=== PATIENT | female | born 1970 | race Caucasian/White ===

== ENCOUNTER → 2016-06-19 | Outpatient (REF) | payer MEDICARE, MEDICAID ==
[~2016-06-19] MED LIST: ASPI1TAB PO; CALCTAB29 PO; CORE25TA PO; CYCL10TA PO; DEXI60CA PO; DRIS50002 PO; HUMI40KI SC; IBUP-1114 PO; LIPI80TA PO; METF500T PO; PREG50CA PO; PROZ20CA11 PO; SKEL-29 PO; ZETI10TA2 PO
[2016-06-19 13:27] LABS: ALBUMIN 3.6 GM/DL (3.2-5.2); ALKALINE PHOSPHATASE 160 U/L (45-117); ALT/SGPT 49 U/L (12-78); ANION GAP 8 MEQ/L (8-16); AST/SGOT 48 U/L (15-37); BILIRUBIN,TOTAL 0.3 MG/DL (0.2-1.0); BLOOD UREA NITROGEN 9 MG/DL (7-18); CARBON DIOXIDE LEVEL 30 MEQ/L (21-32); CHLORIDE LEVEL 102 MEQ/L (98-107); CHOLESTEROL LEVEL 131 MG/DL (<200); FREE T4 1.12 NG/DL (0.76-1.46); GLOMERULAR FILTRATION RATE > 60.0 (>58); GLUCOSE, FASTING 156 MG/DL (70-105); POTASSIUM SERUM 4.1 MEQ/L (3.5-5.1); SODIUM LEVEL 140 MEQ/L (136-145); TOTAL PROTEIN 7.6 GM/DL (6.4-8.2); TRIGLYCERIDES LEVEL 175 MG/DL (<150)
[2016-06-25 10:30] LABS: BENZODIAZEPINES, URINE SCREEN Negative ng/mL (Cutoff=200); METHADONE, URINE SCREEN Negative ng/mL (Cutoff=300); pH, URINE 5.5 (4.5-8.9)
== END ==
LOC: M SFHCPLAZ 10:04
PROVIDERS: ATTEND Family Medicine
DX: K76.0 Fatty (change of) liver, not elsewhere classified (principal); M47.816 Spondylosis without myelopathy or radiculopathy, lumbar region; E11.9 Type 2 diabetes mellitus without complications
CPT/HCPCS: 80053; 80061; 80307; 81001; 82043; 83036; 84439; 84443; 85652; 86140; G0463

== ENCOUNTER → 2016-06-23 | Outpatient (CLI) | payer MEDICARE, MEDICAID ==
--- NOTE | 2016-06-23 10:53 | REP ---
Standing AP view of both knees. History: Primary osteoarthritis. Comparison right knee radiographs are from this date. Findings: Standing AP view of both knees show preserved joint spaces bilaterally. No bony destructive lesion or arthropathy seen. Impression: No evidence of arthropathy seen. Signed by Shravan Simpson MD 06/23/2016 02:32 P
--- NOTE | 2016-06-23 10:54 | REP ---
Right knee series: AP and lateral views. History: Superficial thrombophlebitis. Findings: AP and lateral views of the right knee show preserved joint spaces and normal alignment. No erosive change is seen. No evidence of joint effusion. No soft tissue abnormality. Impression: Negative views right knee. Signed by Shravan Simpson MD 06/23/2016 02:32 P
--- NOTE | 2016-06-23 10:54 | REP ---
RIGHT LOWER EXTREMITY DOPPLER VENOUS ULTRASOUND: 06/23/2016. Clinical history: Right lower extremity pain. Evaluate for DVT. Comparison: None Technique: The deep venous system of the right lower extremity is evaluated with carbone scale imaging, compression ultrasound, color imaging and duplex Doppler interrogation. Examination from the groin through the popliteal fossa into the proximal calf. Findings: There is full compressibility from the common femoral vein in the inguinal region through the popliteal vein. Color imaging confirms patency throughout the course of the deep venous system. There is respiratory variation and augmented flow at all levels. Impression: 1. No Doppler venous ultrasound evidence of DVT in the right lower extremity. Signed by Gildardo Oropeza MD 06/23/2016 10:45 A
== END ==
LOC: M RAD 09:20
PROVIDERS: ATTEND Family Medicine
DX: M17.0 Bilateral primary osteoarthritis of knee (principal); I80.01 Phlebitis and thrombophlebitis of superficial vessels of right lower extremity

== ENCOUNTER → 2016-10-24 | Outpatient (REF) | payer MEDICARE, MEDICAID ==
[~2016-10-24] MED LIST changes: -DEXI60CA PO; +DEXI60CA2 PO; -METF500T PO; +METF500T13 PO; -SKEL-29 PO; +SKEL800T97 PO; -ZETI10TA2 PO; +ZETI10TA30 PO
[2016-10-24 13:02] LABS: BASO # 0.1 K/mm3 (0.0-0.2); BASO % 0.7 % (0.0-1.0); EOS # 0.3 K/mm3 (0.0-0.50); EOS % 4.1 % (0.0-3.0); LARGE UNSTAINED CELL # 0.2 K/mm3 (0.0-0.4); LARGE UNSTAINED CELL % 2.2 % (0.0-4.0); LYMPH # 2.6 K/mm3 (1.5-4.5); LYMPH % 31.8 % (24.0-44.0); MEAN CORPUSCULAR HEMOGLOBIN 29.2 pg (27.0-33.0); MONO # 0.4 K/mm3 (0.0-0.8); MONO % 4.7 % (0.0-5.0); NEUTROPHILS # 4.6 K/mm3 (1.8-7.7); NEUTROPHILS % 56.4 % (36.0-66.0); PLATELET COUNT, AUTOMATED 255 k/mm3 (150-450); RED CELL DISTRIBUTION WIDTH 13.7 % (11.5-14.5); WHITE BLOOD COUNT 8.1 K/mm3 (4.0-10.0)
[2016-10-24 13:34] LABS: ALBUMIN 3.6 GM/DL (3.2-5.2); ALBUMIN/GLOBULIN RATIO 0.86 (1.00-1.93); ALKALINE PHOSPHATASE 164 U/L (45-117); ALT/SGPT 46 U/L (12-78); ANION GAP 7 MEQ/L (8-16); AST/SGOT 49 U/L (15-37); BILIRUBIN,TOTAL 0.5 MG/DL (0.2-1.0); BLOOD UREA NITROGEN 9 MG/DL (7-18); CARBON DIOXIDE LEVEL 29 MEQ/L (21-32); CHLORIDE LEVEL 101 MEQ/L (98-107); FERRITIN 109 NG/ML (8-252); GLOMERULAR FILTRATION RATE > 60.0 (>58); GLUCOSE, FASTING 119 MG/DL (70-105); PERCENT SATURATION 23.1 % (13.2-37.4); POTASSIUM SERUM 4.3 MEQ/L (3.5-5.1); SODIUM LEVEL 137 MEQ/L (136-145); TOTAL IRON BINDING CAPACITY 320 UG/DL (250-450); TOTAL PROTEIN 7.8 GM/DL (6.4-8.2)
[2016-10-24 14:44] LABS: ERYTHROCYTE SEDIMENTATION RATE 39 mm/hr (0-20)
== END ==
LOC: M SFHCPLAZ 11:43
PROVIDERS: ATTEND Family Medicine
DX: K76.0 Fatty (change of) liver, not elsewhere classified (principal); L40.50 Arthropathic psoriasis, unspecified; D50.9 Iron deficiency anemia, unspecified; E55.9 Vitamin D deficiency, unspecified
CPT/HCPCS: 80053; 82306; 82728; 83550; 83970; 85025; 85652; 86140; G0463

== ENCOUNTER → 2016-10-27 | Outpatient (CLI) | payer MEDICARE, MEDICAID ==
[~2016-10-27] MED LIST changes: +DEXI60CA PO; -DEXI60CA2 PO; +METF500T PO; -METF500T13 PO; +SKEL-29 PO; -SKEL800T97 PO; +ZETI10TA2 PO; -ZETI10TA30 PO
--- NOTE | 2016-10-27 15:17 | REPMRS ---
Patient History The patient states she has not had a clinical breast exam in over a year. Family history of colorectal cancer in father, endometrial cancer in sister, and ovarian cancer in mother. Digital Woman Screen Mammo: October 27, 2016 - Exam #: [id number] Bilateral CC and MLO view(s) were taken. Technologist: Katelyn Weber Technologist Prior study comparison: October 19, 2015, bilateral digital mammo diagnostic unilateral, performed at [facility]. October 02, 2015, digital woman screen mammo performed at [facility]. FINDINGS: There are scattered fibroglandular densities. There has been no change in the appearance of the mammogram from the prior studies. There is a mild amount of residual fibroglandular tissue which is fairly symmetric. There is no interval development of dominant mass, architectural distortion, or clustered microcalcification suggestive of malignancy. ASSESSMENT: BI-RADS/ACR category 1 mammogram. Negative. Recommendation Routine screening mammogram in 1 year (for women over age 40). This mammogram was interpreted with the aid of an FDA-approved computer-aided dectection system. Electronically Signed By: Gopi Reed MD 10/27/16 [id number]
--- NOTE | 2016-10-30 09:29 | DEXA ---
AP SPINE L1 - L4 1.315 1.0 1.2 LT FEMUR TOTAL 1.206 1.6 2.0 RT FEMUR TOTAL 1.203 1.5 1.9 TOTAL BODY TOTAL OTHER DUAL FEMUR FRAX* ASSESSMENT Risk factors: Current smoker, rheumatoid arthritis. 10 year probability of fracture Major osteoporotic fracture 3.0 % Hip fracture 0.1 % COMMENTS: Normal bone densitometry of the spine and hips. The decreased density of the spine does represent a significant change. The decreased density of the left hip does represent a significant change. The decreased density of the right hip does represent a significant change. The density of the spine has decreased 3.9% since the initial exam on 2005. The spine density has decreased 5.5% since the most recent exam on 02/27/2011. The density of the left hip has decreased 4.4% since the initial exam on 2005. The density of the left hip has decreased 3.4% since the most recent exam on . The density of the right hip has decreased 5.8% since the initial exam on 2005. The density of the right hip has decreased 7.7% since the most recent exam on . FOLLOW-UP: Recommendation for the next bone density exam: 5 years. VALERIA
== END ==
LOC: M WHC 14:00
PROVIDERS: ATTEND Family Medicine
DX: Z12.31 Encounter for screening mammogram for malignant neoplasm of breast (principal); E55.9 Vitamin D deficiency, unspecified; L40.50 Arthropathic psoriasis, unspecified; M85.9 Disorder of bone density and structure, unspecified
CPT/HCPCS: 77080; G0202

== ENCOUNTER → 2016-10-30 | Outpatient (CLI) | payer MEDICARE, MEDICAID ==
--- NOTE | 2016-10-30 08:54 | REP ---
RIGHT UPPER QUADRANT ULTRASOUND: Real-time sonographic evaluation of the right upper quadrant performed. The patient has had a prior cholecystectomy. The common bile duct is prominent in size at 11 mm. The liver demonstrates diffuse heterogeneous increased echotexture compatible with diffuse fibrofatty infiltration. No gross mass is seen. The pancreas cannot be seen due to overlying bowel gas. The right kidney demonstrates no hydronephrosis or nephrolithiasis with normal size of 12.5 cm in length. There is no ascites. IMPRESSION: Status post cholecystectomy. Prominent common bile duct as expected at 11 mm in diameter. Diffuse fibrofatty infiltration of the liver. Signed by Gopi Reed MD 10/30/2016 10:00 A
== END ==
LOC: M RAD 07:52
PROVIDERS: ATTEND Family Medicine
DX: K76.0 Fatty (change of) liver, not elsewhere classified (principal)

== ENCOUNTER → 2017-03-05 | Outpatient (REF) | payer MEDICARE, MEDICAID ==
[~2017-03-05] MED LIST changes: -DEXI60CA PO; +DEXI60CA2 PO; -METF500T PO; +METF500T13 PO; -SKEL-29 PO; +SKEL800T97 PO; -ZETI10TA2 PO; +ZETI10TA30 PO
[2017-03-05 16:30] LABS: BASO % 0.5 % (0.0-1.0); EOS # 0.3 10^3/uL (0.0-0.50); EOS % 3.9 % (0.0-3.0); IMMATURE GRANULOCYTE % 0.7 % (0-0); LYMPH # 3.1 10^3/uL (1.5-4.5); LYMPH % 36.5 % (24.0-44.0); MEAN CORPUSCULAR HEMOGLOBIN 28.7 pg (27.0-33.0); MEAN CORPUSCULAR VOLUME 86.9 fl (80.0-96.0); MONO # 0.3 10^3/uL (0.0-0.8); MONO % 3.2 % (0.0-5.0); NEUTROPHILS # 4.6 10^3/uL (1.8-7.7); NEUTROPHILS % 55.2 % (36.0-66.0); PLATELET COUNT, AUTOMATED 232 10^3/uL (150-450); RED CELL DISTRIBUTION WIDTH 13.4 % (11.5-14.5); WHITE BLOOD COUNT 8.4 10^3/uL (4.0-10.0)
[2017-03-05 16:38] LABS: PLT CLUMPS? POS FLAG; POS COUNT POS FLAG
[2017-03-05 17:58] LABS: ALBUMIN 3.8 GM/DL (3.2-5.2); ALBUMIN/GLOBULIN RATIO 0.81 (1.00-1.93); ALKALINE PHOSPHATASE 180 U/L (45-117); ALT/SGPT 67 U/L (12-78); ANION GAP 9 MEQ/L (8-16); AST/SGOT 67 U/L (15-37); BILIRUBIN,TOTAL 0.4 MG/DL (0.2-1.0); BLOOD UREA NITROGEN 6 MG/DL (7-18); CALCIUM LEVEL 9.6 MG/DL (8.5-10.1); CARBON DIOXIDE LEVEL 28 MEQ/L (21-32); CHLORIDE LEVEL 100 MEQ/L (98-107); CHOLESTEROL LEVEL 258 MG/DL (<200); CREATININE FOR GFR 0.89 MG/DL (0.55-1.02); GLOMERULAR FILTRATION RATE > 60.0 (>58); GLUCOSE, FASTING 90 MG/DL (70-105); POTASSIUM SERUM 4.2 MEQ/L (3.5-5.1); SODIUM LEVEL 137 MEQ/L (136-145); TOTAL PROTEIN 8.5 GM/DL (6.4-8.2); TRIGLYCERIDES LEVEL 309 MG/DL (<150)
[2017-03-16 14:14] LABS: BENZODIAZEPINES, URINE SCREEN Negative ng/mL (Cutoff=200); METHADONE, URINE SCREEN Negative ng/mL (Cutoff=300); pH, URINE 5.9 (4.5-8.9)
== END ==
LOC: M SFHCPLAZ 12:26
PROVIDERS: ATTEND Family Medicine
DX: E11.9 Type 2 diabetes mellitus without complications (principal); K76.0 Fatty (change of) liver, not elsewhere classified; D50.9 Iron deficiency anemia, unspecified; E78.5 Hyperlipidemia, unspecified; Z79.4 Long term (current) use of insulin; Z79.899 Other long term (current) drug therapy

== ENCOUNTER 2017-05-05 12:09 | Outpatient (RCR) | payer OTHER, MEDICAID, MEDICARE | END 2017-05-17 | LOC: M PT 12:09 | DX: Z51.89 Encounter for other specified aftercare (principal); M47.816 Spondylosis without myelopathy or radiculopathy, lumbar region | CPT/HCPCS: 97162 ==

== ENCOUNTER → 2017-06-01 | Outpatient (REF) | payer MEDICARE, MEDICAID ==
[2017-06-01 15:45] LABS: BASO % 0.3 % (0.0-1.0); EOS # 0.2 10^3/uL (0.0-0.50); EOS % 2.7 % (0.0-3.0); HEMATOCRIT 37.8 % (36.0-47.0); HEMOGLOBIN 12.4 g/dl (12.0-16.0); IMMATURE GRANULOCYTE % 0.6 % (0-0); LYMPH # 1.6 10^3/uL (1.5-4.5); LYMPH % 23.6 % (24.0-44.0); MEAN CORPUSCULAR HEMOGLOBIN 27.9 pg (27.0-33.0); MEAN CORPUSCULAR HGB CONC 32.8 g/dl (32.0-36.5); MEAN CORPUSCULAR VOLUME 84.9 fl (80.0-96.0); MONO # 0.2 10^3/uL (0.0-0.8); MONO % 3.4 % (0.0-5.0); NEUTROPHILS # 4.7 10^3/uL (1.8-7.7); NEUTROPHILS % 69.4 % (36.0-66.0); PLATELET COUNT, AUTOMATED 229 10^3/uL (150-450); RED BLOOD COUNT 4.45 10^6/uL (4.00-5.40); RED CELL DISTRIBUTION WIDTH 13.3 % (11.5-14.5); WHITE BLOOD COUNT 6.8 10^3/uL (4.0-10.0)
[2017-06-01 16:04] LABS: ERYTHROCYTE SEDIMENTATION RATE 69 mm/hr (0-20)
[2017-06-01 16:15] LABS: ALBUMIN 3.2 GM/DL (3.2-5.2); ALBUMIN/GLOBULIN RATIO 0.76 (1.00-1.93); ALKALINE PHOSPHATASE 164 U/L (45-117); ALT/SGPT 33 U/L (12-78); ANION GAP 5 MEQ/L (8-16); AST/SGOT 34 U/L (7-37); BILIRUBIN,TOTAL 0.3 MG/DL (0.2-1.0); BLOOD UREA NITROGEN 9 MG/DL (7-18); C REACTIVE PROTEIN QUANTITATIV 1.91 MG/DL (0.00-0.30); CALCIUM LEVEL 8.6 MG/DL (8.5-10.1); CARBON DIOXIDE LEVEL 31 MEQ/L (21-32); CHLORIDE LEVEL 100 MEQ/L (98-107); CREATININE FOR GFR 0.74 MG/DL (0.55-1.02); GLOMERULAR FILTRATION RATE > 60.0 (>58); GLUCOSE, FASTING 290 MG/DL (70-105); POTASSIUM SERUM 4.2 MEQ/L (3.5-5.1); SODIUM LEVEL 136 MEQ/L (136-145); TOTAL PROTEIN 7.4 GM/DL (6.4-8.2)
== END ==
LOC: M SFHCPLAZ 14:43
DX: L40.50 Arthropathic psoriasis, unspecified (principal)
CPT/HCPCS: 80053

== ENCOUNTER → 2017-07-03 | Outpatient (REF) | payer MEDICARE, MEDICAID | LOC: M LAB REF 17:15 | DX: J11.1 Influenza due to unidentified influenza virus with other respiratory manifestations (principal) | CPT/HCPCS: 87633 ==

== ENCOUNTER → 2017-09-04 | Outpatient (REF) | payer MEDICARE, MEDICAID ==
[2017-09-04 11:47] LABS: BASO % 0.6 % (0.0-1.0); EOS # 0.2 10^3/uL (0.0-0.50); EOS % 3.3 % (0.0-3.0); HEMATOCRIT 40.2 % (36.0-47.0); HEMOGLOBIN 13.1 g/dl (12.0-15.5); IMMATURE GRANULOCYTE % 0.2 % (0-3.0); LYMPH % 31.2 % (24.0-44.0); MEAN CORPUSCULAR HEMOGLOBIN 27.6 pg (27.0-33.0); MEAN CORPUSCULAR HGB CONC 32.6 g/dl (32.0-36.5); MEAN CORPUSCULAR VOLUME 84.8 fl (80.0-96.0); MONO # 0.3 10^3/uL (0.0-0.8); NEUTROPHILS # 3.8 10^3/uL (1.8-7.7); NEUTROPHILS % 60.7 % (36.0-66.0); PLATELET COUNT, AUTOMATED 215 10^3/uL (150-450); RED BLOOD COUNT 4.74 10^6/uL (4.00-5.40); RED CELL DISTRIBUTION WIDTH 13.4 % (11.5-14.5); WHITE BLOOD COUNT 6.3 10^3/uL (4.0-10.0)
[2017-09-04 12:06] LABS: ALBUMIN 3.4 GM/DL (3.2-5.2); ALBUMIN/GLOBULIN RATIO 0.77 (1.00-1.93); ALKALINE PHOSPHATASE 149 U/L (45-117); ALT/SGPT 35 U/L (12-78); ANION GAP 7 MEQ/L (8-16); AST/SGOT 37 U/L (7-37); BILIRUBIN,TOTAL 0.5 MG/DL (0.2-1.0); BLOOD UREA NITROGEN 9 MG/DL (7-18); CALCIUM LEVEL 8.9 MG/DL (8.5-10.1); CARBON DIOXIDE LEVEL 30 MEQ/L (21-32); CHLORIDE LEVEL 101 MEQ/L (98-107); CREATININE FOR GFR 0.85 MG/DL (0.55-1.30); GLOMERULAR FILTRATION RATE > 60.0 (>58); GLUCOSE, FASTING 161 MG/DL (70-100); POTASSIUM SERUM 4.5 MEQ/L (3.5-5.1); SODIUM LEVEL 138 MEQ/L (136-145); TOTAL PROTEIN 7.8 GM/DL (6.4-8.2)
== END ==
LOC: M SFHCPLAZ 09:56
DX: R10.12 Left upper quadrant pain (principal)
CPT/HCPCS: 80053

== ENCOUNTER → 2017-09-17 | Outpatient (CLI) | payer MEDICARE, MEDICAID ==
[~2017-09-17] MED LIST changes: -ASPI1TAB PO; -CALCTAB29 PO; -CORE25TA PO; -CYCL10TA PO; -DEXI60CA2 PO; -DRIS50002 PO; -HUMI40KI SC; -IBUP-1114 PO; +ISOVUE-370 76% 100ML VIAL (Q9967) As Ordered; -LIPI80TA PO; -METF500T13 PO; -PREG50CA PO; -PROZ20CA11 PO; -SKEL800T97 PO; -ZETI10TA30 PO
== END ==
LOC: M RAD 13:40
DX: K76.0 Fatty (change of) liver, not elsewhere classified (principal); R10.12 Left upper quadrant pain
CPT/HCPCS: Q9967

== ENCOUNTER 2017-10-07 12:06 | Day surgery (SDC) | payer MEDICARE, MEDICAID ==
[2017-10-07] MEDS: NS 1,000 ML IV (13:32)
[2017-10-07] MEDS ORDERED: PROPOFOL 200 MG/20 ML VIAL As Ordered (13:41)
[2017-10-07] MEDS ORDERED: LIDOCAINE 2% INJ 100 MG/5 ML SDV (FOR ANES.) As Ordered (13:46)
== END 2017-10-07 14:58 | disposition home or self-care (01) ==
LOC: M OPP 12:06
DX: K64.0 First degree hemorrhoids (principal); D12.6 Benign neoplasm of colon, unspecified; K57.30 Diverticulosis of large intestine without perforation or abscess without bleeding; Z80.0 Family history of malignant neoplasm of digestive organs; E11.9 Type 2 diabetes mellitus without complications; K21.9 Gastro-esophageal reflux disease without esophagitis; M19.90 Unspecified osteoarthritis, unspecified site; L40.9 Psoriasis, unspecified; M06.9 Rheumatoid arthritis, unspecified; F41.9 Anxiety disorder, unspecified; F32.9 Major depressive disorder, single episode, unspecified; F17.210 Nicotine dependence, cigarettes, uncomplicated; Z79.82 Long term (current) use of aspirin; Z79.84 Long term (current) use of oral hypoglycemic drugs; Z79.891 Long term (current) use of opiate analgesic; Z79.899 Other long term (current) drug therapy; Z88.8 Allergy status to other drugs, medicaments and biological substances; Z87.19 Personal history of other diseases of the digestive system; Z86.718 Personal history of other venous thrombosis and embolism; Z90.49 Acquired absence of other specified parts of digestive tract
CPT/HCPCS: 45385

== ENCOUNTER → 2017-12-07 | Outpatient (REF) | payer MEDICARE, MEDICAID ==
[2017-12-07 11:30] LABS: BASO # 0.1 10^3/uL (0.0-0.2); BASO % 0.7 % (0.0-1.0); EOS # 0.3 10^3/uL (0.0-0.50); EOS % 4.2 % (0.0-3.0); HEMATOCRIT 41.5 % (36.0-47.0); HEMOGLOBIN 13.9 g/dl (12.0-15.5); IMMATURE GRANULOCYTE % 0.3 % (0-3.0); LYMPH # 2.2 10^3/uL (1.5-4.5); LYMPH % 30.4 % (24.0-44.0); MEAN CORPUSCULAR HGB CONC 33.5 g/dl (32.0-36.5); MEAN CORPUSCULAR VOLUME 83.5 fl (80.0-96.0); MONO # 0.3 10^3/uL (0.0-0.8); MONO % 3.9 % (0.0-5.0); NEUTROPHILS # 4.5 10^3/uL (1.8-7.7); NEUTROPHILS % 60.5 % (36.0-66.0); PLATELET COUNT, AUTOMATED 225 10^3/uL (150-450); RED BLOOD COUNT 4.97 10^6/uL (4.00-5.40); RED CELL DISTRIBUTION WIDTH 14.2 % (11.5-14.5); RETIC HEMOGLOBIN EQUIVALENT 32.3 pg (24-36); RETICULOCYTE # 73.6 10^9/L (17-77); RETICULOCYTE % 1.5 % (0.5-1.5); WHITE BLOOD COUNT 7.4 10^3/uL (4.0-10.0)
[2017-12-07 11:54] LABS: ALBUMIN 3.3 GM/DL (3.2-5.2); ALBUMIN/GLOBULIN RATIO 0.77 (1.00-1.93); ALKALINE PHOSPHATASE 175 U/L (45-117); ALT/SGPT 35 U/L (12-78); ANION GAP 9 MEQ/L (8-16); AST/SGOT 40 U/L (7-37); BILIRUBIN,TOTAL 0.4 MG/DL (0.2-1.0); BLOOD UREA NITROGEN 10 MG/DL (7-18); C REACTIVE PROTEIN QUANTITATIV 1.07 MG/DL (0.00-0.30); CALCIUM LEVEL 8.9 MG/DL (8.5-10.1); CARBON DIOXIDE LEVEL 28 MEQ/L (21-32); CHLORIDE LEVEL 102 MEQ/L (98-107); CREATININE FOR GFR 0.75 MG/DL (0.55-1.30); FREE T4 1.06 NG/DL (0.76-1.46); GLOMERULAR FILTRATION RATE > 60.0 (>58); GLUCOSE, FASTING 169 MG/DL (70-100); MAGNESIUM LEVEL 1.9 MG/DL (1.8-2.4); POTASSIUM SERUM 4.5 MEQ/L (3.5-5.1); SODIUM LEVEL 139 MEQ/L (136-145); TOTAL PROTEIN 7.6 GM/DL (6.4-8.2)
[2017-12-07 11:58] LABS: ERYTHROCYTE SEDIMENTATION RATE 100 mm/hr (0-20)
[2017-12-07 14:13] LABS: VITAMIN B12 LEVEL 327 PG/ML (247-911)
[2017-12-07 14:32] LABS: ESTIMATED AVERAGE GLUCOSE 189 MG/DL (60-110); HEMOGLOBIN A1c 8.2 %
== END ==
LOC: M SFHCPLAZ 08:36
DX: E11.9 Type 2 diabetes mellitus without complications (principal); D50.9 Iron deficiency anemia, unspecified; I10 Essential (primary) hypertension; L40.50 Arthropathic psoriasis, unspecified; R19.7 Diarrhea, unspecified
CPT/HCPCS: 83735

== ENCOUNTER → 2017-12-08 | Outpatient (CLI) | payer MEDICARE, MEDICAID | LOC: M WHC 15:28 | DX: Z12.31 Encounter for screening mammogram for malignant neoplasm of breast (principal) | CPT/HCPCS: 77067 ==

== ENCOUNTER → 2018-02-02 | Outpatient (REF) | payer MEDICARE, MEDICAID | LOC: M SFHCPLAZ 11:05 | DX: E53.8 Deficiency of other specified B group vitamins (principal); L40.50 Arthropathic psoriasis, unspecified; E11.9 Type 2 diabetes mellitus without complications; E55.9 Vitamin D deficiency, unspecified; Z53.8 Procedure and treatment not carried out for other reasons ==

== ENCOUNTER → 2018-02-02 | Outpatient (CLI) | payer MEDICARE, MEDICAID ==
[2018-02-02 13:27] LABS: ESTIMATED AVERAGE GLUCOSE 160 MG/DL (60-110); HEMOGLOBIN A1c 7.2 %
[2018-02-02 13:31] LABS: BASO # 0.1 10^3/uL (0.0-0.2); BASO % 0.7 % (0.0-1.0); EOS # 0.2 10^3/uL (0.0-0.50); EOS % 3.2 % (0.0-3.0); HEMATOCRIT 45.4 % (36.0-47.0); HEMOGLOBIN 14.6 g/dl (12.0-15.5); IMMATURE GRANULOCYTE % 0.4 % (0-3.0); LYMPH # 2.2 10^3/uL (1.5-4.5); LYMPH % 30.9 % (24.0-44.0); MEAN CORPUSCULAR HEMOGLOBIN 27.8 pg (27.0-33.0); MEAN CORPUSCULAR HGB CONC 32.2 g/dl (32.0-36.5); MEAN CORPUSCULAR VOLUME 86.3 fl (80.0-96.0); MONO # 0.3 10^3/uL (0.0-0.8); MONO % 4.2 % (0.0-5.0); NEUTROPHILS # 4.3 10^3/uL (1.8-7.7); NEUTROPHILS % 60.6 % (36.0-66.0); RED BLOOD COUNT 5.26 10^6/uL (4.00-5.40); RED CELL DISTRIBUTION WIDTH 13.6 % (11.5-14.5); WHITE BLOOD COUNT 7.1 10^3/uL (4.0-10.0)
[2018-02-02 13:32] LABS: HEMATOCRIT 45.3 % (36.0-47.0)
[2018-02-02 13:34] LABS: APPEARANCE, URINE CLOUDY (CLEAR); BACTERIA, URINE AUTO 3+ (NEGATIVE); BILIRUBIN, URINE AUTO NEGATIVE (NEGATIVE); BLOOD, URINE BLOOD NEGATIVE (NEGATIVE); COLOR, URINE AMBER (YELLOW); GLUCOSE, URINE (UA) AUTO NEGATIVE (NEGATIVE); KETONE, URINE AUTO TRACE mg/dL (NEGATIVE); LEUKOCYTE ESTERASE, URINE AUTO NEGATIVE (NEGATIVE); MUCUS, URINE SMALL (NEGATIVE); NITRITE, URINE AUTO NEGATIVE (NEGATIVE); PROTEIN, URINE AUTO 1+ mg/dL (NEGATIVE); RBC, URINE AUTO 3 /HPF (0-3); SPECIFIC GRAVITY URINE AUTO 1.028 (1.002-1.035); SQUAMOUS EPITHELIAL CELL UR AU 9 /HPF (0-6); WBC, URINE AUTO 3 /HPF (0-3)
[2018-02-02 13:50] LABS: PLATELET COUNT, AUTOMATED 213 10^3/uL (150-450); POS COUNT POS FLAG
[2018-02-02 13:51] LABS: ERYTHROCYTE SEDIMENTATION RATE 28 mm/hr (0-20)
[2018-02-02 14:10] LABS: C REACTIVE PROTEIN QUANTITATIV 1.43 MG/DL (0.00-0.30); TOTAL 25(OH) VITAMIN D 91.6 NG/ML (30.0-100.0)
[2018-02-02 14:10] LABS: PTH INTACT 42.8 PG/ML (18.5-88.0)
[2018-02-02 14:36] LABS: MALB URINE SIEMENS 72.7 MG/L; MAU/CREAT RATIO 28.6 MCG/MG (0.0-30.0)
[2018-02-04 15:01] LABS: QUANTIFERON GOLD TB Negative (Negative); TB Test (QFT) Antigen 0.05 IU/mL (.); TB Test (QFT) Mitogen 7.83 IU/mL (.); TB Test (QFT) Nil 0.05 IU/mL (.)
[2018-02-05 10:53] LABS: PRETREATED FOLATE FOR RBCFOL 14.5 NG/ML; RBC FOLATE 672.2 NG/ML (280-791)
== END ==
LOC: M LAB 11:33
DX: L40.50 Arthropathic psoriasis, unspecified (principal); E11.9 Type 2 diabetes mellitus without complications; E53.8 Deficiency of other specified B group vitamins; E55.9 Vitamin D deficiency, unspecified
CPT/HCPCS: 82607

== ENCOUNTER → 2018-06-18 | Outpatient (REF) | payer MEDICARE, MEDICAID ==
[~2018-06-18] MED LIST changes: +ASPI1TAB PO; +CALCTAB29 PO; +CORE25TA PO; +CYCL10TA PO; +DEXI60CA2 PO; +DRIS50003 PO; +ENBR25IN3 SC; +HUMI40KI SC; +IBUP-1114 PO; -ISOVUE-370 76% 100ML VIAL (Q9967) As Ordered; +LIPI80TA PO; +METF500T13 PO; +PREG50CA PO; +PROZ20CA11 PO; +SKEL800T97 PO; +TRAM50TA2; +TRUL10IN; +ZETI10TA30 PO
[2018-06-18 18:31] LABS: C REACTIVE PROTEIN QUANTITATIV 1.18 MG/DL (0.00-0.30); FREE T4 1.08 NG/DL (0.76-1.46); THYROID STIMULATING HORMONE 3.42 uIU/ML (0.358-3.740)
[2018-06-18 18:43] LABS: BASO % 0.5 % (0.0-1.0); EOS # 0.3 10^3/uL (0.0-0.50); EOS % 3.7 % (0.0-3.0); HEMOGLOBIN 14.1 g/dl (12.0-15.5); LYMPH # 2.3 10^3/uL (1.5-4.5); LYMPH % 28.4 % (24.0-44.0); MEAN CORPUSCULAR HGB CONC 32.8 g/dl (32.0-36.5); MEAN CORPUSCULAR VOLUME 85.5 fl (80.0-96.0); MONO # 0.3 10^3/uL (0.0-0.8); MONO % 3.2 % (0.0-5.0); NEUTROPHILS # 5.1 10^3/uL (1.8-7.7); NEUTROPHILS % 63.8 % (36.0-66.0); PLATELET COUNT, AUTOMATED 264 10^3/uL (150-450); RED BLOOD COUNT 5.03 10^6/uL (4.00-5.40); WHITE BLOOD COUNT 7.9 10^3/uL (4.0-10.0)
[2018-06-18 18:52] LABS: HEMOGLOBIN A1c 7.4 %
[2018-06-18 21:16] LABS: ERYTHROCYTE SEDIMENTATION RATE 16 mm/hr (0-20)
== END ==
LOC: M SFHCPLAZ 15:06
PROVIDERS: ATTEND Family Medicine
DX: E11.9 Type 2 diabetes mellitus without complications (principal); L40.50 Arthropathic psoriasis, unspecified

== ENCOUNTER → 2018-09-24 | Outpatient (CLI) | payer MEDICARE, MEDICAID ==
[~2018-09-24] MED LIST changes: -ASPI1TAB PO; +ASPI81TA26 PO
--- NOTE | 2018-10-09 23:52 | ECWPNPC ---
PATIENT NAME: MEG DE LA TORRE : 1970 GENDER: FEMALE VISIT DATE: 09/24/2018 DISCHARGE DATE: 09/24/18 1637 VISIT LOCKED DATE TIME: PHYSICIAN: LYN MACKENZIE MD PHYSICIAN PAGER NO: [phone] RESOURCE: LYN MACKENZIE MD REASON FOR APPOINTMENT 1. INTERVERTEBRAL DISC DEGEN. HISTORY OF PRESENT ILLNESS PAIN SCREENING: PATIENT HAS A COMPLAINT OF ACUTE OR CHRONIC PAIN :YES 48 YEAR OLD FEMALE PATIENT WITH A HISTORY OF CHRONIC LOW BACK PAIN. THE PATIENT DESCRIBES THE PAIN ACHING, SORE, SHOOTING, AND CONTINUOUS WITH A PAIN SCORE OF 8-10/10 DEPENDING ON PHYSICAL ACTIVITY. THE PATIENT SAYS THAT HER PAIN IS MAINLY LOCATED IN THE RIGHT SIDE OF HER LOW BACK AND RADIATES TOWARDS HER HIP. THE PATIENT SAYS THAT SHE ALSO HAS SOME NUMBNESS IN HER LEFT LEG. THE PATIENT SAYS THAT SHE HAS HAD THIS PAIN FOR MANY YEARS. THE PATIENT STATES THAT SHE HAS DIFFICULTIES STANDING FOR A LONG PERIOD OF TIME DUE TO THE PAIN AND SHE SOMETIMES SWEATS BECAUSE SHE IS IN SO MUCH PAIN. PATIENT DENIES UNEXPLAINABLE WEIGHT LOSS, FEVER, CHILLS, NEW CHANGES ON HER URINARY OR BOWEL CONTROL. FALL RISK SCREENING: SCREENING :NO FALLS REPORTED IN THE LAST YEAR CURRENT MEDICATIONS TAKING ALCOHOL PADS 70 % PAD DIRECTED TAKING REFRESH 1.4-0.6 % SOLUTION 2 DROPS OPHTHALMIC NEEDED TAKING ADVOCATE LANCETS - MISCELLANEOUS DIRECTED SUBCUTANEOUSLY THREE TIMES DAILY TAKING BACLOFEN 10 MG TABLET 1 TABLET WITH FOOD OR MILK THREE TIMES A DAY- ORALLY 30 DAY(S) TAKING BLOOD GLUCOSE TEST - STRIP DIRECTED ONE TOUCH VERIO FLEX TID DX: E11.9 TAKING ATORVASTATIN CALCIUM 80 MG TABLET 1 TABLET ONCE A DAY ORALLY 30 DAY(S) TAKING DEXILANT 60 MG CAPSULE DELAYED RELEASE TAKE ONE CAPSULE BY MOUTH ONCE DAILY ORALLY ONCE A DAY TAKING VITAMIN B-12 500 MCG TABLET TAKE ONE TABLET BY MOUTH ONCE DAILY TAKING BD INSULIN SYRINGE 31G X 09/30 MISCELLANEOUS DIRECTED SUBCUTANEOUSLY WEEKLYDX: L40.50 TAKING METFORMIN HCL ER 750 MG TABLET EXTENDED RELEASE 24 HOUR 1 TABLET ORALLY BID TAKING GLUCOMETER . .. DIRECTED DX 250 USE BID TAKING LANCETS . .. DIRECTED DX: 250 USE BID TAKING FLUOXETINE HCL 20 MG TABLET 1 TABLET IN THE MORNING ORALLY ONCE A DAY TAKING EZETIMIBE 10 MG TABLET 1 TABLET ORALLY ONCE A DAY TAKING CARVEDILOL 6.25 MG TABLET 1 TAB ORALLY BID TAKING ULTRAM 50 MG TABLET 1 TABLET ORALLY EVERY 8 HRS FOR PAIN MDD 3 TAKING ASPIRIN 81 MG TABLET CHEWABLE 1 TABLET ONCE A DAY ORALLY 30 DAY(S) TAKING BLOOD GLUCOSE TEST . STRIPS USE BID DX:E11.9 CHECK BS BID TAKING TRULICITY 0.75 MG/0.5ML SOLUTION PEN-INJECTOR 0.5 ML WEEKLY SUBCUTANEOUS 30 DAY(S) TAKING STELARA 45 MG/0.5ML SOLUTION DIRECTED SUBCUTANEOUS ON WEEK 0, THEN 4, THEN EVER 12 WEEKS TAKING CALCIUM 600+D PLUS MINERALS 600-400 MG-UNIT TABLET CHEWABLE 1 TAB ORALLY BID, NOTES: 1000 PM TAKING LIPITOR 80 MG TABLET 1 TABLET ONCE A DAY ORALLY 30 TAKING FERROUS SULFATE 325 (65 FE) MG TABLET 1 TABLET ONCE A DAY ORALLY 30 TAKING VITAMIN D (ERGOCALCIFEROL) 42990 UNIT CAPSULE 1 CAPSULE WEEKLY ORALLY 30 DAY(S) ORALLY ONCE A WEEK TAKING LYRICA 50 MG CAPSULE 1 CAPSULE ORALLY THREE TIMES A DAY MDD: 3 TAKING CYCLOBENZAPRINE HCL 10 MG TABLET 1 TABLET NEEDED ORALLY THREE TIMES A DAY PRN SPASM TAKING USTEKINUMAB 90 MG/ML SOLUTION PREFILLED SYRINGE DIRECTED SUBCUTANEOUS EVERY 12 WEEKS-NEXT 06/15/2018 NOT-TAKING CARPAL TUNNEL WRIST STABILIZER .. MISCELLANEOUS DIRECTED .. RE R 354 QD NOT-TAKING TENS UNIT - DIRECTED _ C PADS AND INSTRUCTION DAILY NOT-TAKING BACLOFEN 10 MG TABLET 2 TABLET WITH FOOD OR MILK ORALLY THREE TIMES A DAY- NOT-TAKING CYCLOBENZAPRINE HCL 10 MG TABLET 1 TABLET QHS PRN SPASM BY MOUTH 90 DAY(S) NOT-TAKING TERBINAFINE HCL 1 % CREAM 1 APPLICATION TO AFFECTED AREA EXTERNALLY TWICE A DAY NOT-TAKING TRULICITY 1.5 MG/0.5ML SOLUTION PEN-INJECTOR 0.5 ML SUBCUTANEOUS WEEKLY NOT-TAKING CYANOCOBALAMIN 500 MCG TABLET 1 TABLET ORALLY ONCE A DAY NOT-TAKING ERGOCALCIFEROL 03983 UNIT CAPSULE 1 CAPSULE ORALLY WEEKLY NOT-TAKING DEXILANT 60 MG CAPSULE 1 CAP(S) ORALLY ONCE A DAY NOT-TAKING ATORVASTATIN CALCIUM 80 MG TABLET 1 TABLET ORALLY ONCE A DAY NOT-TAKING ZETIA 10 MG TABLET 1 TABLET ONCE A DAY ORALLY 30 ORALLY ONCE A DAY NOT-TAKING METFORMIN HCL ER 750 MG TABLET EXTENDED RELEASE 24 HOUR 1 TABLET BID ORALLY 30 MEDICATION LIST REVIEWED AND RECONCILED WITH THE PATIENT PAST MEDICAL HISTORY PSORIASIS, GENERALIZED PLAQUE/PSORIATIC ARTHRITIS HYPERLIPIDEMIA 2B DEPRESSION GERD T2DM, NID MULTIPLE DENTAL CARIES ALLERGIC RHINITIS NICOTINE ADDICTION OBESITY, MORBID VITAMIN D DEFICIENCY NAFLD BY CT FEBRUARY 2011 WITH BORDERLINE HEPATOMEGALY, SEEN BY 10/2016 US CERVICAL DJD-11/2011 NORMAL CERVICAL MRI LUMBAR DJD-03/2015 MRI L4/5 DIFFUSE BULGE S COMPRESSION, MINIMAL CCS/ XRAY C MILD MULT-LEVEL DJD, NORMAL B SIJ HYPERTENSION-09/2015-LOW RISK DPST, NORMAL TTE-LOW PALPITATIONS-NORMAL 25D EVENT MONITOR-05/2014-LOW SMALL ADENOMATOUS P-09/2017 COLON-W ALLERGIES SULFA (FOR ALLERGY USE ONLY): HIVES - ALLERGY CYMBALTA: PALPITATIONS, HYPERTENSION - CONTRAINDICATION SURGICAL HISTORY ENDOMETRIAL ABLATION 2007 CHOLECYSTECTOMY 2005 D&C X 3 COMPLETE DENTAL EXTRACTION NOVEMBER 2012, 08/2014 COLONOSCOPY-MODERATE LOSIS, HEMORRHOIDS-DONE 2 RECTAL BLEEDING-MARINA 07/2007 C SECTION 06/2006 FAMILY HISTORY FATHER: , COLON CANCER DX AT 45 MOTHER: SIBLINGS: DAUGHTER(S): ALIVE 2DAUGHTER(S) . DENIES ANY HX SKIN OR PANCREATIC CANCER. SOCIAL HISTORY GENERAL: TOBACCO USE ARE YOU A:CURRENT SMOKER ARE YOU INTERESTED IN QUITTING?NOT READY TO QUIT COUNSELED THE PATIENT ON SMOKING EFFECTS, EDUCATION IGYTFPSN47/30/2018 HOW MANY CIGARETTES A DAY DO YOU SMOKE?11-20 HOW SOON AFTER YOU WAKE UP DO YOU SMOKE YOUR FIRST CIGARETTE?6-30 MIN HOW OFTEN DO YOU SMOKE CIGARETTES?EVERY DAY PATIENT COUNSELED ON THE DANGERS OF TOBACCO USE AND URGED TO QUIT:09/24/2018 SMOKING CESSATION INFORMATION GIVEN03/16/2018 HIV / HEP-C SCREENING HIV TEST OFFERED TO PATIENT:YES DATE OFFERED:10/24/2016 TEST ACCEPTED:NO REASON:PATIENT DECLINED HEP-C TEST OFFERED TO PATIENT:YES DATE OFFERED:10/24/2016 TEST ACCEPTED:NO REASON:PATIENT DECLINED OTHERS AT HOME: SPOUSE, CHILD. EDUCATION LEVEL OF EDUCATION: 9 TH GRADE EDUCATION DIET: CARBOHYDRATE CONTROLLED. LANGUAGE LANGUAGES SPOKEN:OCCITAN DOMESTIC VIOLENCE DO YOU FEEL SAFE IN YOUR ENVIRONMENT?YES NEW PATIENT PAIN DIARY FROM 0-10, WHAT LEVEL IS YOUR PAIN TODAY?8 PRECIPITATING FACTORS OVER ACTIVE, BENDING ALLEVIATING FACTORS HOT BATH, SLEEPS WITH HEATING PAD IMPACT ON FUNCTION LIMITED WITH ACTIVITY, DIFFICULTY WITH DAILY ACTIVITIES IS THERE A CHANCE YOU COULD BE ?NO HAVE YOU BEEN SICK IN THE LAST WEEK (COLD, COUGH, FEVER, FLU, ETC)NO DO YOU TAKE ANY BLOOD THINNERS?NO DO YOU HAVE ANY RASHES OR OPEN SORES?YES PSORIASIS ANY CHANGE IN BOWEL OR BLADDER CONTROL?NO ARE YOU ALLERGIC TO SHELLFISH OR IV DYE?NO ARE YOU DIABETIC?YES MANAGING WITH MEDICATIONS DO YOU HAVE A PACEMAKER OR DEFIBRILLATOR?NO ANY NEW PROBLEMS WITH MEDICINES OR NEW ALLERGIESNO ANY NEW PATTERNS OF PAIN OR NUMBNESS?YES PT STATES THAT SHE HAS RECENTLY HAD ISSUES WITH PAIN IN BACK RADIATING DOWN RIGHT LEG TO KNEE ANY CHANGE IN YOUR MEDICAL CONDITION?NO HAVE YOU FALLEN IN THE LAST 6 MONTHS?NO DO YOU USE ANY TYPE OF TOBACCO (SMOKE, SMOKELESS, CHEW, ETC.)YES ARE YOU ABUSED, NEGLECTED, OR IN AN UNSAFE ENVIRONMENT?NO DO YOU HAVE THOUGHTS OF HURTING YOURSELF OR SOMEONE ELSE?NO BMI CARE GOAL FOLLOW-UP ABOVE NORMAL BMI FOLLOW-UPGIVING ENCOURAGEMENT TO EXERCISE RECREATIONAL DRUG USE DRUG USE?NO EXERCISE: NO REGULAR EXERCISE. LEARNING BARRIERS / SPECIAL NEEDS CHANGE FROM LAST VISIT?NO BARRIERS TO LEARNING?NO HEARING IMPAIRED?NO VISION IMPAIRED?NO COGNITIVELY IMPAIRED?NO READINESS TO LEARN?YES LEARNING PREFERENCES?NO LEARNING CAPABILITIES PRESENT?YES EMOTIONAL BARRIERS?NO SPECIAL DEVICES?NO ORTHOTIC AND PROSTHETIC TECHNICIAN NEEDED?NO PAIN CLINIC PFS, CLERGY, PUBLIC HEALTH REFERRALS WAS THE PROVIDER NOTIFIED OF ANY PERTINENT INFO?YES HAS THE PATIENT BEEN EDUCATED REGARDING HIS/HER PLAN OF CARE?YES ORIENTED TO PAIN MANAGEMENT HAS THE PATIENT BEEN EDUCATED REGARDING PAIN, THE RISK FOR PAIN, THE IMPORTANCE OF EFFECTIVE PAIN MANAGEMENT, AND THE PAIN ASSESSMENT PROCESS?YES LATEX QUESTIONNAIRE LATEX ALLERGY : HAVE YOU EVER DEVELOPED ANY TYPE OF REACTION AFTER HANDLING LATEX PRODUCTS SUCH RUBBER GLOVES, CONDOMS, DIAPHRAGMS, BALLOONS, SOCKS, OR UNDERWEAR?NO LATEX ALLERGY : HAVE YOU EVER DEVELOPED ANY TYPE OF REACTION DURING OR AFTER DENTAL APPOINTMENT, VAGINAL/RECTAL EXAMINATION, SURGICAL PROCEDURE, OR ANY OTHER EXPOSURE?NO LATEX RISK : HAVE YOU EVER HAD ANY DIFFICULTY BREATHING OR HIVES AFTER EATING OR HANDLING ANY FRUITS, OR VEGETABLES; SUCH KIWI, BANANAS, STONE FRUITS, OR CHESTNUTSNO LATEX RISK : DO YOU HAVE A PREVIOUS PERSONAL HISTORY OF MORE THAN NINE SURGERIES, SPINA BIFIDA, OR REPEATED CATHERTIZATIONS? NO LATEX RISK : ARE YOU FREQUENTLY EXPOSED TO LATEX PRODUCTS IN YOUR OCCUPATION?NO DATE ASKED : 09/24/2018 CAFFEINE CAFFEINE USE?YES HOW OFTEN AND HOW MUCH? 2 CUPS OF COFFEE PER DAY ADVANCE DIRECTIVE ADVANCE DIRECTIVE DISCUSSED WITH PATIENT:YES PT DECLINES INFORMATION OR ASSITANCE WITH PAPERWORK. DS ORTHODOXY [id number] DENOMINATIONAL MARITAL STATUS: , . ALCOHOL SCREENING DID YOU HAVE A DRINK CONTAINING ALCOHOL IN THE PAST YEAR?NO POINTS0 INTERPRETATIONNEGATIVE OCCUPATION: DISABLED. SEXUAL HX HAD SEX IN THE LAST 12 MONTHS (VAGINAL, ORAL, OR ANAL)?NO HAVE YOU EVER HAD AN STD?NO HOSPITALIZATION/MAJOR DIAGNOSTIC PROCEDURE ABOVE REVIEW OF SYSTEMS REVIEWED BY: PROVIDER: LYN MACKENZIE MD . CONSTITUTIONAL: ANY CHANGE IN YOUR MEDICAL CONDITION? NO . CHILLS NO . FEVER NO . INFECTION: DO YOU HAVE NEW INFECTIONS? NO . DO YOU HAVE HISTORY OF MRSA? NO . MUSCULOSKELETAL: ANY NEW PATTERNS OF PAIN OR NUMBNESS? NO . SYTEMIC LUPUS NO . GASTROENTEROLOGY: ANY NEW CHANGE IN BOWEL CONTROL? NO . BARRETTS ESOPHAGUS NO . CIRRHOSIS NO . HEPATITIS NO . LIVER FAILURE NO . ACID REFLUX NO . UNEXPLAINED WEIGHT LOSS NO . GENITOURINARY: ANY NEW CHANGE IN BLADDER CONTROL? NO . IS THERE A CHANCE YOU COULD BE ? NO . HEMATOLOGY/LYMPH: DO YOU TAKE ANY BLOOD THINNERS? (FOR EXAMPLE- COUMADIN, PLAVIX, AGGRENOX, PLATEL, PRADAXA, OR XARELTO) NO . WHEN WAS YOUR LAST DOSE? DATE: TIME: . LOW PLATELET COUNT NO . SICKLE CELL DISEASE NO . VON WILLIEBRANDS NO . FACTOR V LEIDEN NO . THALLASEMIA NO . ANEMIA NO . EASY BRUISING NO . NEUROLOGY: HAVE YOU FALLEN IN THE PAST 12 MONTHS? NO . ANY NEW EXTREMITY NUMBNESS OR WEAKNESS? NO . HEAD INJURY NO . DEMENTIA NO . CEREBRAL PALSY NO . MULTIPLE SCLEROSIS NO . DIZZINESS NO . HEADACHE NO . STROKES NO . VERTIGO NO . CARDIOLOGY: DO YOU HAVE A PACEMAKER OR DEFIBRILLATOR? NO . ANGINA NO . HEART ATTACK NO . HEART SURGERY NO . CONGESTIVE HEART FAILURE/FLUID OVERLOAD NO . CHEST PAIN NO . HIGH BLOOD PRESSURE NO . IRREGULAR HEART BEAT NO . RESPIRATORY: HAVE YOU BEEN SICK IN THE PAST WEEK? NO . FEVER NO . FLU LIKE SYMPTOMS? NO . CPAP NO . BYPAP NO . ASTHMA NO . EMPHYSEMA NO . CHRONIC LUNG DISEASES NO . SHORTNESS OF BREATH ON EXERTION NO . COUGH NO . SNORING NO . INTEGUMENTARY: DO YOU HAVE ANY RASHES OR OPEN SORES? NO . ALLERGIC/IMMUNO: ARE YOU ALLERGIC TO IV DYE? NO . ANY NEW ALLERGIES? NO . PSYCHIATRIC: DO YOU HAVE THOUGHTS OF HURTING YOURSELF OR SOMEONE ELSE? NO . ARE YOU ABUSED, NEGLECTED, OR IN AN UNSAFE ENVIRONMENT? NO . ENDOCRINOLOGY: ARE YOU DIABETIC? YES, MANAGED WITH MEDS . THYROID DISORDER NO . OTHER: DO YOU NEED ANY PRESCRIPTIONS? YES, PAIN MEDS . IF YES, PLEASE LIST: ____ . ANY NEW PROBLEMS WITH YOUR MEDICATIONS? NO . WHEN DID YOU LAST EAT? ____ . WHEN DID YOU LAST DRINK? ____ . WHAT DID YOU LAST DRINK? ____ . NAME OF PERSON DRIVING YOU HOME? ____ . DO YOU HAVE ANY OTHER QUESTIONS OR CONCERNS NO . VITAL SIGNS WT 278.8 LBS, HT 63 IN, BMI 49.38 INDEX, BP 141/77 MM HG, HR 102 /MIN, RR 18 /MIN, TEMP 97.2 F, OXYGEN SAT % 97%, SAFE IN ENV? (Y/N) Y, NA INITIALS SC 15:14, REVIEWED BY: LORENZO. EXAMINATION GENERAL EXAMINATION: PATIENT IS ALERT O X 3 AND COOPERATIVE. TENDERNESS IN THE LOW BACK AREA. PAIN INCREASES OVER THE LUMBAR FACET JOINTS WITH EXTENSION AND LATERAL ROTATION OF THE BACK. MRI OF THE LUMBAR SPINE DONE ON 03/23/2015 SHOWS FACET ARTHROPATHY CHANGES AT MULTIPLE LEVELS. ASSESSMENTS SPONDYLOSIS OF LUMBAR REGION WITHOUT MYELOPATHY OR RADICULOPATHY - M47.816 (PRIMARY) TREATMENT SPONDYLOSIS OF LUMBAR REGION WITHOUT MYELOPATHY OR RADICULOPATHY CLINICAL NOTES: WE DISCUSSED SEVERAL ISSUES WITH MRS. DE LA TORRE'S PAIN MANAGEMENT CASE. DUE TO THE LUMBAR SPONDYLOSIS, I WOULD LIKE TO MOVE FORWARD WITH A BILATERAL L4-L5, L5-S1 LUMBAR FACET THERAPEUTIC BLOCK AT THIS TIME. WE DISCUSSED THE BENEFITS, RISKS, AND ALTERNATIVES OF THE INJECTION AND THE PATIENT WOULD LIKE TO PROCEED. I WILL ALSO ORDER A NEW LUMBAR MRI SINCE IT HAS BEEN ALMOST 4 YEARS SINCE HER PREVIOUS MRI AND HER PAIN HAS WORSENED OVER TIME. THE PATIENT WILL FOLLOW UP A FEW WEEKS AFTER THE INJECTION. INSTRUCTIONS WERE GIVEN, QUESTIONS WERE ANSWERED, PATIENT REPORTS UNDERSTANDING AND AGREES WITH THE PLAN. I, ANGELES WALSH, DOCUMENTED THE ABOVE INFORMATION ACTING A SCRIBE FOR DR. MACKENZIE. I HAVE REVIEWED THE ABOVE DOCUMENT, WRITTEN BY ANGELES AGEE AND I VERIFY THAT IT IS ACCURATE. DEAR DR. ENNIS:THANK YOU FOR YOUR KIND REFERRAL OF MRS. DE LA TORRE. IF YOU WANT TO DISCUSS HER CASE WITH ME PLEASE CALL ME AT THE PAIN CENTER AT [phone]. SINCERELY,LYN MACKENZIE, [facility] . OTHERS START VALIUM TABLET, 5 MG, 1 TABLET NEEDED, ORALLY, 2 HRS PRIOR MRI MAY REPEAT 1 HR PRIOR MRI MDD2, 1 DAYS, 2, REFILLS 0 START OXYCODONE HCL TABLET, 5 MG, 1 TABLET NEEDED, ORALLY, BEFORE MRI, 1 DAYS, 1, REFILLS 0 NOTES: FACET JOINT INJECTION MATERIAL WAS PRINTED. PROCEDURE CODES FA211 ESTABILISHED PATIENT [facility] CHARGE [id number] CURRENT MEDS W/DOSAGES DOCUMENTED G8730 PAIN ASSESS POS TOOL F/U PLAN DOC DISPOSITION & COMMUNICATION FOLLOW UP 3 WEEKS ELECTRONICALLY SIGNED BY LYN MACKENZIE MD, ON 10/09/2018 AT 03:25 PM EDT DISCLAIMER : THIS IS A VISIT SUMMARY EXTRACTED FROM THE [employer] CHART. IT IS NOT A COPY OF THE [employer] PROGRESS NOTE. MTDD
== END ==
LOC: M PAIN 15:00
PROVIDERS: ATTEND Anesthesiology
DX: M47.816 Spondylosis without myelopathy or radiculopathy, lumbar region (principal); G89.29 Other chronic pain; I10 Essential (primary) hypertension; L40.52 Psoriatic arthritis mutilans; F32.9 Major depressive disorder, single episode, unspecified; E11.9 Type 2 diabetes mellitus without complications; J30.89 Other allergic rhinitis; F17.210 Nicotine dependence, cigarettes, uncomplicated; E66.01 Morbid (severe) obesity due to excess calories; Z68.42 Body mass index [BMI] 45.0-49.9, adult; Z79.4 Long term (current) use of insulin; Z79.84 Long term (current) use of oral hypoglycemic drugs; Z79.82 Long term (current) use of aspirin; Z79.899 Other long term (current) drug therapy; Z88.2 Allergy status to sulfonamides; Z88.8 Allergy status to other drugs, medicaments and biological substances

== ENCOUNTER → 2018-10-16 | Outpatient (CLI) | payer MEDICAID, MEDICARE ==
--- NOTE | 2018-10-18 09:12 | REP ---
MR LUMBAR SPINE WITHOUT CONTRAST: HISTORY: Back pain. COMPARISON: 03/23/2015. Decreased signal intensity on T2-weighted images is present in the L3-4 and L4-5 intervertebral discs. The L4-5 intervertebral disc is decreased in height. These findings are consistent with disc degeneration. A small right intraforaminal disc protrusion is present at the L1-2 level. There is compression of the right L1 nerve in the neural foramen. The left L1 nerve exits the neural foramen without compression. A diffuse disc bulge is present at the L2-3 level. There is minimal compression of the thecal sac. There is hypertrophy of the posterior articulating facets. The L2 nerves exit the neural foramina without compression. A diffuse disc bulge is present at the L3-4 level. There is minimal compression of the thecal sac. There is hypertrophy of the posterior articulating facets. The L3 nerves exit the neural foramina without compression. A diffuse disc bulge is present at the L4-5 level. There is hypertrophy of the ligamenta flava and posterior articulating facets. These findings produce minimal central canal stenosis. The L4 nerves exit the neural foramina without compression. There is no disc bulge or herniation at the L5-S1 level. There is hypertrophy of the posterior articulating facets. The L5 nerves exit the neural foramina without compression. The conus medullaris is normal in appearance terminating at the level of the T12-L1 intervertebral discs. Increased signal intensity on T2-weighted images is present in the end plates of the L1 through 4 vertebral bodies. This represents degenerative changes. IMPRESSION: 1. Small right intraforaminal disc protrusion at the L1-2 level with compression of the right L1 nerve in the neural foramen. This is a new finding. 2. Diffuse disc bulges at the L2-3 and L3-4 levels with minimal thecal sac compression. 3. Minimal central canal stenosis at the L4-5 level secondary to disc bulge, ligamentous, and facet hypertrophy. There no other significant change. Electronically Signed by Louis Frias MD 10/18/2018 09:20 A
== END ==
LOC: M RAD 11:14
PROVIDERS: ATTEND Anesthesiology
DX: M51.26 Other intervertebral disc displacement, lumbar region (principal); M48.061 Spinal stenosis, lumbar region without neurogenic claudication

== ENCOUNTER → 2018-11-04 | Outpatient (CLI) | payer MEDICARE, MEDICAID ==
[~2018-11-04] MED LIST changes: +BUPIVACAINE HCL 0.25% 30 ML VIAL As Ordered ONE; +ISOVUE-M 300 61% 15ML VIAL (Q9967) As Ordered ONE; +LIDOCAINE 1% SDV INJ 30 ML VIAL As Ordered ONE; +TRIAMCINOLONE ACETONIDE SUSP 40 MG/ML VIAL (J3301) As Ordered ONE; +diazePAM 5 MG TAB As Ordered ONE; +oxyCODONE 5MG TAB As Ordered ONE
--- NOTE | 2018-11-04 12:49 | REP ---
Partial lumbar spine series: Two views . History: Injection procedure for pain. 20 seconds of fluoroscopy time is reported. Findings: A sequence of two fluoroscopically obtained last image hold procedural spot radiographs of the lumbar spine document needle position and contrast injection associated with injection procedure. Electronically Signed by Shravan Simpson MD 11/04/2018 12:40 P
--- NOTE | 2018-11-15 00:24 | ECWPNPC ---
PATIENT NAME: MEG DE LA TORRE : 1970 GENDER: FEMALE VISIT DATE: 11/04/2018 DISCHARGE DATE: 11/04/18 1031 VISIT LOCKED DATE TIME: PHYSICIAN: LYN MACKENZIE MD PHYSICIAN PAGER NO: [phone] RESOURCE: LYN MACKENZIE MD REASON FOR APPOINTMENT 1. BILATERAL L4-L5, L5-S1 LFBT HISTORY OF PRESENT ILLNESS HISTORY OF PRESENT ILLNESS: PAIN THE PATIENT DESCRIBES THE PAIN... FALL RISK SCREENING: SCREENING :NO FALLS REPORTED IN THE LAST YEAR CURRENT MEDICATIONS TAKING ALCOHOL PADS 70 % PAD DIRECTED TAKING REFRESH 1.4-0.6 % SOLUTION 2 DROPS OPHTHALMIC NEEDED, NOTES: 2 DAYS AGO TAKING ADVOCATE LANCETS - MISCELLANEOUS DIRECTED SUBCUTANEOUSLY THREE TIMES DAILY TAKING BACLOFEN 10 MG TABLET 1 TABLET WITH FOOD OR MILK THREE TIMES A DAY- ORALLY 30 DAY(S) , NOTES: 11/03 2299 TAKING BLOOD GLUCOSE TEST - STRIP DIRECTED ONE TOUCH VERIO FLEX TID DX: E11.9 TAKING ATORVASTATIN CALCIUM 80 MG TABLET 1 TABLET ONCE A DAY ORALLY 30 DAY(S) , NOTES: 11/03 2299 TAKING DEXILANT 60 MG CAPSULE DELAYED RELEASE TAKE ONE CAPSULE BY MOUTH ONCE DAILY ORALLY ONCE A DAY, NOTES: 11/03 2299 TAKING VITAMIN B-12 500 MCG TABLET TAKE ONE TABLET BY MOUTH ONCE DAILY , NOTES: 11/03 2299 TAKING BD INSULIN SYRINGE 31G X 09/30 MISCELLANEOUS DIRECTED SUBCUTANEOUSLY WEEKLYDX: L40.50 TAKING METFORMIN HCL ER 750 MG TABLET EXTENDED RELEASE 24 HOUR 1 TABLET ORALLY BID, NOTES: 11/03 2299 TAKING GLUCOMETER . .. DIRECTED DX 250 USE BID TAKING LANCETS . .. DIRECTED DX: 250 USE BID TAKING EZETIMIBE 10 MG TABLET 1 TABLET ORALLY ONCE A DAY, NOTES: 11/03 2299 TAKING CARVEDILOL 6.25 MG TABLET 1 TAB ORALLY BID, NOTES: 11/03 2299 TAKING BLOOD GLUCOSE TEST . STRIPS USE BID DX:E11.9 CHECK BS BID TAKING STELARA 45 MG/0.5ML SOLUTION DIRECTED SUBCUTANEOUS ON WEEK 0, THEN 4, THEN EVER 12 WEEKS, NOTES: 08/27 TAKING CALCIUM 600+D PLUS MINERALS 600-400 MG-UNIT TABLET CHEWABLE 1 TAB ORALLY BID, NOTES: 11/03 2299 TAKING LYRICA 50 MG CAPSULE 1 CAPSULE ORALLY THREE TIMES A DAY MDD: 3, NOTES: 11/03 2299 TAKING CYCLOBENZAPRINE HCL 10 MG TABLET 1 TABLET NEEDED ORALLY THREE TIMES A DAY PRN SPASM, NOTES: 11/03 2299 TAKING FERROUS SULFATE 325 (65 FE) MG TABLET 1 TABLET ONCE A DAY ORALLY 30 , NOTES: 11/03 2299 TAKING FLUOXETINE HCL 20 MG TABLET 1 TABLET IN THE MORNING ORALLY ONCE A DAY, NOTES: 11/03 2299 TAKING ASPIRIN 81 MG TABLET CHEWABLE 1 TABLET ONCE A DAY ORALLY 30 DAY(S) , NOTES: 11/03 2299 TAKING ZETIA 10 MG TABLET 1 TABLET ONCE A DAY ORALLY 30 ORALLY ONCE A DAY, NOTES: 11/03 2299 TAKING ULTRAM 50 MG TABLET 1 TABLET ORALLY EVERY 8 HRS FOR PAIN MDD 3, NOTES: 11/04 714 TAKING VITAMIN D (ERGOCALCIFEROL) 63097 UNIT CAPSULE 1 CAPSULE WEEKLY ORALLY 30 DAY(S) ORALLY ONCE A WEEK, NOTES: 10/28 TAKING TERBINAFINE HCL 1 % CREAM 1 APPLICATION TO AFFECTED AREA EXTERNALLY TWICE A DAY, NOTES: NONE RECENT TAKING TRULICITY 1.5 MG/0.5ML SOLUTION PEN-INJECTOR 0.5 ML SUBCUTANEOUS WEEKLY, NOTES: 10/30 NOT-TAKING VALIUM 5 MG TABLET 1 TABLET NEEDED ORALLY 2 HRS PRIOR MRI MAY REPEAT 1 HR PRIOR MRI MDD2 NOT-TAKING OXYCODONE HCL 5 MG TABLET 1 TABLET NEEDED ORALLY BEFORE MRI NOT-TAKING CARPAL TUNNEL WRIST STABILIZER .. MISCELLANEOUS DIRECTED .. RE R 354 QD NOT-TAKING TENS UNIT - DIRECTED _ C PADS AND INSTRUCTION DAILY NOT-TAKING BACLOFEN 10 MG TABLET 2 TABLET WITH FOOD OR MILK ORALLY THREE TIMES A DAY- NOT-TAKING CYCLOBENZAPRINE HCL 10 MG TABLET 1 TABLET QHS PRN SPASM BY MOUTH 90 DAY(S) DISCONTINUED TRULICITY 0.75 MG/0.5ML SOLUTION PEN-INJECTOR 0.5 ML WEEKLY SUBCUTANEOUS 30 DAY(S) DISCONTINUED USTEKINUMAB 90 MG/ML SOLUTION PREFILLED SYRINGE DIRECTED SUBCUTANEOUS EVERY 12 WEEKS-NEXT 06/15/2018, NOTES: DUPLICATE DISCONTINUED LIPITOR 80 MG TABLET 1 TABLET ONCE A DAY ORALLY 30 , NOTES: DUPLICATE DISCONTINUED CYANOCOBALAMIN 500 MCG TABLET 1 TABLET ORALLY ONCE A DAY, NOTES: DUPLICATE DISCONTINUED ERGOCALCIFEROL 42626 UNIT CAPSULE 1 CAPSULE ORALLY WEEKLY, NOTES: DUPLICTE DISCONTINUED DEXILANT 60 MG CAPSULE 1 CAP(S) ORALLY ONCE A DAY, NOTES: DUPLICATE DISCONTINUED METFORMIN HCL ER 750 MG TABLET EXTENDED RELEASE 24 HOUR 1 TABLET BID ORALLY 30 , NOTES: DUPLICATE DISCONTINUED ATORVASTATIN CALCIUM 80 MG TABLET 1 TABLET ORALLY ONCE A DAY, NOTES: DUPLICATE MEDICATION LIST REVIEWED AND RECONCILED WITH THE PATIENT PAST MEDICAL HISTORY PSORIASIS, GENERALIZED PLAQUE/PSORIATIC ARTHRITIS HYPERLIPIDEMIA 2B DEPRESSION GERD T2DM, NID MULTIPLE DENTAL CARIES ALLERGIC RHINITIS NICOTINE ADDICTION OBESITY, MORBID VITAMIN D DEFICIENCY NAFLD BY CT FEBRUARY 2011 WITH BORDERLINE HEPATOMEGALY, SEEN BY 10/2016 US CERVICAL DJD-11/2011 NORMAL CERVICAL MRI LUMBAR DJD-03/2015 MRI L4/5 DIFFUSE BULGE S COMPRESSION, MINIMAL CCS/ XRAY C MILD MULT-LEVEL DJD, NORMAL B SIJ HYPERTENSION-09/2015-LOW RISK DPST, NORMAL TTE-LOW PALPITATIONS-NORMAL 25D EVENT MONITOR-05/2014-LOW SMALL ADENOMATOUS P-09/2017 COLON-W ALLERGIES SULFA (FOR ALLERGY USE ONLY): HIVES - ALLERGY CYMBALTA: PALPITATIONS, HYPERTENSION - CONTRAINDICATION SURGICAL HISTORY ENDOMETRIAL ABLATION 2007 CHOLECYSTECTOMY 2006 D&C X 3 COMPLETE DENTAL EXTRACTION NOVEMBER 2012, 08/2014 COLONOSCOPY-MODERATE LOSIS, HEMORRHOIDS-DONE 2 RECTAL BLEEDING-MARINA 07/2007 C SECTION 06/2006 FAMILY HISTORY FATHER: , COLON CANCER DX AT 45 MOTHER: SIBLINGS: DAUGHTER(S): ALIVE 2DAUGHTER(S) . DENIES ANY HX SKIN OR PANCREATIC CANCER. SOCIAL HISTORY GENERAL: TOBACCO USE ARE YOU A:CURRENT SMOKER ARE YOU INTERESTED IN QUITTING?NOT READY TO QUIT COUNSELED THE PATIENT ON SMOKING EFFECTS, EDUCATION [id number] HOW MANY CIGARETTES A DAY DO YOU SMOKE?11-20 HOW SOON AFTER YOU WAKE UP DO YOU SMOKE YOUR FIRST CIGARETTE?6-30 MIN HOW OFTEN DO YOU SMOKE CIGARETTES?EVERY DAY PATIENT COUNSELED ON THE DANGERS OF TOBACCO USE AND URGED TO QUIT:11/04/2018 SMOKING CESSATION INFORMATION GIVEN03/16/2018 11/04/18 DECLINED AD HIV / HEP-C SCREENING HIV TEST OFFERED TO PATIENT:YES DATE OFFERED:10/24/2016 TEST ACCEPTED:NO REASON:PATIENT DECLINED HEP-C TEST OFFERED TO PATIENT:YES DATE OFFERED:10/24/2016 TEST ACCEPTED:NO REASON:PATIENT DECLINED OTHERS AT HOME: SPOUSE, CHILD. EDUCATION LEVEL OF EDUCATION: 9 TH GRADE EDUCATION DIET: CARBOHYDRATE CONTROLLED. LANGUAGE LANGUAGES SPOKEN:[place]ORE[place] DOMESTIC VIOLENCE DO YOU FEEL SAFE IN YOUR ENVIRONMENT?YES NEW PATIENT PAIN DIARY PRECIPITATING FACTORS OVER ACTIVE, BENDING ALLEVIATING FACTORS HOT BATH, SLEEPS WITH HEATING PAD IMPACT ON FUNCTION LIMITED WITH ACTIVITY, DIFFICULTY WITH DAILY ACTIVITIES DO YOU HAVE ANY RASHES OR OPEN SORES? PSORIASIS ARE YOU DIABETIC? MANAGING WITH MEDICATIONS ANY NEW PATTERNS OF PAIN OR NUMBNESS? PT STATES THAT SHE HAS RECENTLY HAD ISSUES WITH PAIN IN BACK RADIATING DOWN RIGHT LEG TO KNEE BMI CARE GOAL FOLLOW-UP ABOVE NORMAL BMI FOLLOW-UPGIVING ENCOURAGEMENT TO EXERCISE RECREATIONAL DRUG USE DRUG USE?NO EXERCISE: NO REGULAR EXERCISE. LEARNING BARRIERS / SPECIAL NEEDS CHANGE FROM LAST VISIT?NO BARRIERS TO LEARNING?NO HEARING IMPAIRED?NO VISION IMPAIRED?NO COGNITIVELY IMPAIRED?NO READINESS TO LEARN?YES LEARNING PREFERENCES?YES :BOOKLETS, HANDOUTS, DEMONSTRATION/VERBAL INSTRUCTION LEARNING CAPABILITIES PRESENT?YES EMOTIONAL BARRIERS?NO SPECIAL DEVICES?NO SPANISH INTERPRETER/TRANSLATOR NEEDED?NO PAIN CLINIC PFS, CLERGY, PUBLIC HEALTH REFERRALS WAS THE PROVIDER NOTIFIED OF ANY PERTINENT INFO? N/A HAS THE PATIENT BEEN EDUCATED REGARDING HIS/HER PLAN OF CARE?YES ORIENTED TO PAIN MANAGEMENT HAS THE PATIENT BEEN EDUCATED REGARDING PAIN, THE RISK FOR PAIN, THE IMPORTANCE OF EFFECTIVE PAIN MANAGEMENT, AND THE PAIN ASSESSMENT PROCESS?YES LATEX QUESTIONNAIRE LATEX ALLERGY : HAVE YOU EVER DEVELOPED ANY TYPE OF REACTION AFTER HANDLING LATEX PRODUCTS SUCH RUBBER GLOVES, CONDOMS, DIAPHRAGMS, BALLOONS, SOCKS, OR UNDERWEAR?NO LATEX ALLERGY : HAVE YOU EVER DEVELOPED ANY TYPE OF REACTION DURING OR AFTER DENTAL APPOINTMENT, VAGINAL/RECTAL EXAMINATION, SURGICAL PROCEDURE, OR ANY OTHER EXPOSURE?NO LATEX RISK : HAVE YOU EVER HAD ANY DIFFICULTY BREATHING OR HIVES AFTER EATING OR HANDLING ANY FRUITS, OR VEGETABLES; SUCH KIWI, BANANAS, STONE FRUITS, OR CHESTNUTSNO LATEX RISK : DO YOU HAVE A PREVIOUS PERSONAL HISTORY OF MORE THAN NINE SURGERIES, SPINA BIFIDA, OR REPEATED CATHERTIZATIONS? NO LATEX RISK : ARE YOU FREQUENTLY EXPOSED TO LATEX PRODUCTS IN YOUR OCCUPATION?NO DATE ASKED : 11/04/2018 CAFFEINE CAFFEINE USE?YES HOW OFTEN AND HOW MUCH? 2 CUPS OF COFFEE PER DAY ADVANCE DIRECTIVE ADVANCE DIRECTIVE DISCUSSED WITH PATIENT:YES 11/04/18 PT DOES NOT HAVE ANY ADVANCED DIRECTIVES AND SHE DECLINES INFORMATION ON HCP AT THIS TIME. AD TENRIISM [id number] SABIANIST MARITAL STATUS: , . ALCOHOL SCREENING DID YOU HAVE A DRINK CONTAINING ALCOHOL IN THE PAST YEAR?NO POINTS0 INTERPRETATIONNEGATIVE OCCUPATION: DISABLED. SEXUAL HX HAD SEX IN THE LAST 12 MONTHS (VAGINAL, ORAL, OR ANAL)?NO HAVE YOU EVER HAD AN STD?NO HOSPITALIZATION/MAJOR DIAGNOSTIC PROCEDURE ABOVE REVIEW OF SYSTEMS REVIEWED BY: PROVIDER: . CONSTITUTIONAL: ANY CHANGE IN YOUR MEDICAL CONDITION? NO . CHILLS NO . FEVER NO . INFECTION: DO YOU HAVE NEW INFECTIONS? NO . DO YOU HAVE HISTORY OF MRSA? NO . MUSCULOSKELETAL: ANY NEW PATTERNS OF PAIN OR NUMBNESS? NO . GASTROENTEROLOGY: ANY NEW CHANGE IN BOWEL CONTROL? NO . GENITOURINARY: ANY NEW CHANGE IN BLADDER CONTROL? NO . IS THERE A CHANCE YOU COULD BE ? NO . HEMATOLOGY/LYMPH: DO YOU TAKE ANY BLOOD THINNERS? (FOR EXAMPLE- COUMADIN, PLAVIX, AGGRENOX, PLATEL, PRADAXA, OR XARELTO) NO . WHEN WAS YOUR LAST DOSE? DATE: TIME: . NEUROLOGY: HAVE YOU FALLEN IN THE PAST 12 MONTHS? NO . ANY NEW EXTREMITY NUMBNESS OR WEAKNESS? NO . CARDIOLOGY: DO YOU HAVE A PACEMAKER OR DEFIBRILLATOR? NO . RESPIRATORY: HAVE YOU BEEN SICK IN THE PAST WEEK? NO . FEVER NO . FLU LIKE SYMPTOMS? NO . COUGH NO . INTEGUMENTARY: DO YOU HAVE ANY RASHES OR OPEN SORES? NO . ALLERGIC/IMMUNO: ARE YOU ALLERGIC TO IV DYE? NO . ANY NEW ALLERGIES? NO . PSYCHIATRIC: DO YOU HAVE THOUGHTS OF HURTING YOURSELF OR SOMEONE ELSE? NO . ARE YOU ABUSED, NEGLECTED, OR IN AN UNSAFE ENVIRONMENT? NO . ENDOCRINOLOGY: ARE YOU DIABETIC? YES, FSBS @ 0745 TODAY WAS 196 PER PT . OTHER: DO YOU NEED ANY PRESCRIPTIONS? NO . IF YES, PLEASE LIST: ____ . ANY NEW PROBLEMS WITH YOUR MEDICATIONS? NO . WHEN DID YOU LAST EAT? 11/03 1829 . WHEN DID YOU LAST DRINK? 11/03 1929 . WHAT DID YOU LAST DRINK? WATER . NAME OF PERSON DRIVING YOU HOME? SOY HANSEN . DO YOU HAVE ANY OTHER QUESTIONS OR CONCERNS NO PT. HAS NOT HAD ANY VACCINES IN THE PAST DAYS . VITAL SIGNS WT 276.4 LBS, HT 63 IN, BMI 48.96 INDEX, BP 120/71 MM HG, HR 89 /MIN, RR 18 /MIN, TEMP 96.6 F, OXYGEN SAT % 96%, SAFE IN ENV? (Y/N) Y, NA INITIALS [place] 08:49, REVIEWED BY: AD. ASSESSMENTS SPONDYLOSIS OF LUMBAR REGION WITHOUT MYELOPATHY OR RADICULOPATHY - M47.816 (PRIMARY) SPONDYLOSIS OF LUMBOSACRAL REGION WITHOUT MYELOPATHY OR RADICULOPATHY - M47.817 PROCEDURES PN LUMBAR FACET BLOCK THERAPEUTIC PRE PROCEDURE DIAGNOSIS LUMBAR SPONDYLOSIS, LUMBOSACRAL SPONDYLOSIS POST PROCEDURE DIAGNOSIS LUMBAR SPONDYLOSIS, LUMBOSACRAL SPONDYLOSIS PROCEDURE BILATERAL L4 - L5 AND BILATERAL L5 - S1 LUMBAR FACET THERAPEUTIC BLOCK SURGEON DR. LYN MACKENZIE LINEN ATTENDANT NONE ANESTHESIA LOCAL PRE PROCEDURE NOTE THE PATIENT HAS A HISTORY OF CHRONIC LOW BACK PAIN. I EVALUATED THE PATIENT AND REVIEWED THE CHART. I WENT OVER THE RISKS, ALTERNATIVES, AND BENEFITS ASSOCIATED WITH THIS PROCEDURE. THE PATIENT WOULD LIKE TO PROCEED AND GIVE CONSENT TO PERFORMED THE PROCEDURE. THE PATIENT DENIES UNEXPLAINABLE WEIGHT LOSS, FEVER, CHILLS, OR NEW CHANGES IN URINARY OR BOWEL CONTROL DESCRIPTION OF PROCEDURE THE PATIENT WAS BROUGHT TO THE PROCEDURE ROOM AND PLACED IN THE PRONE POSITION. THE LUMBOSACRAL AREA WAS CLEANED WITH CHLORAPREP SOLUTION AND DRAPED ASEPTICALLY. THE PROCEDURE WAS DONE UNDER STERILE CONDITIONS. I CHECKED LATERALITY AND THE LEVEL WHERE THE PROCEDURE WAS GOING TO BE PERFORMED WITH THE PATIENT AND THE SUPPORTING STAFF AT THE MOMENT OF THE TIME OUT IN THE PROCEDURE ROOM. UNDER FLUOROSCOPIC GUIDANCE, THE TARGET POINT WAS SELECTED AT THE RIGHT AND LEFT L4-L5 AND RIGHT AND LEFT L5-S1 FACET JOINT. TARGET POINT WAS SELECTED AFTER LATERAL ROTATION AND TILT OF THE MAGNIFIER OF THE C-ARM. LIDOCAINE 0.5% WAS USED TO NUMB THE SKIN AND THE SUBCUTANEOUS TISSUE BELOW IT. SPINAL NEEDLES, 22-GAUGE, WERE ADVANCED UNDER FLUOROSCOPIC GUIDANCE AND FOLLOWING PATIENT FEEDBACK UNTIL THE TARGETS WERE TOUCHED. THE POSITION OF THE NEEDLES WAS VERIFIED WITH AP AND LATERAL VIEWS. AFTER PROPER POSITION OF THE NEEDLES WAS ACHIEVED, ISOVUE-M DYE 30% 0.1 ML WAS INJECTED SHOWING ADEQUATE SPREAD OF THE DYE. THEN A SOLUTION OF 1.9 ML OF BUPIVACAINE 0.125% OF KENALOG 10 MG WAS INJECTED AT EACH SITE. THERE WAS NO EVIDENCE OF BLOOD, PARESTHESIA OR CEREBROSPINAL FLUID DURING THE PROCEDURE. THE PATIENT WAS SENT TO THE RECOVERY ROOM. THE PATIENT WAS MOVING THE EXTREMITIES AND DOING WELL. THERE WAS NO COMPLICATION DURING THE PROCEDURE. FLUOROSCOPY TIME WAS 20 SECONDS POST PROCEDURE NOTE THE PATIENT WILL BE SEEN IN A FOLLOW UP IN THE NEXT FEW WEEKS. INSTRUCTIONS WERE GIVEN, QUESTIONS WERE ANSWERED, AND THE PATIENT EXPRESSED UNDERSTANDING AND AGREES WITH THE PLAN. I, CAROLYN LANGE, DOCUMENTED THE ABOVE INFORMATION ACTING A SCRIBE FOR DR. MACKENZIE. I HAVE REVIEWED THE ABOVE DOCUMENT, WRITTEN BY CAROLYN LANGE SCRIBNatalie AND I VERIFY THAT IT IS ACCURATE. DIAGNOSTIC IMAGING [facility] FACET BLOCK (PAIN)[id number] PROCEDURE CODES 10473 INJ PARAVERT F JNT L/S 1 LEV, MODIFIERS: 50 29330 INJ PARAVERT F JNT L/S 2 LEV, MODIFIERS: 50 [id number] RADXPS IN END [id number] PXD DISPOSITION & COMMUNICATION FOLLOW UP 3 WEEKS ELECTRONICALLY SIGNED BY LYN MACKENZIE MD, MD ON 11/14/2018 AT 07:47 PM EDT DISCLAIMER : THIS IS A VISIT SUMMARY EXTRACTED FROM THE Novel [employer] CHART. IT IS NOT A COPY OF THE [employer] PROGRESS NOTE. MTDD
== END ==
LOC: M PAIN 08:45
PROVIDERS: ATTEND Anesthesiology
DX: M47.816 Spondylosis without myelopathy or radiculopathy, lumbar region (principal); M47.817 Spondylosis without myelopathy or radiculopathy, lumbosacral region; L40.50 Arthropathic psoriasis, unspecified; E78.5 Hyperlipidemia, unspecified; F32.9 Major depressive disorder, single episode, unspecified; K21.9 Gastro-esophageal reflux disease without esophagitis; E11.9 Type 2 diabetes mellitus without complications; J30.9 Allergic rhinitis, unspecified; E66.01 Morbid (severe) obesity due to excess calories; E55.9 Vitamin D deficiency, unspecified; K76.0 Fatty (change of) liver, not elsewhere classified; M50.30 Other cervical disc degeneration, unspecified cervical region; M51.36 Other intervertebral disc degeneration, lumbar region; I10 Essential (primary) hypertension; F17.210 Nicotine dependence, cigarettes, uncomplicated; Z79.82 Long term (current) use of aspirin; Z79.84 Long term (current) use of oral hypoglycemic drugs; Z79.899 Other long term (current) drug therapy; Z90.49 Acquired absence of other specified parts of digestive tract; Z88.2 Allergy status to sulfonamides; Z88.8 Allergy status to other drugs, medicaments and biological substances; Z68.42 Body mass index [BMI] 45.0-49.9, adult
CPT/HCPCS: 64493; 64494; J3301; Q9967

== ENCOUNTER → 2018-11-19 | Outpatient (REF) | payer MEDICARE, MEDICAID ==
[~2018-11-19] MED LIST changes: -BUPIVACAINE HCL 0.25% 30 ML VIAL As Ordered ONE; -ISOVUE-M 300 61% 15ML VIAL (Q9967) As Ordered ONE; -LIDOCAINE 1% SDV INJ 30 ML VIAL As Ordered ONE; -TRIAMCINOLONE ACETONIDE SUSP 40 MG/ML VIAL (J3301) As Ordered ONE; -diazePAM 5 MG TAB As Ordered ONE; -oxyCODONE 5MG TAB As Ordered ONE
[2018-11-19 12:42] LABS: ALBUMIN 3.5 GM/DL (3.2-5.2); ALT/SGPT 40 U/L (12-78); BILIRUBIN,TOTAL 0.4 MG/DL (0.2-1.0); BLOOD UREA NITROGEN 12 MG/DL (7-18); C REACTIVE PROTEIN QUANTITATIV 0.89 MG/DL (0.00-0.30); CALCIUM LEVEL 9.3 MG/DL (8.5-10.1); CARBON DIOXIDE LEVEL 27 MEQ/L (21-32); CHLORIDE LEVEL 102 MEQ/L (98-107); CHOLESTEROL LEVEL 151 MG/DL (<200); CHOLESTEROL RISK RATIO 3.682 (<5); CPK CREATINE PHOSPHOKINASE 52 U/L (26-192); CREATININE FOR GFR 0.93 MG/DL (0.55-1.30); FREE T4 1.11 NG/DL (0.76-1.46); GLOMERULAR FILTRATION RATE > 60.0 (>58); GLUCOSE, FASTING 144 MG/DL (70-100); HDL CHOLESTEROL 41 MG/DL (>40); LDL CHOLESTEROL 67 MG/DL (<100); NON-HDL-C 110 MG/DL; POTASSIUM SERUM 4.1 MEQ/L (3.5-5.1); PTH INTACT 41.7 PG/ML (18.5-88.0); SODIUM LEVEL 138 MEQ/L (136-145); TOTAL 25(OH) VITAMIN D 59.8 NG/ML (30.0-100.0); TOTAL PROTEIN 7.3 GM/DL (6.4-8.2); TRIGLYCERIDES LEVEL 216 MG/DL (<150); VITAMIN B12 LEVEL 1415 PG/ML (247-911)
== END ==
LOC: M SFHCPLAZ 09:28
PROVIDERS: ATTEND Physician Assistant Medical
DX: E78.5 Hyperlipidemia, unspecified (principal); E66.01 Morbid (severe) obesity due to excess calories; E55.9 Vitamin D deficiency, unspecified; E53.8 Deficiency of other specified B group vitamins

== ENCOUNTER → 2018-12-06 | Outpatient (CLI) | payer MEDICARE, MEDICAID ==
--- NOTE | 2018-12-15 01:38 | ECWPNPC ---
PATIENT NAME: MEG DE LA TORRE : 1970 GENDER: FEMALE VISIT DATE: 12/06/2018 DISCHARGE DATE: 12/06/18953 VISIT LOCKED DATE TIME: PHYSICIAN: LYN MACKENZIE MD PHYSICIAN PAGER NO: [phone] RESOURCE: LYN MACKENZIE MD REASON FOR APPOINTMENT 1. POST PROC HISTORY OF PRESENT ILLNESS HISTORY OF PRESENT ILLNESS: PAIN THE PATIENT DESCRIBES THE PAIN... 48 YEAR OLD FEMALE PATIENT WITH A HISTORY OF LOW BACK PAIN. THE PATIENT DESCRIBES THE PAIN ACHING WITH A PAIN SCORE OF 3-4/10 DEPENDING ON PHYSICAL ACTIVITY. THE PATIENT SAYS THE LOW BACK PAIN ONLY APPEARS WITH SPECIFIC ACTIVITIES, SUCH BENDING DOWN AND SITTING. THE PATIENT RECEIVED A BILATERAL L4-L5, L5-S1 THERAPEUTIC LUMBAR FACET BLOCK ON 11/04/2018, WHICH SHE SAYS SHE IS EXPERIENCING OVER 50 PERCENT IMPROVEMENT WITH INCREASED FUNCTIONALITY AND MOBILITY A RESULT OF THE BLOCK. PATIENT DENIES UNEXPLAINABLE WEIGHT LOSS, FEVER, CHILLS, NEW CHANGES ON HER URINARY OR BOWEL CONTROL. FALL RISK SCREENING: SCREENING :NO FALLS REPORTED IN THE LAST YEAR CURRENT MEDICATIONS TAKING ALCOHOL PADS 70 % PAD DIRECTED TAKING REFRESH 1.4-0.6 % SOLUTION 2 DROPS OPHTHALMIC NEEDED TAKING ADVOCATE LANCETS - MISCELLANEOUS DIRECTED SUBCUTANEOUSLY THREE TIMES DAILY TAKING BLOOD GLUCOSE TEST - STRIP DIRECTED ONE TOUCH VERIO FLEX TID DX: E11.9 TAKING BD INSULIN SYRINGE 31G X 5/16 MISCELLANEOUS DIRECTED SUBCUTANEOUSLY WEEKLYDX: L40.50 TAKING GLUCOMETER . .. DIRECTED DX 250 USE BID TAKING LANCETS . .. DIRECTED DX: 250 USE BID TAKING BLOOD GLUCOSE TEST . STRIPS USE BID DX:E11.9 CHECK BS BID TAKING CALCIUM 600+D PLUS MINERALS 600-400 MG-UNIT TABLET CHEWABLE 1 TAB ORALLY BID, NOTES: 11/03 2299 TAKING TERBINAFINE HCL 1 % CREAM 1 APPLICATION TO AFFECTED AREA EXTERNALLY TWICE A DAY, NOTES: NONE RECENT TAKING VITAMIN D (ERGOCALCIFEROL) 05018 UNIT CAPSULE 1 CAPSULE WEEKLY ORALLY 30 DAY(S) ORALLY ONCE A WEEK TAKING CYCLOBENZAPRINE HCL 10 MG TABLET 1 TABLET NEEDED ORALLY THREE TIMES A DAY PRN SPASM TAKING CARVEDILOL 6.25 MG TABLET 1 TAB ORALLY BID TAKING EZETIMIBE 10 MG TABLET 1 TABLET ORALLY ONCE A DAY, NOTES: 6/19 2300 TAKING ATORVASTATIN CALCIUM 80 MG TABLET 1 TABLET ONCE A DAY ORALLY 30 DAY(S) ORALLY DAILY TAKING TRULICITY 1.5 MG/0.5ML SOLUTION PEN-INJECTOR 0.5 ML SUBCUTANEOUS WEEKLY TAKING VITAMIN B-12 500 MCG TABLET TAKE ONE TABLET BY MOUTH ONCE DAILY TAKING METFORMIN HCL ER 750 MG TABLET EXTENDED RELEASE 24 HOUR 1 TABLET ORALLY BID TAKING BACLOFEN 10 MG TABLET 2 TABLET WITH FOOD OR MILK ORALLY THREE TIMES A DAY- TAKING ASPIRIN 81 MG TABLET CHEWABLE 1 TABLET ONCE A DAY ORALLY 30 DAY(S) TAKING ZETIA 10 MG TABLET 1 TABLET ONCE A DAY ORALLY 30 ORALLY ONCE A DAY TAKING FERROUS SULFATE 325 (65 FE) MG TABLET 1 TABLET ONCE A DAY ORALLY 30 TAKING DEXILANT 60 MG CAPSULE DELAYED RELEASE TAKE ONE CAPSULE BY MOUTH ONCE DAILY ORALLY ONCE A DAY TAKING LIPITOR 80 MG TABLET 1 TABLET ONCE A DAY ORALLY 30 TAKING FLUOXETINE HCL 20 MG TABLET 1 TABLET IN THE MORNING ORALLY ONCE A DAY TAKING LYRICA 50 MG CAPSULE 1 CAPSULE ORALLY THREE TIMES A DAY MDD: 3 TAKING ULTRAM 50 MG TABLET 1 TABLET ORALLY EVERY 8 HRS FOR PAIN MDD 3 TAKING STELARA 90 MG/ML SOLUTION PREFILLED SYRINGE DIRECTED SUBCUTANEOUS Q12W NOT-TAKING VALIUM 5 MG TABLET 1 TABLET NEEDED ORALLY 2 HRS PRIOR MRI MAY REPEAT 1 HR PRIOR MRI MDD2 NOT-TAKING OXYCODONE HCL 5 MG TABLET 1 TABLET NEEDED ORALLY BEFORE MRI NOT-TAKING CARPAL TUNNEL WRIST STABILIZER .. MISCELLANEOUS DIRECTED .. RE R 354 QD NOT-TAKING TENS UNIT - DIRECTED _ C PADS AND INSTRUCTION DAILY NOT-TAKING CYCLOBENZAPRINE HCL 10 MG TABLET 1 TABLET QHS PRN SPASM BY MOUTH 90 DAY(S) MEDICATION LIST REVIEWED AND RECONCILED WITH THE PATIENT PAST MEDICAL HISTORY PSORIASIS, GENERALIZED PLAQUE/PSORIATIC ARTHRITIS HYPERLIPIDEMIA 2B DEPRESSION GERD T2DM, NID MULTIPLE DENTAL CARIES ALLERGIC RHINITIS NICOTINE ADDICTION OBESITY, MORBID VITAMIN D DEFICIENCY NAFLD BY CT FEBRUARY 2011 WITH BORDERLINE HEPATOMEGALY, SEEN BY 10/2016 US CERVICAL DJD-11/2011 NORMAL CERVICAL MRI LUMBAR DJD-03/2015 MRI L4/5 DIFFUSE BULGE S COMPRESSION, MINIMAL CCS/ XRAY C MILD MULT-LEVEL DJD, NORMAL B SIJ HYPERTENSION-09/2015-LOW RISK DPST, NORMAL TTE-LOW PALPITATIONS-NORMAL 25D EVENT MONITOR-05/2014-LOW SMALL ADENOMATOUS P-09/2017 COLON-W ALLERGIES SULFA (FOR ALLERGY USE ONLY): HIVES - ALLERGY CYMBALTA: PALPITATIONS, HYPERTENSION - CONTRAINDICATION SURGICAL HISTORY ENDOMETRIAL ABLATION 2007 CHOLECYSTECTOMY 2005 D&C X 3 COMPLETE DENTAL EXTRACTION NOVEMBER 2012, 08/2014 COLONOSCOPY-MODERATE LOSIS, HEMORRHOIDS-DONE 2 RECTAL BLEEDING-MARINA 07/2007 C SECTION 06/2006 FAMILY HISTORY FATHER: , COLON CANCER DX AT 45 MOTHER: SIBLINGS: DAUGHTER(S): ALIVE 2DAUGHTER(S) . DENIES ANY HX SKIN OR PANCREATIC CANCER. SOCIAL HISTORY GENERAL: TOBACCO USE ARE YOU A:CURRENT SMOKER ARE YOU INTERESTED IN QUITTING?NOT READY TO QUIT COUNSELED THE PATIENT ON SMOKING EFFECTS, EDUCATION [id number]/20/2019 HOW MANY CIGARETTES A DAY DO YOU SMOKE?11-20 HOW SOON AFTER YOU WAKE UP DO YOU SMOKE YOUR FIRST CIGARETTE?6-30 MIN HOW OFTEN DO YOU SMOKE CIGARETTES?EVERY DAY PATIENT COUNSELED ON THE DANGERS OF TOBACCO USE AND URGED TO QUIT:11/04/2018 SMOKING CESSATION INFORMATION GIVEN03/16/2018 11/04/18 DECLINED AD HIV / HEP-C SCREENING HIV TEST OFFERED TO PATIENT:YES DATE OFFERED:10/24/2016 TEST ACCEPTED:NO REASON:PATIENT DECLINED HEP-C TEST OFFERED TO PATIENT:YES DATE OFFERED:10/24/2016 TEST ACCEPTED:NO REASON:PATIENT DECLINED OTHERS AT HOME: SPOUSE, CHILD. EDUCATION LEVEL OF EDUCATION: 9 TH GRADE EDUCATION DIET: CARBOHYDRATE CONTROLLED. LANGUAGE LANGUAGES SPOKEN:ITALIAN DOMESTIC VIOLENCE DO YOU FEEL SAFE IN YOUR ENVIRONMENT?YES NEW PATIENT PAIN DIARY PRECIPITATING FACTORS OVER ACTIVE, BENDING ALLEVIATING FACTORS HOT BATH, SLEEPS WITH HEATING PAD IMPACT ON FUNCTION LIMITED WITH ACTIVITY, DIFFICULTY WITH DAILY ACTIVITIES DO YOU HAVE ANY RASHES OR OPEN SORES? PSORIASIS ARE YOU DIABETIC? MANAGING WITH MEDICATIONS ANY NEW PATTERNS OF PAIN OR NUMBNESS? PT STATES THAT SHE HAS RECENTLY HAD ISSUES WITH PAIN IN BACK RADIATING DOWN RIGHT LEG TO KNEE BMI CARE GOAL FOLLOW-UP ABOVE NORMAL BMI FOLLOW-UPGIVING ENCOURAGEMENT TO EXERCISE RECREATIONAL DRUG USE DRUG USE?NO EXERCISE: NO REGULAR EXERCISE. LEARNING BARRIERS / SPECIAL NEEDS CHANGE FROM LAST VISIT?NO BARRIERS TO LEARNING?NO HEARING IMPAIRED?NO VISION IMPAIRED?NO COGNITIVELY IMPAIRED?NO READINESS TO LEARN?YES LEARNING PREFERENCES?YES :BOOKLETS, HANDOUTS, DEMONSTRATION/VERBAL INSTRUCTION LEARNING CAPABILITIES PRESENT?YES EMOTIONAL BARRIERS?NO SPECIAL DEVICES?NO TUBE WORKER NEEDED?NO PAIN CLINIC PFS, CLERGY, PUBLIC HEALTH REFERRALS WAS THE PROVIDER NOTIFIED OF ANY PERTINENT INFO? N/A HAS THE PATIENT BEEN EDUCATED REGARDING HIS/HER PLAN OF CARE?YES ORIENTED TO PAIN MANAGEMENT HAS THE PATIENT BEEN EDUCATED REGARDING PAIN, THE RISK FOR PAIN, THE IMPORTANCE OF EFFECTIVE PAIN MANAGEMENT, AND THE PAIN ASSESSMENT PROCESS?YES LATEX QUESTIONNAIRE LATEX ALLERGY : HAVE YOU EVER DEVELOPED ANY TYPE OF REACTION AFTER HANDLING LATEX PRODUCTS SUCH RUBBER GLOVES, CONDOMS, DIAPHRAGMS, BALLOONS, SOCKS, OR UNDERWEAR?NO LATEX ALLERGY : HAVE YOU EVER DEVELOPED ANY TYPE OF REACTION DURING OR AFTER DENTAL APPOINTMENT, VAGINAL/RECTAL EXAMINATION, SURGICAL PROCEDURE, OR ANY OTHER EXPOSURE?NO LATEX RISK : HAVE YOU EVER HAD ANY DIFFICULTY BREATHING OR HIVES AFTER EATING OR HANDLING ANY FRUITS, OR VEGETABLES; SUCH KIWI, BANANAS, STONE FRUITS, OR CHESTNUTSNO LATEX RISK : DO YOU HAVE A PREVIOUS PERSONAL HISTORY OF MORE THAN NINE SURGERIES, SPINA BIFIDA, OR REPEATED CATHERIZATIONS? NO LATEX RISK : ARE YOU FREQUENTLY EXPOSED TO LATEX PRODUCTS IN YOUR OCCUPATION?NO DATE ASKED : 11/04/2018 CAFFEINE CAFFEINE USE?YES HOW OFTEN AND HOW MUCH? 2 CUPS OF COFFEE PER DAY ADVANCE DIRECTIVE ADVANCE DIRECTIVE DISCUSSED WITH PATIENT:YES 12/06/18 PT DOES NOT HAVE ANY ADVANCED DIRECTIVES AND SHE DECLINES INFORMATION ON HCP AT THIS TIME. BV JAIN [id number] RESTORATIONIST MARITAL STATUS: , . ALCOHOL SCREENING DID YOU HAVE A DRINK CONTAINING ALCOHOL IN THE PAST YEAR?NO POINTS0 INTERPRETATIONNEGATIVE OCCUPATION: DISABLED. SEXUAL HX HAD SEX IN THE LAST 12 MONTHS (VAGINAL, ORAL, OR ANAL)?NO HAVE YOU EVER HAD AN STD?NO REVIEWED WITH PT 12/06/18 6597 BV. HOSPITALIZATION/MAJOR DIAGNOSTIC PROCEDURE ABOVE REVIEW OF SYSTEMS REVIEWED BY: PROVIDER: LYN MACKENZIE MD . CONSTITUTIONAL: ANY CHANGE IN YOUR MEDICAL CONDITION? NO . CHILLS NO . FEVER NO . INFECTION: DO YOU HAVE NEW INFECTIONS? NO . DO YOU HAVE HISTORY OF MRSA? NO . MUSCULOSKELETAL: ANY NEW PATTERNS OF PAIN OR NUMBNESS? YES, INCREASING WEAKNESS IN BACK AND STATES BACK SOMETIMES FEELS LIKE IT IS GOING TO "GO OUT ON HER" . GASTROENTEROLOGY: ANY NEW CHANGE IN BOWEL CONTROL? NO . GENITOURINARY: ANY NEW CHANGE IN BLADDER CONTROL? NO . IS THERE A CHANCE YOU COULD BE ? NO . HEMATOLOGY/LYMPH: DO YOU TAKE ANY BLOOD THINNERS? (FOR EXAMPLE- COUMADIN, PLAVIX, AGGRENOX, PLATEL, PRADAXA, OR XARELTO) NO . WHEN WAS YOUR LAST DOSE? DATE: TIME: . NEUROLOGY: HAVE YOU FALLEN IN THE PAST 12 MONTHS? NO . ANY NEW EXTREMITY NUMBNESS OR WEAKNESS? NO . CARDIOLOGY: DO YOU HAVE A PACEMAKER OR DEFIBRILLATOR? NO . RESPIRATORY: HAVE YOU BEEN SICK IN THE PAST WEEK? NO . FEVER NO . FLU LIKE SYMPTOMS? NO . COUGH NO . INTEGUMENTARY: DO YOU HAVE ANY RASHES OR OPEN SORES? NO . ALLERGIC/IMMUNO: ARE YOU ALLERGIC TO IV DYE? NO . ANY NEW ALLERGIES? NO . PSYCHIATRIC: DO YOU HAVE THOUGHTS OF HURTING YOURSELF OR SOMEONE ELSE? NO . ARE YOU ABUSED, NEGLECTED, OR IN AN UNSAFE ENVIRONMENT? NO . ENDOCRINOLOGY: ARE YOU DIABETIC? YES, ON MEDICATION . OTHER: DO YOU NEED ANY PRESCRIPTIONS? NO . IF YES, PLEASE LIST: ____ . ANY NEW PROBLEMS WITH YOUR MEDICATIONS? NO . WHEN DID YOU LAST EAT? ____ . WHEN DID YOU LAST DRINK? ____ . WHAT DID YOU LAST DRINK? ____ . NAME OF PERSON DRIVING YOU HOME? ____ . DO YOU HAVE ANY OTHER QUESTIONS OR CONCERNS NO . VITAL SIGNS WT 274.2 LBS, HT 63 IN, BMI 48.57 INDEX, BP 147/68 MM HG, HR 84 /MIN, RR 18 /MIN, TEMP 96.1 F, OXYGEN SAT % 97%, NA INITIALS SC 09:16. EXAMINATION GENERAL EXAMINATION: PATIENT IS ALERT O X 3 AND COOPERATIVE. MRI OF THE LUMBAR SPINE DONE ON 10/16/2018 SHOWS FACET ARTHROPATHY CHANGES. ASSESSMENTS SPONDYLOSIS OF LUMBAR REGION WITHOUT MYELOPATHY OR RADICULOPATHY - M47.816 (PRIMARY) SPONDYLOSIS OF LUMBOSACRAL REGION WITHOUT MYELOPATHY OR RADICULOPATHY - M47.817 TREATMENT SPONDYLOSIS OF LUMBAR REGION WITHOUT MYELOPATHY OR RADICULOPATHY CLINICAL NOTES: WE DISCUSSED SEVERAL ISSUES WITH MS. DE LA TORRE'S PAIN MANAGEMENT CASE. THE PATIENT IS DOING VERY WELL AFTER RECEIVING A BILATERAL L4-L5, L5-S1 THERAPEUTIC LUMBAR FACET BLOCK ON 11/04/2018. THE PATIENT SAYS SHE DOES NOT NEED ANY FURTHER INTERVENTION AT THIS TIME AND WE WILL OBSERVE HER CONDITION FOR NOW. I DISCUSSED WITH THE PATIENT THAT WE MAY REPEAT THE PROCEDURE OR MOVING ON TO A RADIOFREQUENCY ABLATION. THE PATIENT WILL FOLLOW UP WITH NURSE PRACTITIONER PAPO IN 2 MONTHS AND WAS ADVISED TO CALL IF SHE NEEDS TO BE SEEN SOONER. INSTRUCTIONS WERE GIVEN, QUESTIONS WERE ANSWERED, PATIENT REPORTS UNDERSTANDING AND AGREES WITH THE PLAN. I, CAROLYN LANGE, DOCUMENTED THE ABOVE INFORMATION ACTING A SCRIBE FOR DR. MACKENZIE. I HAVE REVIEWED THE ABOVE DOCUMENT, WRITTEN BY CAROLYN WHALEYIBNatalie AND I VERIFY THAT IT IS ACCURATE. . OTHERS START METAXALONE TABLET, 800 MG, 1 TABLET, ORALLY FOR SPASMS AND PAIN, EVERY 6 HOURS NEEDED MDD2, 30 DAY(S), 45, REFILLS 1 START SKELAXIN TABLET, 800 MG, 1 TABLET, ORALLY FOR SPASMS AND PAIN, EVERY 6 HOURS NEEDED MDD2, 30 DAY(S), 45, REFILLS 1 PROCEDURE CODES FA211 ESTABILISHED PATIENT [facility] FACILITY CHARGE G8427 CURRENT MEDS W/DOSAGES DOCUMENTED G8730 PAIN ASSESS POS TOOL F/U PLAN DOC DISPOSITION & COMMUNICATION FOLLOW UP 2 MONTHS (REASON: F/U WITH RED LEADER) ELECTRONICALLY SIGNED BY LYN MACKENZIE MD, MD ON 12/14/2018 AT 12:42 PM EDT DISCLAIMER : THIS IS A VISIT SUMMARY EXTRACTED FROM THE [employer] CHART. IT IS NOT A COPY OF THE [employer] PROGRESS NOTE. CASSID
== END ==
LOC: M PAIN 09:00
PROVIDERS: ATTEND Anesthesiology
DX: M47.816 Spondylosis without myelopathy or radiculopathy, lumbar region (principal); M47.817 Spondylosis without myelopathy or radiculopathy, lumbosacral region; L40.50 Arthropathic psoriasis, unspecified; E78.5 Hyperlipidemia, unspecified; F32.9 Major depressive disorder, single episode, unspecified; K21.9 Gastro-esophageal reflux disease without esophagitis; E11.9 Type 2 diabetes mellitus without complications; K02.9 Dental caries, unspecified; J30.9 Allergic rhinitis, unspecified; F17.210 Nicotine dependence, cigarettes, uncomplicated; E66.01 Morbid (severe) obesity due to excess calories; L40.0 Psoriasis vulgaris; E55.9 Vitamin D deficiency, unspecified; K76.0 Fatty (change of) liver, not elsewhere classified; M50.30 Other cervical disc degeneration, unspecified cervical region; M51.36 Other intervertebral disc degeneration, lumbar region; I10 Essential (primary) hypertension; Z86.010 Personal history of colon polyps; Z68.42 Body mass index [BMI] 45.0-49.9, adult; Z79.84 Long term (current) use of oral hypoglycemic drugs; Z79.82 Long term (current) use of aspirin; Z79.899 Other long term (current) drug therapy; Z90.49 Acquired absence of other specified parts of digestive tract; Z88.2 Allergy status to sulfonamides; Z88.8 Allergy status to other drugs, medicaments and biological substances

== ENCOUNTER → 2018-12-09 | Outpatient (CLI) | payer MEDICARE, MEDICAID ==
--- NOTE | 2018-12-09 12:16 | REP ---
BILATERAL SCREENING DIGITAL MAMMOGRAM WITH 3D TOMOSYNTHESIS: There are no palpable abnormalities or other breast complaints. The the patient states she has not had a clinical breast examination in over a year. The the patient states she performs self-breast examinations 12 times per year. The Tyrer-Cuzick Score is: 9 9.4%. Comparison is 07/30/2012. There are scattered areas of fibroglandular density. There is no dominant mass, micro calcific cluster or architectural distortion that would indicate malignancy. There are no additional findings on 3D tomosynthesiss. There is no change from the prior study. Impression: BIRADS/ACR category 1 mammogram. Negative. Recommendation: Routine annual screening mammography. This mammogram was interpreted with the aid of a FDA approved computer-aided detection system. A. Negative mammogram reports should not delay biopsy if a dominant or clinically suspicious mass is present. B. Not all breast cancers are identified by mammography or tomosynthesis. C. Adenosis and dense breasts may obscure an underlying neoplasm. Patient letter M1. Electronically Signed by Gopi Marino MD 12/09/2018 12:08 P
== END ==
LOC: M WHC 11:01
PROVIDERS: ATTEND Family Medicine
DX: Z12.31 Encounter for screening mammogram for malignant neoplasm of breast (principal)

== ENCOUNTER → 2019-02-07 | Outpatient (CLI) | payer MEDICARE, MEDICAID ==
[~2019-02-07] MED LIST changes: -ENBR25IN3 SC; +ETAN25SY SC; +ZETI10TA16 PO; -ZETI10TA30 PO
--- NOTE | 2019-02-09 02:21 | ECWPNPC ---
PATIENT NAME: MEG DE LA TORRE : 1970 GENDER: FEMALE VISIT DATE: 02/07/2019 DISCHARGE DATE: 02/07/19 1029 VISIT LOCKED DATE TIME: PHYSICIAN: PAPO MARIE PHYSICIAN PAGER NO: [phone] RESOURCE: PAPO MARIE REASON FOR APPOINTMENT 1. LOW BACK HISTORY OF PRESENT ILLNESS HISTORY OF PRESENT ILLNESS: PAIN THE PATIENT DESCRIBES THE PAIN... 49-YEAR-OLD FEMALE IN FOR CHRONIC PAIN FOLLOW-UP. SHE RATES HER PAIN CURRENTLY AT A 5 OUT OF 10 AND DESCRIBES IT ACHING. SHE FEELS HER MEDS ARE WORKING WELL AND DENIES MED SIDE EFFECTS THIS TIME. FALL RISK SCREENING: SCREENING :NO FALLS REPORTED IN THE LAST YEAR CURRENT MEDICATIONS TAKING FERROUS SULFATE 325 (65 FE) MG TABLET 1 TABLET ORALLY ONCE A DAY TAKING DEXILANT 60 MG CAPSULE 1 CAP(S) ORALLY ONCE A DAY TAKING TERBINAFINE HCL 1 % CREAM 1 APPLICATION TO AFFECTED AREA EXTERNALLY TWICE A DAY TAKING ERGOCALCIFEROL 70775 UNIT CAPSULE 1 CAPSULE ORALLY WEEKLY TAKING FLUOXETINE HCL 20 MG TABLET 1 TABLET IN THE MORNING ORALLY ONCE A DAY TAKING ATORVASTATIN CALCIUM 80 MG TABLET 1 TABLET ORALLY ONCE A DAY TAKING EZETIMIBE 10 MG TABLET 1 TABLET ORALLY ONCE A DAY TAKING CARVEDILOL 6.25 MG TABLET 1 TAB ORALLY BID TAKING METFORMIN HCL ER 750 MG TABLET EXTENDED RELEASE 24 HOUR 1 TABLET ORALLY BID TAKING GLUCOMETER . .. DIRECTED DX 250 USE BID TAKING BLOOD GLUCOSE TEST . STRIPS USE BID DX 250 CHECK BS BID TAKING LANCETS . .. DIRECTED DX: 250 USE BID TAKING TRULICITY 1.5 MG/0.5ML SOLUTION PEN-INJECTOR 0.5 ML SUBCUTANEOUS WEEKLY TAKING ALCOHOL PADS 70 % PAD DIRECTED TAKING REFRESH 1.4-0.6 % SOLUTION 2 DROPS OPHTHALMIC NEEDED TAKING BD INSULIN SYRINGE 31G X 09/30 MISCELLANEOUS DIRECTED SUBCUTANEOUSLY WEEKLYDX: L40.50 TAKING CALCIUM 600+D PLUS MINERALS 600-400 MG-UNIT TABLET CHEWABLE 1 TAB ORALLY BID, NOTES: 11/03 2299 TAKING STELARA 90 MG/ML SOLUTION PREFILLED SYRINGE DIRECTED SUBCUTANEOUS Q12W TAKING TENS UNIT - DIRECTED _ C PADS AND INSTRUCTION DAILY TAKING CYCLOBENZAPRINE HCL 10 MG TABLET 1 TABLET NEEDED ORALLY THREE TIMES A DAY PRN SPASM TAKING LEVOTHYROXINE SODIUM 25 MCG TABLET 1 TABLET ON AN EMPTY STOMACH IN THE MORNING ORALLY ONCE A DAY TAKING ZETIA 10 MG TABLET 1 TABLET ONCE A DAY ORALLY 30 ORALLY ONCE A DAY TAKING TIZANIDINE HCL 4 MG TABLET 1 TABLET ORALLY FOR SPASMS AND PAIN EVERY 6 HOURS NEEDED MDD2 TAKING LYRICA 50 MG CAPSULE 1 CAPSULE ORALLY THREE TIMES A DAY MDD: 3 TAKING ULTRAM 50 MG TABLET 1 TABLET ORALLY EVERY 8 HRS FOR PAIN MDD 3 TAKING ASPIRIN 81 MG TABLET CHEWABLE 1 TABLET ONCE A DAY ORALLY 30 DAY(S) TAKING VITAMIN B-12 500 MCG TABLET TAKE ONE TABLET BY MOUTH ONCE DAILY DISCONTINUED ATORVASTATIN CALCIUM 80 MG TABLET 1 TABLET ONCE A DAY ORALLY 30 DAY(S) ORALLY DAILY DISCONTINUED METFORMIN HCL ER 750 MG TABLET EXTENDED RELEASE 24 HOUR 1 TABLET ORALLY BID DISCONTINUED FERROUS SULFATE 325 (65 FE) MG TABLET 1 TABLET ONCE A DAY ORALLY 30 DISCONTINUED DEXILANT 60 MG CAPSULE DELAYED RELEASE TAKE ONE CAPSULE BY MOUTH ONCE DAILY ORALLY ONCE A DAY DISCONTINUED FLUOXETINE HCL 20 MG TABLET 1 TABLET IN THE MORNING ORALLY ONCE A DAY DISCONTINUED CYANOCOBALAMIN 250 MCG TABLET 1 TABLET ORALLY ONCE A DAY DISCONTINUED LEVOFLOXACIN 500 MG TABLET 1 TABLET ORALLY ONCE A DAY DISCONTINUED VITAMIN D (ERGOCALCIFEROL) 91010 UNIT CAPSULE 1 CAPSULE WEEKLY ORALLY 30 DAY(S) ORALLY ONCE A WEEK MEDICATION LIST REVIEWED AND RECONCILED WITH THE PATIENT PAST MEDICAL HISTORY PSORIASIS, GENERALIZED PLAQUE/PSORIATIC ARTHRITIS HYPERLIPIDEMIA 2B CHRONIC MDD GERD T2DM, NID MULTIPLE DENTAL CARIES ALLERGIC RHINITIS NICOTINE ADDICTION OBESITY, MORBID VITAMIN D DEFICIENCY NAFLD BY CT FEBRUARY 2011 WITH BORDERLINE HEPATOMEGALY, SEEN BY 10/2016 US CERVICAL DJD-11/2011 NORMAL CERVICAL MRI LUMBAR DJD-L12 R IF HNP C R 1 COMPRESSION,, L2-4 BULGES, MINIMAL L45CCS BY 10/2018 MRI///10/2014 XRAY C MILD MULT-LEVEL DJD, NORMAL B SIJ HYPERTENSION-09/2015-LOW RISK DPST, NORMAL TTE-LOW PALPITATIONS-NORMAL 25D EVENT MONITOR-05/2014-LOW SMALL ADENOMATOUS P-09/2017 COLON-W ALLERGIES SULFA (FOR ALLERGY USE ONLY): HIVES - ALLERGY CYMBALTA: PALPITATIONS, HYPERTENSION - CONTRAINDICATION SURGICAL HISTORY ENDOMETRIAL ABLATION 2007 CHOLECYSTECTOMY 2005 D&C X 3 COMPLETE DENTAL EXTRACTION NOVEMBER 2012, 08/2014 COLONOSCOPY-MODERATE LOSIS, HEMORRHOIDS-DONE 2 RECTAL BLEEDING-MARINA 07/2007 C SECTION 06/2006 FAMILY HISTORY FATHER: , COLON CANCER DX AT 45 MOTHER: SIBLINGS: DAUGHTER(S): ALIVE 2DAUGHTER(S) . DENIES ANY HX SKIN OR PANCREATIC CANCER. SOCIAL HISTORY GENERAL: TOBACCO USE ARE YOU A:CURRENT SMOKER ARE YOU INTERESTED IN QUITTING?NOT READY TO QUIT COUNSELED THE PATIENT ON SMOKING EFFECTS, EDUCATION [id number]/23/2019 HOW MANY CIGARETTES A DAY DO YOU SMOKE?11-20 HOW SOON AFTER YOU WAKE UP DO YOU SMOKE YOUR FIRST CIGARETTE?6-30 MIN HOW OFTEN DO YOU SMOKE CIGARETTES?EVERY DAY PATIENT COUNSELED ON THE DANGERS OF TOBACCO USE AND URGED TO QUIT:11/04/2018 SMOKING CESSATION INFORMATION GIVEN03/16/2018 11/04/18 DECLINED AD HIV / HEP-C SCREENING HIV TEST OFFERED TO PATIENT:YES DATE OFFERED:10/24/2016 TEST ACCEPTED:NO HEP-C TEST OFFERED TO PATIENT:YES DATE OFFERED:10/24/2016 REASON:PATIENT DECLINED TEST ACCEPTED:NO REASON:PATIENT DECLINED OTHERS AT HOME: SPOUSE, CHILD. EDUCATION LEVEL OF EDUCATION: 9 TH GRADE EDUCATION DIET: CARBOHYDRATE CONTROLLED. LANGUAGE LANGUAGES SPOKEN:GERMAN DOMESTIC VIOLENCE DO YOU FEEL SAFE IN YOUR ENVIRONMENT?YES NEW PATIENT PAIN DIARY PRECIPITATING FACTORS OVER ACTIVE, BENDING ALLEVIATING FACTORS HOT BATH, SLEEPS WITH HEATING PAD IMPACT ON FUNCTION LIMITED WITH ACTIVITY, DIFFICULTY WITH DAILY ACTIVITIES DO YOU HAVE ANY RASHES OR OPEN SORES? PSORIASIS ARE YOU DIABETIC? MANAGING WITH MEDICATIONS ANY NEW PATTERNS OF PAIN OR NUMBNESS? PT STATES THAT SHE HAS RECENTLY HAD ISSUES WITH PAIN IN BACK RADIATING DOWN RIGHT LEG TO KNEE BMI CARE GOAL FOLLOW-UP ABOVE NORMAL BMI FOLLOW-UPGIVING ENCOURAGEMENT TO EXERCISE RECREATIONAL DRUG USE DRUG USE?NO EXERCISE: NO REGULAR EXERCISE. LEARNING BARRIERS / SPECIAL NEEDS CHANGE FROM LAST VISIT?NO BARRIERS TO LEARNING?NO HEARING IMPAIRED?NO VISION IMPAIRED?NO COGNITIVELY IMPAIRED?NO READINESS TO LEARN?YES LEARNING PREFERENCES?YES :BOOKLETS, HANDOUTS, DEMONSTRATION/VERBAL INSTRUCTION LEARNING CAPABILITIES PRESENT?YES EMOTIONAL BARRIERS?NO SPECIAL DEVICES?NO SPORT PSYCHOLOGIST NEEDED?NO PAIN CLINIC PFS, CLERGY, PUBLIC HEALTH REFERRALS WAS THE PROVIDER NOTIFIED OF ANY PERTINENT INFO? N/A HAS THE PATIENT BEEN EDUCATED REGARDING HIS/HER PLAN OF CARE?YES ORIENTED TO PAIN MANAGEMENT HAS THE PATIENT BEEN EDUCATED REGARDING PAIN, THE RISK FOR PAIN, THE IMPORTANCE OF EFFECTIVE PAIN MANAGEMENT, AND THE PAIN ASSESSMENT PROCESS?YES LATEX QUESTIONNAIRE LATEX ALLERGY : HAVE YOU EVER DEVELOPED ANY TYPE OF REACTION AFTER HANDLING LATEX PRODUCTS SUCH RUBBER GLOVES, CONDOMS, DIAPHRAGMS, BALLOONS, SOCKS, OR UNDERWEAR?NO LATEX ALLERGY : HAVE YOU EVER DEVELOPED ANY TYPE OF REACTION DURING OR AFTER DENTAL APPOINTMENT, VAGINAL/RECTAL EXAMINATION, SURGICAL PROCEDURE, OR ANY OTHER EXPOSURE?NO DATE ASKED : 11/04/2018 LATEX RISK : HAVE YOU EVER HAD ANY DIFFICULTY BREATHING OR HIVES AFTER EATING OR HANDLING ANY FRUITS, OR VEGETABLES; SUCH KIWI, BANANAS, STONE FRUITS, OR CHESTNUTSNO LATEX RISK : DO YOU HAVE A PREVIOUS PERSONAL HISTORY OF MORE THAN NINE SURGERIES, SPINA BIFIDA, OR REPEATED CATHERIZATIONS? NO LATEX RISK : ARE YOU FREQUENTLY EXPOSED TO LATEX PRODUCTS IN YOUR OCCUPATION?NO CAFFEINE CAFFEINE USE?YES HOW OFTEN AND HOW MUCH? 2 CUPS OF COFFEE PER DAY ADVANCE DIRECTIVE ADVANCE DIRECTIVE DISCUSSED WITH PATIENT:YES PT DOES NOT HAVE ANY ADVANCED DIRECTIVES AND SHE DECLINES INFORMATION ON HCP AT THIS TIME. SIKH [id number] QUAKER MARITAL STATUS: , . ALCOHOL SCREENING DID YOU HAVE A DRINK CONTAINING ALCOHOL IN THE PAST YEAR?NO POINTS0 INTERPRETATIONNEGATIVE OCCUPATION: DISABLED. SEXUAL HX HAD SEX IN THE LAST 12 MONTHS (VAGINAL, ORAL, OR ANAL)?NO HAVE YOU EVER HAD AN STD?NO REVIEWED WITH PT 12/06/18 0997 BV. HOSPITALIZATION/MAJOR DIAGNOSTIC PROCEDURE ABOVE REVIEW OF SYSTEMS REVIEWED BY: PROVIDER: ALEX KLEIN-C . CONSTITUTIONAL: ANY CHANGE IN YOUR MEDICAL CONDITION? NO . CHILLS NO . FEVER NO . INFECTION: DO YOU HAVE NEW INFECTIONS? NO . DO YOU HAVE HISTORY OF MRSA? NO . MUSCULOSKELETAL: ANY NEW PATTERNS OF PAIN OR NUMBNESS? YES, PAIN IS WORSE . GASTROENTEROLOGY: ANY NEW CHANGE IN BOWEL CONTROL? NO . GENITOURINARY: ANY NEW CHANGE IN BLADDER CONTROL? NO . IS THERE A CHANCE YOU COULD BE ? NO . HEMATOLOGY/LYMPH: DO YOU TAKE ANY BLOOD THINNERS? (FOR EXAMPLE- COUMADIN, PLAVIX, AGGRENOX, PLATEL, PRADAXA, OR XARELTO) NO . WHEN WAS YOUR LAST DOSE? DATE: TIME: . NEUROLOGY: HAVE YOU FALLEN IN THE PAST 12 MONTHS? NO . ANY NEW EXTREMITY NUMBNESS OR WEAKNESS? NO . CARDIOLOGY: DO YOU HAVE A PACEMAKER OR DEFIBRILLATOR? NO . RESPIRATORY: HAVE YOU BEEN SICK IN THE PAST WEEK? NO . FEVER NO . FLU LIKE SYMPTOMS? NO . COUGH NO . INTEGUMENTARY: DO YOU HAVE ANY RASHES OR OPEN SORES? NO . ALLERGIC/IMMUNO: ARE YOU ALLERGIC TO IV DYE? NO . ANY NEW ALLERGIES? NO . PSYCHIATRIC: DO YOU HAVE THOUGHTS OF HURTING YOURSELF OR SOMEONE ELSE? NO . ARE YOU ABUSED, NEGLECTED, OR IN AN UNSAFE ENVIRONMENT? NO . ENDOCRINOLOGY: ARE YOU DIABETIC? YES . OTHER: DO YOU NEED ANY PRESCRIPTIONS? YES, TIZANIDINE . IF YES, PLEASE LIST: ____ . ANY NEW PROBLEMS WITH YOUR MEDICATIONS? NO . WHEN DID YOU LAST EAT? ____ . WHEN DID YOU LAST DRINK? ____ . WHAT DID YOU LAST DRINK? ____ . NAME OF PERSON DRIVING YOU HOME? ____ . DO YOU HAVE ANY OTHER QUESTIONS OR CONCERNS NO . VITAL SIGNS WT 274.0 LBS, HT 63 IN, BMI 48.53 INDEX, BP 119/67 MM HG, HR 92 /MIN, RR 18 /MIN, TEMP 96.1 F, OXYGEN SAT % 96%, NA INITIALS AW 0949. EXAMINATION GENERAL EXAMINATION: GENERALNO ACUTE DISTRESS, WELL NOURISHED AND HYDRATED. PSYCHAPPROPRIATE MOOD AND AFFECT . LUNGS:LUNG SOUNDS DIMINISHED BILATERALLY . HEART:NO MURMURS, REGULAR RATE AND RHYTHM. ASSESSMENTS SPONDYLOSIS OF LUMBOSACRAL REGION WITHOUT MYELOPATHY OR RADICULOPATHY - M47.817 (PRIMARY) TREATMENT SPONDYLOSIS OF LUMBOSACRAL REGION WITHOUT MYELOPATHY OR RADICULOPATHY START METAXALONE TABLET, 800 MG, 1 TABLET, ORALLY, THREE TIMES A DAY, 30 DAY(S), 90 STOP CYCLOBENZAPRINE HCL TABLET, 10 MG, 1 TABLET NEEDED, ORALLY, THREE TIMES A DAY PRN SPASM REFILL TIZANIDINE HCL TABLET, 4 MG, 1 TABLET, ORALLY FOR SPASMS AND PAIN, EVERY 6 HOURS NEEDED MDD2, 30 DAYS, 45 CLINICAL NOTES: 49-YEAR-OLD FEMALE IN FOR CHRONIC PAIN FOLLOW-UP. GIVEN PRESENTING SYMPTOMS AND RESULTED PHYSICAL EXAMINATION RECOMMENDED STARTING METAXALONE WITH FOLLOW-UP IN ONE MONTH TO DETERMINE EFFICACY OF TREATMENT. AT NEXT APPOINTMENT WE WILL DISCUSS REPEAT FACET BLOCK PER DISCUSSION WITH PATIENT TODAY. PATIENT EXPRESSED UNDERSTANDING OF AND WAS IN AGREEMENT WITH TREATMENT PLAN. GIVEN TIME TO ASK QUESTIONS AND EXPRESS CONCERNS. . OTHERS NOTES: METAXALONE MATERIAL WAS PRINTED. PROCEDURE CODES FA211 ESTABILISHED PATIENT [facility] CHARGE DISPOSITION & COMMUNICATION FOLLOW UP 4 WEEKS (REASON: MEDICATION CHANGE ) ELECTRONICALLY SIGNED BY ERNIE JUARES ON 02/08/2019 AT 09:27 AM EDT DISCLAIMER : THIS IS A VISIT SUMMARY EXTRACTED FROM THE [employer] CHART. IT IS NOT A COPY OF THE [employer] PROGRESS NOTE. VALERIA
== END ==
LOC: M PAIN 09:30
PROVIDERS: ATTEND Family Medicine
DX: M47.817 Spondylosis without myelopathy or radiculopathy, lumbosacral region (principal); G89.29 Other chronic pain; E78.5 Hyperlipidemia, unspecified; K21.9 Gastro-esophageal reflux disease without esophagitis; E11.9 Type 2 diabetes mellitus without complications; E55.9 Vitamin D deficiency, unspecified; I10 Essential (primary) hypertension; F17.210 Nicotine dependence, cigarettes, uncomplicated; Z88.2 Allergy status to sulfonamides; Z88.8 Allergy status to other drugs, medicaments and biological substances; E66.01 Morbid (severe) obesity due to excess calories; Z68.42 Body mass index [BMI] 45.0-49.9, adult; Z79.84 Long term (current) use of oral hypoglycemic drugs; Z79.82 Long term (current) use of aspirin; Z79.899 Other long term (current) drug therapy

== ENCOUNTER → 2019-03-07 | Outpatient (CLI) | payer MEDICARE ==
[2019-03-07 08:20] LABS: BASO # 0.1 10^3/uL (0.0-0.2); BASO % 0.6 % (0.0-1.0); EOS # 0.4 10^3/uL (0.0-0.5); EOS % 4.3 % (0.0-3.0); HEMOGLOBIN 13.9 g/dl (12.0-15.5); LYMPH # 2.8 10^3/uL (1.5-5.0); LYMPH % 31.7 % (24.0-44.0); MEAN CORPUSCULAR HEMOGLOBIN 29.8 pg (27.0-33.0); MEAN CORPUSCULAR HGB CONC 33.1 g/dl (32.0-36.5); MEAN CORPUSCULAR VOLUME 90.1 fl (80.0-96.0); MONO # 0.4 10^3/uL (0.0-0.8); NEUTROPHILS # 5.3 10^3/uL (1.5-8.5); NEUTROPHILS % 59.2 % (36.0-66.0); PLATELET COUNT, AUTOMATED 212 10^3/uL (150-450); RED BLOOD COUNT 4.66 10^6/uL (4.00-5.40); WHITE BLOOD COUNT 8.9 10^3/uL (4.0-10.0)
[2019-03-07 08:45] LABS: ERYTHROCYTE SEDIMENTATION RATE 34 mm/hr (0-30)
[2019-03-07 08:45] LABS: APPEARANCE, URINE CLOUDY (CLEAR); BACTERIA, URINE AUTO 1+ (NEGATIVE); BILIRUBIN, URINE AUTO NEGATIVE (NEGATIVE); BLOOD, URINE BLOOD NEGATIVE (NEGATIVE); COLOR, URINE YELLOW (YELLOW); GLUCOSE, URINE (UA) AUTO NEGATIVE (NEGATIVE); KETONE, URINE AUTO NEGATIVE (NEGATIVE); LEUKOCYTE ESTERASE, URINE AUTO NEGATIVE (NEGATIVE); MUCUS, URINE SMALL (NEGATIVE); NITRITE, URINE AUTO NEGATIVE (NEGATIVE); PROTEIN, URINE AUTO NEGATIVE (NEGATIVE); RBC, URINE AUTO 3 /HPF (0-3); SPECIFIC GRAVITY URINE AUTO 1.016 (1.002-1.035); SQUAMOUS EPITHELIAL CELL UR AU 22 /HPF (0-6); UROBILINOGEN, URINE AUTO 0.2 mg/dL (0.0-2.0); WBC, URINE AUTO 3 /HPF (0-3)
[2019-03-07 08:49] LABS: ALBUMIN 3.4 GM/DL (3.2-5.2); ALT/SGPT 35 U/L (12-78); BILIRUBIN,TOTAL 0.4 MG/DL (0.2-1.0); BLOOD UREA NITROGEN 6 MG/DL (7-18); C REACTIVE PROTEIN QUANTITATIV 0.83 MG/DL (0.00-0.30); CALCIUM LEVEL 9.1 MG/DL (8.5-10.1); CARBON DIOXIDE LEVEL 29 MEQ/L (21-32); CHLORIDE LEVEL 105 MEQ/L (98-107); CREATININE FOR GFR 0.85 MG/DL (0.55-1.30); FREE T4 1.13 NG/DL (0.76-1.46); GLOMERULAR FILTRATION RATE > 60.0 (>51); GLUCOSE, FASTING 106 MG/DL (70-100); POTASSIUM SERUM 4.1 MEQ/L (3.5-5.1); SODIUM LEVEL 140 MEQ/L (136-145); TOTAL PROTEIN 7.3 GM/DL (6.4-8.2)
[2019-03-07 08:50] LABS: MALB URINE SIEMENS 27.8 MG/L
[2019-03-07 12:47] LABS: HEMOGLOBIN A1c 7.8 %
== END ==
LOC: M LAB 07:16
PROVIDERS: ATTEND Family Medicine
DX: L40.50 Arthropathic psoriasis, unspecified (principal); E11.9 Type 2 diabetes mellitus without complications

== ENCOUNTER → 2019-03-14 | Outpatient (CLI) | payer MEDICARE, MEDICAID ==
--- NOTE | 2019-03-16 01:32 | ECWPNPC ---
PATIENT NAME: MEG DE LA TORRE : 1970 GENDER: FEMALE VISIT DATE: 03/14/2019 DISCHARGE DATE: 03/14/19 1056 VISIT LOCKED DATE TIME: PHYSICIAN: PAPO MARIE PHYSICIAN PAGER NO: [phone] RESOURCE: PAPO MARIE REASON FOR APPOINTMENT 1. MEDICATION CHANGE HISTORY OF PRESENT ILLNESS HISTORY OF PRESENT ILLNESS: PAIN THE PATIENT DESCRIBES THE PAIN... 49-YEAR-OLD FEMALE IN FOR CHRONIC PAIN FOLLOW-UP. AT LAST CLINIC VISIT SHE WAS STARTED ON METAXALONE AND STATES THAT SHE FEELS THIS WAS INEFFECTIVE. SHE RATES HER PAIN CURRENTLY AT A 5 OUT OF 10 AND DESCRIBES IT ACHING AND LASTING ALL DAY. FALL RISK SCREENING: SCREENING :NO FALLS REPORTED IN THE LAST YEAR CURRENT MEDICATIONS TAKING FERROUS SULFATE 325 (65 FE) MG TABLET 1 TABLET ORALLY ONCE A DAY TAKING DEXILANT 60 MG CAPSULE 1 CAP(S) ORALLY ONCE A DAY TAKING TERBINAFINE HCL 1 % CREAM 1 APPLICATION TO AFFECTED AREA EXTERNALLY TWICE A DAY TAKING ERGOCALCIFEROL 24103 UNIT CAPSULE 1 CAPSULE ORALLY WEEKLY TAKING FLUOXETINE HCL 20 MG TABLET 1 TABLET IN THE MORNING ORALLY ONCE A DAY TAKING ATORVASTATIN CALCIUM 80 MG TABLET 1 TABLET ORALLY ONCE A DAY TAKING EZETIMIBE 10 MG TABLET 1 TABLET ORALLY ONCE A DAY TAKING CARVEDILOL 6.25 MG TABLET 1 TAB ORALLY BID TAKING GLUCOMETER . .. DIRECTED DX 250 USE BID TAKING BLOOD GLUCOSE TEST . STRIPS USE BID DX 250 CHECK BS BID TAKING LANCETS . .. DIRECTED DX: 250 USE BID TAKING TRULICITY 1.5 MG/0.5ML SOLUTION PEN-INJECTOR 0.5 ML SUBCUTANEOUS WEEKLY TAKING ALCOHOL PADS 70 % PAD DIRECTED TAKING REFRESH 1.4-0.6 % SOLUTION 2 DROPS OPHTHALMIC NEEDED TAKING BD INSULIN SYRINGE 31G X 09/30 MISCELLANEOUS DIRECTED SUBCUTANEOUSLY WEEKLYDX: L40.50 TAKING CALCIUM 600+D PLUS MINERALS 600-400 MG-UNIT TABLET CHEWABLE 1 TAB ORALLY BID, NOTES: 11/03 2299 TAKING LYRICA 50 MG CAPSULE 1 CAPSULE ORALLY THREE TIMES A DAY MDD: 3 TAKING VITAMIN B-12 500 MCG TABLET TAKE ONE TABLET BY MOUTH ONCE DAILY TAKING METAXALONE 800 MG TABLET 1 TABLET ORALLY THREE TIMES A DAY TAKING ZETIA 10 MG TABLET 1 TABLET ONCE A DAY ORALLY 30 ORALLY ONCE A DAY TAKING ULTRAM 50 MG TABLET 1 TABLET ORALLY EVERY 8 HRS FOR PAIN MDD 3 TAKING TIZANIDINE HCL 4 MG TABLET 1 TABLET ORALLY FOR SPASMS AND PAIN EVERY 6 HOURS NEEDED MDD2 TAKING STELARA 90 MG/ML SOLUTION PREFILLED SYRINGE DIRECTED SUBCUTANEOUS Q12W TAKING ASPIRIN 81 MG TABLET CHEWABLE 1 TABLET ONCE A DAY ORALLY 30 DAY(S) TAKING METFORMIN HCL ER 750 MG TABLET EXTENDED RELEASE 24 HOUR 1 TABLET ORALLY BID TAKING LEVOTHYROXINE SODIUM 50 MCG TABLET 1 TABLET IN THE MORNING ON AN EMPTY STOMACH ORALLY ONCE A DAY DISCONTINUED TENS UNIT - DIRECTED _ C PADS AND INSTRUCTION DAILY MEDICATION LIST REVIEWED AND RECONCILED WITH THE PATIENT PAST MEDICAL HISTORY PSORIASIS, GENERALIZED PLAQUE/PSORIATIC ARTHRITIS HYPERLIPIDEMIA 2B CHRONIC MDD GERD T2DM, NID MULTIPLE DENTAL CARIES ALLERGIC RHINITIS NICOTINE ADDICTION OBESITY, MORBID VITAMIN D DEFICIENCY NAFLD BY CT FEBRUARY 2011 WITH BORDERLINE HEPATOMEGALY, SEEN BY 10/2016 US CERVICAL DJD-11/2011 NORMAL CERVICAL MRI LUMBAR DJD-L12 R IF HNP C R 1 COMPRESSION,, L2-4 BULGES, MINIMAL L45CCS BY 10/2018 MRI///10/2014 XRAY C MILD MULT-LEVEL DJD, NORMAL B SIJ HYPERTENSION-09/2015-LOW RISK DPST, NORMAL TTE-LOW PALPITATIONS-NORMAL 25D EVENT MONITOR-05/2014-LOW SMALL ADENOMATOUS P-09/2017 COLON-W ALLERGIES SULFA (FOR ALLERGY USE ONLY): HIVES - ALLERGY CYMBALTA: PALPITATIONS, HYPERTENSION - CONTRAINDICATION SURGICAL HISTORY ENDOMETRIAL ABLATION 2007 CHOLECYSTECTOMY 2005 D&C X 3 COMPLETE DENTAL EXTRACTION NOVEMBER 2012, 08/2014 COLONOSCOPY-MODERATE LOSIS, HEMORRHOIDS-DONE 2 RECTAL BLEEDING-MARINA 07/2007 C SECTION 06/2006 FAMILY HISTORY FATHER: , COLON CANCER DX AT 45 MOTHER: SIBLINGS: DAUGHTER(S): ALIVE 2DAUGHTER(S) . DENIES ANY HX SKIN OR PANCREATIC CANCER. SOCIAL HISTORY GENERAL: TOBACCO USE ARE YOU A:CURRENT SMOKER ARE YOU INTERESTED IN QUITTING?NOT READY TO QUIT COUNSELED THE PATIENT ON SMOKING EFFECTS, EDUCATION [id number]/28/2019 HOW MANY CIGARETTES A DAY DO YOU SMOKE?11-20 HOW SOON AFTER YOU WAKE UP DO YOU SMOKE YOUR FIRST CIGARETTE?6-30 MIN HOW OFTEN DO YOU SMOKE CIGARETTES?EVERY DAY PATIENT COUNSELED ON THE DANGERS OF TOBACCO USE AND URGED TO QUIT:11/04/2018 SMOKING CESSATION INFORMATION GIVEN03/16/2018 11/04/18 DECLINED AD HIV / HEP-C SCREENING HIV TEST OFFERED TO PATIENT:YES DATE OFFERED:10/24/2016 TEST ACCEPTED:NO HEP-C TEST OFFERED TO PATIENT:YES DATE OFFERED:10/24/2016 REASON:PATIENT DECLINED TEST ACCEPTED:NO REASON:PATIENT DECLINED OTHERS AT HOME: SPOUSE, CHILD. EDUCATION LEVEL OF EDUCATION: 9 TH GRADE EDUCATION DIET: CARBOHYDRATE CONTROLLED. LANGUAGE LANGUAGES SPOKEN:TURKISH DOMESTIC VIOLENCE DO YOU FEEL SAFE IN YOUR ENVIRONMENT?YES NEW PATIENT PAIN DIARY PRECIPITATING FACTORS OVER ACTIVE, BENDING ALLEVIATING FACTORS HOT BATH, SLEEPS WITH HEATING PAD IMPACT ON FUNCTION LIMITED WITH ACTIVITY, DIFFICULTY WITH DAILY ACTIVITIES DO YOU HAVE ANY RASHES OR OPEN SORES? PSORIASIS ARE YOU DIABETIC? MANAGING WITH MEDICATIONS ANY NEW PATTERNS OF PAIN OR NUMBNESS? PT STATES THAT SHE HAS RECENTLY HAD ISSUES WITH PAIN IN BACK RADIATING DOWN RIGHT LEG TO KNEE BMI CARE GOAL FOLLOW-UP ABOVE NORMAL BMI FOLLOW-UPGIVING ENCOURAGEMENT TO EXERCISE RECREATIONAL DRUG USE DRUG USE?NO EXERCISE: NO REGULAR EXERCISE. LEARNING BARRIERS / SPECIAL NEEDS CHANGE FROM LAST VISIT?NO BARRIERS TO LEARNING?NO HEARING IMPAIRED?NO VISION IMPAIRED?NO COGNITIVELY IMPAIRED?NO READINESS TO LEARN?YES LEARNING PREFERENCES?YES :BOOKLETS, HANDOUTS, DEMONSTRATION/VERBAL INSTRUCTION LEARNING CAPABILITIES PRESENT?YES EMOTIONAL BARRIERS?NO SPECIAL DEVICES?NO CLIENT TECHNICAL SPECIALIST NEEDED?NO PAIN CLINIC PFS, CLERGY, PUBLIC HEALTH REFERRALS WAS THE PROVIDER NOTIFIED OF ANY PERTINENT INFO? N/A HAS THE PATIENT BEEN EDUCATED REGARDING HIS/HER PLAN OF CARE?YES ORIENTED TO PAIN MANAGEMENT HAS THE PATIENT BEEN EDUCATED REGARDING PAIN, THE RISK FOR PAIN, THE IMPORTANCE OF EFFECTIVE PAIN MANAGEMENT, AND THE PAIN ASSESSMENT PROCESS?YES LATEX QUESTIONNAIRE LATEX ALLERGY : HAVE YOU EVER DEVELOPED ANY TYPE OF REACTION AFTER HANDLING LATEX PRODUCTS SUCH RUBBER GLOVES, CONDOMS, DIAPHRAGMS, BALLOONS, SOCKS, OR UNDERWEAR?NO LATEX ALLERGY : HAVE YOU EVER DEVELOPED ANY TYPE OF REACTION DURING OR AFTER DENTAL APPOINTMENT, VAGINAL/RECTAL EXAMINATION, SURGICAL PROCEDURE, OR ANY OTHER EXPOSURE?NO DATE ASKED : 11/04/2018 LATEX RISK : HAVE YOU EVER HAD ANY DIFFICULTY BREATHING OR HIVES AFTER EATING OR HANDLING ANY FRUITS, OR VEGETABLES; SUCH KIWI, BANANAS, STONE FRUITS, OR CHESTNUTSNO LATEX RISK : DO YOU HAVE A PREVIOUS PERSONAL HISTORY OF MORE THAN NINE SURGERIES, SPINA BIFIDA, OR REPEATED CATHERIZATIONS? NO LATEX RISK : ARE YOU FREQUENTLY EXPOSED TO LATEX PRODUCTS IN YOUR OCCUPATION?NO CAFFEINE CAFFEINE USE?YES HOW OFTEN AND HOW MUCH? 2 CUPS OF COFFEE PER DAY ADVANCE DIRECTIVE ADVANCE DIRECTIVE DISCUSSED WITH PATIENT:YES PT DOES NOT HAVE ANY ADVANCED DIRECTIVES AND SHE DECLINES INFORMATION ON HCP AT THIS TIME. MORMONISM [id number] MORMON MARITAL STATUS: , . ALCOHOL SCREENING DID YOU HAVE A DRINK CONTAINING ALCOHOL IN THE PAST YEAR?NO POINTS0 INTERPRETATIONNEGATIVE OCCUPATION: DISABLED. SEXUAL HX HAD SEX IN THE LAST 12 MONTHS (VAGINAL, ORAL, OR ANAL)?NO HAVE YOU EVER HAD AN STD?NO REVIEWED WITH PT 12/06/18 0916 BV. HOSPITALIZATION/MAJOR DIAGNOSTIC PROCEDURE ABOVE REVIEW OF SYSTEMS REVIEWED BY: PROVIDER: ALEX MARIE OUTPATIENT THERAPIST-Mary . CONSTITUTIONAL: ANY CHANGE IN YOUR MEDICAL CONDITION? NO . CHILLS NO . FEVER NO . INFECTION: DO YOU HAVE NEW INFECTIONS? NO . DO YOU HAVE HISTORY OF MRSA? NO . MUSCULOSKELETAL: ANY NEW PATTERNS OF PAIN OR NUMBNESS? YES, LBP IS WORSE SINCE LAST INJECTION 10/2018 . GASTROENTEROLOGY: ANY NEW CHANGE IN BOWEL CONTROL? NO . GENITOURINARY: ANY NEW CHANGE IN BLADDER CONTROL? NO . IS THERE A CHANCE YOU COULD BE ? NO . HEMATOLOGY/LYMPH: DO YOU TAKE ANY BLOOD THINNERS? (FOR EXAMPLE- COUMADIN, PLAVIX, AGGRENOX, PLATEL, PRADAXA, OR XARELTO) NO . WHEN WAS YOUR LAST DOSE? DATE: TIME: . NEUROLOGY: HAVE YOU FALLEN IN THE PAST 12 MONTHS? NO . ANY NEW EXTREMITY NUMBNESS OR WEAKNESS? NO . CARDIOLOGY: DO YOU HAVE A PACEMAKER OR DEFIBRILLATOR? NO . RESPIRATORY: HAVE YOU BEEN SICK IN THE PAST WEEK? NO . FEVER NO . FLU LIKE SYMPTOMS? NO . COUGH NO . INTEGUMENTARY: DO YOU HAVE ANY RASHES OR OPEN SORES? NO . ALLERGIC/IMMUNO: ARE YOU ALLERGIC TO IV DYE? NO . ANY NEW ALLERGIES? NO . PSYCHIATRIC: DO YOU HAVE THOUGHTS OF HURTING YOURSELF OR SOMEONE ELSE? NO . ARE YOU ABUSED, NEGLECTED, OR IN AN UNSAFE ENVIRONMENT? NO . ENDOCRINOLOGY: ARE YOU DIABETIC? YES . OTHER: DO YOU NEED ANY PRESCRIPTIONS? YES, TIZANIDINE . IF YES, PLEASE LIST: ____ . ANY NEW PROBLEMS WITH YOUR MEDICATIONS? NO . WHEN DID YOU LAST EAT? ____ . WHEN DID YOU LAST DRINK? ____ . WHAT DID YOU LAST DRINK? ____ . NAME OF PERSON DRIVING YOU HOME? ____ . DO YOU HAVE ANY OTHER QUESTIONS OR CONCERNS YES, FLU VACCINE RECEIVED 03/14/19 . VITAL SIGNS WT 272 LBS, HT 63 IN, BMI 48.18 INDEX, BP 137/63 MM HG, HR 82 /MIN, RR 18 /MIN, TEMP 96.7 F, OXYGEN SAT % 97%, NA INITIALS SC 10:28, REVIEWED BY: EM. EXAMINATION GENERAL EXAMINATION: GENERALNO ACUTE DISTRESS, WELL NOURISHED AND HYDRATED. PSYCHAPPROPRIATE MOOD AND AFFECT . LUNGS:CLEAR TO AUSCULTATION BILATERALLY, NO WHEEZES, RHONCHI, RALES. HEART:NO MURMURS, REGULAR RATE AND RHYTHM. ASSESSMENTS SPONDYLOSIS WITHOUT MYELOPATHY OR RADICULOPATHY, LUMBAR REGION - M47.816 (PRIMARY) TREATMENT SPONDYLOSIS WITHOUT MYELOPATHY OR RADICULOPATHY, LUMBAR REGION START BACLOFEN TABLET, 10 MG, 0.5 TABLET TID X 5 DAYS THEN 1 TABLET WITH FOOD OR MILK, ORALLY, THREE TIMES A DAY, 30 DAY(S), 90 STOP METAXALONE TABLET, 800 MG, 1 TABLET, ORALLY, THREE TIMES A DAY REFILL TIZANIDINE HCL TABLET, 4 MG, 1 TABLET, ORALLY FOR SPASMS AND PAIN, EVERY 6 HOURS NEEDED MDD2, 30 DAYS, 45 CLINICAL NOTES: 49-YEAR-OLD FEMALE IN FOR CHRONIC PAIN FOLLOW-UP. GIVEN PRESENTING SYMPTOMS AND RESULTS OF PHYSICAL EXAMINATION RECOMMENDED STOPPING METAXALONE AND STARTING BACLOFEN 10 MG 3 TIMES A DAY. FURTHER RECOMMENDED FOLLOW-UP IN 2 MONTHS TO DETERMINE EFFICACY OF TREATMENT. PATIENT HAS EXPRESSED UNDERSTANDING OF AND WAS IN AGREEMENT WITH TREATMENT PLAN. GIVEN TIME TO ASK QUESTIONS AND EXPRESS CONCERNS. OTHERS NOTES: BACLOFEN ORAL MATERIAL WAS PRINTED. PROCEDURE CODES FA211 ESTABILISHED PATIENT [facility] CHARGE DISPOSITION & COMMUNICATION FOLLOW UP 2 MONTHS (REASON: MEDICATION) ELECTRONICALLY SIGNED BY ERNIE JUARES ON 03/15/2019 AT 08:30 AM EDT DISCLAIMER : THIS IS A VISIT SUMMARY EXTRACTED FROM THE [employer] CHART. IT IS NOT A COPY OF THE [employer] PROGRESS NOTE. VALERIA
== END ==
LOC: M PAIN 10:15
PROVIDERS: ATTEND Family Medicine
DX: M47.816 Spondylosis without myelopathy or radiculopathy, lumbar region (principal); L40.50 Arthropathic psoriasis, unspecified; L40.0 Psoriasis vulgaris; F32.9 Major depressive disorder, single episode, unspecified; K21.9 Gastro-esophageal reflux disease without esophagitis; E11.9 Type 2 diabetes mellitus without complications; K02.9 Dental caries, unspecified; J30.9 Allergic rhinitis, unspecified; F17.210 Nicotine dependence, cigarettes, uncomplicated; E66.01 Morbid (severe) obesity due to excess calories; Z68.42 Body mass index [BMI] 45.0-49.9, adult; E55.9 Vitamin D deficiency, unspecified; K76.0 Fatty (change of) liver, not elsewhere classified; M50.30 Other cervical disc degeneration, unspecified cervical region; M51.36 Other intervertebral disc degeneration, lumbar region; I10 Essential (primary) hypertension; Z90.49 Acquired absence of other specified parts of digestive tract; Z86.010 Personal history of colon polyps; Z79.84 Long term (current) use of oral hypoglycemic drugs; Z79.82 Long term (current) use of aspirin; Z79.899 Other long term (current) drug therapy; Z88.2 Allergy status to sulfonamides; Z88.8 Allergy status to other drugs, medicaments and biological substances
CPT/HCPCS: 90682; G0008; G0463

== ENCOUNTER → 2019-05-13 | Outpatient (CLI) | payer MEDICARE, MEDICAID ==
--- NOTE | 2019-06-01 05:08 | ECWPNPC ---
PATIENT NAME: MEG DE LA TORRE : 1970 GENDER: FEMALE VISIT DATE: 05/13/2019 DISCHARGE DATE: 05/13/19 1003 VISIT LOCKED DATE TIME: PHYSICIAN: ROBIN BETH PHYSICIAN PAGER NO: [phone] RESOURCE: ROBIN BETH REASON FOR APPOINTMENT 1. 2 MONTHS HISTORY OF PRESENT ILLNESS HISTORY OF PRESENT ILLNESS: HERE FOR A FOLLOW-UP OF CHRONIC LOW BACK PAIN. RATING PAIN LEVEL 3-5/10 VAS. DESCRIBES PAIN CONSTANT ACHING AND STABBING. CURRENTLY BEING FOLLOWED FOR TORN ROTATOR CUFF, RIGHT SHOULDER. SHE FELL ON 05/10/2019. FINDINGS CURRENT MEDICATION OF TIZANIDINE AND BACLOFEN HELPFUL AT REDUCING PAIN AND KEEPING HER FUNCTIONAL. THIS IS BEING USED TO TREAT LOW BACK PAIN. DENIES SIDE EFFECTS WITH HER MEDICATION. PAIN THE PATIENT DESCRIBES THE PAIN... FALL RISK SCREENING: SCREENING :NO FALLS REPORTED IN THE LAST YEAR CURRENT MEDICATIONS TAKING DEXILANT 60 MG CAPSULE 1 CAP(S) ORALLY ONCE A DAY TAKING ASPIRIN 81 MG TABLET CHEWABLE 1 TABLET ORALLY ONCE A DAY TAKING TERBINAFINE HCL 1 % CREAM 1 APPLICATION TO AFFECTED AREA EXTERNALLY TWICE A DAY TAKING ERGOCALCIFEROL 42943 UNIT CAPSULE 1 CAPSULE ORALLY WEEKLY TAKING ATORVASTATIN CALCIUM 80 MG TABLET 1 TABLET ORALLY ONCE A DAY TAKING EZETIMIBE 10 MG TABLET 1 TABLET ORALLY ONCE A DAY TAKING CARVEDILOL 6.25 MG TABLET 1 TAB ORALLY BID TAKING METFORMIN HCL ER 750 MG TABLET EXTENDED RELEASE 24 HOUR 1 TABLET ORALLY BID TAKING GLUCOMETER . .. DIRECTED DX 250 USE BID TAKING BLOOD GLUCOSE TEST . STRIPS USE BID DX 250 CHECK BS BID TAKING LANCETS . .. DIRECTED DX: 250 USE BID TAKING ALCOHOL PADS 70 % PAD DIRECTED TAKING REFRESH 1.4-0.6 % SOLUTION 2 DROPS OPHTHALMIC NEEDED TAKING BD INSULIN SYRINGE 31G X 16 MISCELLANEOUS DIRECTED SUBCUTANEOUSLY WEEKLYDX: L40.50 TAKING CALCIUM 600+D PLUS MINERALS 600-400 MG-UNIT TABLET CHEWABLE 1 TAB ORALLY BID TAKING LEVOTHYROXINE SODIUM 50 MCG TABLET 1 TABLET IN THE MORNING ON AN EMPTY STOMACH ORALLY ONCE A DAY TAKING ASPIRIN 81 MG TABLET CHEWABLE 1 TABLET ONCE A DAY ORALLY 30 DAY(S) TAKING CYANOCOBALAMIN 250 MCG TABLET 1 TABLET ORALLY ONCE A DAY TAKING TENS UNIT - DIRECTED _ C PADS AND INSTRUCTION DAILY TAKING BACLOFEN 10 MG TABLET 1 TABLET TID WITH FOOD OR MILK ORALLY THREE TIMES A DAY TAKING TIZANIDINE HCL 4 MG TABLET 1 TABLET ORALLY FOR SPASMS AND PAIN EVERY 6 HOURS NEEDED MDD2 TAKING COSENTYX (300 MG DOSE) 150 MG/ML SOLUTION PREFILLED SYRINGE DIRECTED SUBCUTANEOUS 300 MG SC Q7D X 5 WEEKS, THEN 300 MG SC Q28D TAKING ZETIA 10 MG TABLET 1 TABLET ONCE A DAY ORALLY 30 ORALLY ONCE A DAY TAKING LEVOTHYROXINE SODIUM 25 MCG TABLET 1 TABLET ON AN EMPTY STOMACH IN THE MORNING ORALLY ONCE A DAY TAKING FLUOXETINE HCL 20 MG TABLET 1 TABLET IN THE MORNING ORALLY ONCE A DAY TAKING VITAMIN B-12 500 MCG TABLET TAKE ONE TABLET BY MOUTH ONCE DAILY TAKING FERROUS SULFATE 325 (65 FE) MG TABLET 1 TABLET ONCE A DAY ORALLY 30 ORALLY ONCE A DAY TAKING TRULICITY 1.5 MG/0.5ML SOLUTION PEN-INJECTOR 0.5 ML SUBCUTANEOUS WEEKLY TAKING LYRICA 50 MG CAPSULE 1 CAPSULE ORALLY THREE TIMES A DAY MDD: 3 TAKING ULTRAM 50 MG TABLET 1 TABLET ORALLY EVERY 8 HRS FOR PAIN MDD 3 NOT-TAKING LEVOTHYROXINE SODIUM 50 MCG TABLET 1 TABLET ON AN EMPTY STOMACH IN THE MORNING ORALLY ONCE A DAY MEDICATION LIST REVIEWED AND RECONCILED WITH THE PATIENT PAST MEDICAL HISTORY PSORIASIS, GENERALIZED PLAQUE/PSORIATIC ARTHRITIS HYPERLIPIDEMIA 2B CHRONIC MDD GERD T2DM, NID MULTIPLE DENTAL CARIES ALLERGIC RHINITIS NICOTINE ADDICTION OBESITY, MORBID VITAMIN D DEFICIENCY NAFLD BY CT FEBRUARY 2011 WITH BORDERLINE HEPATOMEGALY, SEEN BY 10/2016 US CERVICAL DJD-11/2011 NORMAL CERVICAL MRI LUMBAR DJD-L12 R IF HNP C R 1 COMPRESSION,, L2-4 BULGES, MINIMAL L45CCS BY 10/2018 MRI///10/2014 XRAY C MILD MULT-LEVEL DJD, NORMAL B SIJ HYPERTENSION-09/2015-LOW RISK DPST, NORMAL TTE-LOW PALPITATIONS-NORMAL 25D EVENT MONITOR-05/2014-LOW SMALL ADENOMATOUS P-09/2017 COLON-W POSSIBLE TORN ROTATOR CUFF RIGHT SHOULDER ALLERGIES SULFA (FOR ALLERGY USE ONLY): HIVES - ALLERGY CYMBALTA: PALPITATIONS, HYPERTENSION - CONTRAINDICATION SURGICAL HISTORY ENDOMETRIAL ABLATION 2007 CHOLECYSTECTOMY 2005 D&C X 3 COMPLETE DENTAL EXTRACTION NOVEMBER 2012, 08/2014 COLONOSCOPY-MODERATE LOSIS, HEMORRHOIDS-DONE 2 RECTAL BLEEDING-MARINA 07/2007 C SECTION 06/2006 FAMILY HISTORY FATHER: , COLON CANCER DX AT 45 MOTHER: SIBLINGS: DAUGHTER(S): ALIVE 2DAUGHTER(S) . DENIES ANY HX SKIN OR PANCREATIC CANCER. SOCIAL HISTORY GENERAL: TOBACCO USE ARE YOU A:CURRENT SMOKER HOW OFTEN DO YOU SMOKE CIGARETTES?EVERY DAY HOW SOON AFTER YOU WAKE UP DO YOU SMOKE YOUR FIRST CIGARETTE?6-30 MIN HOW MANY CIGARETTES A DAY DO YOU SMOKE?11-20 ARE YOU INTERESTED IN QUITTING?NOT READY TO QUIT PATIENT COUNSELED ON THE DANGERS OF TOBACCO USE AND URGED TO QUIT:03/21/2019 COUNSELED THE PATIENT ON SMOKING EFFECTS, EDUCATION [id number]/04/2019 SMOKING CESSATION INFORMATION GIVEN03/21/2019 11/04/18 DECLINED AD HIV / HEP-C SCREENING HIV TEST OFFERED TO PATIENT:YES DATE OFFERED:10/24/2016 TEST ACCEPTED:NO HEP-C TEST OFFERED TO PATIENT:YES DATE OFFERED:10/24/2016 REASON:PATIENT DECLINED TEST ACCEPTED:NO REASON:PATIENT DECLINED OTHERS AT HOME: SPOUSE, CHILD. EDUCATION LEVEL OF EDUCATION: 9 TH GRADE EDUCATION DIET: CARBOHYDRATE CONTROLLED. LANGUAGE LANGUAGES SPOKEN:[place] DOMESTIC VIOLENCE DO YOU FEEL SAFE IN YOUR ENVIRONMENT?YES NEW PATIENT PAIN DIARY PRECIPITATING FACTORS OVER ACTIVE, BENDING ALLEVIATING FACTORS HOT BATH, SLEEPS WITH HEATING PAD IMPACT ON FUNCTION LIMITED WITH ACTIVITY, DIFFICULTY WITH DAILY ACTIVITIES DO YOU HAVE ANY RASHES OR OPEN SORES? PSORIASIS ARE YOU DIABETIC? MANAGING WITH MEDICATIONS ANY NEW PATTERNS OF PAIN OR NUMBNESS? PT STATES THAT SHE HAS RECENTLY HAD ISSUES WITH PAIN IN BACK RADIATING DOWN RIGHT LEG TO KNEE BMI CARE GOAL FOLLOW-UP ABOVE NORMAL BMI FOLLOW-UPGIVING ENCOURAGEMENT TO EXERCISE RECREATIONAL DRUG USE DRUG USE?NO EXERCISE: NO REGULAR EXERCISE. LEARNING BARRIERS / SPECIAL NEEDS CHANGE FROM LAST VISIT?NO BARRIERS TO LEARNING?NO HEARING IMPAIRED?NO VISION IMPAIRED?NO COGNITIVELY IMPAIRED?NO READINESS TO LEARN?YES LEARNING PREFERENCES?YES :BOOKLETS, HANDOUTS, DEMONSTRATION/VERBAL INSTRUCTION LEARNING CAPABILITIES PRESENT?YES EMOTIONAL BARRIERS?NO SPECIAL DEVICES?NO LEAD MECHANIC NEEDED?NO PAIN CLINIC PFS, CLERGY, PUBLIC HEALTH REFERRALS WAS THE PROVIDER NOTIFIED OF ANY PERTINENT INFO? N/A HAS THE PATIENT BEEN EDUCATED REGARDING HIS/HER PLAN OF CARE?YES ORIENTED TO PAIN MANAGEMENT HAS THE PATIENT BEEN EDUCATED REGARDING PAIN, THE RISK FOR PAIN, THE IMPORTANCE OF EFFECTIVE PAIN MANAGEMENT, AND THE PAIN ASSESSMENT PROCESS?YES LATEX QUESTIONNAIRE LATEX ALLERGY : HAVE YOU EVER DEVELOPED ANY TYPE OF REACTION AFTER HANDLING LATEX PRODUCTS SUCH RUBBER GLOVES, CONDOMS, DIAPHRAGMS, BALLOONS, SOCKS, OR UNDERWEAR?NO LATEX ALLERGY : HAVE YOU EVER DEVELOPED ANY TYPE OF REACTION DURING OR AFTER DENTAL APPOINTMENT, VAGINAL/RECTAL EXAMINATION, SURGICAL PROCEDURE, OR ANY OTHER EXPOSURE?NO DATE ASKED : 11/04/2018 LATEX RISK : HAVE YOU EVER HAD ANY DIFFICULTY BREATHING OR HIVES AFTER EATING OR HANDLING ANY FRUITS, OR VEGETABLES; SUCH KIWI, BANANAS, STONE FRUITS, OR CHESTNUTSNO LATEX RISK : DO YOU HAVE A PREVIOUS PERSONAL HISTORY OF MORE THAN NINE SURGERIES, SPINA BIFIDA, OR REPEATED CATHERIZATIONS? NO LATEX RISK : ARE YOU FREQUENTLY EXPOSED TO LATEX PRODUCTS IN YOUR OCCUPATION?NO CAFFEINE CAFFEINE USE?YES HOW OFTEN AND HOW MUCH? 2 CUPS OF COFFEE PER DAY ADVANCE DIRECTIVE ADVANCE DIRECTIVE DISCUSSED WITH PATIENT:YES PT DOES NOT HAVE ANY ADVANCED DIRECTIVES AND SHE DECLINES INFORMATION ON HCP AT THIS TIME. CHURCH [id number] HINDU MARITAL STATUS: , . ALCOHOL SCREENING DID YOU HAVE A DRINK CONTAINING ALCOHOL IN THE PAST YEAR?NO POINTS0 INTERPRETATIONNEGATIVE OCCUPATION: DISABLED. SEXUAL HX HAD SEX IN THE LAST 12 MONTHS (VAGINAL, ORAL, OR ANAL)?NO HAVE YOU EVER HAD AN STD?NO REVIEWED WITH PT 12/06/18 8205 BV. HOSPITALIZATION/MAJOR DIAGNOSTIC PROCEDURE ABOVE REVIEW OF SYSTEMS REVIEWED BY: PROVIDER: ROBIN KLEIN . CONSTITUTIONAL: ANY CHANGE IN YOUR MEDICAL CONDITION? YES - POSSIBLE TORN ROTATOR CUFF RIGHT SHOULDER - WAITING FOR MRI AUTHORIZATION; HEMATOMA LEFT BUTTOCK S/P FALL 05-10-19 . CHILLS NO . FEVER NO . INFECTION: DO YOU HAVE NEW INFECTIONS? NO . DO YOU HAVE HISTORY OF MRSA? NO . MUSCULOSKELETAL: ANY NEW PATTERNS OF PAIN OR NUMBNESS? YES . GASTROENTEROLOGY: ANY NEW CHANGE IN BOWEL CONTROL? NO . GENITOURINARY: ANY NEW CHANGE IN BLADDER CONTROL? NO . IS THERE A CHANCE YOU COULD BE ? NO . HEMATOLOGY/LYMPH: DO YOU TAKE ANY BLOOD THINNERS? (FOR EXAMPLE- COUMADIN, PLAVIX, AGGRENOX, PLATEL, PRADAXA, OR XARELTO) NO . WHEN WAS YOUR LAST DOSE? DATE: TIME: . NEUROLOGY: HAVE YOU FALLEN IN THE PAST 12 MONTHS? YES . ANY NEW EXTREMITY NUMBNESS OR WEAKNESS? YES . CARDIOLOGY: DO YOU HAVE A PACEMAKER OR DEFIBRILLATOR? NO . RESPIRATORY: HAVE YOU BEEN SICK IN THE PAST WEEK? NO . FEVER NO . FLU LIKE SYMPTOMS? NO . COUGH NO . INTEGUMENTARY: DO YOU HAVE ANY RASHES OR OPEN SORES? NO . ALLERGIC/IMMUNO: ARE YOU ALLERGIC TO IV DYE? NO . ANY NEW ALLERGIES? NO . PSYCHIATRIC: DO YOU HAVE THOUGHTS OF HURTING YOURSELF OR SOMEONE ELSE? NO . ARE YOU ABUSED, NEGLECTED, OR IN AN UNSAFE ENVIRONMENT? NO . ENDOCRINOLOGY: ARE YOU DIABETIC? YES . OTHER: DO YOU NEED ANY PRESCRIPTIONS? YES . IF YES, PLEASE LIST: TIZANIDINE, BACLOFEN . ANY NEW PROBLEMS WITH YOUR MEDICATIONS? NO . WHEN DID YOU LAST EAT? ____ . WHEN DID YOU LAST DRINK? ____ . WHAT DID YOU LAST DRINK? ____ . NAME OF PERSON DRIVING YOU HOME? ____ . DO YOU HAVE ANY OTHER QUESTIONS OR CONCERNS NO . VITAL SIGNS WT 272.8 LBS, HT 63 IN, BMI 48.32 INDEX, BP 135/78 MM HG, HR 88 /MIN, RR 18 /MIN, TEMP 95.6 F, OXYGEN SAT % 96%, NA INITIALS SC 09:39, REVIEWED BY: DEEPAK. EXAMINATION GENERAL EXAMINATION: GENERAL AWAKE,ALERT ,PLEASANT . PSYCH AFFECT NORMAL . LUNGS: LUNG SOLORZANO ARE CLEAR TO AUSCULTATION BILATERALLY. GOOD MOVEMENT OF AIR . HEART: S1, S2 IN A REGULAR RATE AND RHYTHM. NO SIGNIFICANT MURMURS, RUBS OR GALLOPS NOTED . RIGHT ARM IN IMMOBILIZER D/T RIGHT ROTATOR CUFF INJURY-05/10/19-FOLLOWS WITH [facility]. ASSESSMENTS DJD (DEGENERATIVE JOINT DISEASE), LUMBAR - M47.816 TREATMENT DJD (DEGENERATIVE JOINT DISEASE), LUMBAR REFILL BACLOFEN TABLET, 10 MG, 1 TABLET TID WITH FOOD OR MILK, ORALLY, THREE TIMES A DAY, 30 DAYS, 90 TABLET, REFILLS 0 REFILL TIZANIDINE HCL TABLET, 4 MG, 1 TABLET, ORALLY FOR SPASMS AND PAIN, EVERY 6 HOURS NEEDED MDD2, 30 DAYS, 45, REFILLS 0 CONTINUE LYRICA CAPSULE, 50 MG, 1 CAPSULE, ORALLY, THREE TIMES A DAY MDD: 3 DISPOSITION & COMMUNICATION FOLLOW UP 2 MONTHS WITH PAPO (REASON: LOW BACK PAIN) ELECTRONICALLY SIGNED BY ERNIE WALKER ON 05/31/2019 AT 02:42 PM EST DISCLAIMER : THIS IS A VISIT SUMMARY EXTRACTED FROM THE [employer] CHART. IT IS NOT A COPY OF THE [employer] [facility] PROGRESS NOTE. MTDD
== END ==
LOC: M PAIN 09:15
PROVIDERS: ATTEND Nurse Practitioner Family
DX: M47.816 Spondylosis without myelopathy or radiculopathy, lumbar region (principal)

== ENCOUNTER → 2019-05-26 | Outpatient (CLI) | payer MEDICARE, MEDICAID ==
[2019-05-26 08:31] LABS: BASO % 0.5 % (0.0-1.0); EOS # 0.2 10^3/uL (0.0-0.5); EOS % 1.7 % (0.0-3.0); HEMATOCRIT 44.1 % (36.0-47.0); HEMOGLOBIN 14.2 g/dl (12.0-15.5); LYMPH # 1.6 10^3/uL (1.5-5.0); LYMPH % 17.8 % (24.0-44.0); MEAN CORPUSCULAR HEMOGLOBIN 28.2 pg (27.0-33.0); MEAN CORPUSCULAR HGB CONC 32.2 g/dl (32.0-36.5); MEAN CORPUSCULAR VOLUME 87.7 fl (80.0-96.0); MONO # 0.4 10^3/uL (0.0-0.8); MONO % 4.7 % (0.0-5.0); NEUTROPHILS # 6.6 10^3/uL (1.5-8.5); NEUTROPHILS % 75.1 % (36.0-66.0); PLATELET COUNT, AUTOMATED 258 10^3/uL (150-450); RED BLOOD COUNT 5.03 10^6/uL (4.00-5.40); WHITE BLOOD COUNT 8.7 10^3/uL (4.0-10.0)
[2019-05-26 09:02] LABS: ALBUMIN 3.8 GM/DL (3.2-5.2); ALT/SGPT 27 U/L (12-78); BILIRUBIN,TOTAL 0.4 MG/DL (0.2-1.0); BLOOD UREA NITROGEN 7 MG/DL (7-18); CALCIUM LEVEL 9.4 MG/DL (8.5-10.1); CARBON DIOXIDE LEVEL 27 MEQ/L (21-32); CHLORIDE LEVEL 103 MEQ/L (98-107); CREATININE FOR GFR 0.86 MG/DL (0.55-1.30); GLOMERULAR FILTRATION RATE > 60.0 (>51); GLUCOSE, FASTING 145 MG/DL (70-100); POTASSIUM SERUM 4.5 MEQ/L (3.5-5.1); SODIUM LEVEL 139 MEQ/L (136-145)
[2019-05-26 11:30] LABS: VITAMIN B12 LEVEL 880 PG/ML (247-911)
[2019-05-26 11:58] LABS: HEMOGLOBIN A1c 7.2 %
== END ==
LOC: M LAB 07:55
PROVIDERS: ATTEND Family Medicine
DX: D50.9 Iron deficiency anemia, unspecified (principal); E11.9 Type 2 diabetes mellitus without complications; E03.9 Hypothyroidism, unspecified

== ENCOUNTER → 2019-07-29 | Outpatient (REF) | payer MEDICARE, MEDICAID ==
[2019-07-29 19:39] LABS: BASO # 0.1 10^3/uL (0.0-0.2); BASO % 0.7 % (0.0-1.0); EOS # 0.4 10^3/uL (0.0-0.5); HEMATOCRIT 45.2 % (36.0-47.0); HEMOGLOBIN 14.6 g/dl (12.0-15.5); LYMPH # 2.5 10^3/uL (1.5-5.0); LYMPH % 27.4 % (24.0-44.0); MEAN CORPUSCULAR HGB CONC 32.3 g/dl (32.0-36.5); MEAN CORPUSCULAR VOLUME 86.6 fl (80.0-96.0); MONO # 0.3 10^3/uL (0.0-0.8); MONO % 3.4 % (0.0-5.0); NEUTROPHILS # 5.9 10^3/uL (1.5-8.5); NEUTROPHILS % 64.2 % (36.0-66.0); PLATELET COUNT, AUTOMATED 275 10^3/uL (150-450); RED BLOOD COUNT 5.22 10^6/uL (4.00-5.40); WHITE BLOOD COUNT 9.2 10^3/uL (4.0-10.0)
[2019-07-29 19:40] LABS: APPEARANCE, URINE HAZY (CLEAR); BILIRUBIN, URINE AUTO NEGATIVE (NEGATIVE); BLOOD, URINE BLOOD NEGATIVE (NEGATIVE); COLOR, URINE YELLOW (YELLOW); GLUCOSE, URINE (UA) AUTO NEGATIVE (NEGATIVE); KETONE, URINE AUTO NEGATIVE (NEGATIVE); LEUKOCYTE ESTERASE, URINE AUTO NEGATIVE (NEGATIVE); NITRITE, URINE AUTO NEGATIVE (NEGATIVE); PROTEIN, URINE AUTO NEGATIVE (NEGATIVE); SPECIFIC GRAVITY URINE AUTO 1.013 (1.002-1.035); UROBILINOGEN, URINE AUTO 0.2 mg/dL (0.0-2.0)
[2019-07-29 19:47] LABS: BACTERIA, URINE AUTO 1+ (NEGATIVE); MUCUS, URINE SMALL (NEGATIVE); RBC, URINE AUTO 2 /HPF (0-3); SQUAMOUS EPITHELIAL CELL UR AU 3 /HPF (0-6); WBC, URINE AUTO 2 /HPF (0-3)
[2019-07-29 19:57] LABS: HEMOGLOBIN A1c 7.2 %
[2019-07-29 20:12] LABS: ALBUMIN 3.8 GM/DL (3.2-5.2); ALT/SGPT 27 U/L (12-78); BILIRUBIN,TOTAL 0.4 MG/DL (0.2-1.0); BLOOD UREA NITROGEN 7 MG/DL (7-18); C REACTIVE PROTEIN QUANTITATIV 0.82 MG/DL (0.00-0.30); CALCIUM LEVEL 9.4 MG/DL (8.5-10.1); CARBON DIOXIDE LEVEL 31 MEQ/L (21-32); CHLORIDE LEVEL 103 MEQ/L (98-107); CHOLESTEROL LEVEL 162 MG/DL (<200); CHOLESTEROL RISK RATIO 4.628 (<5); CPK CREATINE PHOSPHOKINASE 89 U/L (26-192); CREATININE FOR GFR 0.73 MG/DL (0.55-1.30); GLOMERULAR FILTRATION RATE > 60.0 (>51); GLUCOSE, FASTING 70 MG/DL (70-100); HDL CHOLESTEROL 35 MG/DL (>40); LDL CHOLESTEROL 81 MG/DL (<100); NON-HDL-C 127 MG/DL; POTASSIUM SERUM 4.4 MEQ/L (3.5-5.1); SODIUM LEVEL 140 MEQ/L (136-145); TOTAL PROTEIN 8.2 GM/DL (6.4-8.2); TRIGLYCERIDES LEVEL 229 MG/DL (<150)
[2019-07-29 20:13] LABS: MALB URINE SIEMENS 30.3 MG/L; MAU/CREAT RATIO 26.1 MCG/MG (0.0-30.0)
[2019-07-29 20:20] LABS: ERYTHROCYTE SEDIMENTATION RATE 26 mm/hr (0-30)
== END ==
LOC: M LAB REF 19:18
PROVIDERS: ATTEND Family Medicine
DX: L40.50 Arthropathic psoriasis, unspecified (principal); E11.9 Type 2 diabetes mellitus without complications; Z79.899 Other long term (current) drug therapy
CPT/HCPCS: 80053; 80061; 80307; 82043; 82550; 83036; 85025; 85652; 86140; 96372; G0463; J1030; J1040

== ENCOUNTER → 2019-08-02 | Outpatient (CLI) | payer MEDICARE, MEDICAID ==
--- NOTE | 2019-08-04 00:33 | ECWPNPC ---
PATIENT NAME: MEG DE LA TORRE : 1970 GENDER: FEMALE VISIT DATE: 08/02/2019 DISCHARGE DATE: 08/02/19 1042 VISIT LOCKED DATE TIME: PHYSICIAN: PAPO MARIE PHYSICIAN PAGER NO: [phone] RESOURCE: PAPO MARIE REASON FOR APPOINTMENT 1. LOW BACK HISTORY OF PRESENT ILLNESS HISTORY OF PRESENT ILLNESS: PAIN THE PATIENT DESCRIBES THE PAINDURING THE LAST MONTH SEVERITY - PAIN SCORE OF5/10 LOCATIONSLOWER BACK QUALITYACHING DURATIONCONTINUOUS, ALL DAY 49-YEAR-OLD FEMALE IN FOR CHRONIC PAIN FOLLOW-UP. SHE RATES HER PAIN CURRENTLY AT A 5 OUT OF 10 AND DESCRIBES IT ACHING. SHE FEELS HER MEDICATIONS ARE WORKING WELL AND DENIES MED SIDE EFFECTS AT THIS TIME. FALL RISK SCREENING: SCREENING :NO FALLS REPORTED IN THE LAST YEAR CURRENT MEDICATIONS TAKING DEXILANT 60 MG CAPSULE 1 CAP(S) ORALLY ONCE A DAY TAKING ASPIRIN 81 MG TABLET CHEWABLE 1 TABLET ORALLY ONCE A DAY TAKING TERBINAFINE HCL 1 % CREAM 1 APPLICATION TO AFFECTED AREA EXTERNALLY TWICE A DAY TAKING ERGOCALCIFEROL 89274 UNIT CAPSULE 1 CAPSULE ORALLY WEEKLY TAKING FLUOXETINE HCL 20 MG TABLET 1 TABLET IN THE MORNING ORALLY ONCE A DAY TAKING EZETIMIBE 10 MG TABLET 1 TABLET ORALLY ONCE A DAY TAKING CARVEDILOL 6.25 MG TABLET 1 TAB ORALLY BID TAKING GLUCOMETER . .. DIRECTED DX 250 USE BID TAKING BLOOD GLUCOSE TEST . STRIPS USE BID DX 250 CHECK BS BID TAKING LANCETS . .. DIRECTED DX: 250 USE BID TAKING TRULICITY 1.5 MG/0.5ML SOLUTION PEN-INJECTOR 0.5 ML SUBCUTANEOUS WEEKLY TAKING CYANOCOBALAMIN 250 MCG TABLET 1 TABLET ORALLY ONCE A DAY TAKING LYRICA 50 MG CAPSULE 1 CAPSULE ORALLY THREE TIMES A DAY MDD: 3 TAKING TENS UNIT - DIRECTED _ C PADS AND INSTRUCTION DAILY TAKING BACLOFEN 10 MG TABLET 0.5 TABLET TID X 5 DAYS THEN 1 TABLET WITH FOOD OR MILK ORALLY THREE TIMES A DAY TAKING TIZANIDINE HCL 4 MG TABLET 1 TABLET ORALLY FOR SPASMS AND PAIN EVERY 6 HOURS NEEDED MDD2 TAKING LEVOTHYROXINE SODIUM 50 MCG TABLET 1 TABLET ON AN EMPTY STOMACH IN THE MORNING ORALLY ONCE A DAY TAKING ALCOHOL PADS 70 % PAD DIRECTED TAKING REFRESH 1.4-0.6 % SOLUTION 2 DROPS OPHTHALMIC NEEDED TAKING BD INSULIN SYRINGE 31G X 09/30 MISCELLANEOUS DIRECTED SUBCUTANEOUSLY WEEKLYDX: L40.50 TAKING CALCIUM 600+D PLUS MINERALS 600-400 MG-UNIT TABLET CHEWABLE 1 TAB ORALLY BID TAKING ULTRAM 50 MG TABLET 1 TABLET ORALLY EVERY 8 HRS FOR PAIN MDD 3 TAKING TREMFYA 100 MG/ML SOLUTION PEN-INJECTOR 100 MG SUBCUTANEOUS SC NOW, IN 28D, THEN Q56D TAKING METFORMIN HCL ER 750 MG TABLET EXTENDED RELEASE 24 HOUR 1 TABLET ORALLY BID TAKING VITAMIN B-12 500 MCG TABLET TAKE ONE TABLET BY MOUTH ONCE DAILY , NOTES: DUPLICATE TAKING FERROUS SULFATE 325 (65 FE) MG TABLET 1 TABLET ONCE A DAY ORALLY 30 ORALLY ONCE A DAY TAKING DEXILANT 60 MG CAPSULE DELAYED RELEASE TAKE ONE CAPSULE BY MOUTH ONCE DAILY TAKING ATORVASTATIN CALCIUM 80 MG TABLET 1 TABLET ORALLY ONCE A DAY NOT-TAKING LEVOTHYROXINE SODIUM 50 MCG TABLET 1 TABLET IN THE MORNING ON AN EMPTY STOMACH ORALLY ONCE A DAY, NOTES: DUPLICATE NOT-TAKING ASPIRIN 81 MG TABLET CHEWABLE 1 TABLET ONCE A DAY ORALLY 30 DAY(S) , NOTES: DUPLICATE NOT-TAKING LEVOTHYROXINE SODIUM 25 MCG TABLET 1 TABLET ON AN EMPTY STOMACH IN THE MORNING ORALLY ONCE A DAY, NOTES: DUPLICATE MEDICATION LIST REVIEWED AND RECONCILED WITH THE PATIENT PAST MEDICAL HISTORY PSORIASIS, GENERALIZED PLAQUE/PSORIATIC ARTHRITIS HYPERLIPIDEMIA 2B CHRONIC MDD GERD T2DM, NID MULTIPLE DENTAL CARIES ALLERGIC RHINITIS NICOTINE ADDICTION OBESITY, MORBID VITAMIN D DEFICIENCY NAFLD BY CT FEBRUARY 2011 WITH BORDERLINE HEPATOMEGALY, SEEN BY 10/2016 US CERVICAL DJD-11/2011 NORMAL CERVICAL MRI LUMBAR DJD-L12 R IF HNP C R 1 COMPRESSION,, L2-4 BULGES, MINIMAL L45CCS BY 10/2018 MRI///10/2014 XRAY C MILD MULT-LEVEL DJD, NORMAL B SIJ HYPERTENSION-09/2015-LOW RISK DPST, NORMAL TTE-LOW PALPITATIONS-NORMAL 25D EVENT MONITOR-05/2014-LOW SMALL ADENOMATOUS P-09/2017 COLON-W R PARTIAL SS TEAR 05/12/19 SP MECHAINCAL FALL ALLERGIES SULFA (FOR ALLERGY USE ONLY): HIVES - ALLERGY CYMBALTA: PALPITATIONS, HYPERTENSION - CONTRAINDICATION SURGICAL HISTORY ENDOMETRIAL ABLATION 2007 CHOLECYSTECTOMY 2005 D&C X 3 COMPLETE DENTAL EXTRACTION NOVEMBER 2012, 08/2014 COLONOSCOPY-MODERATE LOSIS, HEMORRHOIDS-DONE 2 RECTAL BLEEDING-MARINA 07/2007 C SECTION 06/2006 FAMILY HISTORY FATHER: , COLON CANCER DX AT 45 MOTHER: SIBLINGS: DAUGHTER(S): ALIVE 2DAUGHTER(S) . DENIES ANY HX SKIN OR PANCREATIC CANCER. SOCIAL HISTORY GENERAL: TOBACCO USE ARE YOU A:CURRENT SMOKER ARE YOU INTERESTED IN QUITTING?NOT READY TO QUIT COUNSELED THE PATIENT ON SMOKING EFFECTS, EDUCATION [id number]/17/2020 HOW MANY CIGARETTES A DAY DO YOU SMOKE?11-20 HOW SOON AFTER YOU WAKE UP DO YOU SMOKE YOUR FIRST CIGARETTE?6-30 MIN HOW OFTEN DO YOU SMOKE CIGARETTES?EVERY DAY PATIENT COUNSELED ON THE DANGERS OF TOBACCO USE AND URGED TO QUIT:08/02/2019 SMOKING CESSATION INFORMATION GIVEN08/02/2019 11/04/18 DECLINED AD HIV / HEP-C SCREENING HIV TEST OFFERED TO PATIENT:YES DATE OFFERED:10/24/2016 TEST ACCEPTED:NO HEP-C TEST OFFERED TO PATIENT:YES DATE OFFERED:10/24/2016 REASON:PATIENT DECLINED TEST ACCEPTED:NO REASON:PATIENT DECLINED OTHERS AT HOME: SPOUSE, CHILD. EDUCATION LEVEL OF EDUCATION: 9 TH GRADE EDUCATION DIET: CARBOHYDRATE CONTROLLED. LANGUAGE LANGUAGES SPOKEN:ESTONIAN DOMESTIC VIOLENCE DO YOU FEEL SAFE IN YOUR ENVIRONMENT?YES NEW PATIENT PAIN DIARY PRECIPITATING FACTORS OVER ACTIVE, BENDING ALLEVIATING FACTORS HOT BATH, SLEEPS WITH HEATING PAD IMPACT ON FUNCTION LIMITED WITH ACTIVITY, DIFFICULTY WITH DAILY ACTIVITIES DO YOU HAVE ANY RASHES OR OPEN SORES? PSORIASIS ARE YOU DIABETIC? MANAGING WITH MEDICATIONS ANY NEW PATTERNS OF PAIN OR NUMBNESS? PT STATES THAT SHE HAS RECENTLY HAD ISSUES WITH PAIN IN BACK RADIATING DOWN RIGHT LEG TO KNEE BMI CARE GOAL FOLLOW-UP ABOVE NORMAL BMI FOLLOW-UPGIVING ENCOURAGEMENT TO EXERCISE RECREATIONAL DRUG USE DRUG USE?NO EXERCISE: NO REGULAR EXERCISE. LEARNING BARRIERS / SPECIAL NEEDS CHANGE FROM LAST VISIT?NO BARRIERS TO LEARNING?NO HEARING IMPAIRED?NO VISION IMPAIRED?NO COGNITIVELY IMPAIRED?NO READINESS TO LEARN?YES LEARNING PREFERENCES?YES :BOOKLETS, HANDOUTS, DEMONSTRATION/VERBAL INSTRUCTION LEARNING CAPABILITIES PRESENT?YES EMOTIONAL BARRIERS?NO SPECIAL DEVICES?NO FRONT WORKER NEEDED?NO PAIN CLINIC PFS, CLERGY, PUBLIC HEALTH REFERRALS WAS THE PROVIDER NOTIFIED OF ANY PERTINENT INFO? N/A HAS THE PATIENT BEEN EDUCATED REGARDING HIS/HER PLAN OF CARE?YES ORIENTED TO PAIN MANAGEMENT HAS THE PATIENT BEEN EDUCATED REGARDING PAIN, THE RISK FOR PAIN, THE IMPORTANCE OF EFFECTIVE PAIN MANAGEMENT, AND THE PAIN ASSESSMENT PROCESS?YES LATEX QUESTIONNAIRE LATEX ALLERGY : HAVE YOU EVER DEVELOPED ANY TYPE OF REACTION AFTER HANDLING LATEX PRODUCTS SUCH RUBBER GLOVES, CONDOMS, DIAPHRAGMS, BALLOONS, SOCKS, OR UNDERWEAR?NO LATEX ALLERGY : HAVE YOU EVER DEVELOPED ANY TYPE OF REACTION DURING OR AFTER DENTAL APPOINTMENT, VAGINAL/RECTAL EXAMINATION, SURGICAL PROCEDURE, OR ANY OTHER EXPOSURE?NO DATE ASKED : 11/04/2018 LATEX RISK : HAVE YOU EVER HAD ANY DIFFICULTY BREATHING OR HIVES AFTER EATING OR HANDLING ANY FRUITS, OR VEGETABLES; SUCH KIWI, BANANAS, STONE FRUITS, OR CHESTNUTSNO LATEX RISK : DO YOU HAVE A PREVIOUS PERSONAL HISTORY OF MORE THAN NINE SURGERIES, SPINA BIFIDA, OR REPEATED CATHERIZATIONS? NO LATEX RISK : ARE YOU FREQUENTLY EXPOSED TO LATEX PRODUCTS IN YOUR OCCUPATION?NO CAFFEINE CAFFEINE USE?YES HOW OFTEN AND HOW MUCH? 2 CUPS OF COFFEE PER DAY ADVANCE DIRECTIVE ADVANCE DIRECTIVE DISCUSSED WITH PATIENT:YES PT DOES NOT HAVE ANY ADVANCED DIRECTIVES AND SHE DECLINES INFORMATION ON HCP AT THIS TIME. EPISCOPALIAN [id number] [facility] MARITAL STATUS: , . ALCOHOL SCREENING DID YOU HAVE A DRINK CONTAINING ALCOHOL IN THE PAST YEAR?NO POINTS0 INTERPRETATIONNEGATIVE OCCUPATION: DISABLED. SEXUAL HX HAD SEX IN THE LAST 12 MONTHS (VAGINAL, ORAL, OR ANAL)?NO HAVE YOU EVER HAD AN STD?NO HOSPITALIZATION/MAJOR DIAGNOSTIC PROCEDURE ABOVE REVIEW OF SYSTEMS REVIEWED BY: PROVIDER: ALEX KLEIN-Mary . CONSTITUTIONAL: ANY CHANGE IN YOUR MEDICAL CONDITION? NO . CHILLS NO . FEVER NO . INFECTION: DO YOU HAVE NEW INFECTIONS? NO . DO YOU HAVE HISTORY OF MRSA? NO . MUSCULOSKELETAL: ANY NEW PATTERNS OF PAIN OR NUMBNESS? NO . GASTROENTEROLOGY: ANY NEW CHANGE IN BOWEL CONTROL? NO . GENITOURINARY: ANY NEW CHANGE IN BLADDER CONTROL? NO . IS THERE A CHANCE YOU COULD BE ? NO . HEMATOLOGY/LYMPH: DO YOU TAKE ANY BLOOD THINNERS? (FOR EXAMPLE- COUMADIN, PLAVIX, AGGRENOX, PLATEL, PRADAXA, OR XARELTO) NO . WHEN WAS YOUR LAST DOSE? DATE: TIME: . NEUROLOGY: HAVE YOU FALLEN IN THE PAST 12 MONTHS? NO . ANY NEW EXTREMITY NUMBNESS OR WEAKNESS? NO . CARDIOLOGY: DO YOU HAVE A PACEMAKER OR DEFIBRILLATOR? NO . RESPIRATORY: HAVE YOU BEEN SICK IN THE PAST WEEK? NO . FEVER NO . FLU LIKE SYMPTOMS? NO . COUGH NO . INTEGUMENTARY: DO YOU HAVE ANY RASHES OR OPEN SORES? NO . ALLERGIC/IMMUNO: ARE YOU ALLERGIC TO IV DYE? NO . ANY NEW ALLERGIES? NO . PSYCHIATRIC: DO YOU HAVE THOUGHTS OF HURTING YOURSELF OR SOMEONE ELSE? NO . ARE YOU ABUSED, NEGLECTED, OR IN AN UNSAFE ENVIRONMENT? NO . ENDOCRINOLOGY: ARE YOU DIABETIC? YES . OTHER: DO YOU NEED ANY PRESCRIPTIONS? YES, TIZANIDINE . IF YES, PLEASE LIST: ____ . ANY NEW PROBLEMS WITH YOUR MEDICATIONS? NO . WHEN DID YOU LAST EAT? ____ . WHEN DID YOU LAST DRINK? ____ . WHAT DID YOU LAST DRINK? ____ . NAME OF PERSON DRIVING YOU HOME? ____ . DO YOU HAVE ANY OTHER QUESTIONS OR CONCERNS NO . VITAL SIGNS WT 263.0 LBS, HT 63 IN, BMI 46.58 INDEX, BP 116/57 MM HG, HR 82 /MIN, RR 18 /MIN, TEMP 95.9 F, OXYGEN SAT % 96%, SAFE IN ENV? (Y/N) YES, NA INITIALS AW 1026, REVIEWED BY: MANSOOR SEQUEIRA LPN. EXAMINATION GENERAL EXAMINATION: GENERALNO ACUTE DISTRESS, WELL NOURISHED AND HYDRATED. PSYCHAPPROPRIATE MOOD AND AFFECT . LUNGS:CLEAR TO AUSCULTATION BILATERALLY, NO WHEEZES, RHONCHI, RALES. HEART:NO MURMURS, REGULAR RATE AND RHYTHM. ASSESSMENTS SPONDYLOSIS WITHOUT MYELOPATHY OR RADICULOPATHY, LUMBOSACRAL REGION - M47.817 (PRIMARY) TREATMENT SPONDYLOSIS WITHOUT MYELOPATHY OR RADICULOPATHY, LUMBOSACRAL REGION REFILL LYRICA CAPSULE, 50 MG, 1 CAPSULE, ORALLY, THREE TIMES A DAY MDD: 3, 30 DAY(S), 90, REFILLS 3 REFILL BACLOFEN TABLET, 10 MG, 1 TABLET WITH FOOD OR MILK, ORALLY, THREE TIMES A DAY, 30 DAYS, 90 TABLET REFILL TIZANIDINE HCL TABLET, 4 MG, 1 TABLET, ORALLY FOR SPASMS AND PAIN, EVERY 6 HOURS NEEDED MDD2, 30 DAYS, 60 CLINICAL NOTES: 49-YEAR-OLD FEMALE IN FOR CHRONIC PAIN FOLLOW-UP. GIVEN PRESENTING SYMPTOMS AND RESULTS OF PHYSICAL EXAMINATION RECOMMENDED CONTINUATION OF CURRENT MEDICATION REGIMEN WITH FOLLOW-UP IN 2 MONTHS. PATIENT HAS EXPRESSED UNDERSTANDING OF AND WAS IN AGREEMENT WITH TREATMENT PLAN. GIVEN TIME TO ASK QUESTIONS AND EXPRESS CONCERNS. PROCEDURE CODES FA211 ESTABILISHED PATIENT [facility] CHARGE DISPOSITION & COMMUNICATION FOLLOW UP 2 MONTHS (REASON: BACK PAIN) ELECTRONICALLY SIGNED BY ERNIE JUARES ON 08/03/2019 AT 10:52 AM EDT DISCLAIMER : THIS IS A VISIT SUMMARY EXTRACTED FROM THE [employer] CHART. IT IS NOT A COPY OF THE [employer] PROGRESS NOTE. VALERIA
== END ==
LOC: M PAIN 09:45
PROVIDERS: ATTEND Family Medicine
DX: M47.817 Spondylosis without myelopathy or radiculopathy, lumbosacral region (principal)

== ENCOUNTER → 2019-10-03 | Outpatient (CLI) | payer MEDICARE, MEDICAID ==
[~2019-10-03] MED LIST changes: +CYCL-707 PO; -CYCL10TA PO
--- NOTE | 2019-10-05 04:41 | ECWPNPC ---
PATIENT NAME: MEG DE LA TORRE : 1970 GENDER: FEMALE VISIT DATE: 10/03/2019 DISCHARGE DATE: 10/03/19 1000 VISIT LOCKED DATE TIME: PHYSICIAN: PAPO MARIE PHYSICIAN PAGER NO: [phone] RESOURCE: PAPO MARIE REASON FOR APPOINTMENT 1. [phone] BACK PAIN PHONE PAT COMPLETED HISTORY OF PRESENT ILLNESS HISTORY OF PRESENT ILLNESS: PAIN THE PATIENT DESCRIBES THE PAIN... PERMISSION REQUESTED AND RECEIVED FROM PATIENT TO PERFORM TELEHEALTH VISIT. 49-YEAR-OLD FEMALE IN FOR CHRONIC PAIN FOLLOW-UP. SHE RATES HER PAIN CURRENTLY AT A 7 OUT OF 10 AND DESCRIBES IT A SHARP JABBING PAIN. SHE FEELS HER TIZANIDINE IS WORKING WELL AND DENIES MED SIDE EFFECTS AT THIS TIME. FALL RISK SCREENING: SCREENING :NO FALLS REPORTED IN THE LAST YEAR CURRENT MEDICATIONS TAKING DEXILANT 60 MG CAPSULE 1 CAP(S) ORALLY ONCE A DAY TAKING ERGOCALCIFEROL 82723 UNIT CAPSULE 1 CAPSULE ORALLY WEEKLY TAKING EZETIMIBE 10 MG TABLET 1 TABLET ORALLY ONCE A DAY TAKING GLUCOMETER . .. DIRECTED DX 250 USE BID TAKING BLOOD GLUCOSE TEST . STRIPS USE BID DX 250 CHECK BS BID TAKING LANCETS . .. DIRECTED DX: 250 USE BID TAKING CYANOCOBALAMIN 250 MCG TABLET 1 TABLET ORALLY ONCE A DAY TAKING TENS UNIT - DIRECTED _ C PADS AND INSTRUCTION DAILY TAKING ALCOHOL PADS 70 % PAD DIRECTED TAKING REFRESH 1.4-0.6 % SOLUTION 2 DROPS OPHTHALMIC NEEDED TAKING BD INSULIN SYRINGE 31G X 5/16 MISCELLANEOUS DIRECTED SUBCUTANEOUSLY WEEKLYDX: L40.50 TAKING CALCIUM 600+D PLUS MINERALS 600-400 MG-UNIT TABLET CHEWABLE 1 TAB ORALLY BID TAKING VITAMIN B-12 500 MCG TABLET TAKE ONE TABLET BY MOUTH ONCE DAILY , NOTES: DUPLICATE TAKING FERROUS SULFATE 325 (65 FE) MG TABLET 1 TABLET ONCE A DAY ORALLY 30 ORALLY ONCE A DAY TAKING LYRICA 50 MG CAPSULE 1 CAPSULE ORALLY THREE TIMES A DAY MDD: 3 TAKING ATORVASTATIN CALCIUM 80 MG TABLET 1 TABLET ORALLY ONCE A DAY TAKING FLUOXETINE HCL 20 MG TABLET 1 TABLET IN THE MORNING ORALLY ONCE A DAY TAKING LEVOTHYROXINE SODIUM 50 MCG TABLET 1 TABLET ON AN EMPTY STOMACH IN THE MORNING ORALLY ONCE A DAY TAKING CARVEDILOL 6.25 MG TABLET 1 TAB ORALLY BID TAKING DEXILANT 60 MG CAPSULE DELAYED RELEASE TAKE ONE CAPSULE BY MOUTH ONCE DAILY TAKING ASPIRIN 81 MG TABLET CHEWABLE 1 TABLET ONCE A DAY ORALLY 30 DAY(S) TAKING METFORMIN HCL ER 750 MG TABLET EXTENDED RELEASE 24 HOUR 1 TABLET ORALLY BID TAKING BACLOFEN 10 MG TABLET 1 TABLET WITH FOOD OR MILK ORALLY THREE TIMES A DAY TAKING TRULICITY 1.5 MG/0.5ML SOLUTION PEN-INJECTOR 0.5 ML SUBCUTANEOUS WEEKLY TAKING TIZANIDINE HCL 4 MG TABLET 1 TABLET ORALLY FOR SPASMS AND PAIN EVERY 6 HOURS NEEDED MDD2 TAKING ULTRAM 50 MG TABLET 1 TABLET ORALLY EVERY 8 HRS FOR PAIN MDD 3 NOT-TAKING TERBINAFINE HCL 1 % CREAM 1 APPLICATION TO AFFECTED AREA EXTERNALLY TWICE A DAY NOT-TAKING LEVOTHYROXINE SODIUM 25 MCG TABLET 1 TABLET ON AN EMPTY STOMACH IN THE MORNING ORALLY ONCE A DAY NOT-TAKING TREMFYA 100 MG/ML SOLUTION PEN-INJECTOR INJECT 100MG UNDER THE SKIN AT WEEK 0 AND WEEK 4, THEN EVERY 8 WEEKS THERAFTER MEDICATION LIST REVIEWED AND RECONCILED WITH THE PATIENT PAST MEDICAL HISTORY PSORIASIS, GENERALIZED PLAQUE/PSORIATIC ARTHRITIS HYPERLIPIDEMIA 2B CHRONIC MDD GERD T2DM, NID MULTIPLE DENTAL CARIES ALLERGIC RHINITIS NICOTINE ADDICTION OBESITY, MORBID VITAMIN D DEFICIENCY NAFLD BY CT FEBRUARY 2011 WITH BORDERLINE HEPATOMEGALY, SEEN BY 10/2016 US CERVICAL DJD-11/2011 NORMAL CERVICAL MRI LUMBAR DJD-L12 R IF HNP C R 1 COMPRESSION,, L2-4 BULGES, MINIMAL L45CCS BY 10/2018 MRI/ XRAY C MILD MULT-LEVEL DJD, NORMAL B SIJ HYPERTENSION-09/2015-LOW RISK DPST, NORMAL TTE-LOW PALPITATIONS-NORMAL 25D EVENT MONITOR-05/2014-LOW SMALL ADENOMATOUS P-09/2017 COLON-W R PARTIAL SS TEAR 05/12/19 SP MECHAINCAL FALL ALLERGIES SULFA (FOR ALLERGY USE ONLY): HIVES - ALLERGY CYMBALTA: PALPITATIONS, HYPERTENSION - CONTRAINDICATION SURGICAL HISTORY ENDOMETRIAL ABLATION 2007 CHOLECYSTECTOMY 2005 D&C X 3 COMPLETE DENTAL EXTRACTION NOVEMBER 2012, 08/2014 COLONOSCOPY-MODERATE LOSIS, HEMORRHOIDS-DONE 2 RECTAL BLEEDING-MARINA 07/2007 C SECTION 06/2006 FAMILY HISTORY FATHER: , COLON CANCER DX AT 45 MOTHER: SIBLINGS: DAUGHTER(S): ALIVE 2DAUGHTER(S) . DENIES ANY HX SKIN OR PANCREATIC CANCER. SOCIAL HISTORY GENERAL: TOBACCO USE ARE YOU A:CURRENT SMOKER ARE YOU INTERESTED IN QUITTING?NOT READY TO QUIT COUNSELED THE PATIENT ON SMOKING EFFECTS, EDUCATION [id number]/15/2020 HOW MANY CIGARETTES A DAY DO YOU SMOKE?11-20 HOW SOON AFTER YOU WAKE UP DO YOU SMOKE YOUR FIRST CIGARETTE?6-30 MIN HOW OFTEN DO YOU SMOKE CIGARETTES?EVERY DAY PATIENT COUNSELED ON THE DANGERS OF TOBACCO USE AND URGED TO QUIT:09/30/2019 SMOKING CESSATION INFORMATION GIVEN08/02/2019 11/04/18 DECLINED AD LATEX QUESTIONNAIRE LATEX ALLERGY : HAVE YOU EVER DEVELOPED ANY TYPE OF REACTION AFTER HANDLING LATEX PRODUCTS SUCH RUBBER GLOVES, CONDOMS, DIAPHRAGMS, BALLOONS, SOCKS, OR UNDERWEAR?NO LATEX ALLERGY : HAVE YOU EVER DEVELOPED ANY TYPE OF REACTION DURING OR AFTER DENTAL APPOINTMENT, VAGINAL/RECTAL EXAMINATION, SURGICAL PROCEDURE, OR ANY OTHER EXPOSURE?NO DATE ASKED : 11/04/2018 LATEX RISK : HAVE YOU EVER HAD ANY DIFFICULTY BREATHING OR HIVES AFTER EATING OR HANDLING ANY FRUITS, OR VEGETABLES; SUCH KIWI, BANANAS, STONE FRUITS, OR CHESTNUTSNO LATEX RISK : DO YOU HAVE A PREVIOUS PERSONAL HISTORY OF MORE THAN NINE SURGERIES, SPINA BIFIDA, OR REPEATED CATHERIZATIONS? NO LATEX RISK : ARE YOU FREQUENTLY EXPOSED TO LATEX PRODUCTS IN YOUR OCCUPATION?NO BMI CARE GOAL FOLLOW-UP ABOVE NORMAL BMI FOLLOW-UPGIVING ENCOURAGEMENT TO EXERCISE ALCOHOL SCREENING DID YOU HAVE A DRINK CONTAINING ALCOHOL IN THE PAST YEAR?NO POINTS0 INTERPRETATIONNEGATIVE RECREATIONAL DRUG USE DRUG USE?NO CAFFEINE CAFFEINE USE?YES HOW OFTEN AND HOW MUCH? 2 CUPS OF COFFEE PER DAY SEXUAL HX HAD SEX IN THE LAST 12 MONTHS (VAGINAL, ORAL, OR ANAL)?NO HAVE YOU EVER HAD AN STD?NO HIV / HEP-C SCREENING HIV TEST OFFERED TO PATIENT:YES DATE OFFERED:10/24/2016 TEST ACCEPTED:NO HEP-C TEST OFFERED TO PATIENT:YES DATE OFFERED:10/24/2016 REASON:PATIENT DECLINED TEST ACCEPTED:NO REASON:PATIENT DECLINED WORSHIP [id number] MORMONISM LANGUAGE LANGUAGES SPOKEN:ITALIAN EDUCATION LEVEL OF EDUCATION: 9 TH GRADE EDUCATION LEARNING BARRIERS / SPECIAL NEEDS CHANGE FROM LAST VISIT?NO BARRIERS TO LEARNING?NO HEARING IMPAIRED?NO VISION IMPAIRED?NO COGNITIVELY IMPAIRED?NO READINESS TO LEARN?YES LEARNING PREFERENCES?YES :BOOKLETS, HANDOUTS, DEMONSTRATION/VERBAL INSTRUCTION LEARNING CAPABILITIES PRESENT?YES EMOTIONAL BARRIERS?NO SPECIAL DEVICES?NO STRATEGIC INTELLIGENCE OFFICER NEEDED?NO DOMESTIC VIOLENCE DO YOU FEEL SAFE IN YOUR ENVIRONMENT?YES OCCUPATION: DISABLED. DIET: CARBOHYDRATE CONTROLLED. EXERCISE: NO REGULAR EXERCISE. MARITAL STATUS: , . OTHERS AT HOME: SPOUSE, CHILD. NEW PATIENT PAIN DIARY TODAY'S VISIT 09/30/2019 PATIENT DESCRIBES PAIN :ACHING, HAVE IT ALL THE TIME "STEADY ACHE", OCCASIONALLY WAKES FROM SLEEP FROM 0-10, WHAT LEVEL IS YOUR PAIN TODAY?5 PRECIPITATING FACTORS PROLONGED STANDING OR SITTING, INCREASED ACTIVITY ALLEVIATING FACTORS PAIN MEDS, LAY DOWN, CHANGING POSITIONS, RESTING PAIN CLINIC PFS, CLERGY, PUBLIC HEALTH REFERRALS WAS THE PROVIDER NOTIFIED OF ANY PERTINENT INFO? N/A HAS THE PATIENT BEEN EDUCATED REGARDING HIS/HER PLAN OF CARE?YES ORIENTED TO PAIN MANAGEMENT HAS THE PATIENT BEEN EDUCATED REGARDING PAIN, THE RISK FOR PAIN, THE IMPORTANCE OF EFFECTIVE PAIN MANAGEMENT, AND THE PAIN ASSESSMENT PROCESS?YES ADVANCE DIRECTIVE ADVANCE DIRECTIVE DISCUSSED WITH PATIENT:YES PT DOES NOT HAVE ANY ADVANCED DIRECTIVES AND SHE DECLINES INFORMATION ON HCP AT THIS TIME. HOSPITALIZATION/MAJOR DIAGNOSTIC PROCEDURE ABOVE REVIEW OF SYSTEMS REVIEWED BY: PROVIDER: ALEX HOOK . CONSTITUTIONAL: ANY CHANGE IN YOUR MEDICAL CONDITION? NO . CHILLS NO . FEVER NO . INFECTION: DO YOU HAVE NEW INFECTIONS? NO . DO YOU HAVE HISTORY OF MRSA? NO . MUSCULOSKELETAL: ANY NEW PATTERNS OF PAIN OR NUMBNESS? NO . GASTROENTEROLOGY: ANY NEW CHANGE IN BOWEL CONTROL? NO . GENITOURINARY: ANY NEW CHANGE IN BLADDER CONTROL? NO . IS THERE A CHANCE YOU COULD BE ? NO . HEMATOLOGY/LYMPH: DO YOU TAKE ANY BLOOD THINNERS? (FOR EXAMPLE- COUMADIN, PLAVIX, AGGRENOX, PLATEL, PRADAXA, OR XARELTO) NO . WHEN WAS YOUR LAST DOSE? DATE: TIME: . NEUROLOGY: HAVE YOU FALLEN IN THE PAST 12 MONTHS? NO . ANY NEW EXTREMITY NUMBNESS OR WEAKNESS? NO . CARDIOLOGY: DO YOU HAVE A PACEMAKER OR DEFIBRILLATOR? NO . RESPIRATORY: HAVE YOU BEEN SICK IN THE PAST WEEK? NO . FEVER NO . FLU LIKE SYMPTOMS? NO . COUGH NO . INTEGUMENTARY: DO YOU HAVE ANY RASHES OR OPEN SORES? NO . ALLERGIC/IMMUNO: ARE YOU ALLERGIC TO IV DYE? NO . ANY NEW ALLERGIES? NO . PSYCHIATRIC: DO YOU HAVE THOUGHTS OF HURTING YOURSELF OR SOMEONE ELSE? NO . ARE YOU ABUSED, NEGLECTED, OR IN AN UNSAFE ENVIRONMENT? NO . ENDOCRINOLOGY: ARE YOU DIABETIC? YES . OTHER: DO YOU NEED ANY PRESCRIPTIONS? NO . IF YES, PLEASE LIST: ____ . ANY NEW PROBLEMS WITH YOUR MEDICATIONS? NO . WHEN DID YOU LAST EAT? ____ . WHEN DID YOU LAST DRINK? ____ . WHAT DID YOU LAST DRINK? ____ . NAME OF PERSON DRIVING YOU HOME? ____ . DO YOU HAVE ANY OTHER QUESTIONS OR CONCERNS NO . EXAMINATION GENERAL EXAMINATION: GENERALNO ACUTE DISTRESS, WELL NOURISHED AND HYDRATED. PSYCHAPPROPRIATE MOOD AND AFFECT , ORIENTED X 3. ASSESSMENTS SPONDYLOSIS OF LUMBOSACRAL REGION WITHOUT MYELOPATHY OR RADICULOPATHY - M47.817 (PRIMARY) TREATMENT SPONDYLOSIS OF LUMBOSACRAL REGION WITHOUT MYELOPATHY OR RADICULOPATHY CLINICAL NOTES: 49-YEAR-OLD FEMALE IN FOR CHRONIC PAIN FOLLOW-UP. GIVEN PRESENTING SYMPTOMS RECOMMEND FOLLOW-UP IN CLINIC IN 3 MONTHS. PATIENT HAS EXPRESSED UNDERSTANDING OF AND WAS IN AGREEMENT WITH TREATMENT PLAN. GIVEN TIME TO ASK QUESTIONS AND EXPRESS CONCERNS. TELEHEALTH VISIT PERFORMED VIA ZOOM. TIME SPENT WITH PATIENT 6 MINUTES. OTHERS NOTES: NO VITAL SIGNS TAKEN, THIS IS A VIRTUAL VISIT. . DISPOSITION & COMMUNICATION FOLLOW UP 3 MONTHS (REASON: BACK PAIN) ELECTRONICALLY SIGNED BY ERNIE JUARES ON 10/04/2019 AT 08:00 AM EDT DISCLAIMER : THIS IS A VISIT SUMMARY EXTRACTED FROM THE [employer] CHART. IT IS NOT A COPY OF THE [employer] PROGRESS NOTE. VALERIA
== END ==
LOC: M TMPAIN 09:30 → M PAIN 09:30
PROVIDERS: ATTEND Family Medicine
DX: M47.817 Spondylosis without myelopathy or radiculopathy, lumbosacral region (principal); I10 Essential (primary) hypertension; E11.9 Type 2 diabetes mellitus without complications; F17.210 Nicotine dependence, cigarettes, uncomplicated; Z79.82 Long term (current) use of aspirin; Z79.84 Long term (current) use of oral hypoglycemic drugs; Z79.899 Other long term (current) drug therapy; Z88.2 Allergy status to sulfonamides; Z88.8 Allergy status to other drugs, medicaments and biological substances

== ENCOUNTER → 2019-12-13 | Outpatient (POV) | payer MEDICARE, MEDICAID ==
[~2019-12-13] MED LIST changes: +BUPIVACAINE HCL 0.25% 30ML VIAL As Ordered ONE; +ISOVUE-M 300 61% 15ML VIAL As Ordered ONE; +LIDOCAINE 1% SDV 30ML VIAL As Ordered ONE; +TRIAMCINOLONE ACETONIDE SUSP 40 MG/ML VIAL (J3301) As Ordered ONE; +diazePAM 5 MG TAB As Ordered ONE; +oxyCODONE 5MG TAB As Ordered ONE
--- NOTE | 2020-02-03 11:11 | REP ---
PARTIAL LUMBAR SPINE SERIES: 2-VIEWS HISTORY: Injection procedure for pain. 34 seconds of fluoroscopy time is reported. FINDINGS: A sequences of 2 last image hold fluoroscopically obtained spot radiographs of the lumbar spine documents needle positions and contrast injections associated with the lumbar spine facet injection procedure. VALERIA
== END ==
LOC: M PAIN 11:30
PROVIDERS: ATTEND Anesthesiology
DX: M47.816 Spondylosis without myelopathy or radiculopathy, lumbar region (principal); M47.817 Spondylosis without myelopathy or radiculopathy, lumbosacral region
CPT/HCPCS: 64493; 64494; J3301; Q9967

== ENCOUNTER → 2020-01-04 | Outpatient (CLI) | payer MEDICARE, MEDICAID ==
[~2020-01-04] MED LIST changes: -BUPIVACAINE HCL 0.25% 30ML VIAL As Ordered ONE; -ISOVUE-M 300 61% 15ML VIAL As Ordered ONE; -LIDOCAINE 1% SDV 30ML VIAL As Ordered ONE; -TRIAMCINOLONE ACETONIDE SUSP 40 MG/ML VIAL (J3301) As Ordered ONE; -diazePAM 5 MG TAB As Ordered ONE; -oxyCODONE 5MG TAB As Ordered ONE
== END ==
LOC: M PAIN 13:45
PROVIDERS: ATTEND Family Medicine
DX: M47.817 Spondylosis without myelopathy or radiculopathy, lumbosacral region (principal)

== ENCOUNTER → 2020-02-13 | Outpatient (CLI) | payer MEDICARE, MEDICAID ==
[2020-02-13 14:39] LABS: APPEARANCE, URINE CLEAR (CLEAR); BACTERIA, URINE AUTO NEGATIVE (NEGATIVE); BILIRUBIN, URINE AUTO NEGATIVE (NEGATIVE); BLOOD, URINE BLOOD NEGATIVE (NEGATIVE); COLOR, URINE YELLOW (YELLOW); GLUCOSE, URINE (UA) AUTO NEGATIVE (NEGATIVE); KETONE, URINE AUTO TRACE mg/dL (NEGATIVE); LEUKOCYTE ESTERASE, URINE AUTO NEGATIVE (NEGATIVE); MUCUS, URINE SMALL (NEGATIVE); NITRITE, URINE AUTO NEGATIVE (NEGATIVE); PROTEIN, URINE AUTO NEGATIVE (NEGATIVE); RBC, URINE AUTO 3 /HPF (0-3); SPECIFIC GRAVITY URINE AUTO 1.016 (1.002-1.035); SQUAMOUS EPITHELIAL CELL UR AU 2 /HPF (0-6); UROBILINOGEN, URINE AUTO 0.2 mg/dL (0.0-2.0); WBC, URINE AUTO 1 /HPF (0-3)
== END ==
LOC: M LAB 12:28
PROVIDERS: ATTEND Dermatology
DX: Z79.899 Other long term (current) drug therapy (principal)

== ENCOUNTER → 2020-03-13 | Outpatient (REF) | payer MEDICARE, MEDICAID ==
[2020-03-13 17:35] LABS: BASO % 0.5 % (0.0-1.0); EOS # 0.3 10^3/uL (0.0-0.5); EOS % 3.2 % (0.0-3.0); HEMATOCRIT 46.1 % (36.0-47.0); HEMOGLOBIN 14.6 g/dl (12.0-15.5); LYMPH # 2.3 10^3/uL (1.5-5.0); LYMPH % 27.3 % (24.0-44.0); MEAN CORPUSCULAR HEMOGLOBIN 27.8 pg (27.0-33.0); MEAN CORPUSCULAR HGB CONC 31.7 g/dl (32.0-36.5); MEAN CORPUSCULAR VOLUME 87.6 fl (80.0-96.0); MONO # 0.3 10^3/uL (0.0-0.8); MONO % 3.9 % (0.0-5.0); NEUTROPHILS # 5.6 10^3/uL (1.5-8.5); NEUTROPHILS % 64.7 % (36.0-66.0); PLATELET COUNT, AUTOMATED 266 10^3/uL (150-450); RED BLOOD COUNT 5.26 10^6/uL (4.00-5.40); WHITE BLOOD COUNT 8.6 10^3/uL (4.0-10.0)
[2020-03-13 17:45] LABS: HEMOGLOBIN A1c 6.3 %
[2020-03-13 18:07] LABS: ALBUMIN 3.7 GM/DL (3.2-5.2); ALT/SGPT 30 U/L (12-78); BILIRUBIN,TOTAL 0.4 MG/DL (0.2-1.0); BLOOD UREA NITROGEN 7 MG/DL (7-18); C REACTIVE PROTEIN QUANTITATIV 0.69 MG/DL (0.00-0.30); CALCIUM LEVEL 9.4 MG/DL (8.5-10.1); CARBON DIOXIDE LEVEL 31 MEQ/L (21-32); CHLORIDE LEVEL 101 MEQ/L (98-107); CHOLESTEROL LEVEL 145 MG/DL (<200); CHOLESTEROL RISK RATIO 4.264 (<5); CREATININE FOR GFR 0.85 MG/DL (0.55-1.30); FREE T4 1.25 NG/DL (0.76-1.46); GLOMERULAR FILTRATION RATE > 60.0 (>51); GLUCOSE, FASTING 57 MG/DL (70-100); HDL CHOLESTEROL 34 MG/DL (>40); LDL CHOLESTEROL 70 MG/DL (<100); NON-HDL-C 111 MG/DL; POTASSIUM SERUM 4.8 MEQ/L (3.5-5.1); SODIUM LEVEL 136 MEQ/L (136-145); TOTAL PROTEIN 7.5 GM/DL (6.4-8.2); TRIGLYCERIDES LEVEL 207 MG/DL (<150)
[2020-03-13 18:09] LABS: PTH INTACT 57.4 PG/ML (18.5-88.0)
[2020-03-13 18:13] LABS: ERYTHROCYTE SEDIMENTATION RATE 28 mm/hr (0-30)
[2020-03-16 01:07] LABS: ANA (HEP2) Positive (.); CYCLIC CITRULLINATED PEPTIDE 2 units (0-19)
== END ==
LOC: M SFHCPLAZ 14:29
PROVIDERS: ATTEND Family Medicine
DX: E55.9 Vitamin D deficiency, unspecified (principal); I10 Essential (primary) hypertension; E11.9 Type 2 diabetes mellitus without complications; D50.9 Iron deficiency anemia, unspecified; L40.50 Arthropathic psoriasis, unspecified; Z23 Encounter for immunization
CPT/HCPCS: 36415; 80053; 80061; 82306; 83036; 83970; 84439; 84443; 85025; 85046; 85652; 86038; 86140; 86200; 90682; G0008; G0463

== ENCOUNTER → 2020-04-04 | Outpatient (CLI) | payer MEDICARE, MEDICAID ==
--- NOTE | 2020-04-04 12:36 | REPMRS ---
Patient History The patient states she has not had a clinical breast exam in over a year. Family history of ovarian cancer in mother, colorectal cancer in father, endometrial cancer in sister. No Hormone Replacement Therapy 3D TOMOSYNTHESIS WAS PERFORMED. [facility] lifetime risk for breast cancer is 9.1%. Volpara breast density a. Digital Woman Screen Mammo: April 04, 2020 - Exam #: [id number] Bilateral MLO and CC view(s) were taken. XCCL view(s) were taken of the right breast. Technologist: Jackie Malin, Technologist Prior study comparison: December 09, 2018, bilateral digital woman screen mammo performed at [facility]. December 08, 2017, bilateral digital woman screen mammo performed at [facility]. FINDINGS: There are scattered fibroglandular densities. There has been no change in the appearance of the mammogram from the prior studies. There is a mild amount of residual fibroglandular tissue which is fairly symmetric. There is no interval development of dominant mass, architectural distortion, or clustered microcalcification suggestive of malignancy. Assessment: BI-RADS/ACR category 1 mammogram. Negative Mammogram. Recommendation Routine screening mammogram in 1 year (for women over age 40). This mammogram was interpreted with the aid of an FDA-approved computer-aided dectection system. Electronically Signed By: Gopi Reed MD 04/04/20 1614
== END ==
LOC: M WHC 11:06
PROVIDERS: ATTEND Family Medicine
DX: Z12.31 Encounter for screening mammogram for malignant neoplasm of breast (principal); Z80.41 Family history of malignant neoplasm of ovary; Z80.49 Family history of malignant neoplasm of other genital organs; Z80.0 Family history of malignant neoplasm of digestive organs

== ENCOUNTER → 2020-06-12 | Outpatient (REF) | payer MEDICARE, MEDICAID ==
[2020-06-12 15:56] LABS: BASO % 0.5 % (0.0-1.0); EOS # 0.3 10^3/uL (0.0-0.5); EOS % 3.8 % (0.0-3.0); HEMATOCRIT 43.5 % (36.0-47.0); HEMOGLOBIN 13.8 g/dl (12.0-15.5); LYMPH # 2.4 10^3/uL (1.5-5.0); LYMPH % 30.6 % (24.0-44.0); MEAN CORPUSCULAR HEMOGLOBIN 27.1 pg (27.0-33.0); MEAN CORPUSCULAR HGB CONC 31.7 g/dl (32.0-36.5); MEAN CORPUSCULAR VOLUME 85.3 fl (80.0-96.0); MONO # 0.4 10^3/uL (0.0-0.8); MONO % 4.7 % (0.0-5.0); NEUTROPHILS # 4.6 10^3/uL (1.5-8.5); NEUTROPHILS % 59.9 % (36.0-66.0); PLATELET COUNT, AUTOMATED 244 10^3/uL (150-450); WHITE BLOOD COUNT 7.7 10^3/uL (4.0-10.0)
[2020-06-12 16:20] LABS: ALBUMIN 3.6 GM/DL (3.2-5.2); ALT/SGPT 28 U/L (12-78); BILIRUBIN,TOTAL 0.4 MG/DL (0.2-1.0); BLOOD UREA NITROGEN 9 MG/DL (7-18); C REACTIVE PROTEIN QUANTITATIV 0.75 MG/DL (0.00-0.30); CALCIUM LEVEL 9.6 MG/DL (8.5-10.1); CARBON DIOXIDE LEVEL 32 MEQ/L (21-32); CHLORIDE LEVEL 101 MEQ/L (98-107); CPK CREATINE PHOSPHOKINASE 67 U/L (26-192); CREATININE FOR GFR 0.84 MG/DL (0.55-1.30); GLOMERULAR FILTRATION RATE > 60.0 (>51); GLUCOSE, FASTING 93 MG/DL (70-100); POTASSIUM SERUM 4.5 MEQ/L (3.5-5.1); SODIUM LEVEL 137 MEQ/L (136-145); TOTAL PROTEIN 7.4 GM/DL (6.4-8.2)
[2020-06-12 20:45] LABS: HEMOGLOBIN A1c 6.5 %
[2020-06-19 00:07] LABS: ANA (HEP2) Positive (.); ANTI DS-DNA AB Negative (Negative); ANTI-HISTONE ANTIBODIES 0.2 Units (0.0-0.9)
== END ==
LOC: M SFHCPLAZ 13:06
PROVIDERS: ATTEND Family Medicine
DX: L40.50 Arthropathic psoriasis, unspecified (principal); E11.9 Type 2 diabetes mellitus without complications; E03.9 Hypothyroidism, unspecified; Z79.899 Other long term (current) drug therapy
CPT/HCPCS: 36415; 80053; 82550; 83036; 83520; 85025; 86038; 86140; 86225; G0463; G0480

== ENCOUNTER → 2020-07-20 | Outpatient (REF) | payer MEDICARE, MEDICAID | LOC: M WUC 12:45 | PROVIDERS: ATTEND Physician Assistant | DX: J02.9 Acute pharyngitis, unspecified (principal) ==

== ENCOUNTER → 2020-08-03 | Outpatient (CLI) | payer MEDICARE, MEDICAID ==
--- NOTE | 2020-08-07 04:10 | ECWPNPC ---
PATIENT NAME: MEG DE LA TORRE : 1970 GENDER: FEMALE VISIT DATE: 08/03/2020 DISCHARGE DATE: 08/03/20 1226 VISIT LOCKED DATE TIME: PHYSICIAN: [place] PHYSICIAN PAGER NO: ACTIVE RESOURCE: [place] REASON FOR APPOINTMENT 1. LOW BACK PAIN HISTORY OF PRESENT ILLNESS GENERAL: - 50-YEAR-OLD FEMALE IN FOR CHRONIC PAIN FOLLOW-UP. SHE RATES HER PAIN CURRENTLY AT A 6 OUT OF 10 AND DESCRIBES IT AN ACHING CONTINUOUS ELECTRIC SHOCK FEELING. PATIENT HAS HAD BILATERAL THERAPEUTIC LUMBAR FACET BLOCKS IN THE PAST WITH GOOD RESULTS AND WE WILL DISCUSS REPEAT PROCEDURES TODAY. FALL RISK SCREENING: SCREENING : NO FALLS REPORTED IN THE LAST YEAR. PAIN SCREENING: PATIENT HAS A COMPLAINT OF ACUTE OR CHRONIC PAIN :YES LOCATION OF PAIN:LOW BACK, LEG(S) INTENSITY OF PAIN (SCALE OF 1 TO 10):6 WHAT DOES YOUR PAIN FEEL LIKE:ACHING, CONTINOUS ELECTIRC SHOCK SOMETIMES DURATION:CONTINOUS PAIN IS INCREASED BY:ACTIVITIES, PROLONGED STANDING PAIN IS DECREASED BY:OTHERS NOTHING REALLY HELPS NURSING NOTE: -. PAIN CENTER INTAKE QUESTIONS: DO YOU HAVE A HISTORY OF MRSA? :NO DO YOU TAKE A BLOOD THINNERS? :NO DO YOU HAVE ANY BLEEDING DISORDERS? :YES ANEMIA ANY NEW NUMBNESS OR WEAKNESS IN YOUR LEGS OR ARMS? :NO ANY PACEMAKER,DEFIBRILLATOR, OR DORSAL COLUMN STIMULATOR? :NO DO YOU HAVE ANY RASHES OR OPEN SORES? :YES PSORIASIS ARE YOU ALLERGIC TO IV DYE? :NO ARE YOU DIABETIC? :YES ANY NEW PROBLEMS WITH YOUR MEDICATIONS? :NO HAVE YOU RECEIVED A VACCINE IN THE PAST 30 DAYS? :NO DO YOU PLAN TO RECEIVE A VACCINE IN THE NEXT 21 DAYS? :NO DO YOU NEED ANY PRESCRIPTION? :NO DO YOU TAKE ANY IMMUNOSUPPRESSIVE MEDICATIONS? :YES TALTZ- DOSE DUE 08/08/2020 DO YOU HAVE ANY KIDNEY OR LIVER DISEASE? :NO IS THERE A CHANCE YOU COULD BE ? :NO ARE YOU BREAST FEEDING? :NO CURRENT MEDICATIONS TAKING FERROUS SULFATE 325 (65 FE) MG TABLET 1 TABLET ORALLY ONCE A DAY TAKING DEXILANT 60 MG CAPSULE 1 CAP(S) ORALLY ONCE A DAY TAKING ASPIRIN 81 MG TABLET CHEWABLE 1 TABLET ORALLY ONCE A DAY TAKING ERGOCALCIFEROL 48830 UNIT CAPSULE 1 CAPSULE ORALLY WEEKLY TAKING ATORVASTATIN CALCIUM 80 MG TABLET 1 TABLET ORALLY ONCE A DAY TAKING EZETIMIBE 10 MG TABLET 1 TABLET ORALLY ONCE A DAY TAKING METFORMIN HCL ER 750 MG TABLET EXTENDED RELEASE 24 HOUR 1 TABLET ORALLY BID TAKING GLUCOMETER . .. DIRECTED DX 250 USE BID TAKING BLOOD GLUCOSE TEST . STRIPS USE BID DX 250 CHECK BS BID TAKING LANCETS . .. DIRECTED DX: 250 USE BID TAKING CYANOCOBALAMIN 250 MCG TABLET 1 TABLET ORALLY ONCE A DAY TAKING TENS UNIT - DIRECTED _ C PADS AND INSTRUCTION DAILY TAKING BACLOFEN 10 MG TABLET 0.5 TABLET TID X 5 DAYS THEN 1 TABLET WITH FOOD OR MILK ORALLY THREE TIMES A DAY TAKING LEVOTHYROXINE SODIUM 50 MCG TABLET 1 TABLET ON AN EMPTY STOMACH IN THE MORNING ORALLY ONCE A DAY TAKING CARVEDILOL 12.5 MG TABLET 1 TAB ORALLY BID TAKING TALTZ 80 MG/ML SOLUTION AUTO-INJECTOR DIRECTED SUBCUTANEOUS MONTHLY TAKING ALCOHOL PADS 70 % PAD DIRECTED TAKING REFRESH 1.4-0.6 % SOLUTION 2 DROPS OPHTHALMIC NEEDED TAKING BD INSULIN SYRINGE 31G X 09/30 MISCELLANEOUS DIRECTED SUBCUTANEOUSLY WEEKLYDX: L40.50 TAKING CALCIUM 600+D PLUS MINERALS 600-400 MG-UNIT TABLET CHEWABLE 1 TAB ORALLY BID TAKING VITAMIN B-12 500 MCG TABLET TAKE ONE TABLET BY MOUTH ONCE DAILY TAKING FLUOXETINE HCL 20 MG CAPSULE 1 CAPSULE ORALLY EVERY MORNING TAKING TIZANIDINE HCL 4 MG TABLET 1 TABLET ORALLY FOR SPASMS AND PAIN EVERY 6 HOURS NEEDED MDD2 TAKING LYRICA 50 MG CAPSULE 1 CAPSULE ORALLY THREE TIMES A DAY MDD: 3 TAKING TRULICITY 1.5 MG/0.5ML SOLUTION PEN-INJECTOR 0.5 ML SUBCUTANEOUS WEEKLY TAKING ULTRAM 50 MG TABLET 1 TABLET ORALLY EVERY 8 HRS FOR PAIN MDD 3 NOT-TAKING TERBINAFINE HCL 1 % CREAM 1 APPLICATION TO AFFECTED AREA EXTERNALLY TWICE A DAY NOT-TAKING PREDNISONE 5 MG (21) TABLET THERAPY PACK 6 TABS PO X 1 DAY, THEN 5, 4, 3, 2, 1, THEN STOP ORALLY DAILY WITH FOOD DISCONTINUED EZETIMIBE 10 MG TABLET TAKE ONE TABLET BY MOUTH ONCE DAILY ORALLY ONCE A DAY DISCONTINUED METFORMIN HCL ER 750 MG TABLET EXTENDED RELEASE 24 HOUR TAKE ONE TABLET BY MOUTH TWICE DAILY ORALLY TWICE DAILY DISCONTINUED FERROUS SULFATE 325 (65 FE) MG TABLET TAKE ONE TABLET BY MOUTH ONCE DAILY ORALLY ONCE A DAY DISCONTINUED LEVOTHYROXINE SODIUM 50 MCG TABLET 1 TABLET ON AN EMPTY STOMACH IN THE MORNING ORALLY ONCE A DAY DISCONTINUED ATORVASTATIN CALCIUM 80 MG TABLET 1 TABLET ORALLY ONCE A DAY DISCONTINUED FLUOXETINE HCL 20 MG TABLET 1 TABLET IN THE MORNING ORALLY ONCE A DAY MEDICATION LIST REVIEWED AND RECONCILED WITH THE PATIENT PAST MEDICAL HISTORY PSORIASIS, GENERALIZED PLAQUE/PSORIATIC ARTHRITIS HYPERLIPIDEMIA 2B CHRONIC MDD GERD T2DM, NID MULTIPLE DENTAL CARIES ALLERGIC RHINITIS NICOTINE ADDICTION OBESITY, MORBID VITAMIN D DEFICIENCY NAFLD BY CT FEBRUARY 2011 WITH BORDERLINE HEPATOMEGALY, SEEN BY 10/2016 US CERVICAL DJD-11/2011 NORMAL CERVICAL MRI LUMBAR DJD-L12 R IF HNP C R 1 COMPRESSION,, L2-4 BULGES, MINIMAL L45CCS BY 10/2018 MRI///10/2014 XRAY C MILD MULT-LEVEL DJD, NORMAL B SIJ HYPERTENSION-09/2015-LOW RISK DPST, NORMAL TTE-LOW PALPITATIONS-NORMAL 25D EVENT MONITOR-05/2014-LOW SMALL ADENOMATOUS P-09/2017 COLON-W R MILD PARTIAL SUBSCAPULARIS TEAR SP 05/12/19 SP MECHAINCAL FALL (SEEN BY 05/17/19 MRI) ALLERGIES SULFA (FOR ALLERGY USE ONLY): HIVES - ALLERGY CYMBALTA: PALPITATIONS, HYPERTENSION - CONTRAINDICATION SOCIAL HISTORY GENERAL: TOBACCO USE ARE YOU A:CURRENT SMOKER ARE YOU INTERESTED IN QUITTING?NOT READY TO QUIT COUNSELED THE PATIENT ON SMOKING EFFECTS, EDUCATION [id number]/26/2021 HOW MANY CIGARETTES A DAY DO YOU SMOKE?11-20 HOW SOON AFTER YOU WAKE UP DO YOU SMOKE YOUR FIRST CIGARETTE?6-30 MIN HOW OFTEN DO YOU SMOKE CIGARETTES?EVERY DAY PATIENT COUNSELED ON THE DANGERS OF TOBACCO USE AND URGED TO QUIT:08/03/2020 SMOKING CESSATION INFORMATION GIVEN06/12/2020 11/04/18 DECLINED AD LATEX QUESTIONNAIRE LATEX ALLERGY : HAVE YOU EVER DEVELOPED ANY TYPE OF REACTION AFTER HANDLING LATEX PRODUCTS SUCH RUBBER GLOVES, CONDOMS, DIAPHRAGMS, BALLOONS, SOCKS, OR UNDERWEAR?NO LATEX ALLERGY : HAVE YOU EVER DEVELOPED ANY TYPE OF REACTION DURING OR AFTER DENTAL APPOINTMENT, VAGINAL/RECTAL EXAMINATION, SURGICAL PROCEDURE, OR ANY OTHER EXPOSURE?NO LATEX RISK : HAVE YOU EVER HAD ANY DIFFICULTY BREATHING OR HIVES AFTER EATING OR HANDLING ANY FRUITS, OR VEGETABLES; SUCH KIWI, BANANAS, STONE FRUITS, OR CHESTNUTSNO LATEX RISK : DO YOU HAVE A PREVIOUS PERSONAL HISTORY OF MORE THAN NINE SURGERIES, SPINA BIFIDA, OR REPEATED CATHERIZATIONS? NO LATEX RISK : ARE YOU FREQUENTLY EXPOSED TO LATEX PRODUCTS IN YOUR OCCUPATION?NO DATE ASKED : 08/03/2020 ALCOHOL USE: NO. BMI CARE GOAL FOLLOW-UP ABOVE NORMAL BMI FOLLOW-UPGIVING ENCOURAGEMENT TO EXERCISE ALCOHOL SCREENING DID YOU HAVE A DRINK CONTAINING ALCOHOL IN THE PAST YEAR?NO POINTS0 INTERPRETATIONNEGATIVE RECREATIONAL DRUG USE DRUG USE?NO CAFFEINE CAFFEINE USE?YES HOW OFTEN AND HOW MUCH? 2 CUPS OF COFFEE PER DAY SEXUAL HX HAD SEX IN THE LAST 12 MONTHS (VAGINAL, ORAL, OR ANAL)?NO HAVE YOU EVER HAD AN STD?NO HIV / HEP-C SCREENING HIV TEST OFFERED TO PATIENT:YES DATE OFFERED:10/24/2016 TEST ACCEPTED:NO HEP-C TEST OFFERED TO PATIENT:YES DATE OFFERED:10/24/2016 REASON:PATIENT DECLINED TEST ACCEPTED:NO REASON:PATIENT DECLINED TEMPLE [id number] [employer] LANGUAGE LANGUAGES SPOKEN:[place] EDUCATION LEVEL OF EDUCATION: 9 TH GRADE EDUCATION LEARNING BARRIERS / SPECIAL NEEDS CHANGE FROM LAST VISIT?NO BARRIERS TO LEARNING?NO HEARING IMPAIRED?NO VISION IMPAIRED?NO COGNITIVELY IMPAIRED?NO READINESS TO LEARN?YES LEARNING PREFERENCES?YES :BOOKLETS, HANDOUTS, DEMONSTRATION/VERBAL INSTRUCTION LEARNING CAPABILITIES PRESENT?YES EMOTIONAL BARRIERS?NO SPECIAL DEVICES?NO SALES AND OPERATIONS TRAINEE NEEDED?NO DOMESTIC VIOLENCE DO YOU FEEL SAFE IN YOUR ENVIRONMENT?YES OCCUPATION: DISABLED. DIET: CARBOHYDRATE CONTROLLED. EXERCISE: NO REGULAR EXERCISE. MARITAL STATUS: , . OTHERS AT HOME: SPOUSE, CHILD. PATIENT DESCRIBES PAIN :ACHING, HAVE IT ALL THE TIME "STEADY ACHE", OCCASIONALLY WAKES FROM SLEEP FROM 0-10, WHAT LEVEL IS YOUR PAIN TODAY?5 PRECIPITATING FACTORS PROLONGED STANDING OR SITTING, INCREASED ACTIVITY ALLEVIATING FACTORS PAIN MEDS, LAY DOWN, CHANGING POSITIONS, RESTING - WAS THE PROVIDER NOTIFIED OF ANY PERTINENT INFO? N/A HAS THE PATIENT BEEN EDUCATED REGARDING HIS/HER PLAN OF CARE?YES ORIENTED TO PAIN MANAGEMENT HAS THE PATIENT BEEN EDUCATED REGARDING PAIN, THE RISK FOR PAIN, THE IMPORTANCE OF EFFECTIVE PAIN MANAGEMENT, AND THE PAIN ASSESSMENT PROCESS?YES ADVANCE DIRECTIVE ADVANCE DIRECTIVE DISCUSSED WITH PATIENT:YES PT DOES NOT HAVE ANY ADVANCED DIRECTIVES AND SHE DECLINES INFORMATION ON HCP AT THIS TIME. REVIEW OF SYSTEMS CONSTITUTIONAL: ANY RECENT FEVER NO . CHILLS NO . WEIGHT CHANGE OF UNKNOWN REASONS NO . GASTROENTEROLOGY: NEW UNEXPLAINABLE CHANGES IN BOWEL CONTROL NO . CONSTIPATION NO . GENITOURINARY: ANY NEW CHANGE IN BLADDER CONTROL? NO . NEUROLOGY: NEW ONSET DIZZINESS OR NEUROLOGICAL CHANGES NOT MENTIONED NO . NEW NUMBNESS OR PAIN PATTERNS NOT MENTIONED AND PERTINENT TO TODAY'S VISIT NO . CARDIOLOGY: NEW CHEST PRESSURE NO . PATIENT DENIES NO . RESPIRATORY: UNEXPLAINABLE COUGH NO . NEW SHORTNESS OF BREATH NO . VITAL SIGNS WT 277.4 LBS, HT 63 IN, BMI 49.13 INDEX, BP 125/60 MM HG, HR 83 /MIN, RR 18 /MIN, TEMP 96.2 F, OXYGEN SAT % 97%, SAFE IN ENV? (Y/N) YES, NA INITIALS ND 11:29, REVIEWED BY: Ced CID RN. EXAMINATION GENERAL EXAMINATION: GENERALNO ACUTE DISTRESS, WELL NOURISHED AND HYDRATED. PSYCHAPPROPRIATE MOOD AND AFFECT . LUNGS:CLEAR TO AUSCULTATION BILATERALLY, NO WHEEZES, RHONCHI, RALES. HEART:NO MURMURS, REGULAR RATE AND RHYTHM. BACK:POINT TENDER BILATERAL LUMBAR SPINE , SURROUNDING SKIN SHOWS NO ERYTHEMA, ECCHYMOSIS, INCREASED WARMTH, AND/OR SKIN ERUPTIONS NOTED. PATIENT DOES ENDORSE INCREASED PAIN WITH FACET LOADING. . ASSESSMENTS SPONDYLOSIS WITHOUT MYELOPATHY OR RADICULOPATHY, LUMBOSACRAL REGION - M47.817 (PRIMARY) TREATMENT SPONDYLOSIS WITHOUT MYELOPATHY OR RADICULOPATHY, LUMBOSACRAL REGION MEDICATION: VALIUM TAB 10MG ORALLY (DIAZEPAM) (ORDERED FOR 08/10/2020) MEDICATION: OXYCODONE HCL TAB 10MG ORALLY (ORDERED FOR 08/10/2020) NOTES: 50-YEAR-OLD FEMALE IN FOR CHRONIC PAIN FOLLOW-UP. GIVEN PRESENTING SYMPTOMS RECOMMEND BILATERAL THERAPEUTIC LUMBAR FACET BLOCKS L4-L5 L5-S1 WITH POST PROCEDURAL FOLLOW-UP. PATIENT HAS EXPRESSED UNDERSTANDING OF AND WAS IN AGREEMENT WITH TREATMENT PLAN. GIVEN TIME TO ASK QUESTIONS AND EXPRESS CONCERNS. NEED TO CLARIFY WITH DR MACKENZIE IF LIBERTAD NEEDS TO BE HELD PRIOR TO PROCEDURE 1224 Ced CID RN . OTHERS NOTES: FACET JOINT INJECTION MATERIAL WAS PRINTED PRE PROCEDURE INSTRUCTIONS REVIEWED WITH PATIENT 08/03/2020 1203 Ced CID RN. PROCEDURE CODES [id number] ESTABILISHED PATIENT [facility] FACILITY CHARGE DISPOSITION & COMMUNICATION FOLLOW UP POST PROCEDURE (REASON: BILATERAL THERAPEUTIC LUMBAR FACET BLOCK L4-L5,L5-S1) ELECTRONICALLY SIGNED BY ERNIE JUARES ON 08/06/2020 AT 10:11 AM EDT DISCLAIMER : THIS IS A VISIT SUMMARY EXTRACTED FROM THE [employer] CHART. IT IS NOT A COPY OF THE [employer] PROGRESS NOTE. MTDD
== END ==
LOC: M PAIN 11:15
PROVIDERS: ATTEND Family Medicine
DX: M47.817 Spondylosis without myelopathy or radiculopathy, lumbosacral region (principal); L40.50 Arthropathic psoriasis, unspecified; E78.5 Hyperlipidemia, unspecified; F32.9 Major depressive disorder, single episode, unspecified; K21.9 Gastro-esophageal reflux disease without esophagitis; E66.01 Morbid (severe) obesity due to excess calories; E55.9 Vitamin D deficiency, unspecified; K76.0 Fatty (change of) liver, not elsewhere classified; I10 Essential (primary) hypertension; F17.210 Nicotine dependence, cigarettes, uncomplicated; Z79.82 Long term (current) use of aspirin; Z79.4 Long term (current) use of insulin; Z79.899 Other long term (current) drug therapy; Z88.2 Allergy status to sulfonamides; Z88.8 Allergy status to other drugs, medicaments and biological substances; Z68.42 Body mass index [BMI] 45.0-49.9, adult

== ENCOUNTER → 2020-08-08 | Outpatient (CLI) | payer MEDICARE, MEDICAID | LOC: M LABSMTC 10:52 | PROVIDERS: ATTEND Anesthesiology | DX: Z11.52 Encounter for screening for COVID-19 (principal) ==

== ENCOUNTER → 2020-08-13 | Outpatient (CLI) | payer MEDICARE ==
[~2020-08-13] MED LIST changes: +BUPIVACAINE HCL 0.25% 30ML VIAL As Ordered ONE; +ISOVUE-M 300 61% 15ML VIAL As Ordered ONE; +LIDOCAINE 1% SDV 30ML VIAL As Ordered ONE; +TRIAMCINOLONE ACETONIDE SUSP 40 MG/ML VIAL (J3301) As Ordered ONE; +diazePAM 5MG TABLET As Ordered ONE; +oxyCODONE 5MG TAB As Ordered ONE
--- NOTE | 2020-08-13 12:39 | REP ---
INDICATION: PAIN. COMPARISON: None. TECHNIQUE: Two views. 38.8 seconds of fluoroscopy time is reported. FINDINGS: A sequence of 2 last image hold fluoroscopically obtained spot radiograph(s) of the lumbar spine document(s) needle position(s) and contrast injection associated with injection procedure. IMPRESSION: Procedural imaging. <Electronically signed by Kiko Simpson > 08/13/20 [id number]
--- NOTE | 2020-08-16 01:43 | ECWPNPC ---
PATIENT NAME: MEG DE LA TORRE : 1970 GENDER: FEMALE VISIT DATE: 08/13/2020 DISCHARGE DATE: 08/13/20 1446 VISIT LOCKED DATE TIME: PHYSICIAN: LYN MACKENZIE MD PHYSICIAN PAGER NO: ACTIVE RESOURCE: LYN MACKENZIE MD REASON FOR APPOINTMENT 1. BILATERAL THERAPEUTIC LUMBAR FACET BLOCK L4-L5,L5-S1 HISTORY OF PRESENT ILLNESS GENERAL: -. FALL RISK SCREENING: SCREENING : NO FALLS REPORTED IN THE LAST YEAR. PAIN SCREENING: PATIENT HAS A COMPLAINT OF ACUTE OR CHRONIC PAIN :YES LOCATION OF PAIN:MID BACK, LOW BACK INTENSITY OF PAIN (SCALE OF 1 TO 10):6 WHAT DOES YOUR PAIN FEEL LIKE:ACHING, STABBING, OTHER DULL DURATION:CONTINOUS, CONSTANT, STEADY, ALL DAY PAIN IS INCREASED BY:ACTIVITIES STANDING, WALKING PAIN IS DECREASED BY:OTHERS SLEEPING WITH [facility] NURSING NOTE: -. PAIN CENTER INTAKE QUESTIONS: DO YOU HAVE A HISTORY OF MRSA? :NO DO YOU TAKE A BLOOD THINNERS? :NO DO YOU HAVE ANY BLEEDING DISORDERS? :NO ANY NEW NUMBNESS OR WEAKNESS IN YOUR LEGS OR ARMS? :NO ANY PACEMAKER,DEFIBRILLATOR, OR DORSAL COLUMN STIMULATOR? :NO DO YOU HAVE ANY RASHES OR OPEN SORES? :YES PSORIASIS ON ELBOW ARE YOU ALLERGIC TO IV DYE? :NO ARE YOU DIABETIC? :YES 0815 FSBS 135 ANY NEW PROBLEMS WITH YOUR MEDICATIONS? :NO HAVE YOU RECEIVED A VACCINE IN THE PAST 30 DAYS? :NO DO YOU PLAN TO RECEIVE A VACCINE IN THE NEXT 21 DAYS? :NO DO YOU TAKE ANY IMMUNOSUPPRESSIVE MEDICATIONS? :NO ANY HISTORY OF SEIZURES? :NO ANY HISTORY OF CARDIAC ISSUES OR EVENTS? :NO DO YOU HAVE ANY KIDNEY OR LIVER DISEASE? :NO DO YOU HAVE SLEEP APNEA? :NO ANY RECENT HEAD INJURY? :NO DO YOU HAVE ANY NEW INFECTIONS? :NO IS THERE A CHANCE YOU COULD BE ? :NO ARE YOU BREAST FEEDING? :NO WHEN DID YOU LAST EAT? : -08/12 2099 WHEN DID YOU LAST DRINK? : -08/13 629 WHAT DID YOU LAST DRINK? : -COFFEE NAME OF PERSON DRIVING YOU HOME? : DAUGHTER WALT DO YOU HAVE ANY OTHER QUESTIONS OR CONCERNS? : - CURRENT MEDICATIONS TAKING FERROUS SULFATE 325 (65 FE) MG TABLET 1 TABLET ORALLY ONCE A DAY TAKING DEXILANT 60 MG CAPSULE 1 CAP(S) ORALLY ONCE A DAY TAKING ASPIRIN 81 MG TABLET CHEWABLE 1 TABLET ORALLY ONCE A DAY TAKING ERGOCALCIFEROL 55634 UNIT CAPSULE 1 CAPSULE ORALLY WEEKLY TAKING ATORVASTATIN CALCIUM 80 MG TABLET 1 TABLET ORALLY ONCE A DAY TAKING EZETIMIBE 10 MG TABLET 1 TABLET ORALLY ONCE A DAY TAKING METFORMIN HCL ER 750 MG TABLET EXTENDED RELEASE 24 HOUR 1 TABLET ORALLY BID, NOTES: 08/12 2099 TAKING GLUCOMETER . .. DIRECTED DX 250 USE BID TAKING BLOOD GLUCOSE TEST . STRIPS USE BID DX 250 CHECK BS BID TAKING LANCETS . .. DIRECTED DX: 250 USE BID TAKING CYANOCOBALAMIN 250 MCG TABLET 1 TABLET ORALLY ONCE A DAY TAKING TENS UNIT - DIRECTED _ C PADS AND INSTRUCTION DAILY TAKING BACLOFEN 10 MG TABLET 0.5 TABLET TID X 5 DAYS THEN 1 TABLET WITH FOOD OR MILK ORALLY THREE TIMES A DAY, NOTES: 08/12 2099 TAKING LEVOTHYROXINE SODIUM 50 MCG TABLET 1 TABLET ON AN EMPTY STOMACH IN THE MORNING ORALLY ONCE A DAY TAKING CARVEDILOL 12.5 MG TABLET 1 TAB ORALLY BID, NOTES: 08/12 2099 TAKING TALTZ 80 MG/ML SOLUTION AUTO-INJECTOR DIRECTED SUBCUTANEOUS MONTHLY, NOTES: 1 MONTH AGO TAKING ALCOHOL PADS 70 % PAD DIRECTED TAKING REFRESH 1.4-0.6 % SOLUTION 2 DROPS OPHTHALMIC NEEDED TAKING BD INSULIN SYRINGE 31G X 09/30 MISCELLANEOUS DIRECTED SUBCUTANEOUSLY WEEKLYDX: L40.50 TAKING CALCIUM 600+D PLUS MINERALS 600-400 MG-UNIT TABLET CHEWABLE 1 TAB ORALLY BID TAKING VITAMIN B-12 500 MCG TABLET TAKE ONE TABLET BY MOUTH ONCE DAILY TAKING FLUOXETINE HCL 20 MG CAPSULE 1 CAPSULE ORALLY EVERY MORNING TAKING TIZANIDINE HCL 4 MG TABLET 1 TABLET ORALLY FOR SPASMS AND PAIN EVERY 6 HOURS NEEDED MDD2 TAKING LYRICA 50 MG CAPSULE 1 CAPSULE ORALLY THREE TIMES A DAY MDD: 3, NOTES: 08/12 2099 TAKING TRULICITY 1.5 MG/0.5ML SOLUTION PEN-INJECTOR 0.5 ML SUBCUTANEOUS WEEKLY TAKING ULTRAM 50 MG TABLET 1 TABLET ORALLY EVERY 8 HRS FOR PAIN MDD 3, NOTES: 08/12 2099 NOT-TAKING TERBINAFINE HCL 1 % CREAM 1 APPLICATION TO AFFECTED AREA EXTERNALLY TWICE A DAY NOT-TAKING PREDNISONE 5 MG (21) TABLET THERAPY PACK 6 TABS PO X 1 DAY, THEN 5, 4, 3, 2, 1, THEN STOP ORALLY DAILY WITH FOOD MEDICATION LIST REVIEWED AND RECONCILED WITH THE PATIENT PAST MEDICAL HISTORY PSORIASIS, GENERALIZED PLAQUE/PSORIATIC ARTHRITIS HYPERLIPIDEMIA 2B CHRONIC MDD GERD T2DM, NID MULTIPLE DENTAL CARIES ALLERGIC RHINITIS NICOTINE ADDICTION OBESITY, MORBID VITAMIN D DEFICIENCY NAFLD BY CT FEBRUARY 2011 WITH BORDERLINE HEPATOMEGALY, SEEN BY 10/2016 US CERVICAL DJD-11/2011 NORMAL CERVICAL MRI LUMBAR DJD-L12 R IF HNP C R 1 COMPRESSION,, L2-4 BULGES, MINIMAL L45CCS BY 10/2018 MRI/ XRAY C MILD MULT-LEVEL DJD, NORMAL B SIJ HYPERTENSION-09/2015-LOW RISK DPST, NORMAL TTE-LOW PALPITATIONS-NORMAL 25D EVENT MONITOR-05/2014-LOW SMALL ADENOMATOUS P-09/2017 COLON-W R MILD PARTIAL SUBSCAPULARIS TEAR SP 05/12/19 SP MECHAINCAL FALL (SEEN BY 05/17/19 MRI) ALLERGIES SULFA (FOR ALLERGY USE ONLY): HIVES - ALLERGY CYMBALTA: PALPITATIONS, HYPERTENSION - CONTRAINDICATION SURGICAL HISTORY ENDOMETRIAL ABLATION 2007 CHOLECYSTECTOMY 2005 D&C X 3 COMPLETE DENTAL EXTRACTION NOVEMBER 2012, 08/2014 COLONOSCOPY-MODERATE LOSIS, HEMORRHOIDS-DONE 2 RECTAL BLEEDING-MARINA 07/2007 C SECTION 06/2006 FAMILY HISTORY FATHER: , COLON CANCER DX AT 45 MOTHER: SIBLINGS: DAUGHTER(S): ALIVE 2DAUGHTER(S) . DENIES ANY HX SKIN OR PANCREATIC CANCER. SOCIAL HISTORY GENERAL: TOBACCO USE ARE YOU A:CURRENT SMOKER ARE YOU INTERESTED IN QUITTING?NOT READY TO QUIT COUNSELED THE PATIENT ON SMOKING EFFECTS, EDUCATION [id number]/26/2021 HOW MANY CIGARETTES A DAY DO YOU SMOKE?11-20 HOW SOON AFTER YOU WAKE UP DO YOU SMOKE YOUR FIRST CIGARETTE?6-30 MIN HOW OFTEN DO YOU SMOKE CIGARETTES?EVERY DAY PATIENT COUNSELED ON THE DANGERS OF TOBACCO USE AND URGED TO QUIT:08/03/2020 SMOKING CESSATION INFORMATION GIVEN06/12/2020 11/04/18 DECLINED AD LATEX QUESTIONNAIRE LATEX ALLERGY : HAVE YOU EVER DEVELOPED ANY TYPE OF REACTION AFTER HANDLING LATEX PRODUCTS SUCH RUBBER GLOVES, CONDOMS, DIAPHRAGMS, BALLOONS, SOCKS, OR UNDERWEAR?NO LATEX ALLERGY : HAVE YOU EVER DEVELOPED ANY TYPE OF REACTION DURING OR AFTER DENTAL APPOINTMENT, VAGINAL/RECTAL EXAMINATION, SURGICAL PROCEDURE, OR ANY OTHER EXPOSURE?NO LATEX RISK : HAVE YOU EVER HAD ANY DIFFICULTY BREATHING OR HIVES AFTER EATING OR HANDLING ANY FRUITS, OR VEGETABLES; SUCH KIWI, BANANAS, STONE FRUITS, OR CHESTNUTSNO LATEX RISK : DO YOU HAVE A PREVIOUS PERSONAL HISTORY OF MORE THAN NINE SURGERIES, SPINA BIFIDA, OR REPEATED CATHERIZATIONS? NO LATEX RISK : ARE YOU FREQUENTLY EXPOSED TO LATEX PRODUCTS IN YOUR OCCUPATION?NO DATE ASKED : 08/03/2020 ALCOHOL USE: NO. BMI CARE GOAL FOLLOW-UP ABOVE NORMAL BMI FOLLOW-UPGIVING ENCOURAGEMENT TO EXERCISE ALCOHOL SCREENING DID YOU HAVE A DRINK CONTAINING ALCOHOL IN THE PAST YEAR?NO POINTS0 INTERPRETATIONNEGATIVE RECREATIONAL DRUG USE DRUG USE?NO CAFFEINE CAFFEINE USE?YES HOW OFTEN AND HOW MUCH? 2 CUPS OF COFFEE PER DAY SEXUAL HX HAD SEX IN THE LAST 12 MONTHS (VAGINAL, ORAL, OR ANAL)?NO HAVE YOU EVER HAD AN STD?NO HIV / HEP-C SCREENING HIV TEST OFFERED TO PATIENT:YES DATE OFFERED:10/24/2016 TEST ACCEPTED:NO HEP-C TEST OFFERED TO PATIENT:YES DATE OFFERED:10/24/2016 REASON:PATIENT DECLINED TEST ACCEPTED:NO REASON:PATIENT DECLINED JEWISH [id number] QUAKER LANGUAGE LANGUAGES SPOKEN:WOLOF EDUCATION LEVEL OF EDUCATION: 9 TH GRADE EDUCATION LEARNING BARRIERS / SPECIAL NEEDS CHANGE FROM LAST VISIT?NO BARRIERS TO LEARNING?NO HEARING IMPAIRED?NO VISION IMPAIRED?NO COGNITIVELY IMPAIRED?NO READINESS TO LEARN?YES LEARNING PREFERENCES?YES :BOOKLETS, HANDOUTS, DEMONSTRATION/VERBAL INSTRUCTION LEARNING CAPABILITIES PRESENT?YES EMOTIONAL BARRIERS?NO SPECIAL DEVICES?NO BACKEND PYTHON DEVELOPER NEEDED?NO DOMESTIC VIOLENCE DO YOU FEEL SAFE IN YOUR ENVIRONMENT?YES OCCUPATION: DISABLED. DIET: CARBOHYDRATE CONTROLLED. EXERCISE: NO REGULAR EXERCISE. MARITAL STATUS: , . OTHERS AT HOME: SPOUSE, CHILD. PATIENT DESCRIBES PAIN :ACHING, HAVE IT ALL THE TIME "STEADY ACHE", OCCASIONALLY WAKES FROM SLEEP FROM 0-10, WHAT LEVEL IS YOUR PAIN TODAY?5 PRECIPITATING FACTORS PROLONGED STANDING OR SITTING, INCREASED ACTIVITY ALLEVIATING FACTORS PAIN MEDS, LAY DOWN, CHANGING POSITIONS, RESTING - WAS THE PROVIDER NOTIFIED OF ANY PERTINENT INFO? N/A HAS THE PATIENT BEEN EDUCATED REGARDING HIS/HER PLAN OF CARE?YES ORIENTED TO PAIN MANAGEMENT HAS THE PATIENT BEEN EDUCATED REGARDING PAIN, THE RISK FOR PAIN, THE IMPORTANCE OF EFFECTIVE PAIN MANAGEMENT, AND THE PAIN ASSESSMENT PROCESS?YES ADVANCE DIRECTIVE ADVANCE DIRECTIVE DISCUSSED WITH PATIENT:YES PT DOES NOT HAVE ANY ADVANCED DIRECTIVES AND SHE DECLINES INFORMATION ON HCP AT THIS TIME. HOSPITALIZATION/MAJOR DIAGNOSTIC PROCEDURE ABOVE VITAL SIGNS WT 277.4 LBS, HT 63 IN, BMI 49.13 INDEX, BP 141/65 MM HG, HR 89 /MIN, RR 18 /MIN, TEMP 96.1 F, OXYGEN SAT % 97%, SAFE IN ENV? (Y/N) YES, NA INITIALS MD 11:21, REVIEWED BY: DONATO LOMBARDO. EXAMINATION GENERAL EXAMINATION: A HISTORY AND PHYSICAL EXAM ON THE PATIENT WAS DONE ON 08/03/2020 (DATE OF ORIGINAL ASSESSMENT) IN PREPARATION OF SURGERY/PROCEDURE. I HAVE NOW REASSESSED THIS PATIENT'S HEALTH STATUS AND PERFORMED AN UPDATED EXAM TODAY. ALL CHANGES IN THE PATIENT'S HISTORY, PHYSICAL EXAM, PRE-EXISTING CONDITONS, AND INDICATIONS/CONTRAINDICATIONS TO THE PLANNED PROCEDURE AND ANESTHESIA ARE DOCUMENTED AND EVALUATED BELOW. I ATTEST TO THE ADEQUACY AND APPROPRIATENESS OF MY ASSESSMENT, AND CONFIRM THE NECESSITY FOR THE PLANNED PROCEDURE. THE PATIENT IS ALERT, ORIENTED TIMES THREE AND COOPERATIVE. LUNGS ARE CLEAR TO AUSCULTATION. HEART SHOWS REGULAR RHYTHM, NO MURMURS AND NO GALLOPS. ASSESSMENTS SPONDYLOSIS WITHOUT MYELOPATHY OR RADICULOPATHY, LUMBAR REGION - M47.816 (PRIMARY) SPONDYLOSIS WITHOUT MYELOPATHY OR RADICULOPATHY, LUMBOSACRAL REGION - M47.817 TREATMENT SPONDYLOSIS WITHOUT MYELOPATHY OR RADICULOPATHY, LUMBAR REGION SMC FACET BLOCK (PAIN)[id number] COMPLETION OF PROCEDURAL VISIT WHEN MEETS CRITERIA SPONDYLOSIS WITHOUT MYELOPATHY OR RADICULOPATHY, LUMBOSACRAL REGION SMC FACET BLOCK (PAIN)[id number] MEDICATION: VALIUM TAB 10MG ORALLY (DIAZEPAM)BESS EVANS 08/13/2020 11:39:29 AM > VERIFIED. STELLA AHN 08/13/2020 11:45:21 AM > ADMINISTERED MEDICATION: OXYCODONE HCL TAB 10MG ORALLYSYBESS IRIZARRY 08/13/2020 11:39:46 AM > VERIFIED. STELLA AHN 08/13/2020 11:46:16 AM > ADMINISTERED OTHERS CLINICAL NOTES: PAT COMPLETED 08/10/20 AT 1316 BY Papo MCDANIEL RN. PROCEDURES PAIN NURSING RECORD PROCEDURE IN ROOM 1205, PHYSICIAN IN ROOM 1220, START 1227, FINISH 1232, PHYSICIAN OUT OF ROOM 1232, OUT OF ROOM 1239, ECG NORMAL SINUS, PATIENT SHIELDED YES, SAFETY STRAP YES, PREP CHLOROPREP Kristi AHN RN, DRESSING TEGADERM DR. MACKENZIE LOC: 1. ALERT, ORIENTED RESP: 1. REGULAR, NO DYSPNEA COLOR: 1. PINK SKIN: 1. WARM, DRY POSITION: 1. PRONE VITALS: STELLA AHN 08/13/2020 12:15:52 PM > 138/101 HR 89 16 98% R/A , STELLA AHN 08/13/2020 12:30:57 PM > 143/99 HR 84 16 95% R/A , STELLA AHN 08/13/2020 12:45:49 PM > 142/63 HR 88 16 96% R/A D/C V/S COMPLETION OF PROCEDURE APPOINTMENT: POST PAIN 1 , DRESSING SITE DRY AND INTACT , IV N/A , GAIT STEADY , TEACHING COMPLETED, PATIENT ACKNOWLEDGES UNDERSTANDING YES PN LUMBAR FACET BLOCK THERAPEUTIC PRE PROCEDURE DIAGNOSIS LUMBAR SPONDYLOSIS, LUMBOSACRAL SPONDYLOSIS POST PROCEDURE DIAGNOSIS LUMBAR SPONDYLOSIS, LUMBOSACRAL SPONDYLOSIS PROCEDURE BILATERAL L4-L5 AND BILATERAL L5-S1 LUMBAR FACET THERAPEUTIC BLOCK SURGEON DR. LYN MACKENZIE TUBING TESTER NONE ANESTHESIA LOCAL PRE PROCEDURE NOTE THE PATIENT HAS A HISTORY OF CHRONIC LOW BACK PAIN. I EVALUATED THE PATIENT AND REVIEWED THE CHART. I WENT OVER THE RISKS, ALTERNATIVES, AND BENEFITS ASSOCIATED WITH THIS PROCEDURE. THE PATIENT WOULD LIKE TO PROCEED AND GIVES CONSENT TO PERFORM THE PROCEDURE. THE PATIENT DENIES UNEXPLAINABLE WEIGHT LOSS, FEVER, CHILLS, OR NEW CHANGES IN URINARY OR BOWEL CONTROL. THE PATIENT IS COVID-19 NEGATIVE DESCRIPTION OF PROCEDURE THE PATIENT WAS BROUGHT TO THE PROCEDURE ROOM AND PLACED IN THE PRONE POSITION. THE LUMBOSACRAL AREA WAS CLEANED WITH CHLORAPREP SOLUTION AND DRAPED ASEPTICALLY. THE PROCEDURE WAS DONE UNDER STERILE CONDITIONS. A TIMEOUT WAS PERFORMED WHERE THE CONSENTED SITE WAS VERIFIED WITH EVERYONE IN THE ROOM. UNDER FLUOROSCOPIC GUIDANCE, THE TARGET POINT WAS SELECTED AT THE RIGHT AND LEFT L4-L5 AND RIGHT AND LEFT L5-S1 FACET JOINTS. TARGET POINT WAS SELECTED AFTER LATERAL ROTATION AND TILT OF THE MAGNIFIER OF THE C-ARM. I CONFIRMED AGAIN THE SITE OF TARGET. LIDOCAINE 0.5% WAS USED TO NUMB THE SKIN AND THE SUBCUTANEOUS TISSUE BELOW IT. SPINAL NEEDLES, 22-GAUGE, WERE ADVANCED UNDER FLUOROSCOPIC GUIDANCE AND FOLLOWING PATIENT FEEDBACK UNTIL THE TARGETS WERE TOUCHED. THE POSITION OF THE NEEDLES WAS VERIFIED WITH AP AND LATERAL VIEWS. AFTER PROPER POSITION OF THE NEEDLES WAS ACHIEVED, ISOVUE-M DYE 30%, 0.1 ML, WAS INJECTED SHOWING ADEQUATE SPREAD OF THE DYE. KENALOG 10 MG WAS INJECTED AT EACH SITE. THEN, A SOLUTION OF 1.0 ML OF BUPIVACAINE 0.125% OF WAS USED TO FLUSH EACH SITE. THE MEDICATION WAS VERIFIED WITH THE NURSE. THERE WAS NO EVIDENCE OF BLOOD, PARESTHESIA OR CEREBROSPINAL FLUID DURING THE PROCEDURE. THE PATIENT WAS SENT TO THE RECOVERY ROOM. THE PATIENT WAS MOVING THE EXTREMITIES AND DOING WELL. THERE WERE NO COMPLICATIONS DURING THE PROCEDURE. ESTIMATED BLOOD LOSS WAS LESS THAN 5 ML. FLUOROSCOPY TIME WAS 38 SECONDS POST PROCEDURE NOTE THE PATIENT WILL BE SEEN IN A FOLLOW UP IN THE NEXT FEW WEEKS. I AM LOOKING FOR LONG LASTING RELIEF FOR THE PATIENT WITH THIS INTERVENTION. INSTRUCTIONS WERE GIVEN, QUESTIONS WERE ANSWERED, AND THE PATIENT EXPRESSED UNDERSTANDING AND AGREES WITH THE PLAN. I, SHALA MCNEIL, DOCUMENTED THE ABOVE INFORMATION ACTING A SCRIBE FOR DR. MACKENZIE. I HAVE REVIEWED THE ABOVE DOCUMENT, WRITTEN BY SHALA MCNEIL, CADDYMASTER, AND I VERIFY THAT IT IS ACCURATE PROCEDURE CODES 58035 INJ PARAVERT F JNT L/S 1 LEV, MODIFIERS: 50 [id number] INJ PARAVERT F JNT L/S 2 LEV, MODIFIERS: 50 DISPOSITION & COMMUNICATION FOLLOW UP FOLLOW UP WITH ENTERTAINER OR VARIETY ARTIST (REASON: POST BILATERAL THERAPEUTIC LUMBAR FACET BLOCK L4-L5, L5-S1) ELECTRONICALLY SIGNED BY LYN MACKENZIE MD, MD ON 08/15/2020 AT 03:44 PM EDT DISCLAIMER : THIS IS A VISIT SUMMARY EXTRACTED FROM THE [employer] CHART. IT IS NOT A COPY OF THE [employer] PROGRESS NOTE. MTDD
== END ==
LOC: M PAIN 11:20
PROVIDERS: ATTEND Anesthesiology
DX: M47.816 Spondylosis without myelopathy or radiculopathy, lumbar region (principal); M47.817 Spondylosis without myelopathy or radiculopathy, lumbosacral region; L40.9 Psoriasis, unspecified; E78.5 Hyperlipidemia, unspecified; F32.9 Major depressive disorder, single episode, unspecified; K21.9 Gastro-esophageal reflux disease without esophagitis; E11.9 Type 2 diabetes mellitus without complications; J30.9 Allergic rhinitis, unspecified; E66.01 Morbid (severe) obesity due to excess calories; E55.9 Vitamin D deficiency, unspecified; K76.0 Fatty (change of) liver, not elsewhere classified; I10 Essential (primary) hypertension; F17.210 Nicotine dependence, cigarettes, uncomplicated; Z68.42 Body mass index [BMI] 45.0-49.9, adult; Z79.4 Long term (current) use of insulin; Z79.82 Long term (current) use of aspirin; Z79.899 Other long term (current) drug therapy; Z88.2 Allergy status to sulfonamides; Z88.8 Allergy status to other drugs, medicaments and biological substances
CPT/HCPCS: 64493; 64494; J3301; Q9967

== ENCOUNTER → 2020-09-06 | Outpatient (CLI) | payer MEDICARE ==
[~2020-09-06] MED LIST changes: -BUPIVACAINE HCL 0.25% 30ML VIAL As Ordered ONE; -ISOVUE-M 300 61% 15ML VIAL As Ordered ONE; -LIDOCAINE 1% SDV 30ML VIAL As Ordered ONE; -TRIAMCINOLONE ACETONIDE SUSP 40 MG/ML VIAL (J3301) As Ordered ONE; -diazePAM 5MG TABLET As Ordered ONE; -oxyCODONE 5MG TAB As Ordered ONE
--- NOTE | 2020-09-08 04:09 | ECWPNPC ---
PATIENT NAME: MEG DE LA TORRE : 1970 GENDER: FEMALE VISIT DATE: 09/06/2020 DISCHARGE DATE: 09/06/20 1145 VISIT LOCKED DATE TIME: PHYSICIAN: PAPO MARIE PHYSICIAN PAGER NO: ACTIVE RESOURCE: PAPO MARIE REASON FOR APPOINTMENT 1. POST BILATERAL THERAPEUTIC LUMBAR FACET BLOCK L4-L5,L5-S1 HISTORY OF PRESENT ILLNESS GENERAL: 50-YEAR-OLD FEMALE IN FOR POST BILATERAL THERAPEUTIC LUMBAR FACET BLOCK FOLLOW-UP. PATIENT FEELS THE PROCEDURE WAS HELPFUL HOWEVER IT DID NOT LAST. SHE RATES HER PAIN PREPROCEDURE AT A 6 OUT OF 10 AND POSTPROCEDURE AT A 1-4 OUT OF 10 TIMES APPROXIMATELY 1-1/2 WEEKS. PATIENT STATES SHE FEELS THE PROCEDURE DIDN'T LAST SHE HAD INCREASED ACTIVITY STATUS POST PROCEDURE AND THIS EXACERBATED HER SYMPTOMS. FALL RISK SCREENING: SCREENING : NO FALLS REPORTED IN THE LAST YEAR. PAIN SCREENING: PATIENT HAS A COMPLAINT OF ACUTE OR CHRONIC PAIN :YES LOCATION OF PAIN:LOW BACK INTENSITY OF PAIN (SCALE OF 1 TO 10):6 WHAT DOES YOUR PAIN FEEL LIKE:ACHING, THROBBING, OTHER DULL DURATION:CONTINOUS, STEADY, AWAKENS FROM SLEEP PAIN IS INCREASED BY:ACTIVITIES, PROLONGED STANDING CANNOT LAY ON BACK PAIN IS DECREASED BY:USE OF PAIN MEDICATIONS, SITTING WEDGE FOR SLEEPING NURSING NOTE: -. PAIN CENTER INTAKE QUESTIONS: DO YOU HAVE A HISTORY OF MRSA? :NO DO YOU TAKE A BLOOD THINNERS? :NO DO YOU HAVE ANY BLEEDING DISORDERS? :YES ANEMIA ANY NEW NUMBNESS OR WEAKNESS IN YOUR LEGS OR ARMS? :YES NUMBNESS AND WEAKNESS BILATERAL LEGS ANY PACEMAKER,DEFIBRILLATOR, OR DORSAL COLUMN STIMULATOR? :NO DO YOU HAVE ANY RASHES OR OPEN SORES? :YES PSORIASIS ARE YOU ALLERGIC TO IV DYE? :NO ARE YOU DIABETIC? :YES ANY NEW PROBLEMS WITH YOUR MEDICATIONS? :NO HAVE YOU RECEIVED A VACCINE IN THE PAST 30 DAYS? :NO DO YOU PLAN TO RECEIVE A VACCINE IN THE NEXT 21 DAYS? :NO DO YOU NEED ANY PRESCRIPTION? :YES TIZANIDINE DO YOU TAKE ANY IMMUNOSUPPRESSIVE MEDICATIONS? :YES TALTZ- DOSE DUE 09/07/2020 DO YOU HAVE ANY KIDNEY OR LIVER DISEASE? :NO IS THERE A CHANCE YOU COULD BE ? :NO ARE YOU BREAST FEEDING? :NO CURRENT MEDICATIONS TAKING FERROUS SULFATE 325 (65 FE) MG TABLET 1 TABLET ORALLY ONCE A DAY TAKING DEXILANT 60 MG CAPSULE 1 CAP(S) ORALLY ONCE A DAY TAKING ASPIRIN 81 MG TABLET CHEWABLE 1 TABLET ORALLY ONCE A DAY TAKING ERGOCALCIFEROL 19993 UNIT CAPSULE 1 CAPSULE ORALLY WEEKLY TAKING ATORVASTATIN CALCIUM 80 MG TABLET 1 TABLET ORALLY ONCE A DAY TAKING EZETIMIBE 10 MG TABLET 1 TABLET ORALLY ONCE A DAY TAKING METFORMIN HCL ER 750 MG TABLET EXTENDED RELEASE 24 HOUR 1 TABLET ORALLY BID, NOTES: 08/12 2099 TAKING GLUCOMETER . .. DIRECTED DX 250 USE BID TAKING BLOOD GLUCOSE TEST . STRIPS USE BID DX 250 CHECK BS BID TAKING LANCETS . .. DIRECTED DX: 250 USE BID TAKING CYANOCOBALAMIN 250 MCG TABLET 1 TABLET ORALLY ONCE A DAY TAKING TENS UNIT - DIRECTED _ C PADS AND INSTRUCTION DAILY TAKING BACLOFEN 10 MG TABLET 0.5 TABLET TID X 5 DAYS THEN 1 TABLET WITH FOOD OR MILK ORALLY THREE TIMES A DAY, NOTES: 08/12 2099 TAKING LEVOTHYROXINE SODIUM 50 MCG TABLET 1 TABLET ON AN EMPTY STOMACH IN THE MORNING ORALLY ONCE A DAY TAKING CARVEDILOL 12.5 MG TABLET 1 TAB ORALLY BID, NOTES: 08/12 2099 TAKING TALTZ 80 MG/ML SOLUTION AUTO-INJECTOR DIRECTED SUBCUTANEOUS MONTHLY, NOTES: 1 MONTH AGO TAKING ALCOHOL PADS 70 % PAD DIRECTED TAKING REFRESH 1.4-0.6 % SOLUTION 2 DROPS OPHTHALMIC NEEDED TAKING BD INSULIN SYRINGE 31G X 09/30 MISCELLANEOUS DIRECTED SUBCUTANEOUSLY WEEKLYDX: L40.50 TAKING CALCIUM 600+D PLUS MINERALS 600-400 MG-UNIT TABLET CHEWABLE 1 TAB ORALLY BID TAKING VITAMIN B-12 500 MCG TABLET TAKE ONE TABLET BY MOUTH ONCE DAILY TAKING FLUOXETINE HCL 20 MG CAPSULE 1 CAPSULE ORALLY EVERY MORNING TAKING TIZANIDINE HCL 4 MG TABLET 1 TABLET ORALLY FOR SPASMS AND PAIN EVERY 6 HOURS NEEDED MDD2 TAKING TRULICITY 1.5 MG/0.5ML SOLUTION PEN-INJECTOR 0.5 ML SUBCUTANEOUS WEEKLY TAKING CARVEDILOL 6.25 MG TABLET TAKE ONE TABLET BY MOUTH TWICE DAILY TAKING DEXILANT 60 MG CAPSULE DELAYED RELEASE TAKE ONE CAPSULE BY MOUTH ONCE DAILY TAKING LYRICA 50 MG CAPSULE 1 CAPSULE ORALLY THREE TIMES A DAY MDD: 3, NOTES: 08/12 2099 TAKING ULTRAM 50 MG TABLET 1 TABLET ORALLY EVERY 8 HRS FOR PAIN MDD 3, NOTES: 08/12 2099 UNKNOWN TERBINAFINE HCL 1 % CREAM 1 APPLICATION TO AFFECTED AREA EXTERNALLY TWICE A DAY UNKNOWN PREDNISONE 5 MG (21) TABLET THERAPY PACK 6 TABS PO X 1 DAY, THEN 5, 4, 3, 2, 1, THEN STOP ORALLY DAILY WITH FOOD MEDICATION LIST REVIEWED AND RECONCILED WITH THE PATIENT PAST MEDICAL HISTORY PSORIASIS, GENERALIZED PLAQUE/PSORIATIC ARTHRITIS HYPERLIPIDEMIA 2B CHRONIC MDD GERD T2DM, NID MULTIPLE DENTAL CARIES ALLERGIC RHINITIS NICOTINE ADDICTION OBESITY, MORBID VITAMIN D DEFICIENCY NAFLD BY CT FEBRUARY 2011 WITH BORDERLINE HEPATOMEGALY, SEEN BY 10/2016 US CERVICAL DJD-11/2011 NORMAL CERVICAL MRI LUMBAR DJD-L12 R IF HNP C R 1 COMPRESSION,, L2-4 BULGES, MINIMAL L45CCS BY 10/2018 MRI///10/2014 XRAY C MILD MULT-LEVEL DJD, NORMAL B SIJ HYPERTENSION-09/2015-LOW RISK DPST, NORMAL TTE-LOW PALPITATIONS-NORMAL 25D EVENT MONITOR-05/2014-LOW SMALL ADENOMATOUS P-09/2017 COLON-W R MILD PARTIAL SUBSCAPULARIS TEAR SP 05/12/19 SP MECHAINCAL FALL (SEEN BY 05/17/19 MRI) ALLERGIES SULFA (FOR ALLERGY USE ONLY): HIVES - ALLERGY CYMBALTA: PALPITATIONS, HYPERTENSION - CONTRAINDICATION SOCIAL HISTORY GENERAL: TOBACCO USE ARE YOU A:CURRENT SMOKER HOW OFTEN DO YOU SMOKE CIGARETTES?EVERY DAY HOW SOON AFTER YOU WAKE UP DO YOU SMOKE YOUR FIRST CIGARETTE?6-30 MIN HOW MANY CIGARETTES A DAY DO YOU SMOKE?11-20 ARE YOU INTERESTED IN QUITTING?NOT READY TO QUIT PATIENT COUNSELED ON THE DANGERS OF TOBACCO USE AND URGED TO QUIT:08/03/2020 COUNSELED THE PATIENT ON SMOKING EFFECTS, EDUCATION [id number]/26/2021 SMOKING CESSATION INFORMATION GIVEN06/12/2020 11/04/18 DECLINED AD LATEX QUESTIONNAIRE LATEX ALLERGY : HAVE YOU EVER DEVELOPED ANY TYPE OF REACTION AFTER HANDLING LATEX PRODUCTS SUCH RUBBER GLOVES, CONDOMS, DIAPHRAGMS, BALLOONS, SOCKS, OR UNDERWEAR?NO LATEX ALLERGY : HAVE YOU EVER DEVELOPED ANY TYPE OF REACTION DURING OR AFTER DENTAL APPOINTMENT, VAGINAL/RECTAL EXAMINATION, SURGICAL PROCEDURE, OR ANY OTHER EXPOSURE?NO LATEX RISK : HAVE YOU EVER HAD ANY DIFFICULTY BREATHING OR HIVES AFTER EATING OR HANDLING ANY FRUITS, OR VEGETABLES; SUCH KIWI, BANANAS, STONE FRUITS, OR CHESTNUTSNO LATEX RISK : DO YOU HAVE A PREVIOUS PERSONAL HISTORY OF MORE THAN NINE SURGERIES, SPINA BIFIDA, OR REPEATED CATHERIZATIONS? NO LATEX RISK : ARE YOU FREQUENTLY EXPOSED TO LATEX PRODUCTS IN YOUR OCCUPATION?NO DATE ASKED : 09/06/2020 ALCOHOL USE: NO. BMI CARE GOAL FOLLOW-UP ABOVE NORMAL BMI FOLLOW-UPGIVING ENCOURAGEMENT TO EXERCISE ALCOHOL SCREENING DID YOU HAVE A DRINK CONTAINING ALCOHOL IN THE PAST YEAR?NO POINTS0 INTERPRETATIONNEGATIVE RECREATIONAL DRUG USE DRUG USE?NO CAFFEINE CAFFEINE USE?YES HOW OFTEN AND HOW MUCH? 2 CUPS OF COFFEE PER DAY SEXUAL HX HAD SEX IN THE LAST 12 MONTHS (VAGINAL, ORAL, OR ANAL)?NO HAVE YOU EVER HAD AN STD?NO HIV / HEP-C SCREENING HIV TEST OFFERED TO PATIENT:YES DATE OFFERED:10/24/2016 TEST ACCEPTED:NO HEP-C TEST OFFERED TO PATIENT:YES DATE OFFERED:10/24/2016 REASON:PATIENT DECLINED TEST ACCEPTED:NO REASON:PATIENT DECLINED DRUZE [id number] RESTORATIONISM LANGUAGE LANGUAGES SPOKEN:TURKISH EDUCATION LEVEL OF EDUCATION: 9 TH GRADE EDUCATION LEARNING BARRIERS / SPECIAL NEEDS CHANGE FROM LAST VISIT?NO BARRIERS TO LEARNING?NO HEARING IMPAIRED?NO VISION IMPAIRED?NO COGNITIVELY IMPAIRED?NO READINESS TO LEARN?YES LEARNING PREFERENCES?YES :BOOKLETS, HANDOUTS, DEMONSTRATION/VERBAL INSTRUCTION LEARNING CAPABILITIES PRESENT?YES EMOTIONAL BARRIERS?NO SPECIAL 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 DIET: CARBOHYDRATE CONTROLLED. EXERCISE: NO REGULAR EXERCISE. MARITAL STATUS: , . OTHERS AT HOME: SPOUSE, CHILD. PATIENT DESCRIBES PAIN :ACHING, HAVE IT ALL THE TIME "STEADY ACHE", OCCASIONALLY WAKES FROM SLEEP FROM 0-10, WHAT LEVEL IS YOUR PAIN TODAY?5 PRECIPITATING FACTORS PROLONGED STANDING OR SITTING, INCREASED ACTIVITY ALLEVIATING FACTORS PAIN MEDS, LAY DOWN, CHANGING POSITIONS, RESTING - WAS THE PROVIDER NOTIFIED OF ANY PERTINENT INFO? N/A HAS THE PATIENT BEEN EDUCATED REGARDING HIS/HER PLAN OF CARE?YES ORIENTED TO PAIN MANAGEMENT HAS THE PATIENT BEEN EDUCATED REGARDING PAIN, THE RISK FOR PAIN, THE IMPORTANCE OF EFFECTIVE PAIN MANAGEMENT, AND THE PAIN ASSESSMENT PROCESS?YES ADVANCE DIRECTIVE ADVANCE DIRECTIVE DISCUSSED WITH PATIENT:YES PT DOES NOT HAVE ANY ADVANCED DIRECTIVES AND SHE DECLINES INFORMATION ON HCP AT THIS TIME. REVIEW OF SYSTEMS CONSTITUTIONAL: ANY RECENT FEVER NO . CHILLS NO . WEIGHT CHANGE OF UNKNOWN REASONS NO . GASTROENTEROLOGY: NEW UNEXPLAINABLE CHANGES IN BOWEL CONTROL NO . CONSTIPATION NO . GENITOURINARY: ANY NEW CHANGE IN BLADDER CONTROL? NO . NEUROLOGY: NEW ONSET DIZZINESS OR NEUROLOGICAL CHANGES NOT MENTIONED NO . NEW NUMBNESS OR PAIN PATTERNS NOT MENTIONED AND PERTINENT TO TODAY'S VISIT NO . CARDIOLOGY: NEW CHEST PRESSURE NO . PATIENT DENIES NO . RESPIRATORY: UNEXPLAINABLE COUGH NO . NEW SHORTNESS OF BREATH NO . VITAL SIGNS WT 270.2 LBS, HT 63 IN, BMI 47.86 INDEX, BP 143/76 MM HG, HR 83 /MIN, RR 18 /MIN, TEMP 97.2 F, OXYGEN SAT % 97%, SAFE IN ENV? (Y/N) YES, REVIEWED BY: JANA FREEMAN MA. EXAMINATION GENERAL EXAMINATION: GENERALNO ACUTE DISTRESS, WELL NOURISHED AND HYDRATED. PSYCHAPPROPRIATE MOOD AND AFFECT . LUNGS:DECREASED BILATERALLY . HEART:NO MURMURS, REGULAR RATE AND RHYTHM. ASSESSMENTS OTHER CHRONIC PAIN - G89.29 (PRIMARY) SPONDYLOSIS WITHOUT MYELOPATHY OR RADICULOPATHY, LUMBOSACRAL REGION - M47.817, RISK: (NULL) TREATMENT OTHER CHRONIC PAIN PAIN PROCEDURE LOGDATE OF [id number]/29/2021ROCEDURE:BILATERAL THERAPEUTIC LUMBAR FACET BLOCK L4-L5, L5-S7PEQOEJ OF PRE SEDATEVALIUM 10MG; OXYCODONE 10MGRESULT:PRE-10 POST 1-08/25 X 1.5 WEEKS NOTES: 50-YEAR-OLD FEMALE IN FOR POST BILATERAL THERAPEUTIC LUMBAR FACET BLOCK FOLLOW-UP. GIVEN PRESENTING SYMPTOMS RECOMMEND FOLLOW-UP IN ONE MONTH. PATIENT HAS EXPRESSED UNDERSTANDING OF AND WAS IN AGREEMENT WITH TREATMENT PLAN. GIVEN TIME TO ASK QUESTIONS AND EXPRESS CONCERNS. PROCEDURE CODES FA211 ESTABILISHED PATIENT [facility] CHARGE DISPOSITION & COMMUNICATION FOLLOW UP 4 WEEKS (REASON: LOW BACK PAIN ) ELECTRONICALLY SIGNED BY ERNIE JUARES ON 09/07/2020 AT 12:40 PM EDT DISCLAIMER : THIS IS A VISIT SUMMARY EXTRACTED FROM THE [employer] CHART. IT IS NOT A COPY OF THE [employer] PROGRESS NOTE. VALERIA
== END ==
LOC: M PAIN 11:15
PROVIDERS: ATTEND Family Medicine
DX: G89.29 Other chronic pain (principal); M47.817 Spondylosis without myelopathy or radiculopathy, lumbosacral region; L40.50 Arthropathic psoriasis, unspecified; E78.5 Hyperlipidemia, unspecified; F32.9 Major depressive disorder, single episode, unspecified; K21.9 Gastro-esophageal reflux disease without esophagitis; E11.9 Type 2 diabetes mellitus without complications; J30.9 Allergic rhinitis, unspecified; E66.01 Morbid (severe) obesity due to excess calories; E55.9 Vitamin D deficiency, unspecified; K76.0 Fatty (change of) liver, not elsewhere classified; M50.30 Other cervical disc degeneration, unspecified cervical region; M51.36 Other intervertebral disc degeneration, lumbar region; I10 Essential (primary) hypertension; F17.210 Nicotine dependence, cigarettes, uncomplicated; Z79.4 Long term (current) use of insulin; Z79.82 Long term (current) use of aspirin; Z79.899 Other long term (current) drug therapy; Z88.2 Allergy status to sulfonamides; Z88.8 Allergy status to other drugs, medicaments and biological substances; Z68.42 Body mass index [BMI] 45.0-49.9, adult

== ENCOUNTER → 2020-09-21 | Outpatient (CLI) | payer MEDICARE, MEDICAID ==
--- NOTE | 2020-09-21 12:28 | DEXAMM ---
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 COMPARISON: 10/27/2016 as well as other prior exams. TECHNIQUE: Bone density was measured using dual-energy x-ray absorptiometry (DEXA). FINDINGS: AP SPINE L1-L4 BMD 1.223 g/cm2 Young Adult T-Score 0.2 Age Matched Z-Score 0.8. LT FEMUR, TOTAL BMD 1.113 g/cm2 Young Adult T-Score 0.8 Age Matched Z-Score 1.4. LT NECK BMD 0.928 g/cm2 Young Adult T-Score -0.8 Age Matched Z-Score 0.1. RT FEMUR, TOTAL BMD 1.069 g/cm2 Young Adult T-Score 0.5 Age Matched Z-Score 1.0. RT NECK BMD 1.034 g/cm2 Young Adult T-Score 0.0 Age Matched Z-Score 0.8. IMPRESSION: There is normal bone density of the spine. There is normal bone density of the left hip. There is normal bone density of the right hip. The density of the spine has decreased 10.7% since the initial exam on 09/25/2005. The density of the spine has decreased 7.0% since most recent exam on 10/27/2016. The density of the left hip has decreased 11.8% since initial exam on 09/25/2005. The density of the left hip has decreased 7.7% since most recent exam on 10/27/2016. The density of the right hip has decreased 16.3% since the initial exam on 09/25/2005. The density of the right hip has decreased 11.1% since the most recent exam on 10/27/2016. FOLLOW-UP: Recommendation for the next bone density exam: 5 years. <Electronically signed by Gopi Reed > 09/21/20 [id number]
== END ==
LOC: M WHC 11:26
PROVIDERS: ATTEND Family Medicine
DX: M85.88 Other specified disorders of bone density and structure, other site (principal); L40.50 Arthropathic psoriasis, unspecified; E03.9 Hypothyroidism, unspecified; E53.8 Deficiency of other specified B group vitamins; D50.9 Iron deficiency anemia, unspecified; E55.9 Vitamin D deficiency, unspecified

== ENCOUNTER → 2020-10-09 | Outpatient (CLI) | payer MEDICARE ==
--- NOTE | 2020-10-10 23:16 | ECWPNPC ---
PATIENT NAME: MEG DE LA TORRE : 1970 GENDER: FEMALE VISIT DATE: 10/09/2020 DISCHARGE DATE: 10/09/20 1209 VISIT LOCKED DATE TIME: PHYSICIAN: PAPO MARIE PHYSICIAN PAGER NO: ACTIVE RESOURCE: PAPO MARIE REASON FOR APPOINTMENT 1. LOW BACK PAIN HISTORY OF PRESENT ILLNESS GENERAL: HPI 50-YEAR-OLD FEMALE IN FOR CHRONIC PAIN FOLLOW-UP. SHE FEELS HER PREVIOUS PROCEDURE CONTINUES TO HELP HER TODAY. SHE RATES HER PAIN CURRENTLY AT A 6 OUT OF 10.. -. FALL RISK SCREENING: SCREENING : NO FALLS REPORTED IN THE LAST YEAR. PAIN SCREENING: PATIENT HAS A COMPLAINT OF ACUTE OR CHRONIC PAIN :YES LOCATION OF PAIN:LOW BACK, LEFT HIP, RIGHT HIP INTENSITY OF PAIN (SCALE OF 1 TO 10):2 AVERAGE 6 WHAT DOES YOUR PAIN FEEL LIKE:SHARP, STABBING, OTHER DULL DURATION:INTERMITTENT PAIN IS INCREASED BY:ACTIVITIES, PROLONGED STANDING PAIN IS DECREASED BY:USE OF PAIN MEDICATIONS, SITTING POSITIONAL CHANGES AND PILLOW WEDGE NURSING NOTE: -. PAIN CENTER INTAKE QUESTIONS: DO YOU HAVE A HISTORY OF MRSA? :NO DO YOU TAKE A BLOOD THINNERS? :NO DO YOU HAVE ANY BLEEDING DISORDERS? :YES ANEMIA ANY NEW NUMBNESS OR WEAKNESS IN YOUR LEGS OR ARMS? :NO ANY PACEMAKER,DEFIBRILLATOR, OR DORSAL COLUMN STIMULATOR? :NO DO YOU HAVE ANY RASHES OR OPEN SORES? :YES PSORIASIS ARE YOU ALLERGIC TO IV DYE? :NO ARE YOU DIABETIC? :YES ANY NEW PROBLEMS WITH YOUR MEDICATIONS? :NO HAVE YOU RECEIVED A VACCINE IN THE PAST 30 DAYS? :NO DO YOU PLAN TO RECEIVE A VACCINE IN THE NEXT 21 DAYS? :NO DO YOU NEED ANY PRESCRIPTION? :YES TIZANIDINE DO YOU TAKE ANY IMMUNOSUPPRESSIVE MEDICATIONS? :YES STELARA NEXT DOSE DUE 11/02/2020 , PREDNISONE 10MG FOR 30 DAYS DO YOU HAVE ANY KIDNEY OR LIVER DISEASE? :NO IS THERE A CHANCE YOU COULD BE ? :NO ARE YOU BREAST FEEDING? :NO CURRENT MEDICATIONS TAKING FERROUS SULFATE 325 (65 FE) MG TABLET 1 TABLET ORALLY ONCE A DAY TAKING DEXILANT 60 MG CAPSULE 1 CAP(S) ORALLY ONCE A DAY TAKING ASPIRIN 81 MG TABLET CHEWABLE 1 TABLET ORALLY ONCE A DAY TAKING TERBINAFINE HCL 1 % CREAM 1 APPLICATION TO AFFECTED AREA EXTERNALLY TWICE A DAY TAKING ERGOCALCIFEROL 24559 UNIT CAPSULE 1 CAPSULE ORALLY WEEKLY TAKING FLUOXETINE HCL 20 MG TABLET 1 TABLET IN THE MORNING ORALLY ONCE A DAY TAKING ATORVASTATIN CALCIUM 80 MG TABLET 1 TABLET ORALLY ONCE A DAY TAKING EZETIMIBE 10 MG TABLET 1 TABLET ORALLY ONCE A DAY TAKING METFORMIN HCL ER 750 MG TABLET EXTENDED RELEASE 24 HOUR 1 TABLET ORALLY BID TAKING GLUCOMETER . .. DIRECTED DX 250 USE BID TAKING TRULICITY 1.5 MG/0.5ML SOLUTION PEN-INJECTOR 0.5 ML SUBCUTANEOUS WEEKLY TAKING CYANOCOBALAMIN 250 MCG TABLET 1 TABLET ORALLY ONCE A DAY TAKING LYRICA 50 MG CAPSULE 1 CAPSULE ORALLY THREE TIMES A DAY MDD: 3 TAKING TENS UNIT - DIRECTED _ C PADS AND INSTRUCTION DAILY TAKING BACLOFEN 10 MG TABLET 0.5 TABLET TID X 5 DAYS THEN 1 TABLET WITH FOOD OR MILK ORALLY THREE TIMES A DAY TAKING CARVEDILOL 12.5 MG TABLET 1 TAB ORALLY BID TAKING ALCOHOL PADS 70 % PAD DIRECTED TAKING REFRESH 1.4-0.6 % SOLUTION 2 DROPS OPHTHALMIC NEEDED TAKING BD INSULIN SYRINGE 31G X 09/30 MISCELLANEOUS DIRECTED SUBCUTANEOUSLY WEEKLYDX: L40.50 TAKING CALCIUM 600+D PLUS MINERALS 600-400 MG-UNIT TABLET CHEWABLE 1 TAB ORALLY BID TAKING VITAMIN B-12 500 MCG TABLET TAKE ONE TABLET BY MOUTH ONCE DAILY TAKING FLUOXETINE HCL 20 MG CAPSULE 1 CAPSULE ORALLY EVERY MORNING TAKING LEVOTHYROXINE SODIUM 50 MCG TABLET 1 TABLET ON AN EMPTY STOMACH IN THE MORNING ORALLY ONCE A DAY TAKING ASPIRIN LOW DOSE 81 MG TABLET CHEWABLE TAKE ONE TABLET OI ONCE DAILY ORALLY ONCE A DAY TAKING STELARA 90 MG/ML SOLUTION PREFILLED SYRINGE 90 MG SUBCUTANEOUS NOW, IN 4W AND THEN Q12W TAKING BLOOD GLUCOSE TEST . STRIPS USE BID DX 250 CHECK BS BID TAKING LANCETS . .. DIRECTED DX: 250 USE BID TAKING ULTRAM 50 MG TABLET 1 TABLET ORALLY EVERY 8 HRS FOR PAIN MDD 3 TAKING PREDNISONE 20 MG TABLET 1 TABLET ORALLY ONCE A DAY TAKING TIZANIDINE HCL 4 MG TABLET 1 TABLET ORALLY FOR SPASMS AND PAIN EVERY 6 HOURS NEEDED MDD2 TAKING STELARA 90 MG/ML SOLUTION PREFILLED SYRINGE DIRECTED SUBCUTANEOUS INJECT 1 ML AT DAY 1 AND DAY 28 (STARTER) TAKING STELARA 90 MG/ML SOLUTION PREFILLED SYRINGE DIRECTED SUBCUTANEOUS INJECT 1 ML EVERY 3 MONTHS MEDICATION LIST REVIEWED AND RECONCILED WITH THE PATIENT PAST MEDICAL HISTORY PSORIASIS, GENERALIZED PLAQUE/PSA (-[id number]) HYPERLIPIDEMIA 2B CHRONIC MDD GERD T2DM, NID MULTIPLE DENTAL CARIES ALLERGIC RHINITIS NICOTINE ADDICTION OBESITY, MORBID VITAMIN D DEFICIENCY NAFLD BY CT FEBRUARY 2011 WITH BORDERLINE HEPATOMEGALY, SEEN BY 10/2016 US CERVICAL DJD-11/2011 NORMAL CERVICAL MRI LUMBAR DJD-L12 R IF HNP C R 1 COMPRESSION,, L2-4 BULGES, MINIMAL L45CCS BY 10/2018 MRI/ XRAY C MILD MULT-LEVEL DJD, NORMAL B SIJ HYPERTENSION-09/2015-LOW RISK DPST, NORMAL TTE-LOW PALPITATIONS-NORMAL 25D EVENT MONITOR-05/2014-LOW SMALL ADENOMATOUS P-09/2017 COLON-W R MILD PARTIAL SUBSCAPULARIS TEAR SP 05/12/19 SP MECHAINCAL FALL (SEEN BY 05/17/19 MRI) ALLERGIES SULFA (FOR ALLERGY USE ONLY): HIVES - ALLERGY CYMBALTA: PALPITATIONS, HYPERTENSION - CONTRAINDICATION SOCIAL HISTORY GENERAL: TOBACCO USE ARE YOU A:CURRENT SMOKER ARE YOU INTERESTED IN QUITTING?NOT READY TO QUIT COUNSELED THE PATIENT ON SMOKING EFFECTS, EDUCATION [id number]/25/2021 HOW MANY CIGARETTES A DAY DO YOU SMOKE?11-20 HOW SOON AFTER YOU WAKE UP DO YOU SMOKE YOUR FIRST CIGARETTE?6-30 MIN HOW OFTEN DO YOU SMOKE CIGARETTES?EVERY DAY PATIENT COUNSELED ON THE DANGERS OF TOBACCO USE AND URGED TO QUIT:08/03/2020 SMOKING CESSATION INFORMATION GIVEN06/12/2020 11/04/18 DECLINED AD LATEX QUESTIONNAIRE LATEX ALLERGY : HAVE YOU EVER DEVELOPED ANY TYPE OF REACTION AFTER HANDLING LATEX PRODUCTS SUCH RUBBER GLOVES, CONDOMS, DIAPHRAGMS, BALLOONS, SOCKS, OR UNDERWEAR?NO LATEX ALLERGY : HAVE YOU EVER DEVELOPED ANY TYPE OF REACTION DURING OR AFTER DENTAL APPOINTMENT, VAGINAL/RECTAL EXAMINATION, SURGICAL PROCEDURE, OR ANY OTHER EXPOSURE?NO DATE ASKED : 09/06/2020 LATEX RISK : HAVE YOU EVER HAD ANY DIFFICULTY BREATHING OR HIVES AFTER EATING OR HANDLING ANY FRUITS, OR VEGETABLES; SUCH KIWI, BANANAS, STONE FRUITS, OR CHESTNUTSNO LATEX RISK : DO YOU HAVE A PREVIOUS PERSONAL HISTORY OF MORE THAN NINE SURGERIES, SPINA BIFIDA, OR REPEATED CATHERIZATIONS? NO LATEX RISK : ARE YOU FREQUENTLY EXPOSED TO LATEX PRODUCTS IN YOUR OCCUPATION?NO ALCOHOL USE: NO. BMI CARE GOAL FOLLOW-UP ABOVE NORMAL BMI FOLLOW-UPGIVING ENCOURAGEMENT TO EXERCISE ALCOHOL SCREENING DID YOU HAVE A DRINK CONTAINING ALCOHOL IN THE PAST YEAR?NO POINTS0 INTERPRETATIONNEGATIVE RECREATIONAL DRUG USE DRUG USE?NO CAFFEINE CAFFEINE USE?YES HOW OFTEN AND HOW MUCH? 2 CUPS OF COFFEE PER DAY SEXUAL HX HAD SEX IN THE LAST 12 MONTHS (VAGINAL, ORAL, OR ANAL)?NO HAVE YOU EVER HAD AN STD?NO HIV / HEP-C SCREENING HIV TEST OFFERED TO PATIENT:YES DATE OFFERED:10/24/2016 TEST ACCEPTED:NO HEP-C TEST OFFERED TO PATIENT:YES DATE OFFERED:10/24/2016 REASON:PATIENT DECLINED TEST ACCEPTED:NO REASON:PATIENT DECLINED HOAHAOISM [id number] RESTORATIONISM LANGUAGE LANGUAGES SPOKEN:HEBREW EDUCATION LEVEL OF EDUCATION: 9 TH GRADE EDUCATION LEARNING BARRIERS / SPECIAL NEEDS CHANGE FROM LAST VISIT?NO BARRIERS TO LEARNING?NO HEARING IMPAIRED?NO VISION IMPAIRED?NO COGNITIVELY IMPAIRED?NO READINESS TO LEARN?YES LEARNING PREFERENCES?YES :BOOKLETS, HANDOUTS, DEMONSTRATION/VERBAL INSTRUCTION LEARNING CAPABILITIES PRESENT?YES EMOTIONAL BARRIERS?NO SPECIAL DEVICES?NO [employer]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 DIET: CARBOHYDRATE CONTROLLED. EXERCISE: NO REGULAR EXERCISE. MARITAL STATUS: , . OTHERS AT HOME: SPOUSE, CHILD. PATIENT DESCRIBES PAIN :ACHING, HAVE IT ALL THE TIME "STEADY ACHE", OCCASIONALLY WAKES FROM SLEEP FROM 0-10, WHAT LEVEL IS YOUR PAIN TODAY?5 PRECIPITATING FACTORS PROLONGED STANDING OR SITTING, INCREASED ACTIVITY ALLEVIATING FACTORS PAIN MEDS, LAY DOWN, CHANGING POSITIONS, RESTING - WAS THE PROVIDER NOTIFIED OF ANY PERTINENT INFO? N/A HAS THE PATIENT BEEN EDUCATED REGARDING HIS/HER PLAN OF CARE?YES ORIENTED TO PAIN MANAGEMENT HAS THE PATIENT BEEN EDUCATED REGARDING PAIN, THE RISK FOR PAIN, THE IMPORTANCE OF EFFECTIVE PAIN MANAGEMENT, AND THE PAIN ASSESSMENT PROCESS?YES ADVANCE DIRECTIVE ADVANCE DIRECTIVE DISCUSSED WITH PATIENT:YES PT DOES NOT HAVE ANY ADVANCED DIRECTIVES AND SHE DECLINES INFORMATION ON HCP AT THIS TIME. REVIEW OF SYSTEMS CONSTITUTIONAL: ANY RECENT FEVER NO . CHILLS NO . WEIGHT CHANGE OF UNKNOWN REASONS NO . GASTROENTEROLOGY: NEW UNEXPLAINABLE CHANGES IN BOWEL CONTROL NO . CONSTIPATION NO . GENITOURINARY: ANY NEW CHANGE IN BLADDER CONTROL? NO . NEUROLOGY: NEW ONSET DIZZINESS OR NEUROLOGICAL CHANGES NOT MENTIONED NO . NEW NUMBNESS OR PAIN PATTERNS NOT MENTIONED AND PERTINENT TO TODAY'S VISIT NO . CARDIOLOGY: NEW CHEST PRESSURE NO . PATIENT DENIES NO . RESPIRATORY: UNEXPLAINABLE COUGH NO . NEW SHORTNESS OF BREATH NO . VITAL SIGNS WT 269.6 LBS, HT 63 IN, BMI 47.75 INDEX, BP 139/75 MM HG, HR 97 /MIN, RR 18 /MIN, TEMP 98.0 F, OXYGEN SAT % 97%, SAFE IN ENV? (Y/N) YES, NA INITIALS AW 1145, REVIEWED BY: JANA FREEMAN MA. EXAMINATION GENERAL EXAMINATION: GENERALNO ACUTE DISTRESS, WELL NOURISHED AND HYDRATED. PSYCHAPPROPRIATE MOOD AND AFFECT . LUNGS:CLEAR TO AUSCULTATION BILATERALLY, NO WHEEZES, RHONCHI, RALES. HEART:NO MURMURS, REGULAR RATE AND RHYTHM. ASSESSMENTS SPONDYLOSIS WITHOUT MYELOPATHY OR RADICULOPATHY, LUMBOSACRAL REGION - M47.817 (PRIMARY) TREATMENT SPONDYLOSIS WITHOUT MYELOPATHY OR RADICULOPATHY, LUMBOSACRAL REGION NOTES: 50-YEAR-OLD FEMALE IN FOR CHRONIC PAIN FOLLOW-UP. GIVEN PRESENTING SYMPTOMS RECOMMEND FOLLOW-UP IN ONE MONTH. PATIENT HAS EXPRESSED UNDERSTANDING OF AND WAS IN AGREEMENT WITH TREATMENT PLAN. GIVEN TIME TO ASK QUESTIONS AND EXPRESS CONCERNS. PROCEDURE CODES FA211 ESTABILISHED PATIENT [facility] CHARGE DISPOSITION & COMMUNICATION FOLLOW UP 4 WEEKS (REASON: BACK PAIN) ELECTRONICALLY SIGNED BY ERNIE JUARES ON 10/10/2020 AT 08:38 AM EDT DISCLAIMER : THIS IS A VISIT SUMMARY EXTRACTED FROM THE [employer] CHART. IT IS NOT A COPY OF THE [employer] PROGRESS NOTE. VALERIA
== END ==
LOC: M PAIN 11:30
PROVIDERS: ATTEND Family Medicine
DX: M47.817 Spondylosis without myelopathy or radiculopathy, lumbosacral region (principal); L40.0 Psoriasis vulgaris; E78.5 Hyperlipidemia, unspecified; F32.9 Major depressive disorder, single episode, unspecified; K21.9 Gastro-esophageal reflux disease without esophagitis; E11.9 Type 2 diabetes mellitus without complications; K02.9 Dental caries, unspecified; J30.9 Allergic rhinitis, unspecified; E66.01 Morbid (severe) obesity due to excess calories; E55.9 Vitamin D deficiency, unspecified; K76.0 Fatty (change of) liver, not elsewhere classified; I10 Essential (primary) hypertension; F17.210 Nicotine dependence, cigarettes, uncomplicated; Z79.82 Long term (current) use of aspirin; Z79.84 Long term (current) use of oral hypoglycemic drugs; Z88.2 Allergy status to sulfonamides; Z88.8 Allergy status to other drugs, medicaments and biological substances

== ENCOUNTER → 2020-12-07 | Outpatient (CLI) | payer MEDICARE ==
--- NOTE | 2020-12-10 23:45 | ECWPNPC ---
PATIENT NAME: MEG DE LA TORRE : 1970 GENDER: FEMALE VISIT DATE: 12/07/2020 DISCHARGE DATE: 12/07/20 1155 VISIT LOCKED DATE TIME: PHYSICIAN: PAPO MARIE PHYSICIAN PAGER NO: ACTIVE RESOURCE: PAPO MARIE REASON FOR APPOINTMENT 1. BACK PAIN HISTORY OF PRESENT ILLNESS DEPRESSION SCREENING: PHQ-2 (2015 EDITION) LITTLE INTEREST OR PLEASURE IN DOING THINGS?NOT AT ALL FEELING DOWN, DEPRESSED, OR HOPELESS?SEVERAL DAYS TOTAL SCORE1 GENERAL: HPI 50-YEAR-OLD FEMALE IN FOR CHRONIC PAIN FOLLOW-UP. RATES HER PAIN CURRENTLY A 5 OUT OF 10 DESCRIBES IT ACHING AND CONTINUOUS.. -. FALL RISK SCREENING: SCREENING : NO FALLS REPORTED IN THE LAST YEAR. PAIN SCREENING: PATIENT HAS A COMPLAINT OF ACUTE OR CHRONIC PAIN :YES LOCATION OF PAIN:LOW BACK LEFT SIDE OF LOW BACK INTENSITY OF PAIN (SCALE OF 1 TO 10):4 WHAT DOES YOUR PAIN FEEL LIKE:ACHING, CONTINOUS DURATION:CONTINOUS, CONSTANT, ALL DAY PAIN IS INCREASED BY:OTHERS BENDING PAIN IS DECREASED BY:OTHERS NOTHING HELPS NURSING NOTE: -. PAIN CENTER INTAKE QUESTIONS: DO YOU HAVE A HISTORY OF MRSA? :NO DO YOU TAKE A BLOOD THINNERS? :NO ASPIRIN 81 MG DO YOU HAVE ANY BLEEDING DISORDERS? :YES ANEMIA ANY NEW NUMBNESS OR WEAKNESS IN YOUR LEGS OR ARMS? :NO ANY PACEMAKER,DEFIBRILLATOR, OR DORSAL COLUMN STIMULATOR? :NO DO YOU HAVE ANY RASHES OR OPEN SORES? :YES PSORIASIS ARE YOU ALLERGIC TO IV DYE? :NO ARE YOU DIABETIC? :YES ANY NEW PROBLEMS WITH YOUR MEDICATIONS? :NO HAVE YOU RECEIVED A VACCINE IN THE PAST 30 DAYS? :NO DO YOU PLAN TO RECEIVE A VACCINE IN THE NEXT 21 DAYS? :NO DO YOU NEED ANY PRESCRIPTION? :YES TIZANIDINE DO YOU TAKE ANY IMMUNOSUPPRESSIVE MEDICATIONS? :YES STELARA NEXT DOSE DUE 11/02/2020 DO YOU HAVE ANY KIDNEY OR LIVER DISEASE? :NO IS THERE A CHANCE YOU COULD BE ? :NO ARE YOU BREAST FEEDING? :NO CURRENT MEDICATIONS TAKING DEXILANT 60 MG CAPSULE 1 CAP(S) ORALLY ONCE A DAY TAKING ASPIRIN 81 MG TABLET CHEWABLE 1 TABLET ORALLY ONCE A DAY TAKING TERBINAFINE HCL 1 % CREAM 1 APPLICATION TO AFFECTED AREA EXTERNALLY TWICE A DAY TAKING GLUCOMETER . .. DIRECTED DX 250 USE BID TAKING TRULICITY 1.5 MG/0.5ML SOLUTION PEN-INJECTOR 0.5 ML SUBCUTANEOUS WEEKLY TAKING CYANOCOBALAMIN 250 MCG TABLET 1 TABLET ORALLY ONCE A DAY TAKING TENS UNIT - DIRECTED _ C PADS AND INSTRUCTION DAILY TAKING BACLOFEN 10 MG TABLET 0.5 TABLET TID X 5 DAYS THEN 1 TABLET WITH FOOD OR MILK ORALLY THREE TIMES A DAY TAKING CARVEDILOL 12.5 MG TABLET 1 TAB ORALLY BID TAKING ALCOHOL PADS 70 % PAD DIRECTED TAKING REFRESH 1.4-0.6 % SOLUTION 2 DROPS OPHTHALMIC NEEDED TAKING BD INSULIN SYRINGE 31G X 09/30 MISCELLANEOUS DIRECTED SUBCUTANEOUSLY WEEKLYDX: L40.50 TAKING CALCIUM 600+D PLUS MINERALS 600-400 MG-UNIT TABLET CHEWABLE 1 TAB ORALLY BID TAKING VITAMIN B-12 500 MCG TABLET TAKE ONE TABLET BY MOUTH ONCE DAILY TAKING FLUOXETINE HCL 20 MG CAPSULE 1 CAPSULE ORALLY EVERY MORNING TAKING STELARA 90 MG/ML SOLUTION PREFILLED SYRINGE 90 MG SUBCUTANEOUS NOW, IN 4W AND THEN Q12W TAKING BLOOD GLUCOSE TEST . STRIPS USE BID DX 250 CHECK BS BID TAKING LANCETS . .. DIRECTED DX: 250 USE BID TAKING TIZANIDINE HCL 4 MG TABLET 1 TABLET ORALLY FOR SPASMS AND PAIN EVERY 6 HOURS NEEDED MDD2 TAKING STELARA 90 MG/ML SOLUTION PREFILLED SYRINGE DIRECTED SUBCUTANEOUS INJECT 1 ML EVERY 3 MONTHS TAKING METFORMIN HCL ER 750 MG TABLET EXTENDED RELEASE 24 HOUR 1 TABLET ORALLY BID TAKING ATORVASTATIN CALCIUM 80 MG TABLET 1 TABLET ORALLY ONCE A DAY TAKING EZETIMIBE 10 MG TABLET 1 TABLET ORALLY ONCE A DAY TAKING DEXILANT 60 MG CAPSULE DELAYED RELEASE TAKE ONE CAPSULE BY MOUTH ONCE DAILY ORALLY ONCE A DAY TAKING FERROUS SULFATE 325 (65 FE) MG TABLET TAKE ONE TABLET BY MOUTH ONCE DAILY ORALLY ONCE A DAY TAKING FLUOXETINE HCL 20 MG CAPSULE 1 TABLET IN THE MORNING ORALLY ONCE A DAY TAKING LEVOTHYROXINE SODIUM 50 MCG TABLET 1 TABLET ON AN EMPTY STOMACH IN THE MORNING ORALLY ONCE A DAY TAKING ULTRAM 50 MG TABLET 1 TABLET ORALLY EVERY 8 HRS FOR PAIN MDD 3 TAKING LYRICA 50 MG CAPSULE 1 CAPSULE ORALLY THREE TIMES A DAY MDD: 3 NOT-TAKING ASPIRIN LOW DOSE 81 MG TABLET CHEWABLE TAKE ONE TABLET OI ONCE DAILY ORALLY ONCE A DAY NOT-TAKING PREDNISONE 20 MG TABLET 1 TABLET ORALLY ONCE A DAY NOT-TAKING STELARA 90 MG/ML SOLUTION PREFILLED SYRINGE DIRECTED SUBCUTANEOUS INJECT 1 ML AT DAY 1 AND DAY 28 (STARTER) NOT-TAKING PREDNISONE 5 MG TABLET DIRECTED ORALLY 2 TABLETS ONCE A DAY X 5 DAYS, THEN 1 TABLET DAILY NOT-TAKING ERGOCALCIFEROL 03649 UNIT CAPSULE 1 CAPSULE ORALLY WEEKLY NOT-TAKING FLUOXETINE HCL 20 MG TABLET 1 TABLET IN THE MORNING ORALLY ONCE A DAY MEDICATION LIST REVIEWED AND RECONCILED WITH THE PATIENT PAST MEDICAL HISTORY PSORIASIS, GENERALIZED PLAQUE/PSA (-[id number]) HYPERLIPIDEMIA 2B CHRONIC MDD GERD T2DM, NID MULTIPLE DENTAL CARIES ALLERGIC RHINITIS NICOTINE ADDICTION OBESITY, MORBID VITAMIN D DEFICIENCY NAFLD BY CT FEBRUARY 2011 WITH BORDERLINE HEPATOMEGALY, SEEN BY 10/2016 US CERVICAL DJD-11/2011 NORMAL CERVICAL MRI LUMBAR DJD-L12 R IF HNP C R 1 COMPRESSION,, L2-4 BULGES, MINIMAL L45CCS BY 10/2018 MRI///10/2014 XRAY C MILD MULT-LEVEL DJD, NORMAL B SIJ HYPERTENSION-09/2015-LOW RISK DPST, NORMAL TTE-LOW PALPITATIONS-NORMAL 25D EVENT MONITOR-05/2014-LOW SMALL ADENOMATOUS P-09/2017 COLON-W R MILD PARTIAL SUBSCAPULARIS TEAR SP 05/12/19 SP MECHAINCAL FALL (SEEN BY 05/17/19 MRI) ALLERGIES SULFA (FOR ALLERGY USE ONLY): HIVES - ALLERGY CYMBALTA: PALPITATIONS, HYPERTENSION - CONTRAINDICATION SOCIAL HISTORY GENERAL: TOBACCO USE ARE YOU A:CURRENT SMOKER ARE YOU INTERESTED IN QUITTING?NOT READY TO QUIT COUNSELED THE PATIENT ON SMOKING EFFECTS, EDUCATION [id number]/23/2021 HOW MANY CIGARETTES A DAY DO YOU SMOKE?11-20 HOW SOON AFTER YOU WAKE UP DO YOU SMOKE YOUR FIRST CIGARETTE?6-30 MIN HOW OFTEN DO YOU SMOKE CIGARETTES?EVERY DAY PATIENT COUNSELED ON THE DANGERS OF TOBACCO USE AND URGED TO QUIT:12/07/2020 SMOKING CESSATION INFORMATION GIVEN06/12/2020 11/04/18 DECLINED AD LATEX QUESTIONNAIRE LATEX ALLERGY : HAVE YOU EVER DEVELOPED ANY TYPE OF REACTION AFTER HANDLING LATEX PRODUCTS SUCH RUBBER GLOVES, CONDOMS, DIAPHRAGMS, BALLOONS, SOCKS, OR UNDERWEAR?NO LATEX ALLERGY : HAVE YOU EVER DEVELOPED ANY TYPE OF REACTION DURING OR AFTER DENTAL APPOINTMENT, VAGINAL/RECTAL EXAMINATION, SURGICAL PROCEDURE, OR ANY OTHER EXPOSURE?NO LATEX RISK : HAVE YOU EVER HAD ANY DIFFICULTY BREATHING OR HIVES AFTER EATING OR HANDLING ANY FRUITS, OR VEGETABLES; SUCH KIWI, BANANAS, STONE FRUITS, OR CHESTNUTSNO LATEX RISK : DO YOU HAVE A PREVIOUS PERSONAL HISTORY OF MORE THAN NINE SURGERIES, SPINA BIFIDA, OR REPEATED CATHERIZATIONS? NO LATEX RISK : ARE YOU FREQUENTLY EXPOSED TO LATEX PRODUCTS IN YOUR OCCUPATION?NO DATE ASKED : 12/07/2020 ALCOHOL USE: NO. BMI CARE GOAL FOLLOW-UP ABOVE NORMAL BMI FOLLOW-UPGIVING ENCOURAGEMENT TO EXERCISE ALCOHOL SCREENING DID YOU HAVE A DRINK CONTAINING ALCOHOL IN THE PAST YEAR?NO POINTS0 INTERPRETATIONNEGATIVE RECREATIONAL DRUG USE DRUG USE?NO CAFFEINE CAFFEINE USE?YES HOW OFTEN AND HOW MUCH? 2 CUPS OF COFFEE PER DAY SEXUAL HX HAD SEX IN THE LAST 12 MONTHS (VAGINAL, ORAL, OR ANAL)?NO HAVE YOU EVER HAD AN STD?NO HIV / HEP-C SCREENING HIV TEST OFFERED TO PATIENT:YES DATE OFFERED:10/24/2016 TEST ACCEPTED:NO HEP-C TEST OFFERED TO PATIENT:YES DATE OFFERED:10/24/2016 REASON:PATIENT DECLINED TEST ACCEPTED:NO REASON:PATIENT DECLINED ORTHODOXY [id number] SABIANISM LANGUAGE LANGUAGES SPOKEN:[place] EDUCATION LEVEL OF EDUCATION: 9 TH GRADE EDUCATION LEARNING BARRIERS / SPECIAL NEEDS CHANGE FROM LAST VISIT?NO BARRIERS TO LEARNING?NO HEARING IMPAIRED?NO VISION IMPAIRED?YES : READING COGNITIVELY IMPAIRED?NO READINESS TO LEARN?YES LEARNING PREFERENCES?YES :BOOKLETS, HANDOUTS, DEMONSTRATION/VERBAL INSTRUCTION LEARNING CAPABILITIES PRESENT?YES EMOTIONAL BARRIERS?NO SPECIAL DEVICES?NO MACHINE SETTER AND REPAIRER NEEDED?NO DOMESTIC VIOLENCE DO YOU FEEL SAFE IN YOUR ENVIRONMENT?YES OCCUPATION: DISABLED. DIET: CARBOHYDRATE CONTROLLED. EXERCISE: NO REGULAR EXERCISE. MARITAL STATUS: , . OTHERS AT HOME: SPOUSE, CHILD. PATIENT DESCRIBES PAIN :ACHING, HAVE IT ALL THE TIME "STEADY ACHE", OCCASIONALLY WAKES FROM SLEEP FROM 0-10, WHAT LEVEL IS YOUR PAIN TODAY?5 PRECIPITATING FACTORS PROLONGED STANDING OR SITTING, INCREASED ACTIVITY ALLEVIATING FACTORS PAIN MEDS, LAY DOWN, CHANGING POSITIONS, RESTING - WAS THE PROVIDER NOTIFIED OF ANY PERTINENT INFO? N/A HAS THE PATIENT BEEN EDUCATED REGARDING HIS/HER PLAN OF CARE?YES ORIENTED TO PAIN MANAGEMENT HAS THE PATIENT BEEN EDUCATED REGARDING PAIN, THE RISK FOR PAIN, THE IMPORTANCE OF EFFECTIVE PAIN MANAGEMENT, AND THE PAIN ASSESSMENT PROCESS?YES ADVANCE DIRECTIVE ADVANCE DIRECTIVE DISCUSSED WITH PATIENT:YES PT DOES NOT HAVE ANY ADVANCED DIRECTIVES AND SHE DECLINES INFORMATION ON HCP AT THIS TIME. REVIEW OF SYSTEMS CONSTITUTIONAL: ANY RECENT FEVER NO . CHILLS NO . WEIGHT CHANGE OF UNKNOWN REASONS NO . GASTROENTEROLOGY: NEW UNEXPLAINABLE CHANGES IN BOWEL CONTROL NO . CONSTIPATION NO . GENITOURINARY: ANY NEW CHANGE IN BLADDER CONTROL? NO . NEUROLOGY: NEW ONSET DIZZINESS OR NEUROLOGICAL CHANGES NOT MENTIONED NO . NEW NUMBNESS OR PAIN PATTERNS NOT MENTIONED AND PERTINENT TO TODAY'S VISIT NO . CARDIOLOGY: NEW CHEST PRESSURE NO . PATIENT DENIES NO . RESPIRATORY: UNEXPLAINABLE COUGH NO . NEW SHORTNESS OF BREATH NO . VITAL SIGNS WT 269.0 LBS, HT 63 IN, BMI 47.65 INDEX, BP 132/64 MM HG, HR 102 /MIN, RR 18 /MIN, TEMP 98.0 F, OXYGEN SAT % 93%, SAFE IN ENV? (Y/N) YES, NA INITIALS AW 1132T.JULIET MARCIAL. EXAMINATION GENERAL EXAMINATION: GENERALNO ACUTE DISTRESS, WELL NOURISHED AND HYDRATED. PSYCHAPPROPRIATE MOOD AND AFFECT . LUNGS:CLEAR TO AUSCULTATION BILATERALLY, NO WHEEZES, RHONCHI, RALES. HEART:NO MURMURS, REGULAR RATE AND RHYTHM. ASSESSMENTS SPONDYLOSIS OF LUMBAR REGION WITHOUT MYELOPATHY OR RADICULOPATHY - M47.816 (PRIMARY), RISK: (NULL) TREATMENT SPONDYLOSIS OF LUMBAR REGION WITHOUT MYELOPATHY OR RADICULOPATHY REFILL TIZANIDINE HCL TABLET, 4 MG, 1 TABLET, ORALLY FOR SPASMS AND PAIN, EVERY 6 HOURS NEEDED MDD2, 90 DAY(S), 180, REFILLS 1 NOTES: 50-YEAR-OLD FEMALE IN FOR CHRONIC PAIN FOLLOW-UP. DISCUSSED POTENTIAL PROCEDURES WITH PATIENT AND SHE DECLINES THEM AT THIS TIME PREFERRING TO WAIT A LITTLE LONGER. GIVEN PRESENTING SYMPTOMS RECOMMEND CONTINUATION OF CURRENT MEDICATION REGIMEN WITH FOLLOW-UP IN 1 MONTH. PATIENT HAS EXPRESSED UNDERSTANDING OF AND WAS IN AGREEMENT WITH TREATMENT PLAN. GIVEN TIME TO ASK QUESTIONS AND EXPRESS CONCERNS. PROCEDURE CODES FA211 ESTABILISHED PATIENT [facility] CHARGE DISPOSITION & COMMUNICATION FOLLOW UP 4 WEEKS (REASON: BACK PAIN ) ELECTRONICALLY SIGNED BY ERNIE JUARES ON 12/10/2020 AT 08:36 AM EDT DISCLAIMER : THIS IS A VISIT SUMMARY EXTRACTED FROM THE [employer] CHART. IT IS NOT A COPY OF THE [employer] PROGRESS NOTE. VALERIA
== END ==
LOC: M PAIN 11:30
PROVIDERS: ATTEND Family Medicine
DX: G89.29 Other chronic pain (principal); M47.816 Spondylosis without myelopathy or radiculopathy, lumbar region; L40.9 Psoriasis, unspecified; E78.5 Hyperlipidemia, unspecified; F32.9 Major depressive disorder, single episode, unspecified; K21.9 Gastro-esophageal reflux disease without esophagitis; E11.9 Type 2 diabetes mellitus without complications; J30.9 Allergic rhinitis, unspecified; F17.210 Nicotine dependence, cigarettes, uncomplicated; K02.9 Dental caries, unspecified; E66.01 Morbid (severe) obesity due to excess calories; Z68.42 Body mass index [BMI] 45.0-49.9, adult; E55.9 Vitamin D deficiency, unspecified; K76.0 Fatty (change of) liver, not elsewhere classified; M50.30 Other cervical disc degeneration, unspecified cervical region; M51.36 Other intervertebral disc degeneration, lumbar region; I10 Essential (primary) hypertension; Z79.82 Long term (current) use of aspirin; Z79.84 Long term (current) use of oral hypoglycemic drugs; Z79.899 Other long term (current) drug therapy; Z88.2 Allergy status to sulfonamides; Z88.8 Allergy status to other drugs, medicaments and biological substances

== ENCOUNTER → 2020-12-13 | Outpatient (CLI) | payer MEDICARE ==
[2020-12-13 17:37] LABS: BASO % 0.5 % (0.0-1.0); EOS # 0.3 10^3/uL (0.0-0.5); EOS % 3.3 % (0.0-3.0); HEMATOCRIT 40.6 % (36.0-47.0); HEMOGLOBIN 13.1 g/dl (12.0-15.5); LYMPH # 1.9 10^3/uL (1.5-5.0); LYMPH % 24.6 % (24.0-44.0); MEAN CORPUSCULAR HEMOGLOBIN 27.9 pg (27.0-33.0); MEAN CORPUSCULAR HGB CONC 32.3 g/dl (32.0-36.5); MEAN CORPUSCULAR VOLUME 86.6 fl (80.0-96.0); MONO # 0.3 10^3/uL (0.0-0.8); MONO % 4.2 % (2.0-8.0); NEUTROPHILS # 5.1 10^3/uL (1.5-8.5); PLATELET COUNT, AUTOMATED 219 10^3/uL (150-450); RED BLOOD COUNT 4.69 10^6/uL (4.00-5.40); WHITE BLOOD COUNT 7.6 10^3/uL (4.0-10.0)
[2020-12-13 18:06] LABS: C REACTIVE PROTEIN QUANTITATIV 0.7 MG/DL (0.00-0.30); PERCENT SATURATION 18.8 % (13.2-45.0)
[2020-12-13 19:39] LABS: ERYTHROCYTE SEDIMENTATION RATE 33 mm/hr (0-30)
[2020-12-17 23:07] LABS: ANA (HEP2) Positive (.); ANTI DS-DNA AB Negative (Negative); ANTI SMITH(Sm) AB <20 Units (<20)
== END ==
LOC: M PLALAB 15:33
PROVIDERS: ATTEND Family Medicine
DX: E53.8 Deficiency of other specified B group vitamins (principal); L40.50 Arthropathic psoriasis, unspecified; D50.9 Iron deficiency anemia, unspecified; E11.9 Type 2 diabetes mellitus without complications

== ENCOUNTER → 2020-12-13 | Outpatient (REF) | payer MEDICARE ==
[2020-12-13 18:24] LABS: APPEARANCE, URINE HAZY (CLEAR); BACTERIA, URINE AUTO NEGATIVE (NEGATIVE); BILIRUBIN, URINE AUTO NEGATIVE (NEGATIVE); BLOOD, URINE BLOOD NEGATIVE (NEGATIVE); COLOR, URINE YELLOW (YELLOW); GLUCOSE, URINE (UA) AUTO NEGATIVE (NEGATIVE); KETONE, URINE AUTO TRACE mg/dL (NEGATIVE); LEUKOCYTE ESTERASE, URINE AUTO NEGATIVE (NEGATIVE); MUCUS, URINE SMALL (NEGATIVE); NITRITE, URINE AUTO NEGATIVE (NEGATIVE); PROTEIN, URINE AUTO NEGATIVE (NEGATIVE); RBC, URINE AUTO 1 /HPF (0-3); SPECIFIC GRAVITY URINE AUTO 1.021 (1.002-1.035); SQUAMOUS EPITHELIAL CELL UR AU 7 /HPF (0-6); UROBILINOGEN, URINE AUTO 0.2 mg/dL (0.0-2.0); WBC, URINE AUTO 1 /HPF (0-3)
== END ==
LOC: M SFHCPLAZ 16:45
PROVIDERS: ATTEND Family Medicine
DX: R30.0 Dysuria (principal)

== ENCOUNTER → 2020-12-18 | Outpatient (CLI) | payer MEDICARE, MEDICAID | LOC: M RAD 13:27 | PROVIDERS: ATTEND Family Medicine | DX: R30.0 Dysuria (principal); K76.0 Fatty (change of) liver, not elsewhere classified ==

== ENCOUNTER → 2021-01-10 | Outpatient (CLI) | payer MEDICARE ==
--- NOTE | 2021-01-13 23:32 | ECWPNPC ---
PATIENT NAME: MEG DE LA TORRE : 1970 GENDER: FEMALE VISIT DATE: 01/10/2021 DISCHARGE DATE: 01/10/21 1226 VISIT LOCKED DATE TIME: PHYSICIAN: LYN MACKENZIE MD PHYSICIAN PAGER NO: ACTIVE RESOURCE: LYN MACKENZIE MD REASON FOR APPOINTMENT 1. BACK PAIN/WANTS PROCEDURE HISTORY OF PRESENT ILLNESS GENERAL: 50-YEAR-OLD FEMALE PATIENT WITH A HISTORY OF CHRONIC LOW BACK PAIN. THE PATIENT DESCRIBES THE PAIN ACHING, CONTINUOUS WITH A PAIN SCORE RANGING FROM 5-8/10 AT THE LOWER BACK AREA. THIS IS AFFECTING HER ABILITY TO PERFORM ACTIVITIES SUCH CLEANING HER HOUSE AND GROCERY SHOPPING. SHE NEEDS HELP. FALL RISK SCREENING: SCREENING : NO FALLS REPORTED IN THE LAST YEAR. PAIN SCREENING: PATIENT HAS A COMPLAINT OF ACUTE OR CHRONIC PAIN :YES LOCATION OF PAIN:LOW BACK INTENSITY OF PAIN (SCALE OF 1 TO 10):5 WHAT DOES YOUR PAIN FEEL LIKE:ACHING DURATION:CONTINOUS PAIN IS INCREASED BY:ACTIVITIES PAIN IS DECREASED BY:USE OF PAIN MEDICATIONS NURSING NOTE: -. PAIN CENTER INTAKE QUESTIONS: DO YOU HAVE A HISTORY OF MRSA? :NO DO YOU TAKE A BLOOD THINNERS? :NO DO YOU HAVE ANY BLEEDING DISORDERS? :YES RECTAL BLEEDING FROM DIVERTICULOSIS ANY NEW NUMBNESS OR WEAKNESS IN YOUR LEGS OR ARMS? :NO ANY PACEMAKER,DEFIBRILLATOR, OR DORSAL COLUMN STIMULATOR? :NO DO YOU HAVE ANY RASHES OR OPEN SORES? :YES PSORIASIS ARE YOU ALLERGIC TO IV DYE? :NO ARE YOU DIABETIC? :YES ANY NEW PROBLEMS WITH YOUR MEDICATIONS? :NO HAVE YOU RECEIVED A VACCINE IN THE PAST 30 DAYS? :NO DO YOU PLAN TO RECEIVE A VACCINE IN THE NEXT 21 DAYS? :NO DO YOU NEED ANY PRESCRIPTION? :NO DO YOU TAKE ANY IMMUNOSUPPRESSIVE MEDICATIONS? :YES STELARA, PREDNISONE, DEXILANT DO YOU HAVE ANY KIDNEY OR LIVER DISEASE? :NO IS THERE A CHANCE YOU COULD BE ? :NO ARE YOU BREAST FEEDING? :NO CURRENT MEDICATIONS TAKING FERROUS SULFATE 325 (65 FE) MG TABLET 1 TABLET ORALLY ONCE A DAY TAKING ASPIRIN 81 MG TABLET CHEWABLE 1 TABLET ORALLY ONCE A DAY TAKING TERBINAFINE HCL 1 % CREAM 1 APPLICATION TO AFFECTED AREA EXTERNALLY TWICE A DAY TAKING ERGOCALCIFEROL 92920 UNIT CAPSULE 1 CAPSULE ORALLY WEEKLY TAKING ATORVASTATIN CALCIUM 80 MG TABLET 1 TABLET ORALLY ONCE A DAY TAKING EZETIMIBE 10 MG TABLET 1 TABLET ORALLY ONCE A DAY TAKING METFORMIN HCL ER 750 MG TABLET EXTENDED RELEASE 24 HOUR 1 TABLET ORALLY BID TAKING GLUCOMETER . .. DIRECTED DX 250 USE BID TAKING BLOOD GLUCOSE TEST . STRIPS USE BID DX 250 CHECK BS BID TAKING LANCETS . .. DIRECTED DX: 250 USE BID TAKING TRULICITY 1.5 MG/0.5ML SOLUTION PEN-INJECTOR 0.5 ML SUBCUTANEOUS WEEKLY TAKING CYANOCOBALAMIN 250 MCG TABLET 1 TABLET ORALLY ONCE A DAY TAKING LYRICA 50 MG CAPSULE 1 CAPSULE ORALLY THREE TIMES A DAY MDD: 3 TAKING TENS UNIT - DIRECTED _ C PADS AND INSTRUCTION DAILY TAKING BACLOFEN 10 MG TABLET 0.5 TABLET TID X 5 DAYS THEN 1 TABLET WITH FOOD OR MILK ORALLY THREE TIMES A DAY TAKING TIZANIDINE HCL 4 MG TABLET 1 TABLET ORALLY FOR SPASMS AND PAIN EVERY 6 HOURS NEEDED MDD2 TAKING ALCOHOL PADS 70 % PAD DIRECTED TAKING REFRESH 1.4-0.6 % SOLUTION 2 DROPS OPHTHALMIC NEEDED TAKING BD INSULIN SYRINGE 31G X 09/30 MISCELLANEOUS DIRECTED SUBCUTANEOUSLY WEEKLYDX: L40.50 TAKING CALCIUM 600+D PLUS MINERALS 600-400 MG-UNIT TABLET CHEWABLE 1 TAB ORALLY BID TAKING FLUOXETINE HCL 20 MG CAPSULE 1 CAPSULE ORALLY EVERY MORNING TAKING FERROUS SULFATE 325 (65 FE) MG TABLET TAKE ONE TABLET BY MOUTH ONCE DAILY ORALLY ONCE A DAY TAKING ASPIRIN LOW DOSE 81 MG TABLET CHEWABLE TAKE ONE TABLET OI ONCE DAILY ORALLY ONCE A DAY TAKING CALCIPOTRIENE-BETAMETH DIPROP 0.005-0.064 % OINTMENT 1 APPLICATION EXTERNALLY BID WITH FLARE, THEN QD; 10% BSA; ERGO, 3 GM BID (6X 77=166) TAKING ULTRAM 50 MG TABLET 1 TABLET ORALLY EVERY 8 HRS FOR PAIN MDD 3 TAKING STELARA 90 MG/ML SOLUTION PREFILLED SYRINGE 90 MG SUBCUTANEOUS NOW, IN 4W AND THEN Q12W TAKING CARVEDILOL 12.5 MG TABLET TAKE ONE TABLET BY MOUTH TWICE DAILY TAKING DEXILANT 60 MG CAPSULE DELAYED RELEASE TAKE ONE CAPSULE BY MOUTH ONCE DAILY TAKING LEVOTHYROXINE SODIUM 50 MCG TABLET TAKE ONE TABLET BY MOUTH EVERY MORNING ON AN EMPTY STOMACH TAKING FLUOXETINE HCL 20 MG CAPSULE TAKE ONE CAPSULE BY MOUTH EVERY MORNING TAKING PREDNISONE 5 MG TABLET 1 TABLET ORALLY ONCE A DAY MEDICATION LIST REVIEWED AND RECONCILED WITH THE PATIENT PAST MEDICAL HISTORY PSORIASIS, GENERALIZED PLAQUE/PSA (-[id number]) HYPERLIPIDEMIA 2B CHRONIC MDD GERD T2DM, NID MULTIPLE DENTAL CARIES ALLERGIC RHINITIS NICOTINE ADDICTION OBESITY, MORBID VITAMIN D DEFICIENCY NAFLD BY CT FEBRUARY 2011 WITH BORDERLINE HEPATOMEGALY, SEEN BY 10/2016 US CERVICAL DJD-11/2011 NORMAL CERVICAL MRI LUMBAR DJD-L12 R IF HNP C R 1 COMPRESSION,, L2-4 BULGES, MINIMAL L45CCS BY 10/2018 MRI///10/2014 XRAY C MILD MULT-LEVEL DJD, NORMAL B SIJ HYPERTENSION-09/2015-LOW RISK DPST, NORMAL TTE-LOW PALPITATIONS-NORMAL 25D EVENT MONITOR-05/2014-LOW SMALL ADENOMATOUS P-09/2017 COLON-W R MILD PARTIAL SUBSCAPULARIS TEAR SP 05/12/19 SP MECHAINCAL FALL (SEEN BY 05/17/19 MRI) ALLERGIES SULFA (FOR ALLERGY USE ONLY): HIVES - ALLERGY CYMBALTA: PALPITATIONS, HYPERTENSION - CONTRAINDICATION SOCIAL HISTORY GENERAL: TOBACCO USE ARE YOU A:CURRENT SMOKER ARE YOU INTERESTED IN QUITTING?NOT READY TO QUIT COUNSELED THE PATIENT ON SMOKING EFFECTS, EDUCATION [id number]/23/2021 HOW MANY CIGARETTES A DAY DO YOU SMOKE?11-20 HOW SOON AFTER YOU WAKE UP DO YOU SMOKE YOUR FIRST CIGARETTE?6-30 MIN HOW OFTEN DO YOU SMOKE CIGARETTES?EVERY DAY PATIENT COUNSELED ON THE DANGERS OF TOBACCO USE AND URGED TO QUIT:12/07/2020 SMOKING CESSATION INFORMATION GIVEN06/12/2020 11/04/18 DECLINED AD LATEX QUESTIONNAIRE LATEX ALLERGY : HAVE YOU EVER DEVELOPED ANY TYPE OF REACTION AFTER HANDLING LATEX PRODUCTS SUCH RUBBER GLOVES, CONDOMS, DIAPHRAGMS, BALLOONS, SOCKS, OR UNDERWEAR?NO LATEX ALLERGY : HAVE YOU EVER DEVELOPED ANY TYPE OF REACTION DURING OR AFTER DENTAL APPOINTMENT, VAGINAL/RECTAL EXAMINATION, SURGICAL PROCEDURE, OR ANY OTHER EXPOSURE?NO LATEX RISK : HAVE YOU EVER HAD ANY DIFFICULTY BREATHING OR HIVES AFTER EATING OR HANDLING ANY FRUITS, OR VEGETABLES; SUCH KIWI, BANANAS, STONE FRUITS, OR CHESTNUTSNO LATEX RISK : DO YOU HAVE A PREVIOUS PERSONAL HISTORY OF MORE THAN NINE SURGERIES, SPINA BIFIDA, OR REPEATED CATHERIZATIONS? NO LATEX RISK : ARE YOU FREQUENTLY EXPOSED TO LATEX PRODUCTS IN YOUR OCCUPATION?NO DATE ASKED : 12/21/2020 ALCOHOL USE: NO. BMI CARE GOAL FOLLOW-UP ABOVE NORMAL BMI FOLLOW-UPGIVING ENCOURAGEMENT TO EXERCISE ALCOHOL SCREENING DID YOU HAVE A DRINK CONTAINING ALCOHOL IN THE PAST YEAR?NO POINTS0 INTERPRETATIONNEGATIVE RECREATIONAL DRUG USE DRUG USE?NO CAFFEINE CAFFEINE USE?YES HOW OFTEN AND HOW MUCH? 2 CUPS OF COFFEE PER DAY SEXUAL HX HAD SEX IN THE LAST 12 MONTHS (VAGINAL, ORAL, OR ANAL)?NO HAVE YOU EVER HAD AN STD?NO HIV / HEP-C SCREENING HIV TEST OFFERED TO PATIENT:YES DATE OFFERED:10/24/2016 TEST ACCEPTED:NO REASON:PATIENT DECLINED HEP-C TEST OFFERED TO PATIENT:YES DATE OFFERED:10/24/2016 TEST ACCEPTED:NO REASON:PATIENT DECLINED JEW [id number] [employer]TIST LANGUAGE LANGUAGES SPOKEN:JORDANIAN EDUCATION LEVEL OF EDUCATION: 9 TH GRADE EDUCATION LEARNING BARRIERS / SPECIAL NEEDS CHANGE FROM LAST VISIT?NO BARRIERS TO LEARNING?NO HEARING IMPAIRED?NO VISION IMPAIRED?YES : READING COGNITIVELY IMPAIRED?NO READINESS TO LEARN?YES LEARNING PREFERENCES?YES :BOOKLETS, HANDOUTS, DEMONSTRATION/VERBAL INSTRUCTION LEARNING CAPABILITIES PRESENT?YES EMOTIONAL BARRIERS?NO SPECIAL DEVICES?NO VENEER SPLICER NEEDED?NO DOMESTIC VIOLENCE DO YOU FEEL SAFE IN YOUR ENVIRONMENT?YES OCCUPATION: DISABLED. DIET: CARBOHYDRATE CONTROLLED. EXERCISE: NO REGULAR EXERCISE. MARITAL STATUS: , . OTHERS AT HOME: SPOUSE, CHILD. PATIENT DESCRIBES PAIN :ACHING, HAVE IT ALL THE TIME "STEADY ACHE", OCCASIONALLY WAKES FROM SLEEP FROM 0-10, WHAT LEVEL IS YOUR PAIN TODAY?5 PRECIPITATING FACTORS PROLONGED STANDING OR SITTING, INCREASED ACTIVITY ALLEVIATING FACTORS PAIN MEDS, LAY DOWN, CHANGING POSITIONS, RESTING - WAS THE PROVIDER NOTIFIED OF ANY PERTINENT INFO? N/A HAS THE PATIENT BEEN EDUCATED REGARDING HIS/HER PLAN OF CARE?YES ORIENTED TO PAIN MANAGEMENT HAS THE PATIENT BEEN EDUCATED REGARDING PAIN, THE RISK FOR PAIN, THE IMPORTANCE OF EFFECTIVE PAIN MANAGEMENT, AND THE PAIN ASSESSMENT PROCESS?YES ADVANCE DIRECTIVE ADVANCE DIRECTIVE DISCUSSED WITH PATIENT:YES PT DOES NOT HAVE ANY ADVANCED DIRECTIVES AND SHE DECLINES INFORMATION ON HCP AT THIS TIME. REVIEW OF SYSTEMS REVIEWED BY: PROVIDER: LYN MACKENZIE MD . CONSTITUTIONAL: ANY CHANGE IN YOUR MEDICAL CONDITION? NO . CHILLS NO . FEVER NO . INFECTION: DO YOU HAVE NEW INFECTIONS? NO . DO YOU HAVE HISTORY OF MRSA? NO . MUSCULOSKELETAL: ANY UNUSUAL JOINT PAIN OR SWELLING NOT MENTIONED NO . GASTROENTEROLOGY: ANY NEW CHANGE IN BOWEL CONTROL? NO . GENITOURINARY: ANY NEW CHANGE IN BLADDER CONTROL? NO . IS THERE A CHANCE YOU COULD BE ? NO . HEMATOLOGY/LYMPH: DO YOU TAKE ANY BLOOD THINNERS? (FOR EXAMPLE- COUMADIN, PLAVIX, AGGRENOX, PLATEL, PRADAXA, OR XARELTO) NO . WHEN WAS YOUR LAST DOSE? DATE: TIME: . NEUROLOGY: HAVE YOU FALLEN IN THE PAST 12 MONTHS? NO . OTHER NEW NUMBNESS OR PAIN PATTERNS NOT MENTIONED NO . CARDIOLOGY: DO YOU HAVE A PACEMAKER OR DEFIBRILLATOR? NO . RESPIRATORY: HAVE YOU BEEN SICK IN THE PAST WEEK? NO . FEVER NO . FLU LIKE SYMPTOMS? NO . COUGH NO . INTEGUMENTARY: DO YOU HAVE ANY RASHES OR OPEN SORES? NO . ALLERGIC/IMMUNO: ARE YOU ALLERGIC TO IV DYE? NO . ANY NEW ALLERGIES? NO . PSYCHIATRIC: DO YOU HAVE THOUGHTS OF HURTING YOURSELF OR SOMEONE ELSE? NO . ARE YOU ABUSED, NEGLECTED, OR IN AN UNSAFE ENVIRONMENT? NO . ENDOCRINOLOGY: ARE YOU DIABETIC? YES, ON MEDICATION . OTHER: DO YOU NEED ANY PRESCRIPTIONS? NO . IF YES, PLEASE LIST: ____ . ANY NEW PROBLEMS WITH YOUR MEDICATIONS? NO . WHEN DID YOU LAST EAT? ____ . WHEN DID YOU LAST DRINK? ____ . WHAT DID YOU LAST DRINK? ____ . NAME OF PERSON DRIVING YOU HOME? ____ . DO YOU HAVE ANY OTHER QUESTIONS OR CONCERNS NO . VITAL SIGNS WT 264.8 LBS, WT-KG 120.11 KG, HT 63 IN, BMI 46.90 INDEX, BP 167/81 MM HG, HR 85 /MIN, RR 18 /MIN, TEMP 96.1 F, OXYGEN SAT % 98%, SAFE IN ENV? (Y/N) Y, NA INITIALS AW 1131, REVIEWED BY: EM. EXAMINATION GENERAL EXAMINATION: THE PATIENT IS ALERT, ORIENTED TIMES THREE AND COOPERATIVE. THERE IS TENDERNESS IN THE LOWER BACK IN THE FACET WITH EXTENSION AND LATERAL ROTATION AT THE AREA OF L4-L5, L5-S1. MRI OF THE LUMBOSACRAL SPINE DATED 10/16/2018 SHOWS FACET ARTHROPATHY CHANGES. ASSESSMENTS LUMBAR SPONDYLOSIS - M47.816 (PRIMARY) LUMBAR FACET ARTHROPATHY - M47.816 TREATMENT LUMBAR SPONDYLOSIS CLINICAL NOTES: I DISCUSSED ALTERNATIVES WITH WIL. WE ARE GOING TO REQUEST AUTHORIZATION FOR A DIAGNOSTIC L4-L5, L5-S1 #1. IF THE PAIN DROPS MORE THAN 80% AND HELPS WITH FUNCTIONALITY, WE CAN PERFORM A SECOND DIAGNOSTIC TEST AND THEN WE CAN CONSIDER A RADIOFREQUENCY. WE WILL CONSIDER OTHER OPTIONS DEPENDING ON THE RESULTS OF THE FIRST ONE. THE PATIENT REPORTS UNDERSTANDING AND AGREES WITH THE PLAN. I, SHALA MCNEIL, DOCUMENTED THE ABOVE INFORMATION ACTING A SCRIBE FOR DR. MACKENZIE. I HAVE REVIEWED THE ABOVE DOCUMENT, WRITTEN BY SHALA MCNEIL, MORTICIAN HELPER, AND I VERIFY THAT IT IS ACCURATE. VISIT CODES PROCEDURE CODES FA211 ESTABILISHED PATIENT [facility] CHARGE 41999 OFFICE/OUTPATIENT VISIT EST DISPOSITION & COMMUNICATION FOLLOW UP REQUEST AUTH FOR BILATERAL DIAGNOSTIC LUMBAR FACET BLOCK L4-L5, L5-S1 #1 (REASON: REQUEST AUTH FOR BILATERAL DIAGNOSTIC LUMBAR FACET BLOCK L4-L5, L5-S1 #1) ELECTRONICALLY SIGNED BY LYN MACKENZIE MD, MD ON 01/13/2021 AT 08:30 PM EDT DISCLAIMER : THIS IS A VISIT SUMMARY EXTRACTED FROM THE [employer] CHART. IT IS NOT A COPY OF THE [employer] PROGRESS NOTE. VALERIA
== END ==
LOC: M PAIN 11:15
PROVIDERS: ATTEND Anesthesiology
DX: M47.816 Spondylosis without myelopathy or radiculopathy, lumbar region (principal); L40.0 Psoriasis vulgaris; E78.5 Hyperlipidemia, unspecified; F33.9 Major depressive disorder, recurrent, unspecified; E11.9 Type 2 diabetes mellitus without complications; K21.9 Gastro-esophageal reflux disease without esophagitis; E66.01 Morbid (severe) obesity due to excess calories; E55.9 Vitamin D deficiency, unspecified; K76.0 Fatty (change of) liver, not elsewhere classified; M51.36 Other intervertebral disc degeneration, lumbar region; I10 Essential (primary) hypertension; F17.210 Nicotine dependence, cigarettes, uncomplicated; Z68.42 Body mass index [BMI] 45.0-49.9, adult; Z79.82 Long term (current) use of aspirin; Z79.899 Other long term (current) drug therapy; Z79.52 Long term (current) use of systemic steroids; Z79.84 Long term (current) use of oral hypoglycemic drugs; Z88.2 Allergy status to sulfonamides; Z88.8 Allergy status to other drugs, medicaments and biological substances

== ENCOUNTER → 2021-01-11 | Outpatient (CLI) | payer MEDICARE ==
--- NOTE | 2021-01-11 12:45 | REP ---
INDICATION: DYSURIA COMPARISON: None TECHNIQUE: Real time B-mode ultrasound examination using curved array transducer. FINDINGS: Bladder demonstrates mild nonspecific wall thickening to 7 mm which cannot be completely and properly assessed due to the lack of complete filling/distension of the bladder. No ureteral jets or bladder mass lesion identified. Prevoid "full bladder" measures 5.7 x 4.7 x 3.5 cm (61 cc). Postvoid bladder measures (0 cc). Postvoid residual: 0% IMPRESSION: 1. Presumed incomplete distension of the bladder should be correlated with physical examination. 2. No distinct pathology by ultrasound otherwise noted. <Electronically signed by Amilcar Cardoso > 01/11/21 0187
== END ==
LOC: M RAD 11:42
PROVIDERS: ATTEND Family Medicine
DX: R30.0 Dysuria (principal)

== ENCOUNTER → 2021-02-28 | Outpatient (CLI) | payer MEDICARE | LOC: M LABSMTC 09:25 | PROVIDERS: ATTEND Anesthesiology | DX: Z01.818 Encounter for other preprocedural examination (principal); Z11.52 Encounter for screening for COVID-19 ==

== ENCOUNTER → 2021-03-05 | Outpatient (CLI) | payer MEDICARE, MEDICAID ==
[~2021-03-05] MED LIST changes: +BUPIVACAINE HCL 0.25% 30ML VIAL As Ordered ONE; +ISOVUE-M 300 61% 15ML VIAL As Ordered ONE; +LIDOCAINE 1% SDV 30ML VIAL As Ordered ONE
--- NOTE | 2021-03-05 11:51 | REP ---
INDICATION: BILATERAL DIAGNOSTIC LUMBAR FACET BLOCK #1. COMPARISON: None. TECHNIQUE: Two C-arm views lower lumbar facet joints. FINDINGS: [place] are seen along the lower lumbar facet joints bilaterally. A small amount of contrast is injected. IMPRESSION: 37 seconds fluoroscopy time was utilized. <Electronically signed by Gopi Reed > 03/05/21 [id number]
== END ==
LOC: M PAIN 08:30
PROVIDERS: ATTEND Anesthesiology
DX: M47.816 Spondylosis without myelopathy or radiculopathy, lumbar region (principal); M47.817 Spondylosis without myelopathy or radiculopathy, lumbosacral region; E11.9 Type 2 diabetes mellitus without complications; G47.30 Sleep apnea, unspecified; K21.9 Gastro-esophageal reflux disease without esophagitis; E55.9 Vitamin D deficiency, unspecified; F17.210 Nicotine dependence, cigarettes, uncomplicated; Z88.2 Allergy status to sulfonamides; Z88.8 Allergy status to other drugs, medicaments and biological substances; E66.01 Morbid (severe) obesity due to excess calories; Z68.42 Body mass index [BMI] 45.0-49.9, adult; Z79.82 Long term (current) use of aspirin; Z79.84 Long term (current) use of oral hypoglycemic drugs; Z79.899 Other long term (current) drug therapy
CPT/HCPCS: 64493; 64494; Q9967

== ENCOUNTER → 2021-03-13 | Outpatient (CLI) | payer MEDICARE, MEDICAID ==
[~2021-03-13] MED LIST changes: -BUPIVACAINE HCL 0.25% 30ML VIAL As Ordered ONE; -ISOVUE-M 300 61% 15ML VIAL As Ordered ONE; -LIDOCAINE 1% SDV 30ML VIAL As Ordered ONE
== END ==
LOC: M PAIN 09:30
PROVIDERS: ATTEND Anesthesiology
DX: G89.29 Other chronic pain (principal); M47.816 Spondylosis without myelopathy or radiculopathy, lumbar region; L40.0 Psoriasis vulgaris; E78.5 Hyperlipidemia, unspecified; F33.9 Major depressive disorder, recurrent, unspecified; E11.9 Type 2 diabetes mellitus without complications; J30.9 Allergic rhinitis, unspecified; E66.01 Morbid (severe) obesity due to excess calories; E55.9 Vitamin D deficiency, unspecified; K75.81 Nonalcoholic steatohepatitis (NASH); M51.26 Other intervertebral disc displacement, lumbar region; I10 Essential (primary) hypertension; R00.2 Palpitations; F17.210 Nicotine dependence, cigarettes, uncomplicated; Z79.84 Long term (current) use of oral hypoglycemic drugs; Z79.899 Other long term (current) drug therapy; Z79.52 Long term (current) use of systemic steroids; Z79.82 Long term (current) use of aspirin; Z88.2 Allergy status to sulfonamides; Z88.8 Allergy status to other drugs, medicaments and biological substances; Z68.42 Body mass index [BMI] 45.0-49.9, adult

== ENCOUNTER → 2021-03-28 | Outpatient (REF) | payer MEDICARE, MEDICAID | LOC: M SFHCPLAZ 13:15 | PROVIDERS: ATTEND Physician Assistant | DX: R05.9 Cough, unspecified (principal) ==

== ENCOUNTER → 2021-05-09 | Outpatient (CLI) | payer MEDICARE ==
[2021-05-09 13:16] LABS: BASO # 0.1 10^3/uL (0.0-0.2); BASO % 0.5 % (0.0-1.0); EOS # 0.1 10^3/uL (0.0-0.5); EOS % 1.3 % (0.0-3.0); HEMATOCRIT 46.1 % (36.0-47.0); HEMOGLOBIN 14.6 g/dl (12.0-15.5); LYMPH % 20.6 % (24.0-44.0); MEAN CORPUSCULAR HEMOGLOBIN 26.8 pg (27.0-33.0); MEAN CORPUSCULAR HGB CONC 31.7 g/dl (32.0-36.5); MEAN CORPUSCULAR VOLUME 84.6 fl (80.0-96.0); MONO # 0.4 10^3/uL (0.0-0.8); NEUTROPHILS % 73.2 % (36.0-66.0); PLATELET COUNT, AUTOMATED 269 10^3/uL (150-450); RED BLOOD COUNT 5.45 10^6/uL (4.00-5.40); WHITE BLOOD COUNT 9.5 10^3/uL (4.0-10.0)
[2021-05-09 13:28] LABS: HEMOGLOBIN A1c 6.6 %
[2021-05-09 13:49] LABS: ERYTHROCYTE SEDIMENTATION RATE 11 mm/hr (0-30)
[2021-05-09 13:50] LABS: MALB URINE SIEMENS 24.6 MG/L; MAU/CREAT RATIO 16.8 MCG/MG (0.0-30.0)
[2021-05-09 13:52] LABS: ALBUMIN 3.7 GM/DL (3.2-5.2); ALT/SGPT 39 U/L (12-78); BILIRUBIN,TOTAL 0.5 MG/DL (0.2-1.0); BLOOD UREA NITROGEN 10 MG/DL (7-18); C REACTIVE PROTEIN QUANTITATIV 0.71 MG/DL (0.00-0.30); CALCIUM LEVEL 9.9 MG/DL (8.5-10.1); CARBON DIOXIDE LEVEL 34 MEQ/L (21-32); CHLORIDE LEVEL 101 MEQ/L (98-107); COMPLEMENT C3 163 MG/DL (90-180); COMPLEMENT C4 37 MG/DL (10-40); FERRITIN 71 NG/ML (8-252); FREE T4 1.13 NG/DL (0.76-1.46); GLOMERULAR FILTRATION RATE > 60.0 (>51); GLUCOSE, FASTING 107 MG/DL (70-100); NT-PRO BNP 78 PG/ML (<125); POTASSIUM SERUM 5.1 MEQ/L (3.5-5.1); SODIUM LEVEL 137 MEQ/L (136-145); TOTAL 25(OH) VITAMIN D 77.1 NG/ML (30.0-100.0); TOTAL PROTEIN 7.5 GM/DL (6.4-8.2); VITAMIN B12 LEVEL 306 PG/ML (247-911)
== END ==
LOC: M PLALAB 09:25
PROVIDERS: ATTEND Family Medicine
DX: E53.8 Deficiency of other specified B group vitamins (principal); L40.50 Arthropathic psoriasis, unspecified; I10 Essential (primary) hypertension; E55.9 Vitamin D deficiency, unspecified; E11.9 Type 2 diabetes mellitus without complications; E03.9 Hypothyroidism, unspecified

== ENCOUNTER → 2021-05-13 | Outpatient (CLI) | payer MEDICARE, MEDICAID ==
[~2021-05-13] MED LIST changes: +PROHANCE 279.3MG/ML 15ML VIAL ONE; +PROHANCE 279.3MG/ML 5ML VIAL ONE
== END ==
LOC: M PLAIMG 10:02
PROVIDERS: ATTEND Family Medicine
DX: R20.2 Paresthesia of skin (principal)
CPT/HCPCS: 70544; 70553; A9576

== ENCOUNTER → 2021-05-28 | Outpatient (REF) | payer MEDICARE, MEDICAID ==
[~2021-05-28] MED LIST changes: -PROHANCE 279.3MG/ML 15ML VIAL ONE; -PROHANCE 279.3MG/ML 5ML VIAL ONE
== END ==
LOC: M SFHCPLAZ 11:12
PROVIDERS: ATTEND Family Medicine
DX: D04.39 Carcinoma in situ of skin of other parts of face (principal)

== ENCOUNTER → 2021-06-03 | Outpatient (REF) | LOC: M LABSMTC 09:47 | PROVIDERS: ATTEND Pediatrics | DX: Z11.52 Encounter for screening for COVID-19 (principal) ==

== ENCOUNTER 2021-07-09 16:21 | Emergency (ER) | payer MEDICARE, MEDICAID ==
[~2021-07-09] VITALS: Ht 160 cm; Wt 120.7 kg
[2021-07-09 18:01] VITALS: BP 131/59
== END 2021-07-09 18:37 | disposition home or self-care (01) ==
LOC: M ED 16:21
DX: R07.89 Other chest pain (principal); R00.2 Palpitations; E11.9 Type 2 diabetes mellitus without complications; I10 Essential (primary) hypertension; K21.9 Gastro-esophageal reflux disease without esophagitis; F17.200 Nicotine dependence, unspecified, uncomplicated; Z88.2 Allergy status to sulfonamides; Z88.8 Allergy status to other drugs, medicaments and biological substances; Z79.899 Other long term (current) drug therapy; Z79.82 Long term (current) use of aspirin

== ENCOUNTER → 2021-08-02 | Outpatient (REF) | payer MEDICARE, MEDICAID | LOC: M SFHCPLAZ 12:52 | PROVIDERS: ATTEND Family Medicine | DX: J06.9 Acute upper respiratory infection, unspecified (principal) ==

== ENCOUNTER → 2021-08-05 | Outpatient (CLI) | payer MEDICARE, MEDICAID | LOC: M PLAIMG 11:34 | PROVIDERS: ATTEND Family Medicine | DX: M94.8X8 Other specified disorders of cartilage, other site (principal) ==

== ENCOUNTER → 2021-09-12 | Outpatient (REF) | payer MEDICARE, MEDICAID | LOC: M SFHCPLAZ 17:02 | PROVIDERS: ATTEND Physician Assistant | DX: R05.9 Cough, unspecified (principal) ==

== ENCOUNTER → 2021-09-19 | Outpatient (CLI) | payer MEDICARE, MEDICAID | LOC: M PAIN 10:45 | PROVIDERS: ATTEND Nurse Practitioner Family | DX: M47.816 Spondylosis without myelopathy or radiculopathy, lumbar region (principal); G89.29 Other chronic pain; E11.9 Type 2 diabetes mellitus without complications; K21.9 Gastro-esophageal reflux disease without esophagitis; G47.33 Obstructive sleep apnea (adult) (pediatric); F17.210 Nicotine dependence, cigarettes, uncomplicated; Z88.2 Allergy status to sulfonamides; Z88.8 Allergy status to other drugs, medicaments and biological substances; E66.01 Morbid (severe) obesity due to excess calories; Z68.41 Body mass index [BMI] 40.0-44.9, adult; Z79.82 Long term (current) use of aspirin; Z79.84 Long term (current) use of oral hypoglycemic drugs; Z79.899 Other long term (current) drug therapy ==

== ENCOUNTER → 2021-10-04 | Outpatient (CLI) | payer MEDICARE, MEDICAID | LOC: M WHC 10:49 | PROVIDERS: ATTEND Family Medicine | DX: Z12.31 Encounter for screening mammogram for malignant neoplasm of breast (principal) ==

== ENCOUNTER → 2021-11-14 | Outpatient (CLI) | payer MEDICARE, MEDICAID ==
[2021-11-14 17:48] LABS: BASO % 0.4 % (0.0-1.0); EOS # 0.3 10^3/uL (0.0-0.5); EOS % 2.6 % (0.0-3.0); HEMATOCRIT 42.7 % (36.0-47.0); HEMOGLOBIN 13.9 g/dl (12.0-15.5); LYMPH # 2.8 10^3/uL (1.5-5.0); LYMPH % 27.8 % (24.0-44.0); MEAN CORPUSCULAR HEMOGLOBIN 27.6 pg (27.0-33.0); MEAN CORPUSCULAR HGB CONC 32.6 g/dl (32.0-36.5); MEAN CORPUSCULAR VOLUME 84.7 fl (80.0-96.0); MONO # 0.5 10^3/uL (0.0-0.8); NEUTROPHILS # 6.3 10^3/uL (1.5-8.5); NEUTROPHILS % 63.8 % (36.0-66.0); PLATELET COUNT, AUTOMATED 253 10^3/uL (150-450); RED BLOOD COUNT 5.04 10^6/uL (4.00-5.40); WHITE BLOOD COUNT 9.9 10^3/uL (4.0-10.0)
[2021-11-14 17:58] LABS: ALBUMIN 3.7 GM/DL (3.2-5.2); ALT/SGPT 28 U/L (12-78); BILIRUBIN,TOTAL 0.4 MG/DL (0.2-1.0); BLOOD UREA NITROGEN 8 MG/DL (7-18); CALCIUM LEVEL 9.7 MG/DL (8.5-10.1); CARBON DIOXIDE LEVEL 29 MEQ/L (21-32); CHLORIDE LEVEL 103 MEQ/L (98-107); CHOLESTEROL LEVEL 136 MG/DL (<200); CHOLESTEROL RISK RATIO 4.121 (<5); FREE T4 1.02 NG/DL (0.76-1.46); GLOMERULAR FILTRATION RATE > 60.0 (>51); GLUCOSE, FASTING 91 MG/DL (70-100); HDL CHOLESTEROL 33 MG/DL (>40); LDL CHOLESTEROL 62 MG/DL (<100); NON-HDL-C 103 MG/DL; POTASSIUM SERUM 4.6 MEQ/L (3.5-5.1); SODIUM LEVEL 138 MEQ/L (136-145); TOTAL PROTEIN 7.5 GM/DL (6.4-8.2); TRIGLYCERIDES LEVEL 207 MG/DL (<150)
[2021-11-14 18:30] LABS: ERYTHROCYTE SEDIMENTATION RATE 24 mm/hr (0-30)
[2021-11-25 13:07] LABS: ADALIMUMAB LEVEL <0.6 ug/mL (.); ANTI-ADALIMUMAB ABY <25 ng/mL (.); H PYLORI SERUM QUANT IgG ABY 0.58 (0.00-0.79)
== END ==
LOC: M PLALAB 16:09
PROVIDERS: ATTEND Family Medicine
DX: L40.50 Arthropathic psoriasis, unspecified (principal); I10 Essential (primary) hypertension; E11.9 Type 2 diabetes mellitus without complications; E53.8 Deficiency of other specified B group vitamins

== ENCOUNTER → 2022-02-28 | Outpatient (CLI) | payer MEDICARE, MEDICAID ==
[~2022-02-28] MED LIST changes: +ASPI81CH48 PO; +ATOR80TA59 PO; +DEXL60CA PO; +FERR325T19 PO; +LEVO1TAB40 PO; +LEVO50TA5 PO; +METF750T36 PO; +PRED1TABL PO; +STEL90IN SQ; +TIZA10TA PO
== END ==
LOC: M PLAIMG 15:33
PROVIDERS: ATTEND Family Medicine
DX: J18.9 Pneumonia, unspecified organism (principal)

== ENCOUNTER → 2022-03-07 | Outpatient (CLI) | payer MEDICARE, MEDICAID | LOC: M PLALAB 13:00 | PROVIDERS: ATTEND Family Medicine | DX: R05.1 Acute cough (principal) ==

== ENCOUNTER 2022-04-09 12:48 | Emergency (ER) | payer MEDICARE, MEDICAID ==
[~2022-04-09] VITALS: Ht 160 cm; Wt 115.2 kg
[2022-04-09 14:40] LABS: BASO % 0.3 % (0.0-1.0); EOS # 0.2 10^3/uL (0.0-0.5); EOS % 3.3 % (0.0-3.0); HEMATOCRIT 43.3 % (36.0-47.0); HEMOGLOBIN 13.6 g/dl (12.0-15.5); LYMPH # 0.8 10^3/uL (1.5-5.0); LYMPH % 12.3 % (24.0-44.0); MEAN CORPUSCULAR HEMOGLOBIN 27.1 pg (27.0-33.0); MEAN CORPUSCULAR HGB CONC 31.4 g/dl (32.0-36.5); MEAN CORPUSCULAR VOLUME 86.3 fl (80.0-96.0); MONO # 0.3 10^3/uL (0.0-0.8); MONO % 4.7 % (2.0-8.0); NEUTROPHILS % 78.9 % (36.0-66.0); PLATELET COUNT, AUTOMATED 210 10^3/uL (150-450); RED BLOOD COUNT 5.02 10^6/uL (4.00-5.40); WHITE BLOOD COUNT 6.4 10^3/uL (4.0-10.0)
[2022-04-09 14:50] LABS: INR 0.94; PROTHROMBIN TIME 12.8 SECONDS (12.5-14.5)
[2022-04-09 15:14] LABS: ALBUMIN 3.8 G/DL (3.2-5.2); ALT/SGPT 22 U/L (7.0-40); BILIRUBIN,DIRECT 0.1 MG/DL (<0.4); BILIRUBIN,TOTAL 0.4 MG/DL (0.3-1.2); BLOOD UREA NITROGEN 6 MG/DL (9-23); CALCIUM LEVEL 9.3 MG/DL (8.5-10.1); CARBON DIOXIDE LEVEL 28 MMOL/L (20-31); CHLORIDE LEVEL 99 MMOL/L (98-107); CK-MB VALUE MASS < 1.0 NG/ML (<3.6); CPK CREATINE PHOSPHOKINASE 75 U/L (34-145); CREATININE FOR GFR 0.71 MG/DL (0.55-1.30); FREE T4 1.19 NG/DL (0.89-1.76); GLOMERULAR FILTRATION RATE > 60.0 (>51); GLUCOSE, FASTING 85 MG/DL (60-100); LIPASE 50 U/L (12-53); MB/CK RELATIVE INDEX 1.33 (< OR =4); POTASSIUM SERUM 4.4 MMOL/L (3.5-5.1); SODIUM LEVEL 135 MMOL/L (136-145); THYROID STIMULATING HORMONE 1.097 uIU/ML (0.55-4.78); TOTAL PROTEIN 7.4 G/DL (5.7-8.2)
[2022-04-09] MEDS ORDERED: ISOVUE-370 76% 100ML VIAL As Ordered ONE (15:33)
[2022-04-09 16:02] LABS: CK-MB VALUE MASS < 1.0 NG/ML (<3.6); CPK CREATINE PHOSPHOKINASE 63 U/L (34-145); MB/CK RELATIVE INDEX 1.58 (< OR =4)
[2022-04-09 17:00] VITALS: BP 149/76
== END 2022-04-09 17:42 | disposition home or self-care (01) ==
LOC: M ED 12:48
DX: M79.661 Pain in right lower leg (principal); R91.1 Solitary pulmonary nodule; R07.9 Chest pain, unspecified; E11.9 Type 2 diabetes mellitus without complications; I10 Essential (primary) hypertension; E78.5 Hyperlipidemia, unspecified; K21.9 Gastro-esophageal reflux disease without esophagitis; E66.9 Obesity, unspecified; E55.9 Vitamin D deficiency, unspecified; F32.9 Major depressive disorder, single episode, unspecified; G47.33 Obstructive sleep apnea (adult) (pediatric); L40.9 Psoriasis, unspecified; F17.200 Nicotine dependence, unspecified, uncomplicated; Z79.890 Hormone replacement therapy; Z79.84 Long term (current) use of oral hypoglycemic drugs; Z79.82 Long term (current) use of aspirin; Z79.899 Other long term (current) drug therapy; Z79.4 Long term (current) use of insulin; Z88.2 Allergy status to sulfonamides; Z88.1 Allergy status to other antibiotic agents; Z88.8 Allergy status to other drugs, medicaments and biological substances
CPT/HCPCS: 71046; 71275; 80048; 80076; 82550; 82553; 83690; 84439; 84443; 84484; 85025; 85610; 85730; 93005; 93041; 93971; 94760; 99285; Q9967

== ENCOUNTER → 2022-04-29 | Outpatient (CLI) | payer MEDICARE, MEDICAID | LOC: M PAIN 10:45 | PROVIDERS: ATTEND Nurse Practitioner Family | DX: M47.816 Spondylosis without myelopathy or radiculopathy, lumbar region (principal); G89.29 Other chronic pain; E11.9 Type 2 diabetes mellitus without complications; K21.9 Gastro-esophageal reflux disease without esophagitis; I10 Essential (primary) hypertension; G47.33 Obstructive sleep apnea (adult) (pediatric); F17.210 Nicotine dependence, cigarettes, uncomplicated; Z86.59 Personal history of other mental and behavioral disorders; Z88.2 Allergy status to sulfonamides; Z88.8 Allergy status to other drugs, medicaments and biological substances; E66.01 Morbid (severe) obesity due to excess calories; Z68.41 Body mass index [BMI] 40.0-44.9, adult; Z79.82 Long term (current) use of aspirin; Z79.84 Long term (current) use of oral hypoglycemic drugs; Z79.899 Other long term (current) drug therapy ==

== ENCOUNTER → 2022-08-11 | Outpatient (CLI) | payer MEDICARE, MEDICAID | LOC: M PAIN 11:00 | PROVIDERS: ATTEND Nurse Practitioner Family | DX: M47.816 Spondylosis without myelopathy or radiculopathy, lumbar region (principal); L40.0 Psoriasis vulgaris; E78.5 Hyperlipidemia, unspecified; F33.9 Major depressive disorder, recurrent, unspecified; K21.9 Gastro-esophageal reflux disease without esophagitis; E11.9 Type 2 diabetes mellitus without complications; J30.9 Allergic rhinitis, unspecified; E66.01 Morbid (severe) obesity due to excess calories; E55.9 Vitamin D deficiency, unspecified; K76.0 Fatty (change of) liver, not elsewhere classified; M50.30 Other cervical disc degeneration, unspecified cervical region; M51.36 Other intervertebral disc degeneration, lumbar region; I10 Essential (primary) hypertension; G47.33 Obstructive sleep apnea (adult) (pediatric); F17.210 Nicotine dependence, cigarettes, uncomplicated; Z68.42 Body mass index [BMI] 45.0-49.9, adult; Z79.890 Hormone replacement therapy; Z79.4 Long term (current) use of insulin; Z79.899 Other long term (current) drug therapy; Z88.2 Allergy status to sulfonamides; Z88.8 Allergy status to other drugs, medicaments and biological substances ==

== ENCOUNTER → 2022-08-19 | Outpatient (CLI) | payer MEDICARE, MEDICAID | LOC: M RAD 14:55 | PROVIDERS: ATTEND Family Medicine | DX: Z87.891 Personal history of nicotine dependence (principal) ==

== ENCOUNTER → 2022-09-16 | Outpatient (CLI) | payer MEDICARE, MEDICAID | LOC: M PLAIMG 11:19 | PROVIDERS: ATTEND Nurse Practitioner Family | DX: M47.816 Spondylosis without myelopathy or radiculopathy, lumbar region (principal) ==

== ENCOUNTER → 2022-09-25 | Outpatient (CLI) | payer MEDICARE, MEDICAID | LOC: M PAIN 11:15 | PROVIDERS: ATTEND Nurse Practitioner Family | DX: M47.816 Spondylosis without myelopathy or radiculopathy, lumbar region (principal); M47.817 Spondylosis without myelopathy or radiculopathy, lumbosacral region; L40.0 Psoriasis vulgaris; E78.5 Hyperlipidemia, unspecified; F33.9 Major depressive disorder, recurrent, unspecified; K21.9 Gastro-esophageal reflux disease without esophagitis; E11.9 Type 2 diabetes mellitus without complications; E66.01 Morbid (severe) obesity due to excess calories; E55.9 Vitamin D deficiency, unspecified; K76.0 Fatty (change of) liver, not elsewhere classified; M50.30 Other cervical disc degeneration, unspecified cervical region; M51.36 Other intervertebral disc degeneration, lumbar region; I10 Essential (primary) hypertension; G47.33 Obstructive sleep apnea (adult) (pediatric); F17.210 Nicotine dependence, cigarettes, uncomplicated; Z79.84 Long term (current) use of oral hypoglycemic drugs; Z79.52 Long term (current) use of systemic steroids; Z79.85 Long-term (current) use of injectable non-insulin antidiabetic drugs; Z79.899 Other long term (current) drug therapy; Z88.2 Allergy status to sulfonamides; Z88.8 Allergy status to other drugs, medicaments and biological substances; Z68.42 Body mass index [BMI] 45.0-49.9, adult ==

== ENCOUNTER → 2022-10-20 | Outpatient (CLI) | payer MEDICARE, MEDICAID | LOC: M PLALAB 14:16 | PROVIDERS: ATTEND Physician Assistant Medical | DX: R05.1 Acute cough (principal); R06.02 Shortness of breath ==

== ENCOUNTER → 2022-10-24 | Outpatient (CLI) | payer MEDICARE, MEDICAID ==
[2022-10-24 15:52] LABS: ERYTHROCYTE SEDIMENTATION RATE 51 mm/hr (0-30)
[2022-10-24 15:53] LABS: ALBUMIN 3.6 G/DL (3.2-5.2); ALKALINE PHOSPHATASE 154 U/L (46-116); ALT/SGPT 22 U/L (7.0-40); AST/SGOT 26 U/L (<34); BILIRUBIN,TOTAL 0.4 MG/DL (0.3-1.2); BLOOD UREA NITROGEN 7 MG/DL (9-23); CALCIUM LEVEL 9.2 MG/DL (8.5-10.1); CARBON DIOXIDE LEVEL 32 MMOL/L (20-31); CHLORIDE LEVEL 101 MMOL/L (98-107); CREATININE FOR GFR 0.82 MG/DL (0.55-1.30); GLOMERULAR FILTRATION RATE > 60.0 (>51); GLUCOSE, FASTING 94 MG/DL (60-100); MAGNESIUM LEVEL 1.7 MG/DL (1.8-2.4); POTASSIUM SERUM 4.2 MMOL/L (3.5-5.1); SODIUM LEVEL 139 MMOL/L (136-145); TOTAL PROTEIN 7.2 G/DL (5.7-8.2)
[2022-10-24 15:56] LABS: FERRITIN 54.9 NG/ML (7.3-270.7)
== END ==
LOC: M PLALAB 10:13
PROVIDERS: ATTEND Family Medicine
DX: D50.9 Iron deficiency anemia, unspecified (principal)

== ENCOUNTER → 2022-10-24 | Outpatient (CLI) | payer MEDICARE, MEDICAID | LOC: M WHC 10:04 | PROVIDERS: ATTEND Family Medicine | DX: Z12.31 Encounter for screening mammogram for malignant neoplasm of breast (principal); M81.0 Age-related osteoporosis without current pathological fracture ==

== ENCOUNTER → 2022-10-24 | Outpatient (CLI) | payer MEDICARE, MEDICAID ==
[2022-10-29 21:11] LABS: D001-IgE D pteronyssinus <0.10 kU/L (Class 0); E001-IgE Cat Epith/Dander < 0.10 kU/L (Class 0); E005-IgE Dog Dander < 0.10 kU/L (Class 0); G002-IgE Bermuda Grass < 0.10 kU/L (Class 0); M001-IgE Penicillium chrysogen < 0.10 kU/L (Class 0); M002 IgE Cladosporium herbaru < 0.10 kU/L (Class 0); M003 IgE Aspergillus fumigatu < 0.10 kU/L (Class 0); M006-IgE Alternaria alternata < 0.10 kU/L (Class 0); T001-IgE Maple/Box Elder < 0.10 kU/L (Class 0); T003-IgE Common Silver Birch < 0.10 kU/L (Class 0); T006-IgE Cedar, Mountain < 0.10 kU/L (Class 0); T007-IgE Oak, White < 0.10 kU/L (Class 0); T008-IgE Elm, American < 0.10 kU/L (Class 0); T015-IgE Ash, White < 0.10 kU/L (Class 0); T070-IgE White Mulberry < 0.10 kU/L (Class 0); W001-IgE Ragweed, Short < 0.10 kU/L (Class 0); W018-IgE Sheep Sorrel < 0.10 kU/L (Class 0)
== END ==
LOC: M PLALAB 10:16
PROVIDERS: ATTEND Physician Assistant Medical
DX: J30.2 Other seasonal allergic rhinitis (principal); D50.9 Iron deficiency anemia, unspecified

== ENCOUNTER → 2022-11-21 | Outpatient (CLI) | payer MEDICARE, MEDICAID ==
[~2022-11-21] MED LIST changes: +ISOVUE-M 300 61% 15ML VIAL As Ordered ONE; +LIDOCAINE 1% SDV 30ML VIAL As Ordered ONE
== END ==
LOC: M PAIN 09:30
PROVIDERS: ATTEND Anesthesiology
DX: M47.816 Spondylosis without myelopathy or radiculopathy, lumbar region (principal); G89.29 Other chronic pain; E11.9 Type 2 diabetes mellitus without complications; K21.9 Gastro-esophageal reflux disease without esophagitis; E55.9 Vitamin D deficiency, unspecified; I10 Essential (primary) hypertension; G47.33 Obstructive sleep apnea (adult) (pediatric); F17.210 Nicotine dependence, cigarettes, uncomplicated; Z86.59 Personal history of other mental and behavioral disorders; Z88.2 Allergy status to sulfonamides; Z88.8 Allergy status to other drugs, medicaments and biological substances; E66.01 Morbid (severe) obesity due to excess calories; Z68.42 Body mass index [BMI] 45.0-49.9, adult; Z79.82 Long term (current) use of aspirin; Z79.84 Long term (current) use of oral hypoglycemic drugs; Z79.85 Long-term (current) use of injectable non-insulin antidiabetic drugs; Z79.899 Other long term (current) drug therapy
CPT/HCPCS: 64493; 64494; J0665; Q9967

== ENCOUNTER → 2022-12-23 | Outpatient (REF) | payer MEDICARE, MEDICAID ==
[~2022-12-23] MED LIST changes: -ISOVUE-M 300 61% 15ML VIAL As Ordered ONE; -LIDOCAINE 1% SDV 30ML VIAL As Ordered ONE
== END ==
LOC: M SFHCPLAZ 10:51
PROVIDERS: ATTEND Family Medicine
DX: E11.9 Type 2 diabetes mellitus without complications (principal); L40.50 Arthropathic psoriasis, unspecified; I10 Essential (primary) hypertension

== ENCOUNTER → 2023-01-27 | Outpatient (CLI) | payer MEDICARE, MEDICAID ==
[~2023-01-27] MED LIST changes: +EZET10TA58 PO; -ZETI10TA16 PO
== END ==
LOC: M PAIN 15:45
PROVIDERS: ATTEND Anesthesiology
DX: M47.816 Spondylosis without myelopathy or radiculopathy, lumbar region (principal); L40.0 Psoriasis vulgaris; E78.5 Hyperlipidemia, unspecified; F33.9 Major depressive disorder, recurrent, unspecified; K21.9 Gastro-esophageal reflux disease without esophagitis; E11.9 Type 2 diabetes mellitus without complications; E66.01 Morbid (severe) obesity due to excess calories; E55.9 Vitamin D deficiency, unspecified; K76.0 Fatty (change of) liver, not elsewhere classified; M50.30 Other cervical disc degeneration, unspecified cervical region; M51.36 Other intervertebral disc degeneration, lumbar region; I10 Essential (primary) hypertension; G47.33 Obstructive sleep apnea (adult) (pediatric); F17.210 Nicotine dependence, cigarettes, uncomplicated; Z79.82 Long term (current) use of aspirin; Z79.84 Long term (current) use of oral hypoglycemic drugs; Z79.85 Long-term (current) use of injectable non-insulin antidiabetic drugs; Z79.899 Other long term (current) drug therapy; Z88.2 Allergy status to sulfonamides; Z88.8 Allergy status to other drugs, medicaments and biological substances

== ENCOUNTER → 2023-02-02 | Outpatient (CLI) | payer MEDICARE, MEDICAID ==
[2023-02-02 11:22] LABS: BASO % 0.5 % (0.0-1.0); EOS # 0.2 10^3/uL (0.0-0.5); EOS % 3.2 % (0.0-3.0); HEMATOCRIT 43.7 % (36.0-47.0); HEMOGLOBIN 13.6 g/dl (12.0-15.5); LYMPH # 1.8 10^3/uL (1.5-5.0); LYMPH % 23.8 % (24.0-44.0); MEAN CORPUSCULAR HEMOGLOBIN 26.7 pg (27.0-33.0); MEAN CORPUSCULAR HGB CONC 31.1 g/dl (32.0-36.5); MEAN CORPUSCULAR VOLUME 85.9 fl (80.0-96.0); MONO # 0.4 10^3/uL (0.0-0.8); NEUTROPHILS # 5.1 10^3/uL (1.5-8.5); NEUTROPHILS % 67.2 % (36.0-66.0); PLATELET COUNT, AUTOMATED 229 10^3/uL (150-450); RED BLOOD COUNT 5.09 10^6/uL (4.00-5.40); WHITE BLOOD COUNT 7.5 10^3/uL (4.0-10.0)
[2023-02-02 11:41] LABS: HEMOGLOBIN A1c 5.7 % (4.0-6.0)
[2023-02-02 11:58] LABS: ALBUMIN 3.3 G/DL (3.2-5.2); ALKALINE PHOSPHATASE 150 U/L (46-116); ALT/SGPT 26 U/L (7.0-40); AST/SGOT 16 U/L (<34); BILIRUBIN,TOTAL 0.2 MG/DL (0.3-1.2); BLOOD UREA NITROGEN 8 MG/DL (9-23); CALCIUM LEVEL 8.9 MG/DL (8.5-10.1); CARBON DIOXIDE LEVEL 31 MMOL/L (20-31); CHLORIDE LEVEL 105 MMOL/L (98-107); CHOLESTEROL LEVEL 149 MG/DL (<200); CHOLESTEROL RISK RATIO 4.57 (<5); CREATININE FOR GFR 0.73 MG/DL (0.55-1.30); FERRITIN 54.7 NG/ML (7.3-270.7); FREE T4 1.15 NG/DL (0.89-1.76); GLOMERULAR FILTRATION RATE > 60.0 (>51); GLUCOSE, FASTING 100 MG/DL (60-100); HDL CHOLESTEROL 32.6 MG/DL (>40); NON-HDL-C 116.4 MG/DL; POTASSIUM SERUM 4.9 MMOL/L (3.5-5.1); SODIUM LEVEL 141 MMOL/L (136-145); THYROID STIMULATING HORMONE 1.173 uIU/ML (0.55-4.78); TOTAL PROTEIN 6.8 G/DL (5.7-8.2); TRIGLYCERIDES LEVEL 192 MG/DL (<150); VITAMIN B12 LEVEL 720 PG/ML (211-911)
[2023-02-02 12:29] LABS: ERYTHROCYTE SEDIMENTATION RATE 51 mm/hr (0-30)
== END ==
LOC: M PLALAB 08:43
PROVIDERS: ATTEND Family Medicine
DX: E11.9 Type 2 diabetes mellitus without complications (principal); L40.50 Arthropathic psoriasis, unspecified; I10 Essential (primary) hypertension

== ENCOUNTER → 2023-02-13 | Outpatient (CLI) | payer MEDICARE, MEDICAID ==
[~2023-02-13] MED LIST changes: +PERC5TAB12 PO
[2023-02-13 15:41] LABS: BASO % 0.4 % (0.0-1.0); EOS # 0.2 10^3/uL (0.0-0.5); EOS % 2.1 % (0.0-3.0); HEMATOCRIT 43.7 % (36.0-47.0); LYMPH # 1.8 10^3/uL (1.5-5.0); LYMPH % 18.9 % (24.0-44.0); MEAN CORPUSCULAR HEMOGLOBIN 26.9 pg (27.0-33.0); MONO # 0.5 10^3/uL (0.0-0.8); MONO % 5.1 % (2.0-8.0); NEUTROPHILS # 6.8 10^3/uL (1.5-8.5); NEUTROPHILS % 73.1 % (36.0-66.0); PLATELET COUNT, AUTOMATED 278 10^3/uL (150-450); WHITE BLOOD COUNT 9.4 10^3/uL (4.0-10.0)
[2023-02-13 15:59] LABS: ALBUMIN 3.4 G/DL (3.2-5.2); ALKALINE PHOSPHATASE 178 U/L (46-116); ALT/SGPT 29 U/L (7.0-40); AST/SGOT 21 U/L (<34); BILIRUBIN,TOTAL 0.5 MG/DL (0.3-1.2); BLOOD UREA NITROGEN 9 MG/DL (9-23); CALCIUM LEVEL 9.5 MG/DL (8.5-10.1); CARBON DIOXIDE LEVEL 28 MMOL/L (20-31); CHLORIDE LEVEL 105 MMOL/L (98-107); CREATININE FOR GFR 0.88 MG/DL (0.55-1.30); GLOMERULAR FILTRATION RATE > 60.0 (>51); GLUCOSE, FASTING 75 MG/DL (60-100); POTASSIUM SERUM 3.9 MMOL/L (3.5-5.1); SODIUM LEVEL 140 MMOL/L (136-145); TOTAL PROTEIN 7.3 G/DL (5.7-8.2)
== END ==
LOC: M PLALAB 12:42
PROVIDERS: ATTEND Family Medicine
DX: M85.80 Other specified disorders of bone density and structure, unspecified site (principal)

== ENCOUNTER → 2023-03-10 | Outpatient (CLI) | payer MEDICARE, MEDICAID ==
[2023-03-10 11:25] LABS: HIV 1&2 SCREEN NEGATIVE (NEGATIVE)
[2023-03-10 11:32] LABS: HEPATITIS B CORE ANTIBODY IGM NEGATIVE (NEGATIVE); HEPATITIS C VIRUS ABY INDEX 0.04 INDEX (<0.8)
== END ==
LOC: M LAB 08:34
PROVIDERS: ATTEND Nurse Practitioner Family
DX: L40.9 Psoriasis, unspecified (principal)

== ENCOUNTER → 2023-03-10 | Outpatient (REF) | payer MEDICARE, MEDICAID | LOC: M SFHCDERM 08:29 | PROVIDERS: ATTEND Nurse Practitioner Family | DX: L40.9 Psoriasis, unspecified (principal) ==

== ENCOUNTER → 2023-04-21 | Outpatient (REF) | payer MEDICARE, MEDICAID | LOC: M SFHCWAGY 13:42 | PROVIDERS: ATTEND Specialist | DX: Z12.4 Encounter for screening for malignant neoplasm of cervix (principal); N39.0 Urinary tract infection, site not specified | CPT/HCPCS: 87086; 87624; G0123 ==

== ENCOUNTER → 2023-04-27 | Outpatient (CLI) | payer MEDICARE, MEDICAID ==
[2023-04-27 14:28] LABS: MEAN CORPUSCULAR HEMOGLOBIN 27.5 pg (27.0-33.0); MEAN CORPUSCULAR HGB CONC 32.6 g/dl (32.0-36.5); MEAN CORPUSCULAR VOLUME 84.3 fl (80.0-96.0); PLATELET COUNT, AUTOMATED 244 10^3/uL (150-450); WHITE BLOOD COUNT 8.2 10^3/uL (4.0-10.0)
[2023-04-27 14:33] LABS: C REACTIVE PROTEIN QUANTITATIV < 0.40 MG/DL (<1.0)
[2023-04-27 14:35] LABS: CHOLESTEROL LEVEL 134 MG/DL (<200); CHOLESTEROL RISK RATIO 4.07 (<5); FERRITIN 50.7 NG/ML (7.3-270.7); HDL CHOLESTEROL 32.9 MG/DL (>40); LDL CHOLESTEROL 57.7 MG/DL (<100); NON-HDL-C 101.1 MG/DL; TRIGLYCERIDES LEVEL 217 MG/DL (<150)
[2023-04-27 14:52] LABS: ATYPICAL LYMPH 5 % (0-5); EOSINOPHILS 3 % (0-3); LYMPHOCYTES 30 % (16-44); MONOCYTES 6 % (0-5); NEUTROPHILS 56 % (28-66)
[2023-04-27 14:53] LABS: PLATELET ESTIMATE NORMAL (NORMAL)
[2023-04-27 14:59] LABS: ERYTHROCYTE SEDIMENTATION RATE 39 mm/hr (0-30)
[2023-04-27 15:02] LABS: CREATININE, URINE 128.6 MG/DL; MAU/CREAT RATIO 6.9 MCG/MG (0.0-30.0)
[2023-04-27 15:53] LABS: HEMOGLOBIN A1c 5.5 % (4.0-6.0)
== END ==
LOC: M PLALAB 11:07
PROVIDERS: ATTEND Family Medicine
DX: D50.9 Iron deficiency anemia, unspecified (principal); E11.9 Type 2 diabetes mellitus without complications; L40.50 Arthropathic psoriasis, unspecified

== ENCOUNTER → 2023-07-31 | Outpatient (REF) | payer MEDICARE, MEDICAID ==
[~2023-07-31] MED LIST changes: +ALBU8.5H INH; +CARV12.5 PO; +ERGO500029 PO; +EZET10TA21 PO; +FLUO20CA22 PO; +FLUT15.820; +Flovent INH; +HUMI40IN SC; +PREG50CA3 PO; +TRUL0.5I SC; +VITA500T40 PO
== END ==
LOC: M SFHCPLAZ 17:14
PROVIDERS: ATTEND Family Medicine
DX: E55.9 Vitamin D deficiency, unspecified (principal); E78.5 Hyperlipidemia, unspecified; E11.9 Type 2 diabetes mellitus without complications; D50.9 Iron deficiency anemia, unspecified; L40.50 Arthropathic psoriasis, unspecified

== ENCOUNTER 2023-09-30 21:18 | Emergency (ER) | payer MEDICARE, MEDICAID ==
[~2023-09-30] VITALS: Ht 160 cm; Wt 115.0 kg
[2023-09-30 21:56] LABS: BASO % 0.4 % (0.0-1.0); EOS # 0.2 10^3/uL (0.0-0.5); HEMATOCRIT 38.5 % (36.0-47.0); HEMOGLOBIN 12.6 g/dl (12.0-15.5); LYMPH # 1.6 10^3/uL (1.5-5.0); LYMPH % 14.4 % (24.0-44.0); MEAN CORPUSCULAR HEMOGLOBIN 27.1 pg (27.0-33.0); MEAN CORPUSCULAR HGB CONC 32.7 g/dl (32.0-36.5); MEAN CORPUSCULAR VOLUME 82.8 fl (80.0-96.0); MONO # 0.5 10^3/uL (0.0-0.8); MONO % 4.7 % (2.0-8.0); NEUTROPHILS # 8.7 10^3/uL (1.5-8.5); PLATELET COUNT, AUTOMATED 259 10^3/uL (150-450); RED BLOOD COUNT 4.65 10^6/uL (4.00-5.40); WHITE BLOOD COUNT 11.1 10^3/uL (4.0-10.0)
[2023-09-30 22:09] LABS: CK-MB VALUE MASS < 1.0 NG/ML (<3.6)
[2023-09-30 22:11] LABS: BLOOD UREA NITROGEN 9 MG/DL (9-23); CALCIUM LEVEL 8.9 MG/DL (8.5-10.1); CARBON DIOXIDE LEVEL 26 MMOL/L (20-31); CHLORIDE LEVEL 107 MMOL/L (98-107); CREATININE FOR GFR 0.71 MG/DL (0.55-1.30); GLOMERULAR FILTRATION RATE > 60.0 (>51); GLUCOSE, FASTING 133 MG/DL (60-100); POTASSIUM SERUM 3.8 MMOL/L (3.5-5.1); SODIUM LEVEL 139 MMOL/L (136-145)
[2023-09-30 22:13] LABS: CPK CREATINE PHOSPHOKINASE 75 U/L (34-145); MB/CK RELATIVE INDEX 1.33 (< OR =4)
[2023-09-30 23:22] LABS: CK-MB VALUE MASS < 1.0 NG/ML (<3.6)
[2023-09-30 23:23] LABS: CPK CREATINE PHOSPHOKINASE 73 U/L (34-145); MB/CK RELATIVE INDEX 1.36 (< OR =4)
[2023-10-01] MEDS ORDERED: HOLTER MONITOR XX (00:42)
[2023-10-01 00:55] VITALS: BP 112/57; TEMP 98; O2SAT 98
== END 2023-10-01 01:06 | disposition home or self-care (01) ==
LOC: M ED 21:18
DX: R07.9 Chest pain, unspecified (principal); R00.2 Palpitations; Z79.52 Long term (current) use of systemic steroids; Z79.02 Long term (current) use of antithrombotics/antiplatelets; Z79.82 Long term (current) use of aspirin; Z79.4 Long term (current) use of insulin; Z79.899 Other long term (current) drug therapy

== ENCOUNTER 2023-10-10 09:46 | Inpatient (IN) | payer MEDICARE, MEDICAID ==
[~2023-10-10] VITALS: Ht 160 cm; Wt 107.1 kg
[~2023-10-10 09:46] MED LIST changes: +ARNU1INH INH; +ASPI-615 PO; +CALC-356; +CALC1TAB63 PO; +ELIQ5TAB PO; +FERR1TAB8 PO; -FLUT15.820; +FLUT15.820 NARES; +HOLTER MONITOR XX; +PREG50CA3; +SYNT50TA PO; +TRAM50TA2 PO; +TRUL10IN SC
[2023-10-10] MEDS ORDERED: ISOVUE-370 76% 100ML VIAL As Ordered ONE (10:06)
[2023-10-10 10:20] LABS: BASO % 0.5 % (0.0-1.0); EOS # 0.1 10^3/uL (0.0-0.5); EOS % 1.3 % (0.0-3.0); HEMATOCRIT 42.3 % (36.0-47.0); HEMOGLOBIN 13.7 g/dl (12.0-15.5); LYMPH # 1.7 10^3/uL (1.5-5.0); LYMPH % 21.2 % (24.0-44.0); MEAN CORPUSCULAR HGB CONC 32.4 g/dl (32.0-36.5); MEAN CORPUSCULAR VOLUME 83.4 fl (80.0-96.0); MONO # 0.4 10^3/uL (0.0-0.8); MONO % 4.5 % (2.0-8.0); NEUTROPHILS # 5.9 10^3/uL (1.5-8.5); NEUTROPHILS % 72.3 % (36.0-66.0); PLATELET COUNT, AUTOMATED 249 10^3/uL (150-450); RED BLOOD COUNT 5.07 10^6/uL (4.00-5.40); WHITE BLOOD COUNT 8.2 10^3/uL (4.0-10.0)
[2023-10-10] MEDS: NS 500 ML IV ONE (10:29)
[2023-10-10 10:32] LABS: INR 1.19; PARTIAL THROMBOPLASTIN TIME 27.6 SECONDS (24.8-34.2); PROTHROMBIN TIME 14.7 SECONDS (12.5-14.5)
[2023-10-10 10:44] LABS: CK-MB VALUE MASS < 1.0 NG/ML (<3.6)
[2023-10-10 10:45] LABS: ETHYL ALCOHOL (ETHANOL) < 0.003 % (0.000-0.010); LIPASE 45 U/L (12-53)
[2023-10-10 10:47] LABS: CPK CREATINE PHOSPHOKINASE 47 U/L (34-145); MB/CK RELATIVE INDEX 2.12 (< OR =4)
[2023-10-10 10:48] LABS: ALBUMIN 3.3 G/DL (3.2-5.2); ALKALINE PHOSPHATASE 130 U/L (46-116); ALT/SGPT 43 U/L (7.0-40); AST/SGOT 37 U/L (<34); BILIRUBIN,DIRECT 0.3 MG/DL (<0.4); BILIRUBIN,TOTAL 0.5 MG/DL (0.3-1.2); BLOOD UREA NITROGEN 12 MG/DL (9-23); CALCIUM LEVEL 8.8 MG/DL (8.5-10.1); CARBON DIOXIDE LEVEL 26 MMOL/L (20-31); CHLORIDE LEVEL 107 MMOL/L (98-107); CREATININE FOR GFR 0.71 MG/DL (0.55-1.30); GLOMERULAR FILTRATION RATE > 60.0 (>51); GLUCOSE, FASTING 110 MG/DL (60-100); MAGNESIUM LEVEL 1.8 MG/DL (1.8-2.4); POTASSIUM SERUM 3.8 MMOL/L (3.5-5.1); SODIUM LEVEL 140 MMOL/L (136-145); THYROID STIMULATING HORMONE 1.047 uIU/ML (0.55-4.78); TOTAL PROTEIN 6.5 G/DL (5.7-8.2)
[2023-10-10 11:43] LABS: CK-MB VALUE MASS < 1.0 NG/ML (<3.6)
[2023-10-10 11:45] LABS: CPK CREATINE PHOSPHOKINASE 57 U/L (34-145); MB/CK RELATIVE INDEX 1.75 (< OR =4)
[2023-10-10] MEDS ORDERED: CARV12.5 PO (12:33)
[2023-10-10] MEDS ORDERED: ELIQ5TAB PO (12:33)
[2023-10-10] MEDS ORDERED: HOME MED LIST COMPLETE! XX SCH (12:35)
[2023-10-10] MEDS: METOPROLOL 5 MG/5 ML VIAL IV SCH (12:37)
[2023-10-10] MEDS: dilTIAZem 25MG/5ML VIAL IV STA (12:58)
[2023-10-10] MEDS ORDERED: traMADol 50 MG TAB PO PRN (13:10)
[2023-10-10] MEDS ORDERED: LEVALBUTEROL 1.25MG 0.5ML CONCENTRATE NEB NEB PRN (13:10)
[2023-10-10] MEDS: diltiaZEM 125 MG in NS 100 ML IV SCH ×2 (13:24→16:39)
[2023-10-10 15:29] VITALS: BP 122/72; TEMP 97.8; O2SAT 96
[2023-10-10] MEDS ORDERED: GLUCOSE 4 GM CHEW PO PRN (16:35)
[2023-10-10] MEDS ORDERED: GLUCAGON INJ 1MG VIAL SC PRN (16:35)
[2023-10-10] MEDS ORDERED: DEXTROSE 50% 50ML SYRINGE IV PRN (16:35)
[2023-10-10] MEDS: PREGABALIN 50 MG CAP (LYRICA) PO SCH (16:39)
[2023-10-10] MEDS: ASPIRIN 81MG ENTERIC TABLET PO SCH (16:39)
[2023-10-10] MEDS: INSULIN LISPRO (NovoLOG) PER UNIT SC SCH ×2 (16:46→20:38)
[2023-10-10 17:34] LABS: MAGNESIUM LEVEL 1.7 MG/DL (1.8-2.4)
[2023-10-10 17:46] VITALS: BP 131/62; TEMP 97.1; O2SAT 97
[2023-10-10] MEDS: dilTIAZem 30 MG TAB PO SCH (17:47)
[2023-10-10 19:41] VITALS: BP 122/59; TEMP 97; O2SAT 96
[2023-10-10] MEDS: FERROUS SULFATE 325MG TAB PO SCH (20:37)
[2023-10-10] MEDS: predniSONE 1 MG TAB PO SCH (20:37)
[2023-10-10] MEDS: FLUoxetine 20MG CAP PO SCH (20:37)
[2023-10-10] MEDS: APIXABAN 5 MG TAB (ELIQUIS) PO SCH (20:37)
[2023-10-10] MEDS: EZETIMIBE 10MG TABLET (ZETIA) PO SCH (20:38)
[2023-10-10 23:39] VITALS: BP 128/74; TEMP 97.8; O2SAT 94
[2023-10-11 03:38] VITALS: BP 139/86; TEMP 97.3; O2SAT 97
[2023-10-11] MEDS: LEVOTHYROXINE 50MCG TABLET (0.05MG) PO SCH (05:32)
[2023-10-11 07:06] LABS: HEMATOCRIT 41.3 % (36.0-47.0); HEMOGLOBIN 13.4 g/dl (12.0-15.5); MEAN CORPUSCULAR HEMOGLOBIN 26.6 pg (27.0-33.0); MEAN CORPUSCULAR HGB CONC 32.4 g/dl (32.0-36.5); MEAN CORPUSCULAR VOLUME 82.1 fl (80.0-96.0); PLATELET COUNT, AUTOMATED 218 10^3/uL (150-450); RED BLOOD COUNT 5.03 10^6/uL (4.00-5.40); WHITE BLOOD COUNT 7.3 10^3/uL (4.0-10.0)
[2023-10-11] MEDS: FLUTICASONE HFA 110MCG 12GM INHALER (FLOVENT) INH SCH (07:13)
[2023-10-11 07:40] LABS: ALBUMIN 3.3 G/DL (3.2-5.2); ALKALINE PHOSPHATASE 129 U/L (46-116); ALT/SGPT 36 U/L (7.0-40); AST/SGOT 22 U/L (<34); BILIRUBIN,TOTAL 0.5 MG/DL (0.3-1.2); BLOOD UREA NITROGEN 9 MG/DL (9-23); CARBON DIOXIDE LEVEL 30 MMOL/L (20-31); CHLORIDE LEVEL 104 MMOL/L (98-107); CHOLESTEROL LEVEL 130 MG/DL (<200); CHOLESTEROL RISK RATIO 4.85 (<5); CREATININE FOR GFR 0.71 MG/DL (0.55-1.30); GLOMERULAR FILTRATION RATE > 60.0 (>51); GLUCOSE, FASTING 83 MG/DL (60-100); HDL CHOLESTEROL 26.8 MG/DL (>40); LDL CHOLESTEROL 59.8 MG/DL (<100); NON-HDL-C 103.2 MG/DL; POTASSIUM SERUM 3.7 MMOL/L (3.5-5.1); SODIUM LEVEL 139 MMOL/L (136-145); TOTAL PROTEIN 6.4 G/DL (5.7-8.2); TRIGLYCERIDES LEVEL 217 MG/DL (<150)
[2023-10-11 08:24] VITALS: BP 141/68; TEMP 97; O2SAT 98
[2023-10-11 09:30] VITALS: BP 150/78
[2023-10-11] MEDS: MOM 30ML SUSPENSION UDC PO ONE (09:54)
[2023-10-11] MEDS: MAG SULF 1GM/100ML (MAG RUN) 1 GM in IV 1 EA IV SCH (10:10)
[2023-10-11] MEDS: dilTIAZem 60 MG TAB PO SCH (10:11)
[2023-10-11] MEDS: METOPROLOL TART 25 MG TABLET PO SCH (11:24)
[2023-10-11 11:27] VITALS: BP 137/81; TEMP 97.4; O2SAT 97
[2023-10-11 16:00] VITALS: BP 98/51; TEMP 97.1; O2SAT 97
[2023-10-11] MEDS ORDERED: dilTIAZem **CD** 180MG CAP PO ONE (18:00)
[2023-10-11 18:59] VITALS: BP 107/64; TEMP 98; O2SAT 97
[2023-10-11] MEDS: ATORVASTATIN 20 MG TAB PO SCH (20:17)
[2023-10-11] MEDS ORDERED: ATORVASTATIN 20 MG TAB PO SCH (21:00)
[2023-10-11] MEDS: dilTIAZem **CD** 180MG CAP PO ONE (22:04)
[2023-10-11] MEDS: METOPROLOL TART 12.5 MG PER 1/2 TAB PO SCH (22:05)
[2023-10-12] VITALS (7 sets, daily range): BP systolic 114–138; BP diastolic 63–83; TEMP 96.4–97.4; O2SAT 92–97
[2023-10-12 07:29] LABS: BASO % 0.4 % (0.0-1.0); EOS # 0.1 10^3/uL (0.0-0.5); EOS % 1.5 % (0.0-3.0); HEMATOCRIT 39.3 % (36.0-47.0); HEMOGLOBIN 12.6 g/dl (12.0-15.5); LYMPH # 1.7 10^3/uL (1.5-5.0); LYMPH % 21.5 % (24.0-44.0); MEAN CORPUSCULAR HEMOGLOBIN 26.6 pg (27.0-33.0); MEAN CORPUSCULAR HGB CONC 32.1 g/dl (32.0-36.5); MEAN CORPUSCULAR VOLUME 82.9 fl (80.0-96.0); MONO # 0.5 10^3/uL (0.0-0.8); MONO % 6.7 % (2.0-8.0); NEUTROPHILS # 5.4 10^3/uL (1.5-8.5); NEUTROPHILS % 69.5 % (36.0-66.0); PLATELET COUNT, AUTOMATED 203 10^3/uL (150-450); RED BLOOD COUNT 4.74 10^6/uL (4.00-5.40); WHITE BLOOD COUNT 7.8 10^3/uL (4.0-10.0)
[2023-10-12 07:49] LABS: BLOOD UREA NITROGEN 12 MG/DL (9-23); CALCIUM LEVEL 8.5 MG/DL (8.5-10.1); CARBON DIOXIDE LEVEL 27 MMOL/L (20-31); CHLORIDE LEVEL 107 MMOL/L (98-107); CREATININE FOR GFR 0.68 MG/DL (0.55-1.30); GLOMERULAR FILTRATION RATE > 60.0 (>51); GLUCOSE, FASTING 106 MG/DL (60-100); MAGNESIUM LEVEL 2.1 MG/DL (1.8-2.4); POTASSIUM SERUM 3.9 MMOL/L (3.5-5.1); SODIUM LEVEL 140 MMOL/L (136-145)
[2023-10-12] MEDS: dilTIAZem **CD** 180MG CAP PO SCH (09:07)
[2023-10-12] MEDS: TRULICITY 0.75 MG/0.5 ML SQ ONE (15:33)
[2023-10-13 03:34] VITALS: BP 117/62; TEMP 96.6; O2SAT 95
[2023-10-13 06:18] LABS: BASO % 0.5 % (0.0-1.0); EOS # 0.2 10^3/uL (0.0-0.5); EOS % 2.1 % (0.0-3.0); HEMATOCRIT 41.4 % (36.0-47.0); HEMOGLOBIN 13.4 g/dl (12.0-15.5); LYMPH # 1.4 10^3/uL (1.5-5.0); LYMPH % 18.5 % (24.0-44.0); MEAN CORPUSCULAR HEMOGLOBIN 26.9 pg (27.0-33.0); MEAN CORPUSCULAR HGB CONC 32.4 g/dl (32.0-36.5); MONO # 0.4 10^3/uL (0.0-0.8); NEUTROPHILS # 5.6 10^3/uL (1.5-8.5); NEUTROPHILS % 73.6 % (36.0-66.0); PLATELET COUNT, AUTOMATED 217 10^3/uL (150-450); RED BLOOD COUNT 4.99 10^6/uL (4.00-5.40); WHITE BLOOD COUNT 7.6 10^3/uL (4.0-10.0)
[2023-10-13 06:47] LABS: BLOOD UREA NITROGEN 14 MG/DL (9-23); CARBON DIOXIDE LEVEL 27 MMOL/L (20-31); CHLORIDE LEVEL 107 MMOL/L (98-107); CREATININE FOR GFR 0.67 MG/DL (0.55-1.30); GLOMERULAR FILTRATION RATE > 60.0 (>51); GLUCOSE, FASTING 103 MG/DL (60-100); POTASSIUM SERUM 4.2 MMOL/L (3.5-5.1); SODIUM LEVEL 140 MMOL/L (136-145)
[2023-10-13 07:37] VITALS: BP 132/60; TEMP 97.1
[2023-10-13] MEDS ORDERED: FLUT12AE2 INH (08:13)
[2023-10-13] MEDS ORDERED: CARD180C4 PO (08:13)
[2023-10-13] MEDS ORDERED: ASPI81TAEC PO (08:13)
[2023-10-13] MEDS ORDERED: PRIL20TA2 PO (08:16)
[2023-10-13] MEDS ORDERED: SUCRALFATE 1 GM TAB PO SCH (09:00)
[2023-10-13] MEDS: OMEPRAZOLE 20MG CAP PO SCH (09:53)
[2023-10-13 09:57] VITALS: BP 111/64
[2023-10-13] MEDS ORDERED: SYNT50TA PO (10:57)
[2023-10-13] MEDS ORDERED: PREG50CA PO (10:57)
== END 2023-10-13 11:36 | disposition home or self-care (01) | DRG 309 ==
LOC: M ED 09:46 → EDBD 09:46 → M ED INP 13:10 → M PCU 15:17
PROVIDERS: ADMIT Internal Medicine; ATTEND General Practice
DX: I48.91 Unspecified atrial fibrillation (principal); C34.31 Malignant neoplasm of lower lobe, right bronchus or lung; Z68.41 Body mass index [BMI] 40.0-44.9, adult; I10 Essential (primary) hypertension; E11.42 Type 2 diabetes mellitus with diabetic polyneuropathy; E03.9 Hypothyroidism, unspecified; L40.9 Psoriasis, unspecified; I25.10 Atherosclerotic heart disease of native coronary artery without angina pectoris; R55 Syncope and collapse; F41.9 Anxiety disorder, unspecified; E66.01 Morbid (severe) obesity due to excess calories; J44.9 Chronic obstructive pulmonary disease, unspecified; F17.200 Nicotine dependence, unspecified, uncomplicated; R53.1 Weakness; F32.A Depression, unspecified; G47.33 Obstructive sleep apnea (adult) (pediatric); Z90.49 Acquired absence of other specified parts of digestive tract; Z83.3 Family history of diabetes mellitus; Z80.0 Family history of malignant neoplasm of digestive organs; Z82.49 Family history of ischemic heart disease and other diseases of the circulatory system; Z82.3 Family history of stroke; Z80.49 Family history of malignant neoplasm of other genital organs; Z79.899 Other long term (current) drug therapy; Z79.51 Long term (current) use of inhaled steroids; Z79.52 Long term (current) use of systemic steroids; Z88.2 Allergy status to sulfonamides; Z88.1 Allergy status to other antibiotic agents; Z88.8 Allergy status to other drugs, medicaments and biological substances; Z79.01 Long term (current) use of anticoagulants; Z79.890 Hormone replacement therapy; Z79.84 Long term (current) use of oral hypoglycemic drugs

== ENCOUNTER → 2023-10-13 | Outpatient (CLI) | payer MEDICARE, MEDICAID ==
[~2023-10-13] MED LIST changes: +ASPI81TAEC PO; +CARD180C4 PO; +FLUO-365 PO; -FLUO20CA22 PO; +FLUT12AE2 INH; +PRIL20TA2 PO
== END ==
LOC: M EKG 12:06
PROVIDERS: ATTEND Internal Medicine
DX: I48.91 Unspecified atrial fibrillation (principal)

== ENCOUNTER → 2023-10-27 | Outpatient (REF) | payer MEDICARE, MEDICAID | LOC: M SFHCPLAZ 18:21 | PROVIDERS: ATTEND Family Medicine | DX: E55.9 Vitamin D deficiency, unspecified (principal); E78.5 Hyperlipidemia, unspecified; E11.9 Type 2 diabetes mellitus without complications; D50.9 Iron deficiency anemia, unspecified; L40.50 Arthropathic psoriasis, unspecified; I10 Essential (primary) hypertension ==

== ENCOUNTER → 2023-11-02 | Outpatient (CLI) | payer MEDICARE, MEDICAID | LOC: M PLARAD 07:36 | PROVIDERS: ATTEND Internal Medicine Medical Oncology | DX: C34.31 Malignant neoplasm of lower lobe, right bronchus or lung (principal) | CPT/HCPCS: 78815; A9552 ==

== ENCOUNTER → 2023-11-11 | Outpatient (CLI) | payer MEDICARE, MEDICAID ==
[~2023-11-11] MED LIST changes: -DEXL60CA PO; +DEXL60CA13 PO
== END ==
LOC: M ONCR 10:37
PROVIDERS: ATTEND General Practice
DX: C34.01 Malignant neoplasm of right main bronchus (principal); C34.31 Malignant neoplasm of lower lobe, right bronchus or lung; F17.210 Nicotine dependence, cigarettes, uncomplicated; L40.9 Psoriasis, unspecified; Z79.82 Long term (current) use of aspirin; Z79.899 Other long term (current) drug therapy; Z80.0 Family history of malignant neoplasm of digestive organs; Z80.49 Family history of malignant neoplasm of other genital organs; Z85.828 Personal history of other malignant neoplasm of skin; Z88.2 Allergy status to sulfonamides; Z88.6 Allergy status to analgesic agent; Z88.8 Allergy status to other drugs, medicaments and biological substances

== ENCOUNTER → 2023-11-17 | Outpatient (REF) | payer MEDICARE | LOC: M SFHCPLAZ 17:06 | PROVIDERS: ATTEND Physician Assistant Medical | DX: J02.9 Acute pharyngitis, unspecified (principal); R05.1 Acute cough ==

== ENCOUNTER → 2023-12-29 | Outpatient (REF) | payer MEDICARE, MEDICAID ==
[~2023-12-29] MED LIST changes: +DILT0.05 PO; +LEVO1TAB39 PO; +ONDA-84 PO; +PROC10TA5 PO
== END ==
LOC: M SFHCPLAZ 18:19
PROVIDERS: ATTEND Family Medicine
DX: E55.9 Vitamin D deficiency, unspecified (principal); E78.5 Hyperlipidemia, unspecified; E11.9 Type 2 diabetes mellitus without complications; D50.9 Iron deficiency anemia, unspecified; L40.50 Arthropathic psoriasis, unspecified; I10 Essential (primary) hypertension

== ENCOUNTER 2024-01-14 09:03 | Outpatient (CLI) | payer MEDICARE, MEDICAID ==
[~2024-01-14] VITALS: Ht 160 cm; Wt 103.0 kg
[~2024-01-14 09:03] MED LIST changes: +ALBUTEROL SULFATE 2.5MG/0.5ML INH NEB SOLN INH PRN; +EPINEPHrine INJ 1 MG/ML 1ML AMP IM PRN; +NS 1,000 ML IV SCH; +diphenhydrAMINE 50MG/ML VIAL IV PRN; +methylPREDNISolone 125MG 2ML VIAL IV PRN
[2024-01-14 09:10] VITALS: BP 114/56; O2SAT 99
[2024-01-14] MEDS: IRON SUCROSE 500 MG in NS 250 ML OVER 4 HRS IV ONE (09:24)
[2024-01-14 10:30] VITALS: BP 120/68; O2SAT 100
[2024-01-14 11:30] VITALS: BP 122/70; O2SAT 100
[2024-01-14 12:30] VITALS: BP 132/64; O2SAT 100
[2024-01-14] MEDS ORDERED: PRED50TA PO (14:01)
[2024-01-14] MEDS ORDERED: AZIT-10 PO (14:01)
[2024-01-19] MEDS ORDERED: LIDO100S29 PO (14:37)
[2024-01-27] MEDS ORDERED: LEVO1TAB39 PO (10:51)
[2024-01-29] MEDS ORDERED: NITR-67 PO (08:13)
== END 2024-01-14 13:40 ==
LOC: M INFU 09:03
PROVIDERS: ATTEND Family Medicine
DX: D50.9 Iron deficiency anemia, unspecified (principal); Z88.2 Allergy status to sulfonamides; Z88.1 Allergy status to other antibiotic agents; Z88.8 Allergy status to other drugs, medicaments and biological substances
CPT/HCPCS: 96365; 96366; J1756

== ENCOUNTER 2024-01-15 15:15 | Outpatient (RCR) | payer MEDICARE ==
[~2024-01-15 15:15] MED LIST changes: -ALBUTEROL SULFATE 2.5MG/0.5ML INH NEB SOLN INH PRN; +AZIT-10 PO; -EPINEPHrine INJ 1 MG/ML 1ML AMP IM PRN; -NS 1,000 ML IV SCH; +PRED50TA PO; -diphenhydrAMINE 50MG/ML VIAL IV PRN; -methylPREDNISolone 125MG 2ML VIAL IV PRN
[2024-01-19] MEDS ORDERED: LIDO100S29 PO (14:37)
[2024-01-27] MEDS ORDERED: LEVO1TAB39 PO (10:51)
[2024-01-29] MEDS ORDERED: NITR-67 PO (08:13)
== END 2024-01-16 ==
LOC: M ONCR 15:15
PROVIDERS: ATTEND General Practice
DX: Z51.0 Encounter for antineoplastic radiation therapy (principal); C34.01 Malignant neoplasm of right main bronchus

== ENCOUNTER → 2024-01-19 | Outpatient (CLI) | payer MEDICARE, MEDICAID ==
[~2024-01-19] VITALS: Ht 160 cm; Wt 105.7 kg
[~2024-01-19] MED LIST changes: +LIDO100S29 PO; +LIDOCAINE 1% MDV 20ML VIAL As Ordered ONE; +MIDAZOLAM INJ 2MG/2ML VIAL As Ordered ONE; +NITR-67 PO; +ceFAZolin 2 GM/D5W 50 ML IV BAG As Ordered ONE; +fentaNYL 100 MCG/2 ML INJECTION As Ordered ONE
[2024-01-19 10:30] VITALS: TEMP 97.6
[2024-01-19] MEDS: ceFAZolin SOD 2 GM in IV 1 EA IV ONE (11:39)
[2024-01-19] MEDS: NS 1,000 ML IV SCH (11:40)
[2024-01-19 13:15] VITALS: BP 166/92; O2SAT 98
== END ==
LOC: M IRPRO 10:09
PROVIDERS: ATTEND Internal Medicine Medical Oncology
DX: C34.90 Malignant neoplasm of unspecified part of unspecified bronchus or lung (principal)
CPT/HCPCS: 36561; 99152; 99153; C1769; C1894; J0690; J1642; J2250; J3010

== ENCOUNTER 2024-01-21 07:40 | Outpatient (CLI) | payer MEDICARE, MEDICAID ==
[~2024-01-21] VITALS: Ht 160 cm; Wt 106.0 kg
[~2024-01-21 07:40] MED LIST changes: +ALBUTEROL SULFATE 2.5MG/0.5ML INH NEB SOLN INH PRN; +EPINEPHrine INJ 1 MG/ML 1ML AMP IM PRN; -LIDOCAINE 1% MDV 20ML VIAL As Ordered ONE; -MIDAZOLAM INJ 2MG/2ML VIAL As Ordered ONE; -NITR-67 PO; +NS 1,000 ML IV SCH; -ceFAZolin 2 GM/D5W 50 ML IV BAG As Ordered ONE; +diphenhydrAMINE 50MG/ML VIAL IV PRN; -fentaNYL 100 MCG/2 ML INJECTION As Ordered ONE; +methylPREDNISolone 125MG 2ML VIAL IV PRN
[2024-01-21 07:50] VITALS: BP 124/60; O2SAT 98
[2024-01-21] MEDS: IRON SUCROSE 500 MG in NS 250 ML OVER 4 HRS IV ONE (08:10)
[2024-01-21 09:00] VITALS: BP 120/79; O2SAT 97
[2024-01-21 10:00] VITALS: BP 123/71; O2SAT 99
[2024-01-21 11:00] VITALS: BP 130/70; O2SAT 100
[2024-01-21 12:43] VITALS: BP 140/76; O2SAT 95
[2024-01-27] MEDS ORDERED: LEVO1TAB39 PO (10:51)
[2024-01-29] MEDS ORDERED: NITR-67 PO (08:13)
== END 2024-01-21 12:40 ==
LOC: M INFU 07:40
PROVIDERS: ATTEND Family Medicine
DX: D50.9 Iron deficiency anemia, unspecified (principal); Z88.2 Allergy status to sulfonamides; Z88.8 Allergy status to other drugs, medicaments and biological substances
CPT/HCPCS: 96365; 96366; J1756

== ENCOUNTER → 2024-02-15 | Outpatient (RCR) | payer MEDICARE ==
[~2024-02-15] MED LIST changes: -ALBUTEROL SULFATE 2.5MG/0.5ML INH NEB SOLN INH PRN; -EPINEPHrine INJ 1 MG/ML 1ML AMP IM PRN; +NITR-67 PO; -NS 1,000 ML IV SCH; -diphenhydrAMINE 50MG/ML VIAL IV PRN; -methylPREDNISolone 125MG 2ML VIAL IV PRN
== END ==
LOC: M ONCR 01-20 14:17 → EEVIPCON 01-27 15:15 → M ONCR 02-02 14:15
PROVIDERS: ATTEND General Practice
DX: Z51.0 Encounter for antineoplastic radiation therapy (principal); C34.01 Malignant neoplasm of right main bronchus

== ENCOUNTER 2024-02-16 15:14 | Outpatient (RCR) | payer MEDICARE | END 2024-03-17 | LOC: M ONCR 15:14 | PROVIDERS: ATTEND General Practice | DX: Z51.0 Encounter for antineoplastic radiation therapy (principal); C34.01 Malignant neoplasm of right main bronchus ==

== ENCOUNTER → 2024-02-18 | Outpatient (REF) | payer MEDICARE, MEDICAID | LOC: M SFHCPLAZ 14:27 | DX: D50.9 Iron deficiency anemia, unspecified (principal); J40 Bronchitis, not specified as acute or chronic ==

== ENCOUNTER → 2024-02-19 | Outpatient (CLI) | payer MEDICARE, MEDICAID ==
[2024-02-19 13:26] LABS: HEMOGLOBIN 8.3 g/dl (12.0-15.5); MEAN CORPUSCULAR HEMOGLOBIN 28.6 pg (27.0-33.0); MEAN CORPUSCULAR HGB CONC 31.9 g/dl (32.0-36.5); MEAN CORPUSCULAR VOLUME 89.7 fl (80.0-96.0); PLATELET COUNT, AUTOMATED 220 10^3/uL (150-450)
[2024-02-19 13:58] LABS: ALBUMIN 3.3 G/DL (3.2-5.2); ALKALINE PHOSPHATASE 120 U/L (46-116); ALT/SGPT 21 U/L (7.0-40); AST/SGOT 10 U/L (<34); BILIRUBIN,TOTAL 0.4 MG/DL (0.3-1.2); BLOOD UREA NITROGEN 7 MG/DL (9-23); CALCIUM LEVEL 9.2 MG/DL (8.5-10.1); CARBON DIOXIDE LEVEL 26 MMOL/L (20-31); CHLORIDE LEVEL 107 MMOL/L (98-107); GLOMERULAR FILTRATION RATE > 60.0 (>51); GLUCOSE, FASTING 178 MG/DL (60-100); MAGNESIUM LEVEL 1.4 MG/DL (1.8-2.4); POTASSIUM SERUM 3.7 MMOL/L (3.5-5.1); SODIUM LEVEL 139 MMOL/L (136-145); TOTAL PROTEIN 6.2 G/DL (5.7-8.2)
[2024-02-19 13:59] LABS: FERRITIN 114.6 NG/ML (7.3-270.7); FOLATE 17.1 NG/ML (>5.4)
[2024-02-19 14:00] LABS: VITAMIN B12 LEVEL 710 PG/ML (211-911)
== END ==
LOC: M PLAIMG 10:28
PROVIDERS: ATTEND Family Medicine
DX: J40 Bronchitis, not specified as acute or chronic (principal); D50.9 Iron deficiency anemia, unspecified

== ENCOUNTER → 2024-02-19 | Outpatient (REF) | payer MEDICARE, MEDICAID | LOC: M SFHCPLAZ 12:42 | PROVIDERS: ATTEND Physician Assistant | DX: J40 Bronchitis, not specified as acute or chronic (principal); D50.9 Iron deficiency anemia, unspecified ==

== ENCOUNTER → 2024-02-28 | Outpatient (CLI) | payer MEDICARE, MEDICAID | LOC: M LAB 09:50 | PROVIDERS: ATTEND Family Medicine | DX: D50.9 Iron deficiency anemia, unspecified (principal) ==

== ENCOUNTER 2024-02-29 11:40 | Outpatient (CLI) | payer MEDICARE, MEDICAID ==
[~2024-02-29] VITALS: Ht 160 cm; Wt 104.0 kg
[2024-02-29 12:37] VITALS: BP 136/73; TEMP 97.7
[2024-02-29 13:00] VITALS: BP 133/72; TEMP 97.1
[2024-02-29] MEDS: FUROSEMIDE 40MG/4ML VIAL IV ONE (15:03)
[2024-02-29 15:12] VITALS: BP 142/83; TEMP 97.1; O2SAT 99
[2024-02-29 15:30] VITALS: BP 137/63; TEMP 97.4; O2SAT 97
[2024-02-29 16:30] VITALS: BP 141/82; TEMP 97.4; O2SAT 99
[2024-02-29 17:14] VITALS: BP 131/73; TEMP 97.4; O2SAT 99
== END 2024-02-29 17:15 ==
LOC: M INFU 11:40
PROVIDERS: ATTEND Family Medicine
DX: D50.9 Iron deficiency anemia, unspecified (principal); Z88.2 Allergy status to sulfonamides; Z88.8 Allergy status to other drugs, medicaments and biological substances
CPT/HCPCS: 36430; J1940; P9016

== ENCOUNTER → 2024-04-20 | Outpatient (CLI) | payer MEDICARE, MEDICAID ==
[~2024-04-20] MED LIST changes: +ATOR-398 PO; -LIPI80TA PO
== END ==
LOC: M ONCR 14:27
PROVIDERS: ATTEND General Practice
DX: R10.11 Right upper quadrant pain (principal); R10.13 Epigastric pain; L40.0 Psoriasis vulgaris; C34.01 Malignant neoplasm of right main bronchus; Z88.6 Allergy status to analgesic agent; Z88.8 Allergy status to other drugs, medicaments and biological substances; Z90.49 Acquired absence of other specified parts of digestive tract; Z92.21 Personal history of antineoplastic chemotherapy; Z92.3 Personal history of irradiation

== ENCOUNTER → 2024-04-26 | Outpatient (CLI) | payer MEDICARE, MEDICAID | LOC: M ONCR 09:49 | PROVIDERS: ATTEND General Practice | DX: C34.01 Malignant neoplasm of right main bronchus (principal); R10.11 Right upper quadrant pain; L40.50 Arthropathic psoriasis, unspecified; K76.0 Fatty (change of) liver, not elsewhere classified; F17.210 Nicotine dependence, cigarettes, uncomplicated; Z92.21 Personal history of antineoplastic chemotherapy; Z92.3 Personal history of irradiation; Z92.29 Personal history of other drug therapy; Z88.1 Allergy status to other antibiotic agents; Z88.2 Allergy status to sulfonamides; Z79.51 Long term (current) use of inhaled steroids; Z79.82 Long term (current) use of aspirin; Z79.01 Long term (current) use of anticoagulants; Z79.84 Long term (current) use of oral hypoglycemic drugs; Z79.890 Hormone replacement therapy; Z79.85 Long-term (current) use of injectable non-insulin antidiabetic drugs; Z79.891 Long term (current) use of opiate analgesic ==

== ENCOUNTER → 2024-05-20 | Outpatient (CLI) | payer MEDICARE, MEDICAID ==
[2024-05-20 17:40] LABS: BASO % 0.4 % (0.0-1.0); EOS # 0.1 10^3/uL (0.0-0.5); EOS % 1.4 % (0.0-3.0); HEMATOCRIT 34.5 % (36.0-47.0); HEMOGLOBIN 10.9 g/dl (12.0-15.5); LYMPH % 13.5 % (24.0-44.0); MEAN CORPUSCULAR HEMOGLOBIN 28.4 pg (27.0-33.0); MEAN CORPUSCULAR HGB CONC 31.6 g/dl (32.0-36.5); MEAN CORPUSCULAR VOLUME 89.8 fl (80.0-96.0); MONO # 0.4 10^3/uL (0.0-0.8); MONO % 4.7 % (2.0-8.0); NEUTROPHILS # 6.1 10^3/uL (1.5-8.5); NEUTROPHILS % 79.6 % (36.0-66.0); PLATELET COUNT, AUTOMATED 231 10^3/uL (150-450); RED BLOOD COUNT 3.84 10^6/uL (4.00-5.40); WHITE BLOOD COUNT 7.7 10^3/uL (4.0-10.0)
[2024-05-20 17:45] LABS: ALBUMIN 3.3 G/DL (3.2-5.2); ALKALINE PHOSPHATASE 139 U/L (35-104); ALT/SGPT 10 U/L (7.0-40); AST/SGOT 11 U/L (<34); BILIRUBIN,TOTAL 0.2 MG/DL (0.3-1.2); BLOOD UREA NITROGEN 10 MG/DL (9-23); CALCIUM LEVEL 9.3 MG/DL (8.5-10.1); CARBON DIOXIDE LEVEL 29 MMOL/L (20-31); CHLORIDE LEVEL 105 MMOL/L (98-107); CHOLESTEROL LEVEL 140 MG/DL (<200); CHOLESTEROL RISK RATIO 3.88 (<5); CREATININE FOR GFR 0.66 MG/DL (0.55-1.30); GLOMERULAR FILTRATION RATE > 60.0 (>51); GLUCOSE, FASTING 141 MG/DL (60-100); LDL CHOLESTEROL 52.2 MG/DL (<100); POTASSIUM SERUM 3.4 MMOL/L (3.5-5.1); PTH INTACT 50.1 PG/ML (18.5-88.0); SODIUM LEVEL 142 MMOL/L (136-145); TOTAL PROTEIN 6.6 G/DL (5.7-8.2); TRIGLYCERIDES LEVEL 259 MG/DL (<150)
[2024-05-20 17:46] LABS: FERRITIN 27.4 NG/ML (7.3-270.7)
[2024-05-20 17:47] LABS: TOTAL 25(OH) VITAMIN D 98.3 NG/ML (20.0-100.0)
[2024-05-20 17:57] LABS: HEMOGLOBIN A1c 5.1 % (4.0-6.0)
[2024-05-23 17:57] LABS: TISSUE TRANSGLUTAMINASE IgA < 1.0 U/mL (<15.0)
== END ==
LOC: M LAB 16:48
PROVIDERS: ATTEND Family Medicine
DX: D50.9 Iron deficiency anemia, unspecified (principal); E11.9 Type 2 diabetes mellitus without complications; E78.5 Hyperlipidemia, unspecified; L40.50 Arthropathic psoriasis, unspecified; I10 Essential (primary) hypertension; K76.0 Fatty (change of) liver, not elsewhere classified

== ENCOUNTER → 2024-05-24 | Outpatient (CLI) | payer MEDICARE, MEDICAID ==
[~2024-05-24] MED LIST changes: +ISOVUE-370 76% 100ML VIAL ONE
== END ==
LOC: M PLAIMG 11:00
PROVIDERS: ATTEND Family Medicine
DX: C34.91 Malignant neoplasm of unspecified part of right bronchus or lung (principal)
CPT/HCPCS: 74178; Q9967

== ENCOUNTER → 2024-06-28 | Outpatient (CLI) | payer MEDICARE, MEDICAID ==
[~2024-06-28] MED LIST changes: -ISOVUE-370 76% 100ML VIAL ONE
== END ==
LOC: M ONCR 12:52
PROVIDERS: ATTEND General Practice
DX: C34.01 Malignant neoplasm of right main bronchus (principal); R10.11 Right upper quadrant pain; F17.218 Nicotine dependence, cigarettes, with other nicotine-induced disorders; Z92.21 Personal history of antineoplastic chemotherapy; Z92.23 Personal history of estrogen therapy; Z88.1 Allergy status to other antibiotic agents; Z88.2 Allergy status to sulfonamides; Z88.6 Allergy status to analgesic agent; Z88.8 Allergy status to other drugs, medicaments and biological substances; Z79.51 Long term (current) use of inhaled steroids; Z79.899 Other long term (current) drug therapy; Z79.82 Long term (current) use of aspirin; Z79.01 Long term (current) use of anticoagulants; Z79.84 Long term (current) use of oral hypoglycemic drugs; Z79.890 Hormone replacement therapy; Z79.85 Long-term (current) use of injectable non-insulin antidiabetic drugs; Z79.52 Long term (current) use of systemic steroids

== ENCOUNTER → 2024-08-10 | Outpatient (CLI) | payer MEDICARE, MEDICAID | LOC: M RAD 10:29 | PROVIDERS: ATTEND General Practice | DX: C34.01 Malignant neoplasm of right main bronchus (principal) ==

== ENCOUNTER → 2024-08-10 | Outpatient (CLI) | payer MEDICARE, MEDICAID ==
[2024-08-10 12:29] LABS: BASO % 0.4 % (0.0-1.0); EOS # 0.1 10^3/uL (0.0-0.5); LYMPH % 14.9 % (24.0-44.0); MEAN CORPUSCULAR HEMOGLOBIN 26.1 pg (27.0-33.0); MEAN CORPUSCULAR HGB CONC 31.6 g/dl (32.0-36.5); MEAN CORPUSCULAR VOLUME 82.8 fl (80.0-96.0); MONO # 0.4 10^3/uL (0.0-0.8); MONO % 5.4 % (2.0-8.0); NEUTROPHILS # 5.4 10^3/uL (1.5-8.5); NEUTROPHILS % 76.9 % (36.0-66.0); PLATELET COUNT, AUTOMATED 239 10^3/uL (150-450); RED BLOOD COUNT 4.59 10^6/uL (4.00-5.40)
[2024-08-10 12:41] LABS: ERYTHROCYTE SEDIMENTATION RATE 61 mm/hr (0-30)
[2024-08-10 12:43] LABS: INR 0.95; PARTIAL THROMBOPLASTIN TIME 28.1 SECONDS (24.8-34.2)
[2024-08-10 12:50] LABS: HEMOGLOBIN A1c 5.2 % (4.0-6.0)
[2024-08-10 13:02] LABS: ALBUMIN 3.4 G/DL (3.2-5.2); ALKALINE PHOSPHATASE 156 U/L (35-104); ALT/SGPT 19 U/L (7.0-40); AST/SGOT 15 U/L (<34); BILIRUBIN,TOTAL 0.3 MG/DL (0.3-1.2); BLOOD UREA NITROGEN 10 MG/DL (9-23); CALCIUM LEVEL 9.3 MG/DL (8.5-10.1); CARBON DIOXIDE LEVEL 29 MMOL/L (20-31); CHLORIDE LEVEL 102 MMOL/L (98-107); CHOLESTEROL LEVEL 143 MG/DL (<200); CHOLESTEROL RISK RATIO 3.52 (<5); CREATININE FOR GFR 0.69 MG/DL (0.55-1.30); GLOMERULAR FILTRATION RATE > 60.0 (>51); GLUCOSE, FASTING 63 MG/DL (60-100); HDL CHOLESTEROL 40.6 MG/DL (>40); LDL CHOLESTEROL 67.2 MG/DL (<100); NON-HDL-C 102.4 MG/DL; POTASSIUM SERUM 4.3 MMOL/L (3.5-5.1); SODIUM LEVEL 140 MMOL/L (136-145); TOTAL PROTEIN 7.1 G/DL (5.7-8.2); TRIGLYCERIDES LEVEL 176 MG/DL (<150)
[2024-08-10 13:03] LABS: TOTAL 25(OH) VITAMIN D 78.7 NG/ML (20.0-100.0)
[2024-08-10 13:04] LABS: FERRITIN 23.9 NG/ML (7.3-270.7); FREE T4 1.21 NG/DL (0.89-1.76)
== END ==
LOC: M RAD 11:02 → M LAB 11:02
PROVIDERS: ATTEND Family Medicine
DX: L40.50 Arthropathic psoriasis, unspecified (principal); E03.9 Hypothyroidism, unspecified; D50.9 Iron deficiency anemia, unspecified; E11.9 Type 2 diabetes mellitus without complications; I10 Essential (primary) hypertension; K76.0 Fatty (change of) liver, not elsewhere classified; E55.9 Vitamin D deficiency, unspecified; E78.5 Hyperlipidemia, unspecified

== ENCOUNTER → 2024-08-10 | Outpatient (CLI) | payer MEDICARE, MEDICAID | LOC: M LAB 11:00 | PROVIDERS: ATTEND Nurse Practitioner Family | DX: K76.0 Fatty (change of) liver, not elsewhere classified (principal); R10.11 Right upper quadrant pain; Z80.0 Family history of malignant neoplasm of digestive organs; K21.9 Gastro-esophageal reflux disease without esophagitis ==

== ENCOUNTER 2024-09-03 23:00 | Emergency (ER) | payer MEDICARE, MEDICAID ==
[~2024-09-03] VITALS: Ht 160 cm; Wt 104.5 kg
[~2024-09-03 23:00] MED LIST changes: +PRED-1142 PO; -PRED1TABL PO; -PRED50TA PO; +PRED50TA57 PO; -PREG50CA PO; +PREG50CA87 PO
[2024-09-04 00:02] LABS: INR 0.93; PROTHROMBIN TIME 12.8 SECONDS (12.5-14.5)
[2024-09-04 00:08] LABS: BASO % 0.3 % (0.0-1.0); EOS # 0.1 10^3/uL (0.0-0.5); EOS % 1.3 % (0.0-3.0); HEMATOCRIT 35.9 % (36.0-47.0); HEMOGLOBIN 11.6 g/dl (12.0-15.5); LYMPH # 0.7 10^3/uL (1.5-5.0); LYMPH % 9.8 % (24.0-44.0); MEAN CORPUSCULAR HEMOGLOBIN 27.2 pg (27.0-33.0); MEAN CORPUSCULAR HGB CONC 32.3 g/dl (32.0-36.5); MEAN CORPUSCULAR VOLUME 84.3 fl (80.0-96.0); MONO # 0.4 10^3/uL (0.0-0.8); MONO % 5.3 % (2.0-8.0); NEUTROPHILS # 5.9 10^3/uL (1.5-8.5); NEUTROPHILS % 82.7 % (36.0-66.0); PLATELET COUNT, AUTOMATED 181 10^3/uL (150-450); RED BLOOD COUNT 4.26 10^6/uL (4.00-5.40); WHITE BLOOD COUNT 7.1 10^3/uL (4.0-10.0)
[2024-09-04 01:13] LABS: ALKALINE PHOSPHATASE 146 U/L (35-104); ALT/SGPT 20 U/L (7.0-40); AST/SGOT 19 U/L (<34); BILIRUBIN,DIRECT < 0.1 MG/DL (<0.4); BILIRUBIN,TOTAL 0.2 MG/DL (0.3-1.2); BLOOD UREA NITROGEN 10 MG/DL (9-23); CARBON DIOXIDE LEVEL 26 MMOL/L (20-31); CHLORIDE LEVEL 103 MMOL/L (98-107); CPK CREATINE PHOSPHOKINASE 89 U/L (34-145); CREATININE FOR GFR 0.79 MG/DL (0.55-1.30); GLOMERULAR FILTRATION RATE 88.3 (>51); GLUCOSE, FASTING 213 MG/DL (60-100); MB/CK RELATIVE INDEX 1.12 (< OR =4); POTASSIUM SERUM 3.8 MMOL/L (3.5-5.1); SODIUM LEVEL 138 MMOL/L (136-145); TOTAL PROTEIN 6.3 G/DL (5.7-8.2)
[2024-09-04] MEDS ORDERED: PRED10TA2 PO (01:33)
[2024-09-04] MEDS ORDERED: NEBU1EAC78 MC (01:33)
[2024-09-04] MEDS ORDERED: ALBU2.5V10 NEB (01:33)
[2024-09-04 02:00] VITALS: BP 128/60; TEMP 97.6; O2SAT 96
[2024-09-04] MEDS: predniSONE 20 MG TAB PO ONE (02:06)
== END 2024-09-04 02:20 | disposition home or self-care (01) ==
LOC: M ED 23:00 → EDBD 23:00 → M ED 09-04 02:20
DX: J18.9 Pneumonia, unspecified organism (principal); R00.0 Tachycardia, unspecified; I45.81 Long QT syndrome; I48.91 Unspecified atrial fibrillation; E11.9 Type 2 diabetes mellitus without complications; I10 Essential (primary) hypertension; J44.9 Chronic obstructive pulmonary disease, unspecified; F17.210 Nicotine dependence, cigarettes, uncomplicated; Z88.2 Allergy status to sulfonamides; Z88.8 Allergy status to other drugs, medicaments and biological substances; Z79.01 Long term (current) use of anticoagulants; Z79.51 Long term (current) use of inhaled steroids; Z79.84 Long term (current) use of oral hypoglycemic drugs; Z79.899 Other long term (current) drug therapy
CPT/HCPCS: 36415; 71045; 80048; 80076; 82550; 82553; 83880; 84484; 85025; 85610; 87486; 87581; 87633; 87798; 93005; 93041; 94760; 99285; J7512

== ENCOUNTER → 2024-09-14 | Outpatient (REF) | payer MEDICARE, MEDICAID ==
[~2024-09-14] MED LIST changes: +ALBU2.5V10 NEB; +NEBU1EAC78 MC; +PRED10TA2 PO
== END ==
LOC: M SFHCPLAZ 11:57
PROVIDERS: ATTEND Family Medicine
DX: J44.9 Chronic obstructive pulmonary disease, unspecified (principal)

== ENCOUNTER → 2024-11-15 | Outpatient (CLI) | payer MEDICARE, MEDICAID | LOC: M WHC 10:28 | PROVIDERS: ATTEND Family Medicine | DX: Z12.31 Encounter for screening mammogram for malignant neoplasm of breast (principal); R92.313 Mammographic fatty tissue density, bilateral breasts ==

== ENCOUNTER → 2024-11-22 | Outpatient (CLI) | payer MEDICARE, MEDICAID | LOC: M PLARAD 08:34 | PROVIDERS: ATTEND General Practice | DX: C34.01 Malignant neoplasm of right main bronchus (principal) | CPT/HCPCS: 78815; A9552 ==

== ENCOUNTER → 2024-11-23 | Outpatient (CLI) | payer MEDICARE, MEDICAID | LOC: M ONCR 15:45 | PROVIDERS: ATTEND General Practice | DX: C34.01 Malignant neoplasm of right main bronchus (principal); F17.210 Nicotine dependence, cigarettes, uncomplicated; R10.11 Right upper quadrant pain; G89.29 Other chronic pain; L40.8 Other psoriasis; Z79.82 Long term (current) use of aspirin; Z79.899 Other long term (current) drug therapy; Z92.21 Personal history of antineoplastic chemotherapy; Z92.3 Personal history of irradiation ==

== ENCOUNTER 2024-11-30 06:57 | Day surgery (SDC) | payer MEDICARE, MEDICAID ==
[~2024-11-30] VITALS: Ht 160 cm; Wt 106.1 kg
[2024-11-30] MEDS ORDERED: ROCURONIUM BROMIDE 50MG/5ML VIAL As Ordered ONE (06:59)
[2024-11-30] MEDS ORDERED: dexAMETHasone 4 MG/ML 1 ML VIAL As Ordered ONE (06:59)
[2024-11-30] MEDS ORDERED: LIDOCAINE 2% 100 MG/5 ML SDV (FOR ANES.) As Ordered ONE (06:59)
[2024-11-30] MEDS ORDERED: SUGAMMADEX SODIUM 500 MG/5 ML VIAL As Ordered ONE (06:59)
[2024-11-30] MEDS ORDERED: ONDANSETRON 4MG 2ML VIAL As Ordered ONE (06:59)
[2024-11-30] MEDS ORDERED: MIDAZOLAM INJ 2 MG/2 ML VIAL As Ordered ONE (07:00)
[2024-11-30] MEDS: LR 1,000 ML IV SCH (07:39)
[2024-11-30] MEDS: LIDOCAINE PRES-FREE 2% 10 ML AMP INH ONE (07:40)
[2024-11-30] MEDS: ALBUTEROL SULFATE 2.5 MG/0.5 ML INH CONCENTRATE NEB SOLN INH ONE (07:40)
[2024-11-30] MEDS: CETACAINE SPRAY 5 GM As Ordered ONE (08:51)
[2024-11-30] MEDS: EPINEPHrine 1 MG/10 ML SYRINGE 1.5IN As Ordered ONE (09:47)
[2024-11-30] MEDS: THROMBIN 5,000 UNITS VIAL As Ordered ONE (09:48)
[2024-11-30] MEDS ORDERED: LR 1,000 ML IV SCH (09:55)
[2024-11-30] MEDS ORDERED: HYDROMORPHONE HCL 0.5 MG/0.5 ML SYRINGE IV PRN (09:55)
[2024-11-30] MEDS ORDERED: ONDANSETRON 4MG 2ML VIAL IV PRN (09:55)
[2024-11-30 11:39] VITALS: BP 128/63; TEMP 97.1; O2SAT 94
== END 2024-11-30 11:41 | disposition home or self-care (01) ==
LOC: M SDC 06:57
PROVIDERS: ATTEND Internal Medicine Critical Care Medicine
DX: C77.1 Secondary and unspecified malignant neoplasm of intrathoracic lymph nodes (principal); Z85.118 Personal history of other malignant neoplasm of bronchus and lung; J44.9 Chronic obstructive pulmonary disease, unspecified; F17.218 Nicotine dependence, cigarettes, with other nicotine-induced disorders; I10 Essential (primary) hypertension; Z79.899 Other long term (current) drug therapy; Z92.21 Personal history of antineoplastic chemotherapy; Z92.3 Personal history of irradiation
CPT/HCPCS: 31624; 31628; 31652; 71045; 76000; 87070; 87102; 87116; 87205; 87206; 88173; 88305; J1100; J2250; J2405; J3010

== ENCOUNTER 2024-12-07 09:34 | Day surgery (SDC) | payer MEDICARE, MEDICAID ==
[~2024-12-07] VITALS: Ht 160 cm; Wt 104.3 kg
[2024-12-07] MEDS ORDERED: GLYCOPYRROLATE INJ 0.2 MG/ML 2 ML VIAL As Ordered ONE (10:41)
[2024-12-07] MEDS ORDERED: LIDOCAINE 2% 100 MG/5 ML SDV (FOR ANES.) As Ordered ONE (10:41)
[2024-12-07 11:33] VITALS: TEMP 98.1
[2024-12-07 11:53] VITALS: BP 120/56; O2SAT 95
== END 2024-12-07 12:04 | disposition home or self-care (01) ==
LOC: M OPP 09:34
PROVIDERS: ATTEND Internal Medicine Gastroenterology
DX: Z12.11 Encounter for screening for malignant neoplasm of colon (principal); D12.6 Benign neoplasm of colon, unspecified; K64.0 First degree hemorrhoids; K57.30 Diverticulosis of large intestine without perforation or abscess without bleeding; Z80.0 Family history of malignant neoplasm of digestive organs; Z86.0100 Personal history of colon polyps, unspecified; K22.70 Barrett's esophagus without dysplasia; R12 Heartburn; I48.91 Unspecified atrial fibrillation; G47.30 Sleep apnea, unspecified; Z88.2 Allergy status to sulfonamides; Z88.8 Allergy status to other drugs, medicaments and biological substances; Z79.82 Long term (current) use of aspirin; Z79.01 Long term (current) use of anticoagulants; Z79.51 Long term (current) use of inhaled steroids; Z79.84 Long term (current) use of oral hypoglycemic drugs; Z79.85 Long-term (current) use of injectable non-insulin antidiabetic drugs; Z79.891 Long term (current) use of opiate analgesic; Z79.899 Other long term (current) drug therapy; J44.9 Chronic obstructive pulmonary disease, unspecified; Z86.718 Personal history of other venous thrombosis and embolism; F17.210 Nicotine dependence, cigarettes, uncomplicated
CPT/HCPCS: 43239; 45385; 88305; J1596

== ENCOUNTER 2025-01-13 11:54 | Outpatient (RCR) | payer MEDICARE, MEDICAID ==
[~2025-01-13 11:54] MED LIST changes: -PROZ20CA11 PO; +PROZ20CA12 PO
== END 2025-01-15 ==
LOC: M ONCR 11:54
PROVIDERS: ATTEND General Practice
DX: Z51.0 Encounter for antineoplastic radiation therapy (principal); C34.01 Malignant neoplasm of right main bronchus

== ENCOUNTER 2025-01-18 11:54 | Outpatient (RCR) | payer MEDICARE, MEDICAID ==
[~2025-01-18 11:54] MED LIST changes: -EZET10TA21 PO; +EZET10TA57 PO
[2025-01-20] MEDS ORDERED: PRED20TA PO (09:07)
[2025-02-09] MEDS ORDERED: LEVO1TAB40 PO (13:36)
== END 2025-02-14 ==
LOC: M ONCR 11:54
PROVIDERS: ATTEND General Practice
DX: Z51.0 Encounter for antineoplastic radiation therapy (principal); C34.01 Malignant neoplasm of right main bronchus

== ENCOUNTER → 2025-01-26 | Outpatient (CLI) | payer MEDICARE, MEDICAID ==
[~2025-01-26] MED LIST changes: +PRED20TA PO
== END ==
LOC: M PLARAD 14:10
PROVIDERS: ATTEND Student in an Organized Health Care Education/Training Program
DX: C34.90 Malignant neoplasm of unspecified part of unspecified bronchus or lung (principal)

== ENCOUNTER → 2025-02-27 | Outpatient (REF) | payer MEDICARE, MEDICAID | LOC: M LAB REF 15:30 | PROVIDERS: ATTEND Internal Medicine Critical Care Medicine | DX: A31.8 Other mycobacterial infections (principal) ==

== ENCOUNTER 2025-03-14 12:32 | Outpatient (CLI) | payer MEDICARE, MEDICAID ==
[~2025-03-14] VITALS: Ht 160 cm; Wt 103.2 kg
[2025-03-14 12:15] VITALS: BP 130/78; O2SAT 98
[~2025-03-14 12:32] MED LIST changes: +ALBUTEROL SULFATE 2.5 MG/0.5 ML INH CONCENTRATE NEB SOLN INH PRN; +EPINEPHrine INJ 1 MG/ML 1ML AMP IM PRN; +diphenhydrAMINE 50 MG/ML VIAL IV PRN
[2025-03-14] MEDS: IRON SUCROSE 500 MG in NS 250 ML IV ONE (13:11)
[2025-03-14 14:15] VITALS: BP 136/78; O2SAT 97
[2025-03-14 15:15] VITALS: BP 131/80; O2SAT 97
[2025-03-14 17:14] VITALS: BP 115/58; O2SAT 96
== END 2025-03-14 17:15 ==
LOC: M INFU 12:32
PROVIDERS: ATTEND Family Medicine
DX: D50.9 Iron deficiency anemia, unspecified (principal); Z88.1 Allergy status to other antibiotic agents; Z88.2 Allergy status to sulfonamides
CPT/HCPCS: 96365; 96366; J1756

== ENCOUNTER 2025-03-29 12:00 | Outpatient (CLI) | payer MEDICARE, MEDICAID ==
[~2025-03-29] VITALS: Ht 160 cm; Wt 103.0 kg
[2025-03-29 10:55] VITALS: BP 123/63; O2SAT 97
[2025-03-29] MEDS: IRON SUCROSE 500 MG in NS 250 ML IV ONE (11:05)
[2025-03-29 12:00] VITALS: BP 120/74; O2SAT 97
[~2025-03-29 12:00] MED LIST changes: +IRON SUCROSE 500 MG in NS 250 ML IV ONE
[2025-03-29 13:00] VITALS: BP 114/66; O2SAT 96
[2025-03-29 15:10] VITALS: BP 108/69; O2SAT 97
== END 2025-03-29 15:10 | disposition home or self-care (01) ==
LOC: M INFU 12:00
PROVIDERS: ATTEND Family Medicine
DX: D50.9 Iron deficiency anemia, unspecified (principal); Z88.2 Allergy status to sulfonamides; Z88.8 Allergy status to other drugs, medicaments and biological substances
CPT/HCPCS: 96365; 96366; J1756

== ENCOUNTER → 2025-03-30 | Outpatient (CLI) | payer MEDICARE, MEDICAID ==
[~2025-03-30] MED LIST changes: -ALBUTEROL SULFATE 2.5 MG/0.5 ML INH CONCENTRATE NEB SOLN INH PRN; -EPINEPHrine INJ 1 MG/ML 1ML AMP IM PRN; -IRON SUCROSE 500 MG in NS 250 ML IV ONE; -diphenhydrAMINE 50 MG/ML VIAL IV PRN
== END ==
LOC: M WHC 10:37
PROVIDERS: ATTEND Family Medicine
DX: M85.852 Other specified disorders of bone density and structure, left thigh (principal)

== ENCOUNTER → 2025-04-17 | Outpatient (CLI) | payer MEDICARE, MEDICAID ==
[~2025-04-17] MED LIST changes: +ISOVUE-370 76% 100 ML VIAL As Ordered ONE; -PROZ20CA12 PO; +PROZ20CA25 PO
== END ==
LOC: M RAD 15:12
PROVIDERS: ATTEND General Practice
DX: C34.90 Malignant neoplasm of unspecified part of unspecified bronchus or lung (principal)
CPT/HCPCS: 71260; 74177; 82565; Q9967

== ENCOUNTER → 2025-04-26 | Outpatient (CLI) | payer MEDICARE, MEDICAID ==
[~2025-04-26] MED LIST changes: +AMIT50TA PO; -ISOVUE-370 76% 100 ML VIAL As Ordered ONE
== END ==
LOC: M ONCR 13:13
PROVIDERS: ATTEND General Practice
DX: C34.01 Malignant neoplasm of right main bronchus (principal); R10.11 Right upper quadrant pain; J84.10 Pulmonary fibrosis, unspecified; F17.218 Nicotine dependence, cigarettes, with other nicotine-induced disorders; Z92.21 Personal history of antineoplastic chemotherapy; Z92.3 Personal history of irradiation; Z88.1 Allergy status to other antibiotic agents; Z88.2 Allergy status to sulfonamides; Z88.8 Allergy status to other drugs, medicaments and biological substances; Z79.82 Long term (current) use of aspirin; Z79.01 Long term (current) use of anticoagulants; Z79.51 Long term (current) use of inhaled steroids; Z79.84 Long term (current) use of oral hypoglycemic drugs; Z79.85 Long-term (current) use of injectable non-insulin antidiabetic drugs; Z79.899 Other long term (current) drug therapy